=== PATIENT | female | born 1955 | race Caucasian/White ===

== ENCOUNTER 2016-06-22 12:50 | Inpatient (IN) | payer MEDICARE ==
[2016-06-22] VITALS (17 sets, daily range): BP systolic 77–151; BP diastolic 44–101; PULSE 77–96; RESP 12–20; TEMP 98–98.4; O2SAT 84–100
[~2016-06-22 12:50] MED LIST: ATEN-102 PO; ATOR40TA49 PO; BACT800T5 PO; CEPH500C3 PO; CYCL-36 PO; DEXA1TAB2 PO; DULO20 PO; FENO145T2 PO; FENT50DI T-DERMAL; FURO1TAB93 PO; GLUCTAB PO; HYDR-3129 PO; LISI-360 PO; NICO14DI TD; OMEGCAP21 PO; OMEP20TA PO; OS-CTAB3 PO; REST30CA PO; ROPI2TAB23 PO
[2016-06-22] MEDS ORDERED: SODIUM CHLORIDE 0.9% FLUSH 5 ML FLUSH IVF PRN (13:00)
[2016-06-22] MEDS ORDERED: NALOXONE HCL 2 MG/2 ML VIAL IV ONE (13:00)
[2016-06-22 13:07] LABS: BLOOD GAS BASE EXCESS -1.7 mmol/L (-2-2); BLOOD GAS CARBOXYHEMOGLOBIN 3.8 % (0-4); BLOOD GAS HCO3 23 mmol/L (22-26); BLOOD GAS METHEMOGLOBIN 1.1 % (0-2); BLOOD GAS O2 HGB SATURATION 86 % (90-100); BLOOD GAS OXYGEN CONTENT 17.1 Vol % (12.0-20.0); BLOOD GAS PCO2 42 mmHG (38-42); BLOOD GAS PO2 60 mmHG (61-120); BLOOD GAS TOTAL HGB 14.2 G/DL (12.0-16.0); TEMP CORR TO 98.6
[2016-06-22 13:08] LABS: CRITICAL VALUE YES; DRAW SITE LT RADIAL; FIO2 100 %; NUMBER OF ARTERIAL PUNCTURES 1; OXYGEN DEVICE NRB; STAT YES; ULNAR PULSE PRESENT
[2016-06-22 13:27] LABS: AUTOMATED NEUTROPHIL # 6.8 TH/MM3 (1.8-7.7); BASOPHIL # 0.5 TH/MM3 (0-0.2); BASOPHIL % 4.9 % (0.0-2.0); EOSINOPHIL % 0.1 % (0.0-4.0); LYMPH % 22.2 % (9.0-44.0); LYMPHOCYTE # 2.2 TH/MM3 (1.0-4.8); MEAN CELL VOLUME 87.8 FL (80.0-100.0); MEAN CORPUSCULAR HEMOGLOBIN 28.1 PG (27.0-34.0); MEAN CORPUSCULAR HGB CONC 32.1 % (32.0-36.0); MONO % 5.4 % (0.0-8.0); NEUT % 67.4 % (16.0-70.0); PLATELET COUNT 169 TH/MM3 (150-450); RED BLOOD COUNT 5.47 MIL/MM3 (4.00-5.30); RED CELL DISTRIBUTION WIDTH 14.3 % (11.6-17.2)
--- NOTE | 2016-06-22 13:32 | PD ---
HPI . Altered mental status Chief Complaint: Altered Mental Status Time Seen by Provider: 12:57 Travel History International Travel<30 days: No Contact w/Intl Traveler<30days: No History of Present Illness HPI Patient presents via [facility] with altered mental status. EMS reported that her gave her an extra dose of triazolam and Percocet in the middle the night because she was not sleeping well. This morning, she did not wake up. EMS gave 2 doses of Narcan 0.4 mg IV and will little if any response. They reported some mild hypotension but good oxygen saturation on oxygen by nasal cannula. They treated her in route with a fluid bolus. Patient's medical history is significant for breast CA with bone metastases hypertension, diabetes, cervical spine stenosis and polypharmacy. Her manages her medications. PFSH Past Medical History Hx Anticoagulant Therapy: Yes Arthritis: Yes Asthma: No Autoimmune Disease: No Depression: Yes Heart Rhythm Problems: No Cancer: Yes (RIGHT BREAST WITH METS TO BONE) Cardiac Catheterization: No Cardiovascular Problems: Yes High Cholesterol: Yes Chemotherapy: Yes (2 YRS AGO) Chest Pain: No Congestive Heart Failure: No COPD: No Cerebrovascular Accident: No Diabetes: Yes Diminished Hearing: No Endocrine: Yes Gastrointestinal Disorders: Yes (GERD, ESOPAGEAL STRICTURE WITH MULTIPLE DILITATIONS, ULCER) GERD: Yes Glaucoma: No Genitourinary: No Headaches: Yes (MIGRAINE HX SINCE AGE 12) Hepatitis: No Hiatal Hernia: Yes Hypertension: Yes Immune Disorder: No Kidney Stones: No 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) Neurologic: Yes (MIGRAINES) Psychiatric: Yes Reproductive: No Respiratory: Yes (BRONCHITIS 1-2 TIMES/YEAR) Myocardial Infarction: No Renal Failure: No Seizures: No Sleep Apnea: No Thyroid Disease: No Ulcer: Yes Menopausal: Yes Tubal Ligation: Yes Past Surgical History Abdominal Surgery: No AICD: No Body Medical Devices: IMPLANTED PORT LEFT CHEST Cardiac Surgery: No Coronary Artery Bypass Graft: No Ear Surgery: No Endocrine Surgery: No Eye Surgery: Yes (LASIK) Genitourinary Surgery: No Gynecologic Surgery: No Joint Replacement: No Mastectomy: Yes (right) Neurologic Surgery: No Oral Surgery: No Pacemaker: No Thoracic Surgery: Yes (RIGHT MASTECTOMY WITH RECONSTRUCTION) Other Surgery: Yes ( R port placement) Social History Alcohol Use: Yes (VERY RARELY) Tobacco Use: Yes (1 PPD) Substance Use: No Allergies-Medications (Allergen,Severity, Reaction): Coded Allergies: Adhesives (Verified Allergy, Severe, Rash, 02/03/16) Bacitracin (Verified Allergy, Severe, ITCHING, 02/03/16) *MDRO Multi-Drug Resistant Organism (Verified Adverse Reaction, Unknown, 02/03/16) 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 - 12/29/15 Reported Meds & Prescriptions Reported Meds & Active Scripts Active Reported Ranitidine (Ranitidine HCl) 300 Mg Tab 300 Mg PO DAILY Cymbalta DR (Duloxetine HCl) 60 Mg Capdr 60 Mg PO DAILY Fenofibrate 145 Mg Tab 145 Mg PO DAILY Atenolol 50 Mg Tab 50 Mg PO DAILY Omeprazole 20 Mg Tab 20 Mg PO DAILY Oxycodone (Oxycodone HCl) 30 Mg Tab 30 Mg PO Q6H PRN Review of Systems ROS Limitations: Altered Mental Status Physical Exam Narrative GENERAL: Obtunded. Feet and hands are pj and cold to the touch. SKIN: Sacral decubitus. It is about a centimeter in diameter. It is not draining purulent fluid. HEAD: Atraumatic. Normocephalic. EYES: Pupils equal and round. ENT: No nasal bleeding or discharge. Mucous membranes pink and moist. NECK: Trachea midline. CARDIOVASCULAR: Regular rate and rhythm. Heart sounds are normal. RESPIRATORY: No accessory muscle use. Lungs are clear. She is breathing spontaneously. GASTROINTESTINAL: Abdomen soft, non-tender, nondistended. MUSCULOSKELETAL: No obvious deformities. No edema. NEUROLOGICAL: Obtunded. [place] coma score 3. PSYCHIATRIC: Unable to assess. Data Data Last Documented VS Vital Signs Date Time Temp Pulse Resp B/P Pulse Ox O2 Delivery O2 Flow Rate FiO2 06/22/16 14:15 86 14 105/85 95 Ventilator 06/22/16 14:13 60 06/22/16 13:00 15 Orders Electrocardiogram (06/22/16 12:57) Complete Blood Count With Diff (06/22/16 12:57) Comprehensive Metabolic Panel (06/22/16 12:57) Creatine Kinase (Cpk) (06/22/16 12:57) Troponin I (06/22/16 12:57) Urinalysis - C+S If Indicated (06/22/16 12:57) Arterial Blood Gas (Abg) (06/22/16 12:57) Ct Brain W/O Iv Contrast(Rout) (06/22/16 12:57) Ecg Monitoring (06/22/16 12:57) Iv Access Insert/Monitor (06/22/16 12:57) Cath For Specimen (06/22/16 12:57) Oximetry (06/22/16 12:57) Oxygen Administration (06/22/16 12:57) Naloxone Inj (Narcan Inj) (06/22/16 13:00) Sodium Chloride 0.9% Flush (Ns Flush) (06/22/16 13:00) Drug Screen, Random Urine (06/22/16 12:57) Lactic Acid Sepsis Protocol (06/22/16 13:05) Urine Culture (06/22/16 13:45) Etomidate Inj (Amidate Inj) (06/22/16 14:15) Succinylcholine Inj (Quelicin Inj) (06/22/16 14:15) Admit Order (Ed Use Only) (06/22/16 14:17) Labs Laboratory Tests Test 06/22/16 06/22/16 06/22/16 06/22/16 12:57 13:15 13:20 13:45 Blood Gas Puncture Site LT RADIAL Blood Gas Patient Temperature 98.6 Blood Gas HCO3 23 mmol/L Blood Gas Base Excess -1.7 mmol/L Blood Gas Oxygen Saturation 86 % Arterial Blood pH 7.36 Arterial Blood Partial 42 mmHG Pressure CO2 Arterial Blood Partial 60 mmHG Pressure O2 Arterial Blood Oxygen Content 17.1 Vol % Arterial Blood 3.8 % Carboxyhemoglobin Arterial Blood Methemoglobin 1.1 % Blood Gas Hemoglobin 14.2 G/DL Oxygen Delivery Device NRB Blood Gas Inspired Oxygen 100 % White Blood Count 10.0 TH/MM3 Red Blood Count 5.47 MIL/MM3 Hemoglobin 15.4 GM/DL Hematocrit 48.0 % Mean Corpuscular Volume 87.8 FL Mean Corpuscular Hemoglobin 28.1 PG Mean Corpuscular Hemoglobin 32.1 % Concent Red Cell Distribution Width 14.3 % Platelet Count 169 TH/MM3 Mean Platelet Volume 9.3 FL Neutrophils (%) (Auto) 67.4 % Lymphocytes (%) (Auto) 22.2 % Monocytes (%) (Auto) 5.4 % Eosinophils (%) (Auto) 0.1 % Basophils (%) (Auto) 4.9 % Neutrophils # (Auto) 6.8 TH/MM3 Lymphocytes # (Auto) 2.2 TH/MM3 Monocytes # (Auto) 0.5 TH/MM3 Eosinophils # (Auto) 0.0 TH/MM3 Basophils # (Auto) 0.5 TH/MM3 CBC Comment AUTO DIFF Differential Comment AUTO DIFF CONFIRMED Sodium Level 138 MEQ/L Potassium Level 4.9 MEQ/L Chloride Level 98 MEQ/L Carbon Dioxide Level 27.7 MEQ/L Anion Gap 12 MEQ/L Blood Urea Nitrogen 24 MG/DL Creatinine 1.40 MG/DL Estimat Glomerular Filtration 38 ML/MIN Rate Random Glucose 125 MG/DL Calcium Level 9.8 MG/DL Total Bilirubin 0.4 MG/DL Aspartate Amino Transf 97 U/L (AST/SGOT) Alanine Aminotransferase 52 U/L (ALT/SGPT) Alkaline Phosphatase 172 U/L Total Creatine Kinase 162 U/L Troponin I 0.62 NG/ML Total Protein 7.7 GM/DL Albumin 3.2 GM/DL Lactic Acid Level 4.6 mmol/L Urine Collection Type CATH Urine Color YELLOW Urine Turbidity CLEAR Urine pH 6.5 Urine Specific [place] 1.016 Urine Protein 300 OR GREATER mg/dL Urine Glucose (UA) 100 mg/dL Urine Ketones NEG mg/dL Urine Occult Blood LARGE Urine Nitrite NEG Urine Bilirubin NEG Urine Leukocyte Esterase NEG Urine RBC 0-3 /hpf Urine WBC 6-8 /hpf Urine Amorphous Sediment MOD Urine Fine Granular Casts 0-2 /lpf Urine Coarse Granular Casts 0-2 /lpf Urine White Blood Cell Casts 0-2 /lpf Microscopic Urinalysis Comment CULTURE INDICATED Urine Opiates Screen NEG Urine Barbiturates Screen NEG Urine Amphetamines Screen NEG Urine Benzodiazepines Screen POS Urine Cocaine Screen NEG Urine Cannabinoids Screen NEG [facility] Medical Decision Making Medical Screen Exam Complete: Yes Emergency Medical Condition: Yes Interpretation(s) EKG shows a sinus rhythm. Rate is 96. She has inverted T waves in the inferior leads which is a new finding. Differential Diagnosis Differential diagnosis of altered mental status includes but is not limited to infection, electrolyte abnormality, neurological event, intoxication Narrative Course Patient presented to us via [facility] for a presumed overdose. She has not responded to Narcan. We gave her 2 mg IV shortly after arrival with no response. Intubation was strongly considered recent patient. However, the patient did have pain in his respirations. The respiratory therapist was able to get a saturation 100%. Therefore, a blood gas was done to 8 in the decision as to whether or not to intubate. Her PCO2 is 41.7. Therefore, intubation will not be performed at this time. We will watch her expectantly. ABG Test 06/22/16 12:57 Blood Gas HCO3 23 mmol/L Blood Gas Base Excess -1.7 mmol/L Blood Gas Oxygen Saturation 86 *L % Arterial Blood pH 7.36 L Arterial Blood Partial 42 mmHG Pressure CO2 Arterial Blood Partial 60 L mmHG Pressure O2 Arterial Blood Oxygen Content 17.1 Vol % Arterial Blood 3.8 % Carboxyhemoglobin Arterial Blood Methemoglobin 1.1 % Blood Gas Hemoglobin 14.2 G/DL Oxygen Delivery Device NRB Blood Gas Inspired Oxygen 100 % CBC & BMP Diagram 06/22/16 13:15 Troponin is elevated at 0.62. UA is negative for nitrite and leukocyte esterase. Toxicology is positive for benzodiazepines. The drug screen is negative for opiates and barbiturates. Postintubation chest x-ray shows appropriate positioning of the endotracheal tube. It also shows some left basilar airspace disease. 5:30 PM The patient's mental status has been gradually improving. Her vital signs have normalized. She is now awake and alert and is nodding her head yes and no to questions. She has been extubated. The patient has received IV fluids but was never on pressors. The patient has not yet been transferred to [facility] to the ICU. Therefore, I have ordered a repeat lactic acid and troponin. Critical Care Narrative Aggregate critical care time was 60 minutes. Time to perform other separately billable procedures was not included in the critical care time. My time did not include minutes spent treating any other patients simultaneously or on activities that did not directly contribute to the patient's treatment. The services I provided to this patient were to treat and/or prevent clinically significant deterioration due to altered mental status I provided critical care services requiring my management, as noted below: Chart data review, documentation time, medication orders and management, vital sign assessments/reviewing monitor data, ordering and reviewing lab tests, ordering and interpreting/reviewing x-rays and diagnostic studies, care of the patient and discussion of the patient with the admitting physicians Procedures Procedure Narrative The patient was put in optimal position for the procedure. Rapid sequence intubation was initiated by me using 20 milligrams of etomidate IV and 100 milligrams of succinylcholine IV. The patient was intubated with a 7.5 cuffed endotracheal tube. Tube placement was confirmed by visualization of the tube and balloon passing through the cords, capnometry and breath sounds. Breath sounds were equal and well aerated bilaterally postintubation. No breath sounds over stomach. Patient tolerated procedure well. Chest x-ray pending. CENTRAL VENOUS LINE: The site was prepped with ChloraPrep and sterilely draped. The deep vein was cannulated using normal Seldinger technique. A 5 lumen central line was placed in the right femoral vein. Blood is aspirated from all ports and all ports flushed easily. Diagnosis Primary Impression: Altered mental state Qualified Code: R40.2432 - [place] coma scale total score 3-8, at arrival to emergency department Chel Gomez MD Jun 22, 2016 13:32
[2016-06-22 13:37] LABS: CHLORIDE 98 MEQ/L (98-107); POTASSIUM 4.9 MEQ/L (3.5-5.1); SODIUM (NA) 138 MEQ/L (136-145)
[2016-06-22 13:38] LABS: HEMO FLAGS AUTO DIFF
[2016-06-22 13:41] LABS: ANION GAP 12 MEQ/L (5-15); BICARBONATE 27.7 MEQ/L (21.0-32.0); BLOOD UREA NITROGEN 24 MG/DL (7-18)
[2016-06-22 13:44] LABS: ALT (GPT) 52 U/L (10-53); AST (GOT) 97 U/L (15-37); GLOMERULAR FILTRATION RATE 38 ML/MIN (>89)
[2016-06-22 13:46] LABS: TOTAL BILIRUBIN ADULT 0.4 MG/DL (0.2-1.0)
[2016-06-22 13:47] LABS: ALKALINE PHOSPHATASE 172 U/L (45-117); CREATINE KINASE 162 U/L (26-192)
[2016-06-22 13:55] LABS: BLOOD, URINE LARGE (NEG); GLUCOSE,URINE 100 mg/dL (NEG); KETONE, URINE NEG (NEG); NITRITE,URINE NEG (NEG); PH, URINE 6.5 (5.0-8.5)
[2016-06-22 13:56] LABS: METHOD OF COLLECTION CATH; URINE COLOR YELLOW (YELLW/STRAW)
[2016-06-22 14:00] LABS: COMMENT (UR) CULTURE INDICATED; CULTURE IF INDICATED CULTURE INDICATED; RBC, URINE 0-3 /hpf (0-3)
[2016-06-22 14:01] LABS: WHITE BLOOD CELL CAST, URINE 0-2 /lpf
[2016-06-22 14:03] LABS: AMPHETAMINE, URINE NEG (NEG); COCAINE, URINE NEG (NEG)
[2016-06-22 14:04] LABS: SCAN/DIFF AUTO DIFF CONFIRMED
[2016-06-22] MEDS ORDERED: ETOMIDATE 20 MG/10 ML VIAL IV PUSH ONE (14:15)
[2016-06-22] MEDS ORDERED: SUCCINYLCHOLINE CHLORIDE 200 MG/10 ML VIAL IV PUSH ONE (14:15)
[2016-06-22] MEDS ORDERED: ATEN50TA PO (14:43)
[2016-06-22] MEDS ORDERED: RANI300T PO (14:43)
[2016-06-22] MEDS ORDERED: OMEP20TA PO (14:43)
[2016-06-22] MEDS ORDERED: OXYC30TA PO (14:43)
[2016-06-22] MEDS ORDERED: CYMB60CA PO (14:43)
[2016-06-22] MEDS ORDERED: TEMA30CA PO (14:43)
[2016-06-22] MEDS ORDERED: FENO145T2 PO (14:43)
[2016-06-22 14:45] LABS: BARBITURATES, URINE NEG (NEG)
[2016-06-22] MEDS ORDERED: PROPOFOL 1000 MG/100 ML BTL IV SCH (14:45)
--- NOTE | 2016-06-22 14:56 | RADHPO ---
EXAM DATE/TIME: 06/22/2016 14:32 [facility] COMPARISON: CHEST SINGLE AP, April 17, 2013, 4:24. INDICATIONS : Post intubation. MEDICAL HISTORY : Carcinoma, breast. Carcinoma, bone. SURGICAL HISTORY : Mastectomy, right. Left breast reduction ENCOUNTER: Initial ACUITY: 1 day PAIN SCORE: 10/10 LOCATION: Bilateral chest FINDINGS: Endotracheal tube has been placed and its tip is at the level of the clavicles. Mild peripheral airspace disease is seen in the left base. Left subclavian Ujaqox-j-Jhlq catheter is again identified. Tip is in the brachiocephalic vein. Transverse fractures identified through the right humeral neck. CONCLUSION: Status post intubation with endotracheal tube in appropriate position. Peripheral airspace disease left lung base. Stable Wjovmi-b-[id number] catheter. Fractured proximal right humerus. Julian Camp MD on June 22, 2016 at 14:52 Board Certified Radiologist. This report was verified electronically.
[2016-06-22] MEDS ORDERED: SODIUM CHLOR 0.9% 1000 ML INJ 1,000 ML IV ONE ×2 (15:22)
[2016-06-22] MEDS ORDERED: PIPERACIL-TAZO 4.5 GM PREMIX 100 ML IV STA (15:22)
[2016-06-22] MEDS ORDERED: SODIUM CHLOR 0.9% 1000 ML INJ 400 ML IV ONE (15:22)
[2016-06-22] MEDS ORDERED: VANCOMYCIN INJ 1,000 MG in SODIUM CHLOR 0.9% 250 ML INJ 250 ML IV STA (15:22)
[2016-06-22 15:23] LABS: LACTIC ACID GHOST NOT REPORTABLE
--- NOTE | 2016-06-22 17:03 | RADHPO ---
EXAM DATE/TIME: 06/22/2016 16:33 [facility] COMPARISON: MRI CERVICAL SPINE W/O CONTRAST, December 30, 2015, 10:06. CT BRAIN W/O CONTRAST, April 13, 2013 , 20:25. INDICATIONS : Altered mental status. RADIATION DOSE: 47.31 CTDIvol (mGy) MEDICAL HISTORY : Carcinoma, breast. Cardiovascular disease Hypertension.Anticoagulant therapy. SURGICAL HISTORY : Mastectomy, right. ENCOUNTER: Initial ACUITY: 1 day PAIN SCALE: 0/10 LOCATION: cranial TECHNIQUE: Multiple contiguous axial images were obtained of the head. Using automated exposure control and adj ustment of the mA and/or kV according to patient size, radiation dose was kept as low as reasonably a chievable to obtain optimal diagnostic quality images. FINDINGS: CEREBRUM: The ventricles are unremarkable. No evidence of midline shift, mass lesion, hemorrhage or acute infa rction. No extra-axial fluid collections are seen. POSTERIOR FOSSA: The cerebellum and brainstem are intact. The 4th ventricle is midline. The cerebellopontine angle i s unremarkable. EXTRACRANIAL: The visualized portion of the orbits is intact. SKULL: The calvaria is intact. No evidence of skull fracture. CONCLUSION: No evidence of acute infarct, hemorrhage, mass or edema. Julian Camp MD on June 22, 2016 at 16:58 Board Certified Radiologist. This report was verified electronically.
--- NOTE | 2016-06-22 22:33 | HHI.HP ---
[facility] Service Critical Care Medicine Primary Care Physician Naz Gunn MD Admission Diagnosis AMS Diagnosis: Chief Complaint: Unresponsive. Travel History International Travel<30 Days: No Contact w/Intl Traveler <30 Da: No Traveled to Known Affected Are: No History of Present Illness Patient was given an extra dose of her routine benzo and narcotic last night and became unresponsive. Required intubation and mechanical ventilation when she was unresponsive to narcan. Now extubated and protecting airway. She has battled with mets from breast cancer and has been admitted before from over sedation. Past Family Social History Allergies: Coded Allergies: Adhesives (Verified Allergy, Severe, Rash, 02/03/16) Bacitracin (Verified Allergy, Severe, ITCHING, 02/03/16) *MDRO Multi-Drug Resistant Organism (Verified Adverse Reaction, Unknown, 02/03/16) 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 - 12/29/15 Past Medical History Past Medical History Hx Anticoagulant Therapy: Yes Arthritis: Yes Asthma: No Autoimmune Disease: No Depression: Yes Heart Rhythm Problems: No Cancer: Yes (RIGHT BREAST WITH METS TO BONE) Cardiac Catheterization: No Cardiovascular Problems: Yes High Cholesterol: Yes Chemotherapy: Yes (2 YRS AGO) Chest Pain: No Congestive Heart Failure: No COPD: No Cerebrovascular Accident: No Diabetes: Yes Diminished Hearing: No Endocrine: Yes Gastrointestinal Disorders: Yes (GERD, ESOPAGEAL STRICTURE WITH MULTIPLE DILITATIONS, ULCER) GERD: Yes Glaucoma: No Genitourinary: No Headaches: Yes (MIGRAINE HX SINCE AGE 12) Hepatitis: No Hiatal Hernia: Yes Hypertension: Yes Immune Disorder: No Kidney Stones: No 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) Neurologic: Yes (MIGRAINES) Psychiatric: Yes Reproductive: No Respiratory: Yes (BRONCHITIS 1-2 TIMES/YEAR) Myocardial Infarction: No Renal Failure: No Seizures: No Sleep Apnea: No Thyroid Disease: No Ulcer: Yes Menopausal: Yes Tubal Ligation: Yes Past Surgical History Abdominal Surgery: No AICD: No Body Medical Devices: IMPLANTED PORT LEFT CHEST Cardiac Surgery: No Coronary Artery Bypass Graft: No Ear Surgery: No Endocrine Surgery: No Eye Surgery: Yes (LASIK) Genitourinary Surgery: No Gynecologic Surgery: No Joint Replacement: No Mastectomy: Yes (right) Neurologic Surgery: No Oral Surgery: No Pacemaker: No Thoracic Surgery: Yes (RIGHT MASTECTOMY WITH RECONSTRUCTION) Other Surgery: Yes ( R port placement) Social History Alcohol Use: Yes (VERY RARELY) Tobacco Use: Yes (1 PPD) Substance Use: No Allergies-Medications Allergies-Medications (Allergen,Severity, Reaction): Coded Allergies: Adhesives (Verified Allergy, Severe, Rash, 02/03/16) Bacitracin (Verified Allergy, Severe, ITCHING, 02/03/16) *MDRO Multi-Drug Resistant Organism (Verified Adverse Reaction, Unknown, 02/03/16) 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 - 12/29/15 Reported Meds & Prescriptions Reported Meds & Active Scripts Active Reported Ranitidine (Ranitidine HCl) 300 Mg Tab 300 Mg PO DAILY Cymbalta DR (Duloxetine HCl) 60 Mg Capdr 60 Mg PO DAILY Fenofibrate 145 Mg Tab 145 Mg PO DAILY Atenolol 50 Mg Tab 50 Mg PO DAILY Omeprazole 20 Mg Tab 20 Mg PO DAILY Oxycodone (Oxycodone HCl) 30 Mg Tab 30 Mg PO Q6H PRN Physical Exam Vital Signs Vital Signs Date Time Temp Pulse Resp B/P Pulse Ox O2 Delivery O2 Flow Rate FiO2 06/22/16 20:40 84 20 151/80 97 Nasal Cannula 4 06/22/16 20:00 84 16 148/93 96 Nasal Cannula 4 06/22/16 19:30 98.4 84 14 149/101 96 Nasal Cannula 4 06/22/16 18:00 94 Nasal Cannula 4 06/22/16 17:25 98 Nasal Cannula 4 06/22/16 17:17 84 14 120/83 98 Ventilator 06/22/16 16:40 99 100 06/22/16 16:00 86 14 99/80 99 06/22/16 15:34 80/ 06/22/16 15:20 82 14 77/47 99 06/22/16 15:01 88 14 88/44 99 06/22/16 14:50 88/44 06/22/16 14:30 88 14 97 Ventilator 06/22/16 14:30 98 60 06/22/16 14:15 86 14 105/85 95 Ventilator 06/22/16 14:13 60 06/22/16 13:00 92 Non-Rebreather 15 06/22/16 13:00 96 12 99/69 96 06/22/16 12:50 94 Physical Exam PE: P 80, BP 154/82, R 20, Sats 95% on 3L Head: Atraumatic. Neck: Supple, airway widely patent. No stridor. Lungs: Clear, no wheezes or crackles. Heart: NL S1S2, no m,r. No JVD. Chest: S/P right mastectomy with reconstruction. Scars well healed. Abdomen: Mildly distended, Soft, nontender. BS active. Extremities: Well perfused, warm. Lower legs with tight skin and chronic induration. Toes ruborous, adequately perfused. Neuro: Speech clear, raspy-chronic. Moves 4 limbs. Laboratory Laboratory Tests Test 06/22/16 06/22/16 06/22/16 06/22/16 12:57 13:15 13:20 13:45 Blood Gas Puncture Site LT RADIAL Blood Gas Patient Temperature 98.6 Blood Gas HCO3 23 Blood Gas Base Excess -1.7 Blood Gas Oxygen Saturation 86 Arterial Blood pH 7.36 Arterial Blood Partial 42 Pressure CO2 Arterial Blood Partial 60 Pressure O2 Arterial Blood Oxygen Content 17.1 Arterial Blood 3.8 Carboxyhemoglobin Arterial Blood Methemoglobin 1.1 Blood Gas Hemoglobin 14.2 Oxygen Delivery Device NRB Blood Gas Inspired Oxygen 100 White Blood Count 10.0 Red Blood Count 5.47 Hemoglobin 15.4 Hematocrit 48.0 Mean Corpuscular Volume 87.8 Mean Corpuscular Hemoglobin 28.1 Mean Corpuscular Hemoglobin 32.1 Concent Red Cell Distribution Width 14.3 Platelet Count 169 Mean Platelet Volume 9.3 Neutrophils (%) (Auto) 67.4 Lymphocytes (%) (Auto) 22.2 Monocytes (%) (Auto) 5.4 Eosinophils (%) (Auto) 0.1 Basophils (%) (Auto) 4.9 Neutrophils # (Auto) 6.8 Lymphocytes # (Auto) 2.2 Monocytes # (Auto) 0.5 Eosinophils # (Auto) 0.0 Basophils # (Auto) 0.5 CBC Comment AUTO DIFF Differential Comment AUTO DIFF CONFIRMED Sodium Level 138 Potassium Level 4.9 Chloride Level 98 Carbon Dioxide Level 27.7 Anion Gap 12 Blood Urea Nitrogen 24 Creatinine 1.40 Estimat Glomerular Filtration 38 Rate Random Glucose 125 Calcium Level 9.8 Total Bilirubin 0.4 Aspartate Amino Transf 97 (AST/SGOT) Alanine Aminotransferase 52 (ALT/SGPT) Alkaline Phosphatase 172 Total Creatine Kinase 162 Troponin I 0.62 Total Protein 7.7 Albumin 3.2 Lactic Acid Level 4.6 Urine Collection Type CATH Urine Color YELLOW Urine Turbidity CLEAR Urine pH 6.5 Urine Specific [place] 1.016 Urine Protein 300 OR GREATER Urine Glucose (UA) 100 Urine Ketones NEG Urine Occult Blood LARGE Urine Nitrite NEG Urine Bilirubin NEG Urine Leukocyte Esterase NEG Urine RBC 0-3 Urine WBC 6-8 Urine Amorphous Sediment MOD Urine Fine Granular Casts 0-2 Urine Coarse Granular Casts 0-2 Urine White Blood Cell Casts 0-2 Microscopic Urinalysis Comment CULTURE INDICATED Urine Opiates Screen NEG Urine Barbiturates Screen NEG Urine Amphetamines Screen NEG Urine Benzodiazepines Screen POS Urine Cocaine Screen NEG Urine Cannabinoids Screen NEG Test 06/22/16 17:36 Lactic Acid Level 1.5 Troponin I 2.50 Date/Time Procedure Status Source Growth 06/22/16 13:45 Urine Culture Received Urine Catheterized Urine Pending Result Diagram: 06/22/16 1315 06/22/16 1315 Imaging CXR clear Assessment and Plan Problem List: (1) Polypharmacy ICD Code: Z79.899 Status: Acute (2) Acute hypoxemic respiratory failure ICD Code: J96.01 Status: Acute (3) Altered mental state ICD Code: R41.82 Status: Acute Assessment and Plan Plan: 1. No sedation or analgesia tonight. 2. Restart at lower doses prn in a.m. 3. HOB up 30 degrees. 4. Pepcid. 5. Chemical SDVT px. 6. UA. 7. Transfer to [facility] in a.m. Overall impression: Became obtunded from extra sedative and analgesis given to her by her last night. Required intubation. Now extubated. Stable hemodynamics. Problem Qualifiers (1) Altered mental state: Qualified Code: R40.2432 - [place] coma scale total score 3-8, at arrival to emergency department Damián Singh MD Jun 22, 2016 22:33
[2016-06-22] MEDS ORDERED: MISCELLANEOUS NURSING INFORMATION XX SCH (22:45)
[2016-06-22] MEDS ORDERED: ONDANSETRON HCL 4 MG/2 ML VIAL IV PRN (22:45)
[2016-06-22] MEDS ORDERED: CHLORHEXIDINE GLUCONATE 2 % 1 PACK (2 CLOTHS) TOP PRN (22:45)
[2016-06-22] MEDS ORDERED: RESP: ALBUTEROL 2.5 MG/IPRATROPIUM 0.5 MG NEB (PRN) INH (22:45)
[2016-06-22] MEDS ORDERED: SODIUM CHLORIDE 0.9% FLUSH 5 ML FLUSH IV FLUSH PRN (22:45)
[2016-06-22] MEDS: SODIUM CHLOR 0.9% 1000 ML INJ 1,000 ML IV SCH (22:53)
[2016-06-22] MEDS: HEPARIN SODIUM - SQ 10,000 UNITS/ML VIAL SQ SCH (22:53)
[2016-06-23] VITALS (9 sets, daily range): BP systolic 97–149; BP diastolic 64–81; PULSE 66–92; RESP 16–22; TEMP 96.6–97.9; O2SAT 94–99
[2016-06-23] MEDS: CHLORHEXIDINE GLUCONATE 2 % 1 PACK (2 CLOTHS) TOP SCH (03:24)
[2016-06-23] MEDS: HEPARIN SODIUM - SQ 10,000 UNITS/ML VIAL SQ SCH ×3 (06:16→22:45)
[2016-06-23 06:33] LABS: AUTOMATED NEUTROPHIL # 5.1 TH/MM3 (1.8-7.7); BASOPHIL % 0.6 % (0.0-2.0); EOSINOPHIL % 0.5 % (0.0-4.0); HEMATOCRIT 35.9 % (35.0-46.0); HEMO FLAGS DIFF FINAL; LYMPH % 21.3 % (9.0-44.0); LYMPHOCYTE # 1.5 TH/MM3 (1.0-4.8); MEAN CELL VOLUME 87.4 FL (80.0-100.0); MEAN CORPUSCULAR HEMOGLOBIN 29.1 PG (27.0-34.0); MEAN CORPUSCULAR HGB CONC 33.3 % (32.0-36.0); MONO % 6.8 % (0.0-8.0); NEUT % 70.8 % (16.0-70.0); PLATELET COUNT 129 TH/MM3 (150-450); RED CELL DISTRIBUTION WIDTH 15.1 % (11.6-17.2); WHITE BLOOD COUNT 7.3 TH/MM3 (4.0-11.0)
[2016-06-23 07:08] LABS: BICARBONATE 20.6 MEQ/L (21.0-32.0); POTASSIUM 3.8 MEQ/L (3.5-5.1)
[2016-06-23] MEDS: PANTOPRAZOLE SOD 20 MG DELAYED RELEASE TAB PO SCH (08:34)
[2016-06-23] MEDS: DULoxetine HCl DR 60 MG CAP PO SCH (08:34)
[2016-06-23] MEDS: ATENOLOL 50 MG TAB PO SCH (08:35)
[2016-06-23] MEDS: SODIUM CHLORIDE 0.9% FLUSH 5 ML FLUSH IV FLUSH SCH ×2 (08:35→20:28)
[2016-06-23] MEDS: FAMOTIDINE 20 MG TAB PO SCH (08:35)
[2016-06-23] MEDS: FENOFIBRATE 145 MG TAB PO SCH (08:35)
[2016-06-23] MEDS: SODIUM CHLOR 0.9% 1000 ML INJ 1,000 ML IV SCH ×2 (08:39→22:24)
--- NOTE | 2016-06-23 09:25 | HHI.PR ---
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 Vital Signs Date Time Temp Pulse Resp B/P Pulse Ox O2 Delivery O2 Flow Rate FiO2 06/23/16 08:28 97.7 88 17 129/81 95 06/23/16 04:27 97.9 84 18 121/79 99 06/23/16 00:46 97.3 83 20 110/69 94 06/23/16 00:45 Nasal Cannula 4.00 06/22/16 23:00 98.0 77 17 122/82 100 06/22/16 23:00 77 06/22/16 20:40 84 20 151/80 97 Nasal Cannula 4 06/22/16 20:00 84 16 148/93 96 Nasal Cannula 4 06/22/16 20:00 84 06/22/16 19:30 98.4 84 14 149/101 96 Nasal Cannula 4 06/22/16 18:00 94 Nasal Cannula 4 06/22/16 17:25 98 Nasal Cannula 4 06/22/16 17:17 84 14 120/83 98 Ventilator 06/22/16 16:40 99 100 06/22/16 16:00 86 14 99/80 99 06/22/16 15:34 80/ 06/22/16 15:20 82 14 77/47 99 06/22/16 15:01 88 14 88/44 99 06/22/16 14:50 88/44 06/22/16 14:30 88 14 97 Ventilator 06/22/16 14:30 98 60 06/22/16 14:15 86 14 105/85 95 Ventilator 06/22/16 14:13 60 06/22/16 13:00 92 Non-Rebreather 15 06/22/16 13:00 96 12 99/69 96 06/22/16 12:50 94 06/22/16 06/22/16 06/23/16 15:00 23:00 07:00 Intake Total 3250 ml Output Total 500 ml Balance 3250 ml -500 ml Intake IV Total 3250 ml Output Urine Total 500 ml Result Diagram: 06/23/1618 06/23/16 0618 A/P Problem List: (1) Elevated troponin Status: Acute Plan: Pt said she had an upset stomach yesterday. apparently gave her medications..were told an extra benzo she became unresponsive and later intubated and placed in ICU quickly extubated and moved to med/surg. now her troponin has trended up. no cp. nml ekg discussed with dr Niño. He discussed with her oncologist who says she is breast ca free. 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 (6) Humerus fracture Status: Chronic Plan: pt noted to have a proximal right humerus fx. she says that she fell in March and was seen by Ortho and no surgery was planned. reduced range of motion noted. Demar Chaudhary MD Jun 23, 2016 09:25
--- NOTE | 2016-06-23 09:47 | MB ---
cc: HARRY HASSAN MD DATE OF CONSULTATION: 06/23/2016 HISTORY OF PRESENT ILLNESS This is a 60-year-old woman. She has been in the hospital after becoming unresponsive. She has a history of stage IV breast cancer with mets to her bone and has been on chronic benzodiazepine and narcotics. She apparently was given an extra dose last night and became unresponsive which required intubation and mechanical ventilation. She was extubated after approximately 12 hours and she has been brought to the floor. She is currently asymptomatic. She is somewhat of a poor historian. She notes that she had breast cancer 3 or 4 years ago but states that she is a okay now and no further episodes have been present. She does have a history of rather severe kyphosis and underwent cervical fusion in December of this year, because of bilateral radiculopathy. The patient complains of no chest pain or shortness of breath and otherwise has been asymptomatic from a cardiovascular standpoint. Troponins were drawn on admission and her initial troponin was 0.62 with follow-up of 2.5 and 4.44. Electrocardiogram was essentially normal. Chest x-ray reveals no significant evidence for heart failure. Her risk factors for coronary disease are significant for smoking a pack of cigarettes per day which she continues to do. ALLERGIES ADHESIVES AND BACITRACIN. IMAGING STUDIES Chest x-ray shows no evidence for heart failure. She does apparently have a fracture of her humerus. MEDICATIONS Medications at home have included: 1. Cymbalta. 2. Fenofibrate. 3. Atenolol. 4. Oxycodone. 5. Omeprazole. 6. Ranitidine. PHYSICAL EXAMINATION GENERAL: On physical exam she is awake and alert. VITAL SIGNS: Her blood pressure is 120/80, pulse is 70. NECK: There is no neck vein distension. LUNGS: Lungs are essentially clear. CARDIOVASCULAR: Exam reveals a regular rate and rhythm with no murmur or gallop noted. 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 ABDOMEN: Abdomen is soft. There is no tenderness. EXTREMITIES: Reveal no edema. ASSESSMENT The patient has had elevated troponin of uncertain etiology. Her EKG is normal. She could very well have underlying coronary disease which has been unmasked by the stress of her admission. Will get an echocardiogram and plan a cardiac catheterization for her. MD ARUNA Coats/ELLE /8:48 AM /9:07 AM
[2016-06-23] MEDS: ACETAMINOPHEN 325 MG TAB PO PRN ×2 (11:29→20:28)
--- NOTE | 2016-06-23 16:07 | EC ---
Study Study Date:06/23/2016 STUDY CONCLUSIONS SUMMARY - Procedure narrative: Image quality was fair. The study was technically limited due to poor acoustic window availability. - Left ventricle: The cavity size was normal. Wall thickness was normal. Systolic function was normal. The estimated ejection fraction was in the range of 55% to 60%. Although no diagnostic regional wall motion abnormality was identified, this possibility cannot be completely excluded on the basis of this study. Doppler parameters are consistent with abnormal left ventricular relaxation (grade 1 diastolic dysfunction). - Mitral valve: Mild regurgitation. - Tricuspid valve: Mild-moderate regurgitation. - Pulmonary arteries: PA peak pressure: 52mm Hg (S). If LV function is below 40, please consider prescribing an ACEI or ARB or document rationale for non-use. PROCEDURE DATA STUDY STATUS: Elective. Procedure: Transthoracic echocardiography. Image quality was fair. The study was technically limited due to poor acoustic window availability. Scanning was performed from the parasternal, apical, and subcostal acoustic windows. Study completion: The patient tolerated the procedure well. Transthoracic echocardiography. M-mode, complete 2D, complete spectral Doppler, and color Doppler. Height: Height: 63in. Weight: Weight: 140.7lb. Body mass index: BMI: 25kg/m^2. Body surface area: BSA: 1.67m^2. Patient status: Inpatient. CARDIAC ANATOMY LEFT VENTRICLE: The cavity size was normal. Wall thickness was normal. Systolic function was normal. The estimated ejection fraction was in the range of 55% to 60%. Although no diagnostic regional wall motion abnormality was identified, this possibility cannot be completely excluded on the basis of this study. Doppler parameters are consistent with abnormal left ventricular relaxation (grade 1 diastolic dysfunction). AORTIC VALVE: The valve appears to be grossly normal. Doppler: There was no stenosis. No significant regurgitation. Valve area: 3.09cm^2 (Vmax). Indexed valve area: 1.85cm^2/m^2 (Vmax). MITRAL VALVE: The valve appears to be grossly normal. Doppler: There was no evidence for stenosis. Mild regurgitation. Peak gradient: 2mm Hg (D). LEFT ATRIUM: The atrium was normal in size. PULMONIC VALVE: Not well visualized. TRICUSPID VALVE: The valve appears to be grossly normal. Doppler: There was no evidence for stenosis. Mild-moderate regurgitation. PERICARDIUM: There was no pericardial effusion. Patient weight: 140.7lb _Ejection fraction:_ 65-75% _Fractional shortening:_ 32% up to 5Kg 5-11.5Kg 11.6-22.9Kg 23-45Kg 45-57Kg Aortic Root 7-13 <17 13-22 17-27 17-27 LA diam 6-13 <23 24-38 33-47 37-40 RVID 10-17 7-15 7-15 7-18 8-17 LVIDd 12-22 <32 24-38 33-47 37-40 LVPW 2-4 3-6 5-7 6-8 7-8 IVS 2-4 3-6 5-7 6-8 7-8 BASIC MEASUREMENTS ADULT NORMAL Left ventricle LV internal dimension, ED, chordal 43.2 mm 43-52 level, PLAX LV internal dimension, ES, chordal 31.7 mm 23-38 level, PLAX Fractional shortening, chordal level, *27 % >29 PLAX LV posterior wall thickness, ED 9.09 mm IVS/LVPW ratio, ED 1.02 <1.3 Ventricular septum Septal thickness, ED 9.3 mm Aortic valve Leaflet separation 21 mm 15-26 Right ventricle RV internal dimension, ED, PLAX 21 mm 19-38 BASIC MEASUREMENTS ADULT NORMAL Aortic valve Leaflet separation 21 mm 15-26 Aorta Root diameter, ED 27 mm 20-37 Left atrium Anterior-posterior dimension, ES 31 mm 19-40 Anterior-posterior dimension index, ES 1.86 cm/m^2 <2.2 LA/aortic root ratio 1.15 DOPPLER MEASUREMENTS ADULT NORMAL Main pulmonary artery Pressure, S *52 mm Hg =30 Aortic valve Peak velocity, S 118 cm/s Valve area, Vmax 3.09 cm^2 Valve area index, Vmax 1.85 cm^2/m^2 Mitral valve Peak E-wave velocity 74 cm/s Peak A-wave velocity 104 cm/s Deceleration time *236 ms 150-230 Peak gradient, D 2 mm Hg Peak E/A ratio 0.7 Maximal regurgitant velocity 356 cm/s Tricuspid valve Regurgitant peak velocity 337 cm/s Peak RV-RA gradient, S 45 mm Hg Maximal regurgitant velocity 337 cm/s Systemic veins Estimated CVP 10 mm Hg Right ventricle RV pressure, S *55 mm Hg <30 Pulmonic valve Peak velocity, S 92.3 cm/s LEGEND: Mean values are shown as u=mean value. Asterisk (*) bowen values outside specified normal range. Prepared and signed by John Araiza [id number]
--- NOTE | 2016-06-23 18:47 | EKG ---
Date Performed: 06/22/2016 Time Performed: 13:30:12 PTAGE: 60 years EKG: Sinus rhythm Possible left atrial abnormality Possible inferior infarct - age undetermined Abnormal ECG PREVIOUS TRACING : 01/02/2016 06.24 DOCTOR: Graeme Arnold Interpretating Date/Time 06/23/2016 18:41:56
[2016-06-24] VITALS (7 sets, daily range): BP systolic 136–183; BP diastolic 65–84; PULSE 62–76; RESP 17–20; TEMP 96.8–98.7; O2SAT 93–96
[2016-06-24] MEDS: CHLORHEXIDINE GLUCONATE 2 % 1 PACK (2 CLOTHS) TOP SCH (04:00)
[2016-06-24] MEDS: HEPARIN SODIUM - SQ 10,000 UNITS/ML VIAL SQ SCH (06:36)
--- NOTE | 2016-06-24 07:02 | PD.CARD.PN ---
Subjective Subjective Remarks No chest pain or dyspnea. Awake and alert Objective Vital Signs / I&O Vital Signs Date Time Temp Pulse Resp B/P Pulse Ox O2 Delivery O2 Flow Rate FiO2 06/24/16 04:00 98.7 70 18 136/65 93 06/24/16 00:01 Room Air 06/23/16 20:00 97.8 66 22 122/80 97 06/23/16 14:46 88 06/23/16 14:00 96.6 67 16 105/65 95 06/23/16 11:55 97.8 72 17 97/64 95 06/23/16 11:31 93 Room Air 06/23/16 10:02 98 Nasal Cannula 4.00 06/23/16 09:58 96 Nasal Cannula 4.00 06/23/16 08:28 97.7 88 17 129/81 95 I/O 06/23/16 06/23/16 06/23/16 06/24/16 06/24/16 06/24/16 07:00 15:00 23:00 07:00 15:00 23:00 Intake Total 500 ml 240 ml 2474 ml Output Total 500 ml Balance -500 ml 500 ml 240 ml 2474 ml Intake Oral 500 ml 240 ml 200 ml IV Total 2274 ml Output Urine Total 500 ml # Voids 2 # Bowel Movements 0 Physical Exam Lungs clear RRR no murmur Assessment and Plan Assessment and Plan Echo shows normal LV function. Will plan cath this afternoon Hesham Niño MD Jun 24, 2016 07:02
[2016-06-24] MEDS ORDERED: METOPROLOL TARTRATE 25 MG TAB PO PRN (08:45)
[2016-06-24] MEDS ORDERED: INSULIN HUMAN REGULAR 1,000 UNITS/10 ML VIAL SQ PRN (08:45)
[2016-06-24] MEDS ORDERED: LACTATED RINGER'S 1000 ML IV SCH (08:45)
[2016-06-24] MEDS ORDERED: SODIUM CHLORID 0.9% 500 ML IV SCH (08:45)
[2016-06-24] MEDS: FAMOTIDINE 20 MG TAB PO SCH ×2 (09:00→22:08)
[2016-06-24] MEDS: ATENOLOL 50 MG TAB PO SCH (09:00)
[2016-06-24] MEDS: DULoxetine HCl DR 60 MG CAP PO SCH (09:00)
[2016-06-24] MEDS: FENOFIBRATE 145 MG TAB PO SCH (09:00)
[2016-06-24] MEDS: PANTOPRAZOLE SOD 20 MG DELAYED RELEASE TAB PO SCH (09:00)
[2016-06-24] MEDS: ACETAMINOPHEN 325 MG TAB PO PRN ×2 (09:01→19:29)
[2016-06-24] MEDS: SODIUM CHLORIDE 0.9% FLUSH 5 ML FLUSH IV FLUSH SCH ×2 (09:03→22:08)
[2016-06-24] MEDS: SODIUM CHLOR 0.9% 1000 ML INJ 1,000 ML IV SCH ×2 (09:09→22:09)
--- NOTE | 2016-06-24 10:08 | HHI.PR ---
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 Vital Signs Date Time Temp Pulse Resp B/P Pulse Ox O2 Delivery O2 Flow Rate FiO2 06/24/16 08:47 96.8 66 20 183/82 94 06/24/16 04:00 98.7 70 18 136/65 93 06/24/16 00:01 Room Air 06/23/16 20:00 97.8 66 22 122/80 97 06/23/16 14:46 88 06/23/16 14:00 96.6 67 16 105/65 95 06/23/16 11:55 97.8 72 17 97/64 95 06/23/16 11:31 93 Room Air 06/23/16 06/23/16 06/24/16 15:00 23:00 07:00 Intake Total 500 ml 240 ml 2474 ml Balance 500 ml 240 ml 2474 ml Intake Oral 500 ml 240 ml 200 ml IV Total 2274 ml # Voids 2 2 # Bowel Movements 0 1 Result Diagram: 06/23/16 0618 06/23/16 0618 A/P Problem List: (1) Elevated troponin Status: Acute Plan: Pt said she had an upset stomach. apparently gave her medications..were told an extra benzo she became unresponsive and later intubated and placed in ICU quickly extubated and moved to med/surg. now her troponin has trended up. no cp. nml ekg discussed with dr Niño. He discussed with her oncologist who says she is breast ca free. He will do LHC today dc home when ok with cardiology...?later today if lhc negative. (2) Acute hypoxemic respiratory failure Status: Acute Plan: see above (3) Diabetes type 2, controlled Status: Chronic Plan: ssi (4) HTN (hypertension) Status: Chronic Plan: home meds (5) HX: breast cancer Status: Chronic Plan: breast ca free per her oncologist after have stage 4 dz to bone. (6) Humerus fracture Status: Chronic Plan: pt noted to have a proximal right humerus fx. she says that she fell in March and was seen by Ortho and no surgery was planned. reduced range of motion noted. Demar Chaudhary MD Jun 24, 2016 10:08
[2016-06-24] MEDS ORDERED: HEPARIN-NS/PF INJ 500 ML ONE (12:18)
[2016-06-24] MEDS ORDERED: MIDAZOLAM HCL 2 MG/2 ML VIAL ONE (12:19)
[2016-06-24] MEDS ORDERED: LIDOCAINE HCL 1% 50 ML VIAL INFIL PRN (13:00)
[2016-06-24] MEDS ORDERED: ATROPINE SULFATE 1 MG/ML VIAL IV PRN (13:00)
[2016-06-24] MEDS ORDERED: ONDANSETRON HCL 4 MG/2 ML VIAL IV PRN (13:00)
[2016-06-24] MEDS ORDERED: BACITRACIN OINT 0.9 GM PKT TOP ONE (13:00)
[2016-06-24] MEDS ORDERED: MISC INFORMATION XX ONE (13:00)
[2016-06-24] MEDS ORDERED: METOCLOPRAMIDE HCL 10 MG/2 ML VIAL IV PRN (13:00)
[2016-06-24] MEDS ORDERED: SODIUM CHLORIDE 0.9% FLUSH 5 ML FLUSH IVF PRN (13:00)
[2016-06-24] MEDS ORDERED: LORazepam 2 MG/ML VIAL IV PRN (13:00)
[2016-06-24] MEDS ORDERED: SODIUM CHLOR 0.9% 250 ML INJ 250 ML IV PRN (13:00)
--- NOTE | 2016-06-24 13:15 | MA ---
cc: HESHAM NIÑO MD DATE 06/24/2016 PROCEDURE Cardiac catheterization. The patient was prepped and draped in the usual fashion. A 6-sheath was inserted percutaneously into the left femoral artery. Coronary angiography was done with Ricky preformed catheters. RESULTS The left main coronary was normal. The left anterior descending artery demonstrated a rather long stenosis in its midportion compromising the lumen by approximately 50-60%. The remainder of the artery appeared to be free from disease. The left circumflex artery was essentially normal throughout its course as was its major branch. The left circumflex and right coronary appeared to be codominant. The right coronary gave off a large right ventricular branch and posterolateral branch and then was totally occluded. Some distal filling of the right coronary was realized by intracoronary collaterals. CONCLUSIONS This patient demonstrates coronary disease as described above. RECOMMENDATIONS Medical management will be continued. Hesham Niño MD DLW/SSB /1:00 PM /1:02 PM
[2016-06-24] MEDS: CLOPIDOGREL 75 MG TAB PO SCH (14:00)
[2016-06-24] MEDS ORDERED: IOHEXOL 350 MG/ML 50 ML BTL (for Cath Lab) OTHER ONE (14:18)
[2016-06-24] MEDS: METOPROLOL TARTRATE 25 MG TAB PO SCH (22:08)
[2016-06-24] MEDS: SODIUM CHLORIDE 0.9% FLUSH 5 ML FLUSH IVF SCH (22:09)
[2016-06-25] VITALS (7 sets, daily range): BP systolic 137–199; BP diastolic 79–103; PULSE 54–75; RESP 17–20; TEMP 95.5–98.6; O2SAT 90–98
[2016-06-25] MEDS: cloNIDine HCL 0.1 MG TAB PO PRN ×2 (02:06→09:10)
[2016-06-25] MEDS: ACETAMINOPHEN 325 MG TAB PO PRN (02:09)
[2016-06-25] MEDS: SODIUM CHLORIDE 0.9% FLUSH 5 ML FLUSH IVF SCH (09:00)
[2016-06-25] MEDS: METOPROLOL TARTRATE 25 MG TAB PO SCH (09:09)
[2016-06-25] MEDS: DULoxetine HCl DR 60 MG CAP PO SCH (09:09)
[2016-06-25] MEDS: FENOFIBRATE 145 MG TAB PO SCH (09:09)
[2016-06-25] MEDS: ATENOLOL 50 MG TAB PO SCH (09:09)
[2016-06-25] MEDS: FAMOTIDINE 20 MG TAB PO SCH (09:09)
[2016-06-25] MEDS: CLOPIDOGREL 75 MG TAB PO SCH (09:09)
[2016-06-25] MEDS: PANTOPRAZOLE SOD 20 MG DELAYED RELEASE TAB PO SCH (09:09)
[2016-06-25] MEDS: SODIUM CHLORIDE 0.9% FLUSH 5 ML FLUSH IV FLUSH SCH (09:10)
[2016-06-25 09:17] LABS: AUTOMATED NEUTROPHIL # 4.9 TH/MM3 (1.8-7.7); BASOPHIL # 0.1 TH/MM3 (0-0.2); BASOPHIL % 0.9 % (0.0-2.0); EOSINOPHIL # 0.1 TH/MM3 (0-0.4); EOSINOPHIL % 1.7 % (0.0-4.0); HEMATOCRIT 36.5 % (35.0-46.0); HEMO FLAGS DIFF FINAL; LYMPH % 26.4 % (9.0-44.0); MEAN CELL VOLUME 88.4 FL (80.0-100.0); MEAN CORPUSCULAR HEMOGLOBIN 28.5 PG (27.0-34.0); MEAN CORPUSCULAR HGB CONC 32.2 % (32.0-36.0); MONO % 6.5 % (0.0-8.0); NEUT % 64.5 % (16.0-70.0); PLATELET COUNT 147 TH/MM3 (150-450); RED BLOOD COUNT 4.13 MIL/MM3 (4.00-5.30); WHITE BLOOD COUNT 7.6 TH/MM3 (4.0-11.0)
--- NOTE | 2016-06-25 09:31 | HHI.PR ---
Subjective Remarks eager for d/c . bp elevated Objective Vitals heart reg lung cta abd s/nt ext no edema Vital Signs Date Time Temp Pulse Resp B/P Pulse Ox O2 Delivery O2 Flow Rate FiO2 06/25/16 09:04 95 06/25/16 08:33 95.5 67 20 199/91 95 06/25/16 08:23 Room Air 06/25/16 04:57 98.6 61 17 137/79 96 06/25/16 04:30 Room Air 06/25/16 00:28 98.6 75 17 188/103 96 06/24/16 21:04 98.2 65 17 179/79 96 06/24/16 16:27 97.7 62 20 171/84 96 06/24/16 15:00 66 06/24/16 13:25 95 Nasal Cannula 2.00 06/24/16 06/24/16 06/25/16 15:00 23:00 07:00 Intake Total 938 ml Balance 938 ml Intake Oral 480 ml IV Total 458 ml # Voids 6 # Bowel Movements 1 Result Diagram: 06/25/16 0743 06/23/16 0618 A/P Problem List: (1) Elevated troponin Status: Acute Plan: Pt said she had an upset stomach. apparently gave her medications..were told an extra benzo she became unresponsive and later intubated and placed in ICU quickly extubated and moved to med/surg. now her troponin has trended up. no cp. nml ekg lhc showed occlusion of rca branch and some other nonocclusive dz so pt with nstemia d/c home with statin/plavix/bb f/u (2) Acute hypoxemic respiratory failure Status: Acute Plan: see above (3) Diabetes type 2, controlled Status: Chronic Plan: ssi (4) HTN (hypertension) Status: Chronic Plan: home meds (5) HX: breast cancer Status: Chronic Plan: breast ca free per her oncologist after have stage 4 dz to bone. (6) Humerus fracture Status: Chronic Plan: pt noted to have a proximal right humerus fx. she says that she fell in March and was seen by Ortho and no surgery was planned. reduced range of motion noted. Demar Chaudhary MD Jun 25, 2016 09:31
[2016-06-25] MEDS ORDERED: PLAV75TA29 PO (09:38)
[2016-06-25] MEDS ORDERED: LIPI40TA PO (09:38)
[2016-06-25] MEDS ORDERED: METO25TA3 PO (09:38)
--- NOTE | 2016-06-25 09:39 | HHI.DCPOC ---
Discharge Care Plan Diagnosis: (1) NSTEMI (non-ST elevated myocardial infarction) (2) Acute hypoxemic respiratory failure (3) Humerus fracture (4) Diabetes type 2, controlled (5) HX: breast cancer (6) HTN (hypertension) Goals to Promote Your Health * To prevent worsening of your condition and complications * To maintain your health at the optimal level Directions to Meet Your Goals Take your medications as prescribed Follow your dietary instruction Follow activity as directed Keep your appointments as scheduled Take your immunizations and boosters as scheduled If your symptoms worsen call your PCP, if no PCP go to Urgent Care Center or Emergency Room Smoking is Dangerous to Your Health. Avoid second hand smoke Call the 24-hour hour crisis hotline for domestic abuse at Demar Chaudhary MD Jun 25, 2016 09:39
[2016-06-25 09:40] LABS: BICARBONATE 23.7 MEQ/L (21.0-32.0); POTASSIUM 3.5 MEQ/L (3.5-5.1)
[2016-06-25] MEDS ORDERED: LISINOPRIL 10 MG TAB PO STA (12:56)
[2016-06-25] MEDS ORDERED: LISI-519 PO (16:26)
--- NOTE | 2016-06-25 16:31 | HHI.DS ---
Discharge Summary Admission Date Jun 22, 2016 at 14:19 Discharge Date: Jun 25, 2016 Admitting Diagnosis AMS (1) NSTEMI (non-ST elevated myocardial infarction) Diagnosis: Principal (2) Elevated troponin Diagnosis: Principal (3) Acute hypoxemic respiratory failure Diagnosis: Principal (4) Diabetes type 2, controlled Diagnosis: Secondary (5) HTN (hypertension) Diagnosis: Secondary (6) HX: breast cancer Diagnosis: Secondary (7) Humerus fracture Diagnosis: Secondary CBC/BMP: 06/25/16 0743 06/25/16 0743 Significant Findings Laboratory Tests Test 06/22/16 06/23/16 06/25/16 17:36 06:18 07:43 Troponin I 2.50 NG/ML 4.44 NG/ML (0.02-0.05) (0.02-0.05) Platelet Count 129 TH/MM3 147 TH/MM3 (150-450) (150-450) Neutrophils (%) (Auto) 70.8 % (16.0-70.0) Chloride Level 108 MEQ/L (98-107) Carbon Dioxide Level 20.6 MEQ/L (21.0-32.0) Blood Urea Nitrogen 22 MG/DL (7-18) Estimat Glomerular Filtration 74 ML/MIN (>89) Rate Calcium Level 7.8 MG/DL 8.3 MG/DL (8.5-10.1) (8.5-10.1) B-Type Natriuretic Peptide 1092 PG/ML (0-100) Hospital Course Pt said she had an upset stomach. apparently gave her medications..were told an extra benzo she became unresponsive and later intubated and placed in ICU quickly extubated and moved to med/surg. now her troponin has trended up. no cp. nml ekg [facility] showed occlusion of rca branch and some other nonocclusive dz so pt with nstemi. discussed with cardiology. d/c home on metoprolol, plavix, lipitor. lisinipril added for better bp control. Pt d/c was delayed until bp trended down and she was not interested in staying any longer. nursing stated her sbp was 160s/80. Pt Condition on Discharge: Stable Discharge Disposition: Discharge Home Discharge Instructions DIET: Follow Instructions for: Heart Healthy Diet Activities you can perform: Regular-No Restrictions Follow up Referrals: Cardiology - [address] ian silva PCP Follow-up - [address] leeann friedman New Medications: Atorvastatin (Lipitor) 40 Mg Tab 40 MG PO HS Cholesterol Management #30 Ref 6 TAB Lisinopril (Lisinopril) 5 Mg Tab 5 MG PO BID Blood Pressure Management #60 Ref 0 TAB Metoprolol Tartrate (Metoprolol Tartrate) 25 Mg Tab 25 MG PO BID cad #60 Ref 6 TAB Clopidogrel (Plavix) 75 Mg Tab 75 MG PO DAILY cad #30 Ref 6 TAB Continued Medications: Duloxetine DR (Cymbalta DR) 60 Mg Capdr 60 MG PO DAILY #30 Ref 0 CAP Fenofibrate (Fenofibrate) 145 Mg Tab 145 MG PO DAILY #30 Ref 0 TAB Omeprazole (Omeprazole) 20 Mg Tab 20 MG PO DAILY #30 Ref 0 TAB Oxycodone (Oxycodone) 30 Mg Tab 30 MG PO Q6H PRN PAIN Ref 0 TAB Ranitidine (Ranitidine) 300 Mg Tab 300 MG PO DAILY Heartburn Management #30 Ref 0 TAB Discontinued Medications: Atenolol (Atenolol) 50 Mg Tab 50 MG PO DAILY Blood Pressure Management #30 Ref 0 TAB Demar Chaudhary MD Jun 25, 2016 16:31
--- NOTE | 2016-06-25 18:47 | EKG ---
Date Performed: 06/25/2016 Time Performed: 10:34:06 PTAGE: 60 years EKG: Sinus rhythm Nonspecific ST and T wave abnormalities PREVIOUS TRACING : 06/22/2016 13.30 Compared to prior tracing no significant change DOCTOR: John Araiza Interpretating Date/Time 06/25/2016 18:45:32
== END 2016-06-25 20:35 | disposition home or self-care (01) | DRG 280 ==
LOC: PHED 12:50 → PHEDA 14:19 → PHEDH 18:22 → N03A 22:09 → N05A 06-23 00:28
PROVIDERS: ADMIT Internal Medicine Critical Care Medicine; ATTEND Internal Medicine Critical Care Medicine
PROC: 04HK33Z Insertion of Infusion Device into Right Femoral Artery, Percutaneous Approach (ICD-10-PCS; 2016-06-22)
PROC: B2111ZZ Fluoroscopy of Multiple Coronary Arteries using Low Osmolar Contrast (ICD-10-PCS; 2016-06-24)
PROC: 4A023N7 Measurement of Cardiac Sampling and Pressure, Left Heart, Percutaneous Approach (ICD-10-PCS; principal; 2016-06-24 12:30)
DX: I21.4 Non-ST elevation (NSTEMI) myocardial infarction (principal); J96.01 Acute respiratory failure with hypoxia; C79.51 Secondary malignant neoplasm of bone; E11.9 Type 2 diabetes mellitus without complications; I10 Essential (primary) hypertension; Z85.3 Personal history of malignant neoplasm of breast; I25.10 Atherosclerotic heart disease of native coronary artery without angina pectoris; I25.82 Chronic total occlusion of coronary artery; F17.210 Nicotine dependence, cigarettes, uncomplicated; K21.9 Gastro-esophageal reflux disease without esophagitis; M40.209 Unspecified kyphosis, site unspecified; Z79.899 Other long term (current) drug therapy
CPT/HCPCS: 31500; 36556; 36600; 51702; 70450; 71010; 80048; 80053; 80307; 81001; 82550; 82805; 83605; 83880; 84484; 85025; 86850; 86900; 86901; 87086; 87641; 93005; 93306; 93454; 94002; 96374; C1769; C1893; J0330; J1644; J2250; J2310; J2543; J3370; J7030; J7040; J7050; J7120; Q9967

== ENCOUNTER 2016-07-18 22:32 | Inpatient (IN) | payer MEDICARE ==
[~2016-07-18] VITALS: Ht 160 cm; Wt 57.1 kg
[~2016-07-18 22:32] MED LIST changes: -ATEN-102 PO; -ATOR40TA49 PO; -BACT800T5 PO; -CEPH500C3 PO; -CYCL-36 PO; +CYMB60CA PO; -DEXA1TAB2 PO; -DULO20 PO; -FENT50DI T-DERMAL; -FURO1TAB93 PO; -GLUCTAB PO; -HYDR-3129 PO; +LIPI40TA PO; -LISI-360 PO; +LISI-519 PO; +METO25TA3 PO; -NICO14DI TD; -OMEGCAP21 PO; -OS-CTAB3 PO; +OXYC30TA PO; +PLAV75TA29 PO; +RANI300T PO; -REST30CA PO; -ROPI2TAB23 PO
[2016-07-18 22:41] VITALS: BP 111/59; PULSE 69; RESP 16; TEMP 98.4; O2SAT 100
[2016-07-18 22:43] VITALS: BP 111/59; PULSE 72; RESP 18; O2SAT 100
[2016-07-18 22:49] VITALS: BP 101/57; PULSE 65; RESP 18; O2SAT 98
--- NOTE | 2016-07-18 23:49 | PD ---
HPI Chief Complaint: Pain: Acute or Chronic Time Seen by Provider: 23:15 Travel History International Travel<30 days: No Contact w/Intl Traveler<30days: No Traveled to known affect area: No History of Present Illness HPI The patient is a 60 year old female who presents to the [facility] emergency department with a history of reported pain all over related to neuropathy, according to the patient's nurse, however by the time I arrived in the room the patient had reported that she's had neck pain since yesterday. She does have a history of chronic neck and back pain. She denies any fall or trauma. She reports that she last took her oxycodone at 6 PM. The patient on review of systems additionally reports having right femur pain just above the knee. Again, she denies any trauma. She reports that she is living at home with her . The patient's medical history is significant for recently being admitted on June 22 related to overmedication with respiratory depression requiring intubation. The patient at that time also had a non-STEMI. The patient had a cardiac catheterization done during her hospitalization that revealed coronary artery disease that medical management was recommended for as the patient had some collateral that have formed. The patient has a history of metastatic breast cancer to the bone. The patient reports that she is a smoker and smokes approximately a pack of cigarettes per day. The patient denies having any chest pain, chest pressure, or shortness of breath. She denies having any vomiting or diarrhea. She reports that she has been eating well. The patient denies any recent fevers, cough, congestion, abdominal pain, urinary symptoms, or neurologic symptoms. [facility] Past Medical History Narrative Medical The patient's past medical history is significant for stage IV metastatic breast cancer to the bone status post chemotherapy and radiation therapy, history of atrial fibrillation, diabetes mellitus, coronary artery disease with a history of recent non-STEMI, history of depression, acid reflux, peptic ulcer disease, hyperlipidemia, hypertension, chronic neck and back pain, history of kyphosis Hx Anticoagulant Therapy: Yes Arthritis: Yes Asthma: No Autoimmune Disease: No Depression: Yes Heart Rhythm Problems: No Cancer: Yes (left BREAST WITH METS TO BONE) Cardiac Catheterization: No Cardiovascular Problems: Yes High Cholesterol: Yes Chemotherapy: Yes (2 YRS AGO) Chest Pain: No Congestive Heart Failure: No COPD: No Cerebrovascular Accident: No Diabetes: Yes Patient Takes Glucophage: Yes Diminished Hearing: No Endocrine: Yes Gastrointestinal Disorders: Yes (GERD, ESOPAGEAL STRICTURE WITH MULTIPLE DILITATIONS, ULCER) GERD: Yes Glaucoma: No Genitourinary: No Headaches: Yes (MIGRAINE HX SINCE AGE 12) Hepatitis: No Hiatal Hernia: Yes Hypertension: Yes Immune Disorder: No Kidney Stones: No 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 Abdominal Surgery: No AICD: No Body Medical Devices: IMPLANTED PORT LEFT CHEST Cardiac Surgery: No Coronary Artery Bypass Graft: No Ear Surgery: No Endocrine Surgery: No Eye Surgery: Yes (LASIK) Genitourinary Surgery: No Gynecologic Surgery: No Joint Replacement: No Mastectomy: Yes (right) Neurologic Surgery: No Oral Surgery: No Pacemaker: No Thoracic Surgery: Yes (left MASTECTOMY WITH RECONSTRUCTION) Other Surgery: Yes ( R port placement) Social History Alcohol Use: Yes ( RARE , PER OLD HX) Tobacco Use: Yes (1 PPD ) Substance Use: No Allergies-Medications (Allergen,Severity, Reaction): Coded Allergies: Adhesives (Verified Allergy, Severe, Rash, 07/18/16) Bacitracin (Verified Allergy, Severe, ITCHING, 07/18/16) *MDRO Multi-Drug Resistant Organism (Verified Adverse Reaction, Unknown, ) 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 - 12/29/15 Reported Meds & Prescriptions Reported Meds & Active Scripts Active Lisinopril 5 Mg Tab 5 Mg PO BID Lipitor (Atorvastatin Calcium) 40 Mg Tab 40 Mg PO HS Plavix (Clopidogrel Bisulfate) 75 Mg Tab 75 Mg PO DAILY Reported Sucralfate 1 Gm Tab 1 Gm PO TID on empty stomach Lyrica (Pregabalin) 50 Mg Cap 50 Mg PO DAILY Ropinirole 4 Mg Tab 4 Mg PO HS Atenolol 50 Mg Tab 50 Mg PO DAILY Metformin (Metformin HCl) 500 Mg Tab 500 Mg PO BIDPC With meals Temazepam 30 Mg Cap 30 Mg PO HS PRN Ranitidine (Ranitidine HCl) 300 Mg Tab 150 Mg PO HS Cymbalta DR (Duloxetine HCl) 60 Mg Capdr 60 Mg PO BID Fenofibrate 145 Mg Tab 145 Mg PO DAILY Omeprazole 20 Mg Tab 20 Mg PO BID Oxycodone (Oxycodone HCl) 30 Mg Tab 10 Mg PO Q4-6H PRN Review of Systems General / Constitutional: No: Fever Eyes: No: Visual changes HENT: Positive: Neck Pain, No: Headaches, Rhinorrhea, Congestion, Neck Stiffness Cardiovascular: No: Chest Pain or Discomfort Respiratory: Positive: Cough (chronic cough related to smoking), No: Shortness of Breath Gastrointestinal: No: Nausea, Vomiting, Diarrhea, Abdominal Pain, Indigestion, Loss of Appetite Genitourinary: No: Dysuria, Flank Pain Musculoskeletal: Positive: Myalgias, Arthralgias, Pain Skin: No Rash Neurologic: Positive: Weakness (generalized weakness), No: Focal Abnormalities , Coordination Problem, Change in Mentation, Slurred Speech, Sensory Disturbance Psychiatric: No: Depression Endocrine: No: Polydipsia Hematologic/Lymphatic: No: Easy Bruising Physical Exam Narrative General: The patient is a well-developed well-nourished female, drowsy on examination although easily arousable and able to provide all of her history. Head and Neck exam: Head is normocephalic atraumatic. Eyes: EOMI, pupils are equal round and reactive to light. Nose: Midline septum with pink mucous membranes Mouth: Dentition unremarkable. Tacky mucus membranes. Posterior oropharynx is not erythematous. No tonsillar hypertrophy. Uvula midline. Airway patent. Neck: No palpable lymphadenopathy. No nuchal rigidity. No thyromegaly. Cardiovascular: Regular rate and rhythm without murmurs, gallops, or rubs. Lungs: Clear to auscultation bilaterally. No wheezes, rhonchi, or rales. Abdomen: Soft, without tenderness to palpation in all 4 quadrants of the abdomen. No guarding, rebound, or rigidity. Normal bowel sounds are audible. Extremities: No clubbing, cyanosis, or edema. 2+ pulses in all 4 extremities. The patient on examination of her extremities denies any upper extremity pain. There is no deformity or tenderness on palpation. The patient on examination of the left lower extremities has no pain or deformity. The patient on examination of the right lower extremity has external rotation, however no shortening. The patient reports tenderness on palpation of the distal femur. There is no crepitus or step-off. The patient is weak in the right lower extremity. Back: No spinous process tenderness to palpation. No costovertebral angle tenderness to palpation. Neurologic Exam: Cranial nerves 2-12 were intact on exam. The patient has strength that is 5 over 5 in the left upper and left lower extremity. The patient has strength in the right forearm that is 5 over 5, however the patient has difficulty holding up against gravity her right shoulder, right proximal arm. The patient has no loss of sensation. The patient has decreased strength in the right lower extremity. The patient is unable to lift it against gravity. She is unsure why. The patient has intact sensation over all dermatomes. Data Data Last Documented VS Vital Signs Date Time Temp Pulse Resp B/P Pulse Ox O2 Delivery O2 Flow Rate FiO2 07/18/16 22:49 65 18 101/57 98 Room Air 07/18/16 22:41 98.4 Orders Electrocardiogram (07/18/16 23:23) Complete Blood Count With Diff (07/18/16 23:23) Comprehensive Metabolic Panel (07/18/16 23:23) Prothrombin Time / Inr (Pt) (07/18/16 23:23) Act Partial Throm Time (Ptt) (07/18/16 23:23) Magnesium (Mg) (07/18/16 23:23) Iv Access Insert/Monitor (07/18/16 23:23) Ecg Monitoring (07/18/16 23:23) Oximetry (07/18/16 23:23) B-Type Natriuretic Peptide (07/18/16 23:44) Urinalysis - C+S If Indicated (07/18/16 23:44) Cath For Specimen (07/18/16 23:44) Chest, Single Ap (07/18/16 23:44) Ct Brain W/O Iv Contrast(Rout) (07/18/16 23:44) Pelvis, Ap Only (Routine) (07/18/16 23:44) Ct Cerv Spine W/O Contrast (07/18/16 23:44) Femur (Ap & Lat/2vws) (07/18/16 23:44) Ice/Cold Pack (07/18/16 23:44) Ckmb (Isoenzyme) Profile (07/18/16 23:54) Troponin I (07/18/16 23:54) CKMB (07/18/16 23:54) CKMB% (07/18/16 23:54) Urine Culture (07/19/16 00:44) Sodium Chlorid 0.9% 500 Ml Inj (Ns 500 M (07/19/16 01:15) Sodium Chlor 0.9% 1000 Ml Inj (Ns 1000 M (07/19/16 01:15) Admit Order (Ed Use Only) (07/19/16 01:23) Labs Laboratory Tests Test 07/18/16 07/19/16 23:54 00:44 White Blood Count 10.1 TH/MM3 Red Blood Count 5.25 MIL/MM3 Hemoglobin 14.7 GM/DL Hematocrit 45.1 % Mean Corpuscular Volume 85.9 FL Mean Corpuscular Hemoglobin 28.1 PG Mean Corpuscular Hemoglobin 32.7 % Concent Red Cell Distribution Width 16.3 % Platelet Count 160 TH/MM3 Mean Platelet Volume 9.8 FL Neutrophils (%) (Auto) 73.0 % Lymphocytes (%) (Auto) 19.6 % Monocytes (%) (Auto) 5.8 % Eosinophils (%) (Auto) 0.8 % Basophils (%) (Auto) 0.8 % Neutrophils # (Auto) 7.4 TH/MM3 Lymphocytes # (Auto) 2.0 TH/MM3 Monocytes # (Auto) 0.6 TH/MM3 Eosinophils # (Auto) 0.1 TH/MM3 Basophils # (Auto) 0.1 TH/MM3 CBC Comment DIFF FINAL Differential Comment Prothrombin Time 11.4 SEC Prothromb Time International 1.0 RATIO Ratio Activated Partial 29.4 SEC Thromboplast Time Sodium Level 132 MEQ/L Potassium Level 5.2 MEQ/L Chloride Level 96 MEQ/L Carbon Dioxide Level 24.6 MEQ/L Anion Gap 11 MEQ/L Blood Urea Nitrogen 57 MG/DL Creatinine 1.92 MG/DL Estimat Glomerular Filtration 26 ML/MIN Rate Random Glucose 134 MG/DL Calcium Level 9.7 MG/DL Magnesium Level 2.0 MG/DL Total Bilirubin 0.5 MG/DL Aspartate Amino Transf 115 U/L (AST/SGOT) Alanine Aminotransferase 37 U/L (ALT/SGPT) Alkaline Phosphatase 172 U/L Total Creatine Kinase 4950 U/L Creatine Kinase MB 14.2 NG/ML Creatine Kinase MB % 0.3 % Troponin I 0.02 NG/ML B-Type Natriuretic Peptide 223 PG/ML Total Protein 7.4 GM/DL Albumin 2.6 GM/DL Urine Color YELLOW Urine Turbidity HAZY Urine pH 5.5 Urine Specific [place] 1.017 Urine Protein 100 mg/dL Urine Glucose (UA) TRACE mg/dL Urine Ketones NEG mg/dL Urine Occult Blood LARGE Urine Nitrite NEG Urine Bilirubin NEG Urine Urobilinogen LESS THAN 2.0 MG/DL Urine Leukocyte Esterase NEG Urine WBC 4 /hpf Urine Squamous Epithelial 1 /hpf Cells Urine Transitional Epithelial <1 /hpf Cells Urine Amorphous Sediment RARE Urine Bacteria RARE /hpf Urine Hyaline Casts 1 /lpf Urine Mucus FEW /lpf Microscopic Urinalysis Comment CATH-CULTURE IND MDM Medical Decision Making Medical Screen Exam Complete: Yes Emergency Medical Condition: Yes Medical Record Reviewed: Yes Interpretation(s) Last Impressions Pelvis X-Ray [id number]/18/[id number] Signed Impressions: Service Date/Time: Tuesday, July 19, 2016 00:09 - CONCLUSION: 1. Old trauma involving the right pelvis. No acute abnormality. 2. Sclerotic changes involving the SI joint on the left without fusion. This is consistent with chronic sacroiliitis. Joe Garcia Jr., MD Head CT [id number]/18/162343 Signed Impressions: Service Date/Time: Tuesday, July 19, 2016 00:18 - CONCLUSION: No acute disease. Joe Garcia Jr., MD Femur X-Ray [id number]/18/162343 Signed Impressions: Service Date/Time: Tuesday, July 19, 2016 00:10 - CONCLUSION: No acute disease. Joe Garcia Jr., MD Chest X-Ray [id number]/18/162343 Signed Impressions: Service Date/Time: Tuesday, July 19, 2016 00:15 - CONCLUSION: No acute infiltrate or effusion. Joe Garcia Jr., MD Cervical Spine CT [id number]/18/162343 Signed Impressions: Service Date/Time: Tuesday, July 19, 2016 00:18 - CONCLUSION: 1. No acute abnormality. 2. Prior left laminectomy at C2-C3. 3. Multilevel degenerative changes including grade 1 anterolisthesis of C3 on C4. Joe Garcia Jr., MD Differential Diagnosis Intracranial trauma, versus cervical spine trauma, versus exacerbation of chronic neck pain, versus right femur fracture, versus hip fracture, versus pelvic fracture, versus stroke, versus metastasis to the brain Narrative Course During the course of the patients emergency department visit, the patients history, examination, and differential diagnosis were reviewed with the patient. The patient had IV access obtained and blood work sent for analysis. The patient was placed on a air sampling and monitoring with oximetry and blood pressure monitoring. An EKG was ordered. A CT scan of the head, neck was ordered. A chest x-ray, pelvic x-ray, right femur x-ray was ordered. The patient had an EKG that shows a sinus rhythm heart rate of 70, moderate T-wave abnormalities, no acute ST segment elevation. The patient was provided normal saline a 500 mL bolus 1. It took an extended period of time to obtain IV access and start the initial fluid bolus. The patient's blood pressure went down into the upper 70s to 80s. The patient was started on the initial fluid bolus and given a second IV 100 mL bolus. The patient's blood pressure went back up to baseline in the low 100s. The patient' s admitting physician was notified about the brief drop in blood pressure which we suspect is related to dehydration. The patients laboratory studies were reviewed and remarkable for a CBC that is unremarkable, CMP is remarkable for sodium of 132 potassium 5.2, chloride 96, BUN 57, creatinine 1.92 which is greatly increased compared to previously, glucose 134, AST 1:15, alkaline phosphatase 172, CPK is 4950 with a normal MB percent, troponin I 0.02, BNP 223. The patient was continued on IV fluids for rhabdomyolysis. PT PTT within normal limits, urinalysis shows 100 protein large occult blood rare bacteria. Radiology studies were reviewed and remarkable for a chest x-ray that showed no acute abnormality. The patients results were discussed with the patient, including the plan of care. I explained that further testing and/ or monitoring is indicated based on the patients history, examination, and/ or laboratory findings. Therefore, I recommended admission for additional evaluation. The patient expressed understanding and was agreeable with this plan. The patient was admitted to the hospital in guarded condition and sent to a bed under the care of the [facility]. Physician Communication Physician Communication The patient's case was discussed with the [place] [facility] hospitalist who did agree to admit the patient for further evaluation and treatment at this time. Diagnosis Primary Impression: Rhabdomyolysis Qualified Code: M62.82 - Non-traumatic rhabdomyolysis Additional Impression: Acute renal failure (ARF) Qualified Code: N17.9 - Acute renal failure, unspecified acute renal failure type Admitting Information Admitting Physician Requests: Admit Elzbieta Stout MD Jul 18, 2016 23:49
[2016-07-19] VITALS (14 sets, daily range): BP systolic 72–168; BP diastolic 50–84; PULSE 64–74; RESP 16–18; TEMP 97.6–98.7; O2SAT 92–96
[2016-07-19 00:07] LABS: AUTOMATED NEUTROPHIL # 7.4 TH/MM3 (1.8-7.7); BASOPHIL # 0.1 TH/MM3 (0-0.2); BASOPHIL % 0.8 % (0.0-2.0); EOSINOPHIL # 0.1 TH/MM3 (0-0.4); EOSINOPHIL % 0.8 % (0.0-4.0); HEMATOCRIT 45.1 % (35.0-46.0); HEMO FLAGS DIFF FINAL; LYMPH % 19.6 % (9.0-44.0); MEAN CELL VOLUME 85.9 FL (80.0-100.0); MEAN CORPUSCULAR HEMOGLOBIN 28.1 PG (27.0-34.0); MEAN CORPUSCULAR HGB CONC 32.7 % (32.0-36.0); MONO % 5.8 % (0.0-8.0); PLATELET COUNT 160 TH/MM3 (150-450); RED BLOOD COUNT 5.25 MIL/MM3 (4.00-5.30); RED CELL DISTRIBUTION WIDTH 16.3 % (11.6-17.2); WHITE BLOOD COUNT 10.1 TH/MM3 (4.0-11.0)
[2016-07-19 00:29] LABS: ALT (GPT) 37 U/L (10-53); ANION GAP 11 MEQ/L (5-15); AST (GOT) 115 U/L (15-37); BICARBONATE 24.6 MEQ/L (21.0-32.0); BLOOD UREA NITROGEN 57 MG/DL (7-18); CHLORIDE 96 MEQ/L (98-107); GLOMERULAR FILTRATION RATE 26 ML/MIN (>89); POTASSIUM 5.2 MEQ/L (3.5-5.1); SODIUM (NA) 132 MEQ/L (136-145)
--- NOTE | 2016-07-19 00:30 | RADRPT ---
EXAM DATE/TIME: 07/19/2016 00:09 [facility] COMPARISON: No previous studies available for comparison. INDICATIONS : Right leg pain, unknown injury. MEDICAL HISTORY : Carcinoma, breast. Cardiovascular disease. Hypertension. Anticoagulant therapy. SURGICAL HISTORY : None. ENCOUNTER: Initial ACUITY: 1 day PAIN SCORE: Non-responsive. LOCATION: Right leg. FINDINGS: Single frontal view the pelvis shows old trauma involving the superior and inferior pubic rami on the right. No acute abnormality observed. Sclerotic changes are seen involving the left SI joint. No eff usion. The right SI joints unremarkable. Overlying bowel gas pattern is normal. Soft tissues are unre markable. Calcified plaque involving the superficial femoral arteries bilaterally. CONCLUSION: 1. Old trauma involving the right pelvis. No acute abnormality. 2. Sclerotic changes involving the SI joint on the left without fusion. This is consistent with chron ic sacroiliitis. Joe Garcia Jr., MD on July 19, 2016 at 0:27 Board Certified Radiologist. This report was verified electronically.
--- NOTE | 2016-07-19 00:31 | RADRPT ---
EXAM DATE/TIME: 07/19/2016 00:10 [facility] COMPARISON: No previous studies available for comparison. INDICATIONS : Right femur pain, unknown injury. MEDICAL HISTORY : Carcinoma, breast. Cardiovascular disease. Hypertension. Anticoagulant therapy. SURGICAL HISTORY : None. ENCOUNTER: Initial ACUITY: 1 day PAIN SCORE: Non-responsive. LOCATION: Right hip. FINDINGS: Two view examination of the right femur demonstrates no evidence of fracture or dislocation. Old trau ma involving the right superior and inferior pubic rami. Osteoarthritic changes involving the knee trae int. Bony mineralization is normal. The soft tissue structures are intact. Atherosclerotic changes involving the SFA and popliteal arteries. CONCLUSION: No acute disease. Joe Garcia Jr., MD on July 19, 2016 at 0:29 Board Certified Radiologist. This report was verified electronically.
[2016-07-19 00:32] LABS: ALKALINE PHOSPHATASE 172 U/L (45-117); CREATINE KINASE 4950 U/L (26-192); TOTAL BILIRUBIN ADULT 0.5 MG/DL (0.2-1.0)
--- NOTE | 2016-07-19 00:32 | RADRPT ---
EXAM DATE/TIME: 07/19/2016 00:15 [facility] COMPARISON: CHEST SINGLE AP, June 22, 2016, 14:32. INDICATIONS : Evaluate lung status, altered mental status. MEDICAL HISTORY : Carcinoma, breast. Cardiovascular disease. Hypertension. Diabetes. SURGICAL HISTORY : Masectomy. ENCOUNTER: Initial ACUITY: 1 day PAIN SCORE: Non-responsive. LOCATION: chest FINDINGS: A single portable supine view the chest shows a standard port overlying the left chest. There is a lo op within the soft tissues prior to entering the subclavian vein. This is unchanged. The heart is nor mal in size. Either a breast implant or tissue creamery worker are seen involving the right chest. The heart is normal size. Lungs are clear. An old right rib fracture is seen. CONCLUSION: No acute infiltrate or effusion. Joe Garcia Jr., MD on July 19, 2016 at 0:30 Board Certified Radiologist. This report was verified electronically.
--- NOTE | 2016-07-19 00:34 | RADRPT ---
EXAM DATE/TIME: 07/19/2016 00:18 [facility] COMPARISON: CT BRAIN W/O CONTRAST, June 22, 2016, 16:33. INDICATIONS : Altered mental status. RADIATION DOSE: 34.93 CTDIvol (mGy) MEDICAL HISTORY : Hernia, hiatal. Gastroesophageal reflux disease. Hypertension.Breast cancer. Ulcer. Esophageal strict ure. Diabetes. SURGICAL HISTORY : Mastectomy, bilateral. ENCOUNTER: Initial ACUITY: 1 day PAIN SCALE: 0/10 LOCATION: cranial TECHNIQUE: Multiple contiguous axial images were obtained of the head. Using automated exposure control and adj ustment of the mA and/or kV according to patient size, radiation dose was kept as low as reasonably a chievable to obtain optimal diagnostic quality images. FINDINGS: CEREBRUM: The ventricles are normal for age. No evidence of midline shift, mass lesion, hemorrhage or acute in farction. No extra-axial fluid collections are seen. POSTERIOR FOSSA: The cerebellum and brainstem are intact. The 4th ventricle is midline. The cerebellopontine angle i s unremarkable. EXTRACRANIAL: The visualized portion of the orbits is intact. SKULL: The calvaria is intact. No evidence of skull fracture. CONCLUSION: No acute disease. Joe Garcia Jr., MD on July 19, 2016 at 0:32 Board Certified Radiologist. This report was verified electronically.
[2016-07-19 00:43] LABS: APTT (PATIENT) 29.4 SEC (24.3-30.1); PROTHROMBIN TIME - PATIENT 11.4 SEC (9.8-11.6)
[2016-07-19 00:49] LABS: CKMB 14.2 NG/ML (0.5-3.6)
--- NOTE | 2016-07-19 00:54 | RADRPT ---
EXAM DATE/TIME: 07/19/2016 00:18 [facility] COMPARISON: No previous studies available for comparison. INDICATIONS : Trauma, possible fall. RADIATION DOSE: 24.54 CTDIvol (mGy) MEDICAL HISTORY : Hernia, hiatal. Hypertension. Gastroesophageal reflux disease.Ulcer. Esophageal stricture. Diabetes. Breast cancer. SURGICAL HISTORY : Mastectomy, bilateral. ENCOUNTER: Initial ACUITY: 1 day PAIN SCALE: 10/10 LOCATION: neck TECHNIQUE: Volumetric scanning of the cervical spine was performed. Multiplanar reconstructions in the sagittal, coronal and oblique axial planes were performed. Using automated exposure control and adjustment o f the mA and/or kV according to patient size, radiation dose was kept as low as reasonably achievable to obtain optimal diagnostic quality images. FINDINGS: VERTEBRAE: Normal vertebral body height. Postsurgical changes involving the lamina at C2-C3 on the left. ALIGNMENT: There is a grade 1 anterolisthesis of C3 on C4. No jumped facets observed. C2-C3: Prior left laminectomy changes. The bony spinal canal is normal in size. No evidence of disc bulge o r herniation. The neural foramina are bilaterally patent. C3-C4: The bony spinal canal is normal in size. No evidence of disc bulge or herniation. Bony uncovertebral hypertrophy generates bilateral neural foraminal narrowing. C4-C5: The bony spinal canal is normal in size. No evidence of disc bulge or herniation. Prominent bony unc overtebral hypertrophy on the right generates moderate right neural foraminal narrowing. The left is patent. C5-C6: The bony spinal canal is normal in size. No evidence of disc bulge or herniation. The neural forami na are bilaterally patent. C6-C7: The bony spinal canal is normal in size. No evidence of disc bulge or herniation. The neural forami na are bilaterally patent. C7-T1: The bony spinal canal is normal in size. No evidence of disc bulge or herniation. The neural forami na are bilaterally patent. CONCLUSION: 1. No acute abnormality. 2. Prior left laminectomy at C2-C3. 3. Multilevel degenerative changes including grade 1 anterolisthesis of C3 on C4. Joe Garcia Jr., MD on July 19, 2016 at 0:48 Board Certified Radiologist. This report was verified electronically.
[2016-07-19 00:58] LABS: BACTERIA, URINE RARE /hpf; BLOOD, URINE LARGE (NEG); GLUCOSE,URINE TRACE mg/dL (NEG); HYALINE CAST, URINE 1 /lpf (RARE); KETONE, URINE NEG (NEG); MUCUS URINE FEW /lpf (OCC); NITRITE,URINE NEG (NEG); PH, URINE 5.5 (5.0-8.5); SQUAMOUS EPITHELIAL CELL URINE 1 /hpf (0-5); TRANSITIONAL EPI CELLS, URINE <1 /hpf; URINE COLOR YELLOW (YELLW/STRAW)
[2016-07-19 01:00] LABS: COMMENT (UR) CATH-CULTURE IND; CULTURE IF INDICATED CATH CULTURE IND
[2016-07-19] MEDS ORDERED: SODIUM CHLORID 0.9% 500 ML INJ 500 ML IV ONE ×2 (01:15→02:45)
[2016-07-19] MEDS: SODIUM CHLOR 0.9% 1000 ML INJ 1,000 ML IV SCH ×3 (01:21→20:27)
[2016-07-19] MEDS ORDERED: SODIUM CHLORIDE 0.9% FLUSH 10 ML FLUSH IVF PRN (01:45)
[2016-07-19] MEDS ORDERED: ACETAMINOPHEN 325 MG TAB PO PRN (01:45)
[2016-07-19] MEDS ORDERED: ONDANSETRON HCL 4 MG/2 ML VIAL IV PRN (01:45)
[2016-07-19 06:38] LABS: BLOOD GAS BASE EXCESS -3.7 mmol/L (-2-2); BLOOD GAS CARBOXYHEMOGLOBIN 1.4 % (0-4); BLOOD GAS HCO3 22 mmol/L (22-26); BLOOD GAS METHEMOGLOBIN 0.6 % (0-2); BLOOD GAS O2 HGB SATURATION 89 % (90-100); BLOOD GAS PCO2 44 mmHg (38-42); BLOOD GAS PO2 68 mmHg (61-120); BLOOD GAS TOTAL HGB 13.6 G/DL (12.0-16.0); DRAW SITE LT RADIAL; NUMBER OF ARTERIAL PUNCTURES 1; TEMP CORR TO 98.6
[2016-07-19 06:39] LABS: STAT NO; ULNAR PULSE PRESENT
[2016-07-19] MEDS: SODIUM CHLORIDE 0.9% FLUSH 10 ML FLUSH IV FLUSH SCH ×2 (09:00→20:27)
[2016-07-19] MEDS ORDERED: ATEN50TA PO (09:01)
[2016-07-19] MEDS ORDERED: TEMA30CA PO (09:01)
[2016-07-19] MEDS ORDERED: SUCR1TAB PO (09:01)
[2016-07-19] MEDS ORDERED: ROPI4TAB PO (09:01)
[2016-07-19] MEDS ORDERED: METF500T PO (09:01)
[2016-07-19] MEDS ORDERED: LYRI50CA PO (09:01)
[2016-07-19 09:41] LABS: CKMB 11.6 NG/ML (0.5-3.6)
--- NOTE | 2016-07-19 10:20 | HHI.HP ---
HPI Service CP Hospitalists Primary Care Physician Naz Gunn MD Admission Diagnosis Rhabdomyolysis, acute renal insufficiency Chief Complaint: muscle pains Travel History International Travel<30 Days: No Contact w/Intl Traveler <30 Da: No Traveled to Known Affected Are: No History of Present Illness Pt was admitted to [facility] last month complaining of an upset stomach. apparently gave her medications. We are told an extra benzo she became unresponsive and later intubated and placed in ICU quickly extubated and moved to med/surg. Her troponin has trended up. no cp. nml ekg [facility] [place] showed occlusion of rca branch and some other nonocclusive dz so pt with nstemi. discussed with cardiology and she was sent home on metoprolol, plavix, lipitor. lisinipril added for better bp control. She was readmitted for muscle aches/pains, inability to ambulate and lethargy. found to have rhabdo and araceli. Review of Systems Other muscle ache/pain Past Family Social History Past Medical History Stage IV metastatic breast cancer with mets to the bone s/p chemo and XRT we are told by her oncologist her ca in remission. recent right humerus fx. no intervention cad. see above. c last month Atrial fibrillation CKD, Diabetes with diabetic nephropathy/peripheral neuropathy Depression GERD/PUD HTN Hyperlipidemia Chronic neck/back pain Kyphosis Right breast mastectomy in 2001 and reconstruction in 2002 Right breast revision of reconstruction in 2005 Multiple BRISA Port placement Lumbar Kyphoplasty Sinus surgery x 2 Tubal ligation EGD (08/01/2014) --> gastritis in the antrum along with a healing ulcer, stricture in the distal esophagus with mild esophagitis s/p dilation. Colonoscopy (08/14/13) --> sessile polyps in the cecum, interna, hemorrhoids Reported Medications Lisinopril 5 Mg Tab 5 Mg PO BID Lipitor (Atorvastatin Calcium) 40 Mg Tab 40 Mg PO HS Plavix (Clopidogrel Bisulfate) 75 Mg Tab 75 Mg PO DAILY Sucralfate 1 Gm Tab 1 Gm PO TID on empty stomach Lyrica (Pregabalin) 50 Mg Cap 50 Mg PO DAILY Ropinirole 4 Mg Tab 4 Mg PO HS Atenolol 50 Mg Tab 50 Mg PO DAILY Metformin (Metformin HCl) 500 Mg Tab 500 Mg PO BIDPC With meals Temazepam 30 Mg Cap 30 Mg PO HS PRN Ranitidine (Ranitidine HCl) 300 Mg Tab 150 Mg PO HS Cymbalta DR (Duloxetine HCl) 60 Mg Capdr 60 Mg PO BID Fenofibrate 145 Mg Tab 145 Mg PO DAILY Omeprazole 20 Mg Tab 20 Mg PO BID Oxycodone (Oxycodone HCl) 30 Mg Tab 10 Mg PO Q4-6H PRN Allergies: Coded Allergies: Adhesives (Verified Allergy, Severe, Rash, 07/18/16) Bacitracin (Verified Allergy, Severe, ITCHING, 07/18/16) *MDRO Multi-Drug Resistant Organism (Verified Adverse Reaction, Unknown, ) 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 - 12/29/15 Family History nc Social History pos tob Physical Exam Vital Signs lethargic but oriented no labored breathing heart reg lung cta abd s/nt ext no edema baires Vital Signs Date Time Temp Pulse Resp B/P Pulse Ox O2 Delivery O2 Flow Rate FiO2 07/19/16 08:30 Nasal Cannula 3.00 07/19/16 06:44 97.7 18 119/72 07/19/16 06:40 Venturi Mask 3.00 28 07/19/16 04:35 168/78 07/19/16 03:02 68 18 111/62 96 Room Air 07/19/16 02:54 95 Room Air 07/19/16 02:40 98.7 70 18 80/53 95 Room Air 07/19/16 02:12 70 18 72/50 96 07/18/16 22:49 65 18 101/57 98 Room Air 07/18/16 22:46 70 16 07/18/16 22:43 72 18 111/59 100 Room Air 07/18/16 22:41 98.4 69 16 111/59 100 Laboratory Laboratory Tests Test 07/18/16 07/19/16 07/19/16 07/19/16 23:54 00:44 06:27 06:35 White Blood Count 10.1 Red Blood Count 5.25 Hemoglobin 14.7 Hematocrit 45.1 Mean Corpuscular Volume 85.9 Mean Corpuscular Hemoglobin 28.1 Mean Corpuscular Hemoglobin 32.7 Concent Red Cell Distribution Width 16.3 Platelet Count 160 Mean Platelet Volume 9.8 Neutrophils (%) (Auto) 73.0 Lymphocytes (%) (Auto) 19.6 Monocytes (%) (Auto) 5.8 Eosinophils (%) (Auto) 0.8 Basophils (%) (Auto) 0.8 Neutrophils # (Auto) 7.4 Lymphocytes # (Auto) 2.0 Monocytes # (Auto) 0.6 Eosinophils # (Auto) 0.1 Basophils # (Auto) 0.1 CBC Comment DIFF FINAL Differential Comment Prothrombin Time 11.4 Prothromb Time International 1.0 Ratio Activated Partial 29.4 Thromboplast Time Sodium Level 132 Potassium Level 5.2 Chloride Level 96 Carbon Dioxide Level 24.6 Anion Gap 11 Blood Urea Nitrogen 57 Creatinine 1.92 Estimat Glomerular Filtration 26 Rate Random Glucose 134 Calcium Level 9.7 Magnesium Level 2.0 Total Bilirubin 0.5 Aspartate Amino Transf 115 (AST/SGOT) Alanine Aminotransferase 37 (ALT/SGPT) Alkaline Phosphatase 172 Total Creatine Kinase 4950 4205 Creatine Kinase MB 14.2 11.6 Creatine Kinase MB % 0.3 0.3 Troponin I 0.02 B-Type Natriuretic Peptide 223 Total Protein 7.4 Albumin 2.6 Urine Color YELLOW Urine Turbidity HAZY Urine pH 5.5 Urine Specific [place] 1.017 Urine Protein 100 Urine Glucose (UA) TRACE Urine Ketones NEG Urine Occult Blood LARGE Urine Nitrite NEG Urine Bilirubin NEG Urine Urobilinogen LESS THAN 2.0 Urine Leukocyte Esterase NEG Urine WBC 4 Urine Squamous Epithelial 1 Cells Urine Transitional Epithelial <1 Cells Urine Amorphous Sediment RARE Urine Bacteria RARE Urine Hyaline Casts 1 Urine Mucus FEW Microscopic Urinalysis Comment CATH-CULTURE IND Blood Gas Puncture Site LT RADIAL Blood Gas Patient Temperature 98.6 Blood Gas HCO3 22 Blood Gas Base Excess -3.7 Blood Gas Oxygen Saturation 89 Arterial Blood pH 7.32 Arterial Blood Partial 44 Pressure CO2 Arterial Blood Partial 68 Pressure O2 Arterial Blood Oxygen Content 17.0 Arterial Blood 1.4 Carboxyhemoglobin Arterial Blood Methemoglobin 0.6 Blood Gas Hemoglobin 13.6 Date/Time Procedure Status Source Growth 07/19/16 00:44 Urine Culture Received Urine Catheterized Urine Pending Result Diagram: 07/18/16235307/18/162353 Assessment and Plan Problem List: (1) Rhabdomyolysis Status: Acute Plan: Pt admitted last month for nstemi and intubated Presented now with rhabdomyolysis, araceli, hypoxia. rhabdo could be from combination of dehydration/immobility/statin plus fibrate also pt was hypotensive on admission felt related to volume depletion. araceli could be dehydration. consider atn from rhabdo/hypotension if no improvement says she has been so week at home and physically dependent. cont ivf monitor cr, ck hold statin, milan avoid hypotension discussed with pt will need snf (2) ARACELI (acute kidney injury) Status: Acute Plan: see above (3) Dehydration Status: Acute Plan: see above (4) Hypotension Status: Acute Plan: see above (5) HX: breast cancer Status: Chronic (6) HTN (hypertension) Status: Chronic Plan: see above (7) Diabetes type 2, controlled Status: Chronic Plan: ssi. hold any oha (8) Humerus fracture Status: Chronic Plan: chronic right humerus fx seems to be healing (9) CAD (coronary artery disease) Status: Chronic Plan: [facility] [place] 07/02. see above Demar Chaudhary MD Jul 19, 2016 10:20
--- NOTE | 2016-07-19 10:33 | EKG ---
Date Performed: 07/19/2016 Time Performed: 02:48:06 PTAGE: 61 years EKG: Sinus rhythm MODERATE T-WAVE ABNORMALITY, CONSIDER LATERAL ISCHEMIA ABNORMAL ECG PREVIOUS TRACING : 06/25/2016 10.34 DOCTOR: Graeme Arnold Interpretating Date/Time 07/19/2016 10:32:14
[2016-07-19] MEDS ORDERED: OXYCODONE 10 MG PO PRN (10:45)
--- NOTE | 2016-07-19 14:15 | PD.PN.STU ---
Subjective Remarks 61 year old female presented to [facility] ED last night complaining of pain all over as well as neck pain started one day ago. Today she states that she has pain in the middle of her neck and both of her knees. She admits to generalized muscle aches. The patient has a history of chronic neck pain. She is unable to recall her medications other than oxycodone. She does not recall her last dose. She denies any falls or trauma, shortness of breath, dizziness, light headedness, fever, nausea, vomiting, chest pain or abdominal pain. PMH - Breast Cancer, mets to bone - Afib - DM type 2 - CAD with non-STEMI (06/2016) - GERD - Depression - PUD - Hypertension - HLD - PUD - Chronic neck pain PSH - Right Mastectomy - Lumbar Kyphoplasty SH - Smokes 1ppd - live at home with ROS: positive for weakness, otherwise negative except as stated in HPI Objective Vitals Vital Signs Date Time Temp Pulse Resp B/P Pulse Ox O2 Delivery O2 Flow Rate FiO2 07/19/16 13:29 95 Nasal Cannula 3.00 07/19/16 08:30 Nasal Cannula 3.00 07/19/16 07:35 74 07/19/16 06:44 97.7 18 119/72 07/19/16 06:40 Venturi Mask 3.00 28 07/19/16 04:35 168/78 07/19/16 03:02 68 18 111/62 96 Room Air 07/19/16 02:54 95 Room Air 07/19/16 02:40 98.7 70 18 80/53 95 Room Air 07/19/16 02:12 70 18 72/50 96 07/18/16 22:49 65 18 101/57 98 Room Air 07/18/16 22:46 70 16 07/18/16 22:43 72 18 111/59 100 Room Air 07/18/16 22:41 98.4 69 16 111/59 100 Result Diagram: 07/18/16 5065 07/18/16 2501 Imaging Laboratory Tests Test 07/18/16 07/19/16 07/19/16 07/19/16 23:54 00:44 06:27 06:35 White Blood Count 10.1 TH/MM3 Red Blood Count 5.25 MIL/MM3 Hemoglobin 14.7 GM/DL Hematocrit 45.1 % Mean Corpuscular Volume 85.9 FL Mean Corpuscular Hemoglobin 28.1 PG Mean Corpuscular Hemoglobin 32.7 % Concent Red Cell Distribution Width 16.3 % Platelet Count 160 TH/MM3 Mean Platelet Volume 9.8 FL Neutrophils (%) (Auto) 73.0 % Lymphocytes (%) (Auto) 19.6 % Monocytes (%) (Auto) 5.8 % Eosinophils (%) (Auto) 0.8 % Basophils (%) (Auto) 0.8 % Neutrophils # (Auto) 7.4 TH/MM3 Lymphocytes # (Auto) 2.0 TH/MM3 Monocytes # (Auto) 0.6 TH/MM3 Eosinophils # (Auto) 0.1 TH/MM3 Basophils # (Auto) 0.1 TH/MM3 CBC Comment DIFF FINAL Differential Comment Prothrombin Time 11.4 SEC Prothromb Time International 1.0 RATIO Ratio Activated Partial 29.4 SEC Thromboplast Time Sodium Level 132 MEQ/L Potassium Level 5.2 MEQ/L Chloride Level 96 MEQ/L Carbon Dioxide Level 24.6 MEQ/L Anion Gap 11 MEQ/L Blood Urea Nitrogen 57 MG/DL Creatinine 1.92 MG/DL Estimat Glomerular Filtration 26 ML/MIN Rate Random Glucose 134 MG/DL Calcium Level 9.7 MG/DL Magnesium Level 2.0 MG/DL Total Bilirubin 0.5 MG/DL Aspartate Amino Transf 115 U/L (AST/SGOT) Alanine Aminotransferase 37 U/L (ALT/SGPT) Alkaline Phosphatase 172 U/L Total Creatine Kinase 4950 U/L 4205 U/L Creatine Kinase MB 14.2 NG/ML 11.6 NG/ML Creatine Kinase MB % 0.3 % 0.3 % Troponin I 0.02 NG/ML B-Type Natriuretic Peptide 223 PG/ML Total Protein 7.4 GM/DL Albumin 2.6 GM/DL Urine Color YELLOW Urine Turbidity HAZY Urine pH 5.5 Urine Specific [place] 1.017 Urine Protein 100 mg/dL Urine Glucose (UA) TRACE mg/dL Urine Ketones NEG mg/dL Urine Occult Blood LARGE Urine Nitrite NEG Urine Bilirubin NEG Urine Urobilinogen LESS THAN 2.0 MG/DL Urine Leukocyte Esterase NEG Urine WBC 4 /hpf Urine Squamous Epithelial 1 /hpf Cells Urine Transitional Epithelial <1 /hpf Cells Urine Amorphous Sediment RARE Urine Bacteria RARE /hpf Urine Hyaline Casts 1 /lpf Urine Mucus FEW /lpf Microscopic Urinalysis Comment CATH-CULTURE IND Blood Gas Puncture Site LT RADIAL Blood Gas Patient Temperature 98.6 Blood Gas HCO3 22 mmol/L Blood Gas Base Excess -3.7 mmol/L Blood Gas Oxygen Saturation 89 % Arterial Blood pH 7.32 Arterial Blood Partial 44 mmHg Pressure CO2 Arterial Blood Partial 68 mmHg Pressure O2 Arterial Blood Oxygen Content 17.0 Vol % Arterial Blood 1.4 % Carboxyhemoglobin Arterial Blood Methemoglobin 0.6 % Blood Gas Hemoglobin 13.6 G/DL Objective Remarks GENERAL: Well- developed, well- nourished patient, in no apparent distress. SKIN: No rashes, ecchymoses or lesions. Cool and dry. HEAD: Atraumatic. Normocephalic. EYES: No scleral icterus. No injection or drainage. ENT: Nose without bleeding, purulent drainage or septal hematoma. Mouth dry. Airway patent. NECK: Trachea midline. No JVD or lymphadenopathy. Supple, nontender, no meningeal signs. CARDIOVASCULAR: Regular rate and rhythm without murmurs, gallops, or rubs. Hands and feet extremely cold. RESPIRATORY: Clear to auscultation. Breath sounds equal bilaterally. No wheezes , rales, or rhonchi. GASTROINTESTINAL: Abdomen soft, non-tender, nondistended. No hepato-splenomegaly , or palpable masses. No guarding. MUSCULOSKELETAL: Extremities without clubbing, cyanosis, or edema. No joint tenderness, effusion, or edema noted. Diffuse muscle tenderness in neck and all extremities. NEUROLOGICAL: Drowsy but easily aroused. Cranial nerves II through XII intact. Motor and sensory of UE and left lower extremity grossly within normal limits. Weakness right lower extremity. Normal speech. A/P Assessment and Plan 61 year old female admitted to [facility] with neck and bilateral knee pain. She has a history of breast cancer with metastasis to bone and right mastectomy, HTN, afib , DM, CAD, non-STEMI. She now presents with rhabdomyolysis, ARACELI, and hypoxia (1) Rhabdomyolysis - likely causing muscle weakness/tenderness - likely causing neck pain. - may be due to medication interactions (statin + fibrate), dehydration or immobility (2) ARACELI - likely due to dehydration - consider ATN from rhabdomyolysis if pt does not improve - continue IV fluids - monitor creatinine, CK and BMP - DC MAGUI-I and diuretic at this time (3) Hypoxia - O2 89% on ABG. - on 3L nasal cannula - continue to monitor O2 sat (4) HTN - chronic, stable (5) Diabetes, type 2 - chronic (6) Breast Cancer, metastasis to bone - chronic, cancer free (7) non-STEMI (06/2016) Melissa Gonzalez M3 Jul 19, 2016 14:15
[2016-07-19] MEDS: DULoxetine HCl DR 60 MG CAP PO SCH (20:27)
[2016-07-19] MEDS ORDERED: DEXTROSE 50% IN WATER 50 ML VIAL(D50) IV PUSH PRN (20:45)
[2016-07-19] MEDS ORDERED: GLUCAGON 1 MG/ML VIAL OTHER PRN (20:45)
[2016-07-19] MEDS: INSULIN ASPART SUPPLEMENTAL SCALE SQ SCH (21:00)
[2016-07-19] MEDS ORDERED: DULoxetine HCl DR 60 MG CAP PO SCH (21:00)
[2016-07-20] VITALS (7 sets, daily range): BP systolic 106–154; BP diastolic 63–91; PULSE 60–114; RESP 18–20; TEMP 97.2–98.9; O2SAT 90–99
[2016-07-20] MEDS: INSULIN ASPART SUPPLEMENTAL SCALE SQ SCH ×4 (07:00→21:00)
[2016-07-20] MEDS: SODIUM CHLOR 0.9% 1000 ML INJ 1,000 ML IV SCH (07:15)
[2016-07-20 07:20] LABS: ALT (GPT) 28 U/L (10-53); ANION GAP 13 MEQ/L (5-15); AST (GOT) 74 U/L (15-37); BICARBONATE 23.1 MEQ/L (21.0-32.0); CHLORIDE 103 MEQ/L (98-107); GLOMERULAR FILTRATION RATE 54 ML/MIN (>89); POTASSIUM 4.6 MEQ/L (3.5-5.1); SODIUM (NA) 139 MEQ/L (136-145)
[2016-07-20 07:23] LABS: AUTOMATED NEUTROPHIL # 4.4 TH/MM3 (1.8-7.7); BASOPHIL # 0.1 TH/MM3 (0-0.2); BASOPHIL % 0.9 % (0.0-2.0); BLOOD UREA NITROGEN 36 MG/DL (7-18); EOSINOPHIL # 0.2 TH/MM3 (0-0.4); EOSINOPHIL % 2.2 % (0.0-4.0); HEMATOCRIT 40.2 % (35.0-46.0); HEMO FLAGS DIFF FINAL; LYMPH % 24.1 % (9.0-44.0); LYMPHOCYTE # 1.7 TH/MM3 (1.0-4.8); MEAN CELL VOLUME 85.9 FL (80.0-100.0); MEAN CORPUSCULAR HEMOGLOBIN 28.9 PG (27.0-34.0); MEAN CORPUSCULAR HGB CONC 33.6 % (32.0-36.0); NEUT % 63.8 % (16.0-70.0); PLATELET COUNT 103 TH/MM3 (150-450); RED BLOOD COUNT 4.68 MIL/MM3 (4.00-5.30); RED CELL DISTRIBUTION WIDTH 15.5 % (11.6-17.2); WHITE BLOOD COUNT 6.9 TH/MM3 (4.0-11.0)
[2016-07-20 07:48] LABS: ALKALINE PHOSPHATASE 137 U/L (45-117); TOTAL BILIRUBIN ADULT 0.5 MG/DL (0.2-1.0)
[2016-07-20] MEDS: CLOPIDOGREL 75 MG TAB PO SCH (09:06)
[2016-07-20] MEDS: DEXT 5%-NACL 0.9% 1000 ML INJ 1,000 ML IV SCH ×2 (09:06→18:10)
[2016-07-20] MEDS: DULoxetine HCl DR 60 MG CAP PO SCH (09:06)
[2016-07-20] MEDS: PANTOPRAZOLE SOD 40 MG DELAYED RELEASE TAB PO SCH (09:06)
[2016-07-20] MEDS: SODIUM CHLORIDE 0.9% FLUSH 10 ML FLUSH IV FLUSH SCH ×2 (09:06→21:00)
[2016-07-20 09:59] LABS: CREATINE KINASE 1663 U/L (26-192)
--- NOTE | 2016-07-20 10:13 | HHI.PR ---
Subjective Remarks more oriented. no sob not much appetite. Objective Vitals oriented no labored breathing heart reg lung cta abd s/nt ext no edema less cyanotic/cool hands/feet. Vital Signs Date Time Temp Pulse Resp B/P Pulse Ox O2 Delivery O2 Flow Rate FiO2 07/20/16 09:05 Nasal Cannula 3.00 07/20/16 08:00 64 07/20/16 08:00 97.2 114 20 111/69 94 07/20/16 04:00 97.7 61 18 110/68 99 07/20/16 00:00 97.4 70 18 106/63 95 07/19/16 20:28 Nasal Cannula 3.00 07/19/16 20:28 69 07/19/16 20:00 98.1 64 18 134/73 92 07/19/16 16:12 97.9 74 16 136/76 96 07/19/16 13:29 95 Nasal Cannula 3.00 07/19/16 12:09 97.8 72 16 134/80 95 07/19/16 07/19/16 07/20/16 15:00 23:00 07:00 Intake Total 1230 ml 858 ml 100 ml Output Total 400 ml 450 ml Balance 830 ml 858 ml -350 ml Intake Oral 240 ml 240 ml 100 ml IV Total 990 ml 618 ml Output Urine Total 400 ml 450 ml # Voids 0 # Bowel Movements 0 0 0 Result Diagram: 07/20/16 0644 07/20/16 0644 A/P Problem List: (1) Rhabdomyolysis Status: Acute Plan: Pt admitted last month for nstemi and intubated Presented now with rhabdomyolysis, araceli, hypoxia. rhabdo could be from combination of dehydration/immobility/statin plus fibrate also pt was hypotensive on admission felt related to volume depletion. araceli could be dehydration. considered atn from rhabdo/hypotension but seems like likely with rapidly improving renal function. says she has been so week at home and physically dependent. cont ivf. change to d5 today due to hypoglycemia and poor po... encourage po intake d/c baires monitor cr, ck hold statin, milan avoid hypotension discussed with ...he and pt ok with snf...he was initially asking for hospice to get nursing svc...but this was explained in detail to him. d/c to snf 1 to 2 days (2) ARACELI (acute kidney injury) Status: Acute Plan: see above (3) Dehydration Status: Acute Plan: see above (4) Hypotension Status: Acute Plan: see above (5) HX: breast cancer Status: Chronic (6) HTN (hypertension) Status: Chronic Plan: see above (7) Diabetes type 2, controlled Status: Chronic Plan: ssi. hold any oha (8) Humerus fracture Status: Chronic Plan: chronic right humerus fx seems to be healing (9) CAD (coronary artery disease) Status: Chronic Plan: [facility] 07/02. see above Problem Qualifiers (1) Rhabdomyolysis: Qualified Code: M62.82 - Non-traumatic rhabdomyolysis Demar Chaudhary MD Jul 20, 2016 10:13
[2016-07-20 10:14] LABS: CKMB 3.1 NG/ML (0.5-3.6)
[2016-07-21] VITALS (8 sets, daily range): BP systolic 171–206; BP diastolic 90–97; PULSE 62–81; RESP 18–20; TEMP 97.8–98; O2SAT 93–100
[2016-07-21] MEDS: DEXT 5%-NACL 0.9% 1000 ML INJ 1,000 ML IV SCH (04:00)
[2016-07-21] MEDS: INSULIN ASPART SUPPLEMENTAL SCALE SQ SCH ×4 (06:24→20:03)
[2016-07-21 08:39] LABS: BICARBONATE 25.1 MEQ/L (21.0-32.0)
[2016-07-21 08:40] LABS: POTASSIUM 3.7 MEQ/L (3.5-5.1)
[2016-07-21] MEDS: DULoxetine HCl DR 60 MG CAP PO SCH (08:49)
[2016-07-21] MEDS: PANTOPRAZOLE SOD 40 MG DELAYED RELEASE TAB PO SCH (08:49)
[2016-07-21] MEDS: CLOPIDOGREL 75 MG TAB PO SCH (08:49)
[2016-07-21] MEDS: SODIUM CHLORIDE 0.9% FLUSH 10 ML FLUSH IV FLUSH SCH ×2 (08:50→20:03)
[2016-07-21 09:02] LABS: CKMB 1.4 NG/ML (0.5-3.6)
--- NOTE | 2016-07-21 09:14 | HHI.PR ---
Subjective Remarks DOING OK. trying to eat more Objective Vitals heart reg lung cta abd s/nt ext bluish appearing feet/toes and cool but palpable pulse and no pain. Vital Signs Date Time Temp Pulse Resp B/P Pulse Ox O2 Delivery O2 Flow Rate FiO2 07/21/16 04:00 97.8 70 19 171/90 98 07/21/16 00:00 98.0 74 19 185/92 97 07/20/16 20:34 Nasal Cannula 3.00 07/20/16 20:00 97.4 73 19 130/72 99 07/20/16 18:09 Nasal Cannula 3.00 07/20/16 16:00 98.9 73 18 154/91 97 07/20/16 12:00 97.6 60 18 127/68 90 07/20/16 10:35 94 Nasal Cannula 3.00 07/20/16 07/20/16 07/21/16 15:00 23:00 07:00 Intake Total 664 ml 280 ml Output Total 200 ml Balance 464 ml 280 ml Intake Oral 240 ml 280 ml IV Total 424 ml Output Urine Total 200 ml # Voids 2 1 # Bowel Movements 0 Result Diagram: 07/20/16 0644 07/21/16 0643 A/P Problem List: (1) Rhabdomyolysis Status: Acute Plan: Pt admitted last month for nstemi and intubated Presented now with rhabdomyolysis, araceli, hypoxia. rhabdo could be from combination of dehydration/immobility/statin plus fibrate also pt was hypotensive on admission felt related to volume depletion. araceli could be dehydration. considered atn from rhabdo/hypotension but seems like likely with rapidly improving renal function. says she has been so week at home and physically dependent. d/c ivf. baires out. renal function and ck improving encourage po intake. has alot of lhypoglycemia. hold statin, milan avoid hypotension discussed with ...he and pt ok with snf...he was initially asking for hospice to get nursing svc...but this was explained in detail to him. d/c to snf 1 to 2 days (2) ARACELI (acute kidney injury) Status: Acute Plan: see above (3) Dehydration Status: Acute Plan: see above (4) Hypotension Status: Acute Plan: see above (5) HX: breast cancer Status: Chronic (6) HTN (hypertension) Status: Chronic Plan: see above (7) Diabetes type 2, controlled Status: Chronic Plan: ssi. hold any oha (8) Humerus fracture Status: Chronic Plan: chronic right humerus fx seems to be healing (9) CAD (coronary artery disease) Status: Chronic Plan: [facility] 07/02. see above Problem Qualifiers (1) Rhabdomyolysis: Qualified Code: M62.82 - Non-traumatic rhabdomyolysis Demar Chaudhary MD Jul 21, 2016 09:14
[2016-07-21] MEDS ORDERED: LISINOPRIL 5 MG TAB PO ONE (11:15)
[2016-07-21] MEDS ORDERED: ENALAPRILAT 1.25 MG/ML VIAL IV PUSH PRN (16:00)
[2016-07-21] MEDS: cloNIDine HCL 0.1 MG TAB PO PRN (20:03)
[2016-07-21] MEDS ORDERED: LISINOPRIL 5 MG TAB PO SCH (21:00)
[2016-07-22] VITALS (8 sets, daily range): BP systolic 121–189; BP diastolic 55–110; PULSE 67–88; RESP 16–20; TEMP 97.9–98.4; O2SAT 93–97
[2016-07-22] MEDS: cloNIDine HCL 0.1 MG TAB PO PRN (05:00)
[2016-07-22] MEDS: INSULIN ASPART SUPPLEMENTAL SCALE SQ SCH ×4 (06:08→20:17)
--- NOTE | 2016-07-22 08:40 | HHI.PR ---
Subjective Remarks not much appetite Objective Vitals heart reg lung cta abd s/nt ext no edema Vital Signs Date Time Temp Pulse Resp B/P Pulse Ox O2 Delivery O2 Flow Rate FiO2 07/22/16 08:10 97 21 07/22/16 04:42 98.0 75 20 189/110 93 07/22/16 00:17 98.0 88 16 132/90 96 07/21/16 20:54 95 High Flow Nasal Cannula 3.00 07/21/16 20:00 Nasal Cannula 3.00 07/21/16 20:00 71 07/21/16 20:00 97.9 81 20 206/97 97 07/21/16 16:00 97.9 77 18 178/96 93 07/21/16 12:00 97.8 68 18 174/90 95 07/21/16 08:57 Nasal Cannula 3.00 07/21/16 08:57 62 07/21/16 07/21/16 07/22/16 15:00 23:00 07:00 Intake Total 750 ml 480 ml Balance 750 ml 480 ml Intake Oral 750 ml 480 ml # Voids 3 3 # Bowel Movements 0 0 Result Diagram: 07/20/16 0644 07/21/16 0643 A/P Problem List: (1) Rhabdomyolysis Status: Acute Plan: Pt admitted last month for nstemi and intubated Presented now with rhabdomyolysis, araceli, hypoxia. rhabdo could be from combination of dehydration/immobility/statin plus fibrate also pt was hypotensive on admission felt related to volume depletion. araceli could be dehydration. considered atn from rhabdo/hypotension but seems like likely with rapidly improving renal function. says she has been so week at home and physically dependent. araceli and rhabdo much improved htn uncontrolled poor po intake general weakness discussed with ...he is concerned with her mental status. he admits she may have been developing cognitive/early dementia signs before and was even referred to neurology...pending. will encourage more po intake today. ensure. off ivf. baires out and urinating PT today.... titrate bp meds today hold statin to snf once stable. (2) ARACELI (acute kidney injury) Status: Acute Plan: see above (3) Dehydration Status: Acute Plan: see above (4) Hypotension Status: Acute Plan: see above (5) HX: breast cancer Status: Chronic (6) HTN (hypertension) Status: Chronic Plan: see above (7) Diabetes type 2, controlled Status: Chronic Plan: ssi. hold any oha (8) Humerus fracture Status: Chronic Plan: chronic right humerus fx seems to be healing (9) CAD (coronary artery disease) Status: Chronic Plan: [facility] 07/02. see above Problem Qualifiers (1) Rhabdomyolysis: Qualified Code: M62.82 - Non-traumatic rhabdomyolysis Demar Chaudhary MD Jul 22, 2016 08:40
[2016-07-22] MEDS: SODIUM CHLORIDE 0.9% FLUSH 10 ML FLUSH IV FLUSH SCH ×2 (09:00→20:16)
[2016-07-22] MEDS: CLOPIDOGREL 75 MG TAB PO SCH (10:26)
[2016-07-22] MEDS: DULoxetine HCl DR 60 MG CAP PO SCH (10:26)
[2016-07-22] MEDS: PANTOPRAZOLE SOD 40 MG DELAYED RELEASE TAB PO SCH (10:26)
[2016-07-22] MEDS: LISINOPRIL 20 MG TAB PO SCH ×2 (10:26→20:16)
[2016-07-23] VITALS (7 sets, daily range): BP systolic 117–184; BP diastolic 61–104; PULSE 60–68; RESP 16–20; TEMP 97.6–98.4; O2SAT 92–97
[2016-07-23] MEDS: cloNIDine HCL 0.1 MG TAB PO PRN (00:22)
[2016-07-23] MEDS: INSULIN ASPART SUPPLEMENTAL SCALE SQ SCH ×4 (05:59→21:00)
[2016-07-23] MEDS: SODIUM CHLORIDE 0.9% FLUSH 10 ML FLUSH IV FLUSH SCH ×2 (08:13→20:58)
[2016-07-23] MEDS: CLOPIDOGREL 75 MG TAB PO SCH (08:13)
[2016-07-23] MEDS: DULoxetine HCl DR 60 MG CAP PO SCH (08:13)
[2016-07-23] MEDS: PANTOPRAZOLE SOD 40 MG DELAYED RELEASE TAB PO SCH (08:13)
[2016-07-23] MEDS: LISINOPRIL 20 MG TAB PO SCH ×2 (08:13→20:57)
[2016-07-23] MEDS ORDERED: CARVEDILOL 6.25 MG TAB PO ONE (09:30)
--- NOTE | 2016-07-23 09:37 | HHI.PR ---
Subjective Remarks pt wants to get to rehab is resisting d/c Objective Vitals seems mostly oriented currently nad heart reg lung cta abd s/nt ext no pitting. Vital Signs Date Time Temp Pulse Resp B/P Pulse Ox O2 Delivery O2 Flow Rate FiO2 07/23/16 08:00 97.6 64 18 167/88 94 07/23/16 06:15 178/90 07/23/16 04:30 97.8 65 16 175/104 95 07/23/16 00:03 98.1 63 16 184/94 92 07/22/16 21:12 97.9 72 16 166/78 95 07/22/16 20:00 Nasal Cannula 3.00 07/22/16 16:00 98.0 73 20 162/89 96 07/22/16 12:00 98.1 73 20 140/80 96 07/22/16 07/22/16 07/23/16 15:00 23:00 07:00 Intake Total 240 ml 240 ml 0 ml Balance 240 ml 240 ml 0 ml Intake Oral 240 ml 240 ml 0 ml # Voids 3 2 6 # Bowel Movements 0 0 Result Diagram: 07/20/16 0644 07/21/16 0643 A/P Problem List: (1) Rhabdomyolysis Status: Acute Plan: Pt admitted last month for nstemi and intubated Presented now with rhabdomyolysis, araceli, hypoxia. rhabdo could be from combination of dehydration/immobility/statin plus fibrate also pt was hypotensive on admission felt related to volume depletion. araceli could be dehydration. considered atn from rhabdo/hypotension but seems like likely with rapidly improving renal function. says she has been so week at home and physically dependent. araceli and rhabdo much improved htn uncontrolled poor po intake general weakness discussed with ...he is concerned with her mental status. he admits she may have been developing cognitive/early dementia signs before and was even referred to neurology...pending. encourage more po intake. ensure. off ivf. baires out and urinating PT today.... titrate bp meds again hold statin plan for snf today. on the way and he is pushing for keeping her here longer. (2) ARACELI (acute kidney injury) Status: Acute Plan: see above (3) Dehydration Status: Acute Plan: see above (4) Hypotension Status: Acute Plan: see above (5) HX: breast cancer Status: Chronic (6) HTN (hypertension) Status: Chronic Plan: see above (7) Diabetes type 2, controlled Status: Chronic Plan: ssi. hold any oha (8) Humerus fracture Status: Chronic Plan: chronic right humerus fx seems to be healing (9) CAD (coronary artery disease) Status: Chronic Plan: [facility] 07/02. see above Problem Qualifiers (1) Rhabdomyolysis: Qualified Code: M62.82 - Non-traumatic rhabdomyolysis Demar Chaudhary MD Jul 23, 2016 09:37
--- NOTE | 2016-07-23 09:38 | HHI.DCPOC ---
Discharge Care Plan Diagnosis: (1) Rhabdomyolysis (2) Acute renal failure (ARF) (3) Hypotension (4) Dehydration (5) Altered mental state (6) CAD (coronary artery disease) (7) ARACELI (acute kidney injury) (8) Diabetes type 2, controlled (9) HTN (hypertension) (10) HX: breast cancer (11) Humerus fracture Goals to Promote Your Health * To prevent worsening of your condition and complications * To maintain your health at the optimal level Directions to Meet Your Goals Take your medications as prescribed Follow your dietary instruction Follow activity as directed Keep your appointments as scheduled Take your immunizations and boosters as scheduled If your symptoms worsen call your PCP, if no PCP go to Urgent Care Center or Emergency Room Smoking is Dangerous to Your Health. Avoid second hand smoke Call the 24-hour hour crisis hotline for domestic abuse at Demar Chaudhary MD Jul 23, 2016 09:38
[2016-07-23] MEDS: CARVEDILOL 6.25 MG TAB PO SCH (20:57)
[2016-07-24] VITALS: BP 167/77; PULSE 66; RESP 20; TEMP 98.2; O2SAT 97
[2016-07-24 04:00] VITALS: BP 171/84; PULSE 63; RESP 20; TEMP 98.2; O2SAT 96
[2016-07-24] MEDS: INSULIN ASPART SUPPLEMENTAL SCALE SQ SCH ×2 (05:54→11:00)
[2016-07-24 08:03] VITALS: PULSE 73
[2016-07-24 08:07] VITALS: BP 178/86; PULSE 66; RESP 18; TEMP 98.1; O2SAT 96
[2016-07-24] MEDS: CLOPIDOGREL 75 MG TAB PO SCH (08:58)
[2016-07-24] MEDS: DULoxetine HCl DR 60 MG CAP PO SCH (08:58)
[2016-07-24] MEDS: SODIUM CHLORIDE 0.9% FLUSH 10 ML FLUSH IV FLUSH SCH (08:58)
[2016-07-24] MEDS: CARVEDILOL 6.25 MG TAB PO SCH (08:58)
[2016-07-24] MEDS: LISINOPRIL 20 MG TAB PO SCH (08:58)
[2016-07-24] MEDS: PANTOPRAZOLE SOD 40 MG DELAYED RELEASE TAB PO SCH (08:58)
--- NOTE | 2016-07-24 11:13 | HHI.PR ---
Subjective Remarks pt still eager for d/c Objective Vitals more oriented heart reg lung cta abd s/nt ext no edema Vital Signs Date Time Temp Pulse Resp B/P Pulse Ox O2 Delivery O2 Flow Rate FiO2 07/24/16 08:07 98.1 66 18 178/86 96 07/24/16 04:00 98.2 63 20 171/84 96 07/24/16 00:00 98.2 66 20 167/77 97 07/23/16 20:00 Room Air 07/23/16 20:00 60 07/23/16 20:00 98.4 63 20 166/80 96 07/23/16 16:00 98.2 63 18 152/79 97 07/23/16 12:00 98.3 68 18 117/61 93 07/23/16 07/23/16 07/24/16 15:00 23:00 07:00 Intake Total 360 ml 220 ml 240 ml Balance 360 ml 220 ml 240 ml Intake Oral 360 ml 220 ml 240 ml # Voids 3 1 2 # Bowel Movements 0 Result Diagram: 07/20/16 0644 07/21/16 0643 A/P Problem List: (1) Rhabdomyolysis Status: Acute Plan: Pt admitted last month for nstemi and intubated Presented now with rhabdomyolysis, araceli, hypoxia. rhabdo could be from combination of dehydration/immobility/statin plus fibrate also pt was hypotensive on admission felt related to volume depletion. araceli could be dehydration. considered atn from rhabdo/hypotension but seems like likely with rapidly improving renal function. says she has been so week at home and physically dependent. araceli and rhabdo much improved htn uncontrolled poor po intake general weakness discussed with ...he is concerned with her mental status. he admits she may have been developing cognitive/early dementia signs before and was even referred to neurology...pending. encourage more po intake. ensure. off ivf. baires out and urinating PT today.... titrate bp meds hold statin plan for snf when bed available...CM says no beds today... (2) ARACELI (acute kidney injury) Status: Acute Plan: see above (3) Dehydration Status: Acute Plan: see above (4) Hypotension Status: Acute Plan: see above (5) HX: breast cancer Status: Chronic (6) HTN (hypertension) Status: Chronic Plan: see above (7) Diabetes type 2, controlled Status: Chronic Plan: ssi. hold any oha (8) Humerus fracture Status: Chronic Plan: chronic right humerus fx seems to be healing (9) CAD (coronary artery disease) Status: Chronic Plan: [facility] 07/02. see above Problem Qualifiers (1) Rhabdomyolysis: Qualified Code: M62.82 - Non-traumatic rhabdomyolysis Demar Chaudhary MD Jul 24, 2016 11:13
[2016-07-24 12:09] VITALS: BP 135/60; PULSE 68; RESP 18; TEMP 98.2; O2SAT 96
[2016-07-24] MEDS ORDERED: CYMB60CA PO (14:55)
[2016-07-24] MEDS ORDERED: OXYC30TA PO (14:55)
[2016-07-24] MEDS ORDERED: TEMA30CA PO (14:56)
[2016-07-24] MEDS ORDERED: LISI-515 PO (14:56)
[2016-07-24] MEDS ORDERED: CARV6.25 PO (14:56)
[2016-07-24] MEDS ORDERED: LACTULOSE SYRUP 20 GM/30 ML CUP PO ONE (15:30)
[2016-07-24] MEDS ORDERED: DOCUSATE SODIUM 100 MG CAP PO ONE (15:30)
--- NOTE | 2016-08-09 22:09 | HHI.DS ---
Discharge Summary Admission Date Jul 19, 2016 at 01:24 Discharge Date: Jul 24, 2016 Admitting Diagnosis Rhabdomyolysis, acute renal insufficiency (1) Rhabdomyolysis Diagnosis: Principal (2) ARACELI (acute kidney injury) Diagnosis: Principal (3) Dehydration Diagnosis: Principal (4) Hypotension Diagnosis: Principal (5) HX: breast cancer Diagnosis: Secondary (6) HTN (hypertension) Diagnosis: Secondary (7) Diabetes type 2, controlled Diagnosis: Secondary (8) Humerus fracture Diagnosis: Secondary (9) CAD (coronary artery disease) Diagnosis: Secondary Brief History Pt was admitted to [facility] last month complaining of an upset stomach. apparently gave her medications. We are told an extra benzo she became unresponsive and later intubated and placed in ICU quickly extubated and moved to med/surg. Her troponin has trended up. no cp. nml ekg [facility] showed occlusion of rca branch and some other nonocclusive dz so pt with nstemi. discussed with cardiology and she was sent home on metoprolol, plavix, lipitor. lisinipril added for better bp control. She was readmitted for muscle aches/pains, inability to ambulate and lethargy. found to have rhabdo and araceli. Hospital Course Pt admitted last month for nstemi and intubated Presented now with rhabdomyolysis, araceli, hypoxia. rhabdo could be from combination of dehydration/immobility/statin plus fibrate also pt was hypotensive on admission felt related to volume depletion. araceli could be dehydration. considered atn from rhabdo/hypotension but seems like likely with rapidly improving renal function. says she has been so week at home and physically dependent. araceli and rhabdo much improved htn uncontrolled,poor po intake,and general weakness discussed with ...he is concerned with her mental status. he admits she may have been developing cognitive/early dementia signs before and was even referred to neurology...pending. encourage more po intake. ensure. off ivf. baires out and urinating PT today.... titrate bp meds hold statin d/c to snf for rehab Pt Condition on Discharge: Stable Discharge Disposition: Discharge to SNF Discharge Instructions DIET: Follow Instructions for: Heart Healthy Diet Additional Diet Instructions: glucerna tid with meals Activities you can perform: Regular-No Restrictions Follow up Referrals: PCP Follow-up - 2 Weeks with [facility] with [facility] New Medications: Carvedilol (Coreg) 6.25 Mg Tab 6.25 MG PO Q12HR htn #60 TAB Lisinopril (Lisinopril) 20 Mg Tab 20 MG PO Q12HR htn #60 TAB Changed Medications: Duloxetine DR (Cymbalta DR) 60 Mg Capdr 60 MG PO DAILY Depression Control #0 Ref 0 CAP (Changed from: BID; 30) Oxycodone (Oxycodone) 30 Mg Tab 10 MG PO Q6HR PRN PAIN #30 Ref 0 TAB (Changed from: Q4-6H) Continued Medications: Clopidogrel (Plavix) 75 Mg Tab 75 MG PO DAILY cad #30 Ref 6 TAB Fenofibrate (Fenofibrate) 145 Mg Tab 145 MG PO DAILY #30 Ref 0 TAB Omeprazole (Omeprazole) 20 Mg Tab 20 MG PO BID #30 Ref 0 TAB Pregabalin (Lyrica) 50 Mg Cap 50 MG PO DAILY #30 Ref 0 CAP Ranitidine (Ranitidine) 300 Mg Tab 150 MG PO HS Heartburn Management #30 Ref 0 TAB Temazepam (Temazepam) 30 Mg Cap 30 MG PO HS PRN INSOMNIA #15 Ref 0 CAP (This prescription has been renewed) Discontinued Medications: Atenolol (Atenolol) 50 Mg Tab 50 MG PO DAILY Blood Pressure Management #30 Ref 0 TAB Atorvastatin (Lipitor) 40 Mg Tab 40 MG PO HS Cholesterol Management #30 Ref 6 TAB Lisinopril (Lisinopril) 5 Mg Tab 5 MG PO BID Blood Pressure Management #60 Ref 0 TAB Metformin (Metformin) 500 Mg Tab 500 MG PO BIDPC With meals Blood Sugar Management #60 Ref 0 TAB Ropinirole (Ropinirole) 4 Mg Tab 4 MG PO HS #30 Ref 0 TAB Sucralfate (Sucralfate) 1 Gm Tab 1 GM PO TID on empty stomach Duodenal ulcer #90 Ref 0 TAB Demar Chaudhary MD Aug 09, 2016 22:09
[2016-08-16 11:00] LABS: CRITICAL VALUE YES
== END 2016-07-24 17:27 | DRG 558 ==
LOC: NEPC 22:32 → NEDA 07-19 01:24 → N04A 07-19 04:37
PROVIDERS: ADMIT Hospitalist; ATTEND Hospitalist
DX: M62.82 Rhabdomyolysis (principal); N17.9 Acute kidney failure, unspecified; M54.2 Cervicalgia; E11.21 Type 2 diabetes mellitus with diabetic nephropathy; I95.9 Hypotension, unspecified; E11.42 Type 2 diabetes mellitus with diabetic polyneuropathy; E11.22 Type 2 diabetes mellitus with diabetic chronic kidney disease; G89.29 Other chronic pain; I48.91 Unspecified atrial fibrillation; M54.9 Dorsalgia, unspecified; I25.10 Atherosclerotic heart disease of native coronary artery without angina pectoris; M84.421D Pathological fracture, right humerus, subsequent encounter for fracture with routine healing; N18.9 Chronic kidney disease, unspecified; E78.5 Hyperlipidemia, unspecified; E86.0 Dehydration; R09.02 Hypoxemia; Z85.3 Personal history of malignant neoplasm of breast; F17.210 Nicotine dependence, cigarettes, uncomplicated; Z92.21 Personal history of antineoplastic chemotherapy; Z85.830 Personal history of malignant neoplasm of bone; Z90.11 Acquired absence of right breast and nipple; I12.9 Hypertensive chronic kidney disease with stage 1 through stage 4 chronic kidney disease, or unspecified chronic kidney disease; I25.2 Old myocardial infarction; M40.209 Unspecified kyphosis, site unspecified; K21.9 Gastro-esophageal reflux disease without esophagitis; E11.649 Type 2 diabetes mellitus with hypoglycemia without coma; E78.00 Pure hypercholesterolemia, unspecified; Z87.11 Personal history of peptic ulcer disease; Z92.3 Personal history of irradiation; Z79.84 Long term (current) use of oral hypoglycemic drugs
CPT/HCPCS: 36600; 70450; 71010; 72125; 72170; 73552; 76937; 80048; 80053; 81001; 82550; 82552; 82805; 82948; 83735; 83880; 84484; 85025; 85610; 85730; 87086; 93005; J1815; J7030; J7040; J7042

== ENCOUNTER 2016-10-14 13:40 | Inpatient (IN) | payer MEDICARE ==
[2016-10-14] VITALS (16 sets, daily range): BP systolic 70–114; BP diastolic 28–66; PULSE 82–146; RESP 14–32; TEMP 97.9–102.4; O2SAT 95–100
[~2016-10-14] VITALS: Ht 157.5 cm; Wt 58.2 kg
[~2016-10-14 13:40] MED LIST changes: +CARV6.25 PO; -LIPI40TA PO; +LISI-515 PO; -LISI-519 PO; +LYRI50CA PO; -METO25TA3 PO; +NORMOSOL R INJ 1,000 ML IV ONE; +PHENYLEPH/NS 1000 MCG/10 ML SYR IV ONE; +TEMA30CA PO
[2016-10-14] MEDS ORDERED: NALOXONE HCL 0.4 MG/ML AMP ONE (13:43)
[2016-10-14] MEDS ORDERED: DILTIAZEM HCL 25 MG/5 ML VIAL ONE ×2 (13:47→13:48)
[2016-10-14] MEDS: SODIUM CHLOR 0.9% 1000 ML INJ 1,000 ML IV SCH ×9 (13:57→21:31)
[2016-10-14] MEDS ORDERED: METOPROLOL TARTRATE 5 MG/5 ML VIAL IV PUSH PRN (14:00)
[2016-10-14] MEDS ORDERED: ACETAMINOPHEN 325 MG TAB PO ONE (14:00)
[2016-10-14] MEDS ORDERED: ACETAMINOPHEN 650 MG SUPP RECTAL ONE (14:00)
[2016-10-14 14:15] LABS: AUTOMATED NEUTROPHIL # 10.2 TH/MM3 (1.8-7.7); BASOPHIL % 0.1 % (0.0-2.0); EOSINOPHIL % 0.4 % (0.0-4.0); LYMPH % 8.1 % (9.0-44.0); MEAN CELL VOLUME 87.1 FL (80.0-100.0); MEAN CORPUSCULAR HEMOGLOBIN 28.6 PG (27.0-34.0); MEAN CORPUSCULAR HGB CONC 32.8 % (32.0-36.0); MONO % 4.9 % (0.0-8.0); NEUT % 86.5 % (16.0-70.0); PLATELET COUNT 91 TH/MM3 (150-450); RED BLOOD COUNT 4.25 MIL/MM3 (4.00-5.30); RED CELL DISTRIBUTION WIDTH 16.7 % (11.6-17.2); WHITE BLOOD COUNT 11.8 TH/MM3 (4.0-11.0)
[2016-10-14] MEDS ORDERED: cefTRIAXone INJ 1,000 MG in SODIUM CHLORIDE 0.9% INJ 100 ML IV ONE (14:15)
[2016-10-14] MEDS ORDERED: VANCOMYCIN INJ 1,000 MG in SODIUM CHLOR 0.9% 250 ML INJ 250 ML IV ONE (14:15)
--- NOTE | 2016-10-14 14:15 | PD ---
HPI Chief Complaint: Cardiac Complaint Time Seen by Provider: 13:51 Travel History International Travel<30 days: No Contact w/Intl Traveler<30days: No Traveled to known affect area: No History of Present Illness HPI This is a 60-year-old female patient with a past medical history of hypertension hyperlipidemia type 2 diabetes NH and breast cancer who presents via EMS with a complaint of a rapid heart rate. Patient unable to give a history due to her clinical state. Patient noted t noted to be in A. fib rapid ventricular response. With no measurable blood pressure. Patient given 20 mg of Cardizem by EMS. Patient placed on supplemental oxygen and transported to the emergency room. PFSH Past Medical History Hx Anticoagulant Therapy: Yes Arthritis: Yes Asthma: No Autoimmune Disease: No Depression: Yes Heart Rhythm Problems: No Cancer: Yes (RIGHT BREAST WITH METS TO BONE) Cardiac Catheterization: No Cardiovascular Problems: Yes High Cholesterol: Yes Chemotherapy: Yes (2 YRS AGO) Chest Pain: No Congestive Heart Failure: Yes COPD: No Cerebrovascular Accident: No Diabetes: Yes Patient Takes Glucophage: Yes Diminished Hearing: No Endocrine: Yes Gastrointestinal Disorders: Yes (GERD, ESOPAGEAL STRICTURE WITH MULTIPLE DILITATIONS, ULCER) GERD: Yes Glaucoma: No Genitourinary: No Headaches: Yes (MIGRAINE HX SINCE AGE 12) Hepatitis: No Hiatal Hernia: Yes Hypertension: Yes Immune Disorder: No Kidney Stones: No 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) Neurologic: Yes (MIGRAINES) Psychiatric: Yes Reproductive: No Respiratory: Yes (BRONCHITIS 1-2 TIMES/YEAR) Myocardial Infarction: No Renal Failure: No Seizures: No Sleep Apnea: No Thyroid Disease: No Ulcer: Yes ?: Unknown Menopausal: Yes Tubal Ligation: Yes Past Surgical History Abdominal Surgery: No AICD: No Body Medical Devices: IMPLANTED PORT LEFT CHEST Cardiac Surgery: No Coronary Artery Bypass Graft: No Ear Surgery: No Endocrine Surgery: No Eye Surgery: Yes (LASIK) Genitourinary Surgery: No Gynecologic Surgery: No Joint Replacement: No Mastectomy: Yes (right) Neurologic Surgery: No Oral Surgery: No Pacemaker: No Thoracic Surgery: Yes (RIGHT MASTECTOMY WITH RECONSTRUCTION) Other Surgery: Yes ( LEFT port placement) Social History Alcohol Use: Yes ( RARE , PER OLD HX) Tobacco Use: Yes (1 PPD ) Substance Use: No Allergies-Medications (Allergen,Severity, Reaction): Coded Allergies: Adhesives (Verified Allergy, Severe, Rash, 10/14/16) Bacitracin (Verified Allergy, Severe, ITCHING, 10/14/16) *MDRO Multi-Drug Resistant Organism (Verified Adverse Reaction, Unknown, ) 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 - 12/29/15 Reported Meds & Prescriptions Reported Meds & Active Scripts Active Temazepam 30 Mg Cap 30 Mg PO HS PRN Lisinopril 20 Mg Tab 20 Mg PO Q12HR Coreg (Carvedilol) 6.25 Mg Tab 6.25 Mg PO Q12HR Cymbalta DR (Duloxetine HCl) 60 Mg Capdr 60 Mg PO DAILY Oxycodone (Oxycodone HCl) 30 Mg Tab 10 Mg PO Q6HR PRN Plavix (Clopidogrel Bisulfate) 75 Mg Tab 75 Mg PO DAILY Reported Lyrica (Pregabalin) 50 Mg Cap 50 Mg PO DAILY Ranitidine (Ranitidine HCl) 300 Mg Tab 150 Mg PO HS Fenofibrate 145 Mg Tab 145 Mg PO DAILY Omeprazole 20 Mg Tab 20 Mg PO BID Review of Systems ROS Limitations: Clinical Condition, Altered Mental Status General / Constitutional: No: Fever, Chills, Weight Gain, Weight Loss, Other Eyes: No: Diploplia, Blurred Vision, Photophobia, Drainage, Redness, Foreign Body Sensation, Pain, Tearing, Blind Spots, Visual changes, Blindness, Other HENT: No: Headaches, Vertigo, Lightheadedness, Sore Throat, Rhinitis, Rhinorrhea, Congestion, Nosebleed, Neck Stiffness, Neck Pain, Masses, Gingival Bleeding, Dental Difficulties, Ear Discharge, Earache, Other Cardiovascular: No: Chest Pain or Discomfort, Palpitations, Irregular Rhythm, Tachycardia, Diaphoresis, Syncope, Dyspnea on exertion, Varicosities, Edema, Cyanosis, Varicosities, Phlebitis, Claudication, Other Respiratory: No: Cough, Shortness of Breath, Wheezing, Sneezing, Orthopnea, Hemoptysis, Stridor, Night Sweats, Pleuritic Pain, Other Gastrointestinal: No: Nausea, Vomiting, Diarrhea, Abdominal Pain, Hematemesis, Hematochezia, Constipation, Changes in Bowel Habits, Indigestion, Dysphagia, Loss of Appetite, Other Genitourinary: No: Urgency, Frequency, Dysuria, Nocturia, Hematuria, Decreased Urinary Output, Oliguria, Hesitancy, Dribbling, Incontinence, Pelvic Pain, Flank Pain, Dyspareunia, Discharge, Dysmenorrhea, Menorrhagia, Metorrhagia, Vaginal Bleeding, Other Musculoskeletal: Positive: Weakness, No: Myalgias, Arthralgias, Limited ROM, Cramping, Edema, Pain, Atrophy, Other Skin: No Rash, No Itching, No Dryness, No Lumps, No Hives, No Change in Pigmentation, No Change in nails, No Alopecia, No Lesions, No Breast Lumps, No Breast Tenderness, No Breast Swelling, No Other Neurologic: No: Weakness, Dizziness, Syncope, Focal Abnormalities, Coordination Problem, Tremor, Ataxia, Headache, Change in Mentation, Slurred Speech, Paresthesia, Incontinence, Seizures, Sensory Disturbance, Other Psychiatric: No: Anxiety, Depression, Suicidal Ideations, Disorder of Thought, Mood Disorder, Substance Abuse, Homicidal Ideation, Other Endocrine: No: Heat Intolerance, Cold Intolerance, Polyuria, Polydipsia, Other Hematologic/Lymphatic: No: Easy Bruising, Lymph Node Enlargement, Other Physical Exam Exam Limitations: Clinical Condition Narrative GENERAL: Older female in severe as distress. SKIN: Focused skin assessment warm/dry.no lesions no cyanosis no erythema marked skin pallor HEAD: Atraumatic. Normocephalic. EYES: Pupils equal and round and reactive . No scleral icterus. No injection or drainage. ENT: No nasal bleeding or discharge. Very dry oral mucosa NECK: Trachea midline. No JVD. CARDIOVASCULAR: S1-S2 appreciated precordium hyperdynamic nondisplaced lateral. Regular rate and rhythm. No murmur appreciated. Pulses normal throughout. RESPIRATORY: Breath sounds coarse and respirations shallow no wheezing appreciated lateral breath sounds noted GASTROINTESTINAL: Abdomen soft, non-tender, nondistended. Hepatic and splenic margins not palpable. Bowel sounds normal. No peritoneal signs. MUSCULOSKELETAL: No obvious deformities. No clubbing. No cyanosis. No edema. NEUROLOGICAL: Patient alert but patient has appreciable gag.. Patient localizes to painful stimuli No meningeal signs. PSYCHIATRIC: Patient is nonverbal initially. Data Data Last Documented VS Vital Signs Date Time Temp Pulse Resp B/P Pulse Ox O2 Delivery O2 Flow Rate FiO2 10/14/16 14:29 108 30 91/48 100 Non-Rebreather 10/14/16 13:59 102.4 Orders Naloxone Inj (Narcan Inj) (10/14/16 13:43) Diltiazem Inj (Cardizem Inj) (10/14/16 13:47) Diltiazem Inj (Cardizem Inj) (10/14/16 13:48) Metoprolol Tartrate Inj (Lopressor Inj) (10/14/16 14:00) Sodium Chlor 0.9% 1000 Ml Inj (Ns 1000 M (10/14/16 14:00) Complete Blood Count With Diff (10/14/16 13:54) Comprehensive Metabolic Panel (10/14/16 13:54) Prothrombin Time / Inr (Pt) (10/14/16 13:54) Blood Culture (10/14/16 13:54) Lactic Acid Sepsis Protocol (10/14/16 13:55) Ct Brain W/O Iv Contrast(Rout) (10/14/16 ) Urinalysis - C+S If Indicated (10/14/16 13:55) Chest, Single Ap (10/14/16 ) Acetaminophen (Tylenol) (10/14/16 14:00) Acetaminophen Supp (Tylenol Supp) (10/14/16 14:00) Sodium Chlor 0.9% 1000 Ml Inj (Ns 1000 M (10/14/16 14:15) Ceftriaxone Inj (Rocephin Inj) (10/14/16 14:15) Vancomycin Inj (Vancomycin Inj) (10/14/16 14:15) Ckmb (Isoenzyme) Profile (10/14/16 14:00) Troponin I (10/14/16 14:00) Gentamicin Inj (Gentamicin Inj) (10/14/16 14:30) Urine Culture (10/14/16 14:00) Norepinephrine-Dextrose Drip (Levophed-D (10/14/16 14:30) Lactic Acid Sepsis Protocol (10/14/16 14:30) Lidocaine 1% Inj (50 Ml) (Xylocaine 1% I (10/14/16 14:42) Norepinephrine Inj (Levophed Inj) (10/14/16 14:44) CKMB (10/14/16 14:00) CKMB% (10/14/16 14:00) Arterial Blood Gas (Abg) (10/14/16 ) Admit Order (Ed Use Only) (10/14/16 15:08) Metronidazole 500 Mg Inj (Flagyl 500 Mg (10/14/16 15:15) Labs Laboratory Tests Test 10/14/16 14:00 White Blood Count 11.8 TH/MM3 Red Blood Count 4.25 MIL/MM3 Hemoglobin 12.2 GM/DL Hematocrit 37.0 % Mean Corpuscular Volume 87.1 FL Mean Corpuscular Hemoglobin 28.6 PG Mean Corpuscular Hemoglobin 32.8 % Concent Red Cell Distribution Width 16.7 % Platelet Count 91 TH/MM3 Mean Platelet Volume 10.3 FL Neutrophils (%) (Auto) 86.5 % Lymphocytes (%) (Auto) 8.1 % Monocytes (%) (Auto) 4.9 % Eosinophils (%) (Auto) 0.4 % Basophils (%) (Auto) 0.1 % Neutrophils # (Auto) 10.2 TH/MM3 Lymphocytes # (Auto) 1.0 TH/MM3 Monocytes # (Auto) 0.6 TH/MM3 Eosinophils # (Auto) 0.0 TH/MM3 Basophils # (Auto) 0.0 TH/MM3 CBC Comment AUTO DIFF Differential Total Cells 100 Counted Neutrophils % (Manual) 81 % Band Neutrophils % 10 % Lymphocytes % 3 % Monocytes % 5 % Neutrophils # (Manual) 10.9 TH/MM3 Metamyelocytes 1 % Differential Comment FINAL DIFF MANUAL Toxic Vacuolation PRESENT Dohle Bodies PRESENT Platelet Estimate LOW Platelet Morphology Comment NORMAL Ovalocytes 1+ Prothrombin Time 12.4 SEC Prothromb Time International 1.1 RATIO Ratio Urine Color YELLOW Urine Turbidity CLOUDY Urine pH 6.0 Urine Specific [place] 1.019 Urine Protein 100 mg/dL Urine Glucose (UA) NEG mg/dL Urine Ketones NEG mg/dL Urine Occult Blood MOD Urine Nitrite NEG Urine Bilirubin NEG Urine Urobilinogen 4.0 MG/DL Urine Leukocyte Esterase LARGE Urine RBC 15 /hpf Urine WBC /hpf Urine WBC Clumps MANY Urine Transitional Epithelial 1 /hpf Cells Urine Bacteria MANY /hpf Urine Hyaline Casts 17 /lpf Microscopic Urinalysis Comment CATH-CULTURE IND Sodium Level 135 MEQ/L Potassium Level 3.4 MEQ/L Chloride Level 104 MEQ/L Carbon Dioxide Level 17.8 MEQ/L Anion Gap 13 MEQ/L Blood Urea Nitrogen 54 MG/DL Creatinine 2.13 MG/DL Estimat Glomerular Filtration 23 ML/MIN Rate Random Glucose 151 MG/DL Lactic Acid Level 3.2 mmol/L Calcium Level 7.4 MG/DL Protein Corrected Calcium 8.5 MG/DL Total Bilirubin 0.7 MG/DL Aspartate Amino Transf 52 U/L (AST/SGOT) Alanine Aminotransferase 39 U/L (ALT/SGPT) Alkaline Phosphatase 145 U/L Total Creatine Kinase 285 U/L Creatine Kinase MB 3.9 NG/ML Creatine Kinase MB % 1.4 % Troponin I 1.70 NG/ML Total Protein 5.1 GM/DL Albumin 1.7 GM/DL MDM Medical Decision Making Medical Screen Exam Complete: Yes Emergency Medical Condition: Yes Medical Record Reviewed: Yes Interpretation(s) EKG shows atrial fibrillation with a rapid ventricular response rate 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 fib with RVR. Patient given Cardizem in route by EMS 20 mg without any noticeable response. Presentation heart rate up to 150 patient is in A. fib. The patient not able to be measured. Large bore IVs established. Placed and placed on nonrebreather 100% ox. Liters of normal saline infused rapidly. Blood and urine cultures were. She'll reported at 102. Rectal Tylenol given 975 mg. Rocephin 1 g given IV. Vancomycin given 1 g IV. Creatinine over 2 so gentamicin. She'll given IV Flagyl instead [address] brain ordered. Blood pressure labile. Heart rate is still above 120. A shunt given 5 mg of Lopressor IV. Heart rate now 80-90. Blood pressure not be appreciated. Normal saline given IV. Central line placed in the left femoral vein. IV Levophed started at 5 mics with a good response. A similar alert and was answering questions appropriately. Chest x-ray shows bibasilar atelectasis versus infiltrate. White cell count 11,000 with a left shift. Lactic acid 3.2 troponin 1.7. EKG shows A. fib with RVR Case discussed with Dr. Chaya cruz accepted the patient to the ICU service Critical Care Narrative Please see narrative course and extrapolate to critical care room air Procedures EKG Prior to Arrival: No Diagnosis Primary Impression: Sepsis Additional Impressions: Atrial fibrillation with RVR Acute non-ST segment elevation myocardial infarction Admitting Information Admitting Physician Requests: Admit Condition: Critical Monica,Aaisya N. MD Oct 14, 2016 14:14
[2016-10-14 14:18] LABS: HEMO FLAGS AUTO DIFF
[2016-10-14 14:24] LABS: INTERNATIONAL NORMALIZED RATIO 1.1 RATIO; PROTHROMBIN TIME - PATIENT 12.4 SEC (9.8-11.6)
[2016-10-14 14:25] LABS: BACTERIA, URINE MANY /hpf; BLOOD, URINE MOD (NEG); GLUCOSE,URINE NEG (NEG); HYALINE CAST, URINE 17 /lpf (RARE); KETONE, URINE NEG (NEG); NITRITE,URINE NEG (NEG); TRANSITIONAL EPI CELLS, URINE 1 /hpf
[2016-10-14 14:26] LABS: COMMENT (UR) CATH-CULTURE IND; CULTURE IF INDICATED CATH CULTURE IND; URINE COLOR YELLOW (YELLW/STRAW)
[2016-10-14] MEDS ORDERED: GENTAMICIN INJ 80 MG in SODIUM CHLORIDE 0.9% INJ 100 ML IV ONE (14:30)
[2016-10-14] MEDS ORDERED: LIDOCAINE HCL 1% 50 ML VIAL ONE (14:42)
[2016-10-14] MEDS ORDERED: NOREPINEPHRINE 4 MG/4 ML AMP ONE (14:44)
[2016-10-14 14:50] LABS: BICARBONATE 17.8 MEQ/L (21.0-32.0); CALCIUM-PROTEIN CORRECTED 8.5 MG/DL (8.5-10.1); POTASSIUM 3.4 MEQ/L (3.5-5.1); TOTAL BILIRUBIN ADULT 0.7 MG/DL (0.2-1.0)
[2016-10-14 15:13] LABS: BANDS 10 % (0-6); METAMYELOCYTES 1 % (0-1); NEUTROPHIL # MANUAL DIFF 10.9 TH/MM3 (1.8-7.7); POLYS (SEG NEUTROPHILS) 81 % (16-70); WBC DIFF SAMPLE 100
[2016-10-14] MEDS: NOREPINEPHRINE-DEXTROSE DRIP 250 ML IV SCH ×2 (15:14→21:30)
[2016-10-14 15:15] LABS: DOHLE BODIES PRESENT (NONE SEEN); OVALOCYTES 1+ (NORMAL); PLATELET ESTIMATE SMEAR LOW (NORMAL); PLATELET MORPHOLOGY NORMAL (NORMAL); SCAN/DIFF FINAL DIFF MANUAL; TOXIC VACUOLATION PRESENT (NONE SEEN)
[2016-10-14] MEDS ORDERED: metroNIDAZOLE 500 MG INJ 100 ML IV ONE (15:15)
[2016-10-14] MEDS ORDERED: MISCELLANEOUS NURSING INFORMATION XX SCH (15:30)
[2016-10-14] MEDS ORDERED: MAGNESIUM HYDROXIDE SUSP 30 ML CUP PO PRN (15:30)
[2016-10-14] MEDS ORDERED: BISACODYL 10 MG SUPP RECTAL PRN (15:30)
[2016-10-14] MEDS ORDERED: Vancomycin Consult Pharmacy 1 EA OTHER SCH (15:30)
[2016-10-14] MEDS ORDERED: NALOXONE HCL 0.4 MG/ML AMP IV PRN (15:30)
[2016-10-14] MEDS ORDERED: ONDANSETRON HCL 4 MG/2 ML VIAL IV PRN (15:30)
[2016-10-14] MEDS ORDERED: CHLORHEXIDINE GLUCONATE 2 % 1 PACK (2 CLOTHS) TOP PRN (15:30)
[2016-10-14] MEDS ORDERED: LACTULOSE SYRUP 20 GM/30 ML CUP PO PRN (15:30)
[2016-10-14] MEDS ORDERED: SENNOSIDES 8.6 MG TAB PO PRN (15:30)
[2016-10-14 15:47] LABS: CKMB 3.9 NG/ML (0.5-3.6)
--- NOTE | 2016-10-14 15:51 | HHI.HP ---
HPI Service Critical Care Medicine Primary Care Physician Naz Gunn MD Admission Diagnosis Uropsepsis Atrial fibrillation RVR Diagnosis: Travel History International Travel<30 Days: No Contact w/Intl Traveler <30 Da: No Traveled to Known Affected Are: No Sepsis Criteria SIRS Criteria (2 or more): WBC > 58436, < 4000 or > 10% bands Severe Sepsis (+one): Organ Dysfunction, Lactate >2, Acute Oliguria/Renal Failure Septic Shock Criteria: Unresponsive to 30ml/kg fluid bolus Criteria Outcome: Meets septic shock criteria History of Present Illness This is a 61-year-old female that presented to the ED via ambulance for altered mental status. The patient unable to provide history, history obtained from . The reported that for the last several weeks the patient has been unable to get out of the bed, very lethargic unable to eat, or drink any fluids for approximately several weeks. He has been providing her with her scheduled medications to include Lyrica, temazepam and oxycodone and she progressively became more lethargic. Per report upon arrival EMS, the patient was noted to be in atrial fibrillation with RVR with a heart rate of 160's. The patient received 20 mg of Cardizem by EMS and was transported to the ED. Upon arrival to the ED the patient received Cardizem 20 mg IV push, and Lopressor 5 mg IV. The patient was noted to have a temperature 101.6 laboratory studies reveal a lactic acid of 3.2, 10% bands and a leukocytosis of 11.8. Septic shock protocol was initiated, the patient received approximately 4500 cc of normal saline to include EMS administration, and dosed with Rocephin and vancomycin. Patient received Narcan 0.4 mg and rectal Tylenol 650 mg. The patient then was noted to be hypotensive with a systolic blood pressure in the 70s, a central line was placed by Dr. Anderson left femoral, and a Wilkerson catheter was placed revealing purulent drainage, presumed urosepsis. The patient's medical history is significant for stage IV right breast cancer with bone metastasis and she is status post chemotherapy and radiation approximately 2-3 years ago. Patient was noted to have a right mastectomy with reconstruction and has a left Acozim-s-Blyz in situ. Critical care medicine was consulted for management. Upon my arrival to the ED, systolic blood pressure was noted to be in the mid 70s, Levophed had been initiated, telemetry revealed rate controlled atrial fibrillation in the 80's. Travel History International Travel<30 days: No Contact w/Intl Traveler<30days: No Traveled to known affect area: No History PFSH Past Medical History Hx Anticoagulant Therapy: Yes Arthritis: Yes Asthma: No Autoimmune Disease: No Depression: Yes Heart Rhythm Problems: No Cancer: Yes (RIGHT BREAST WITH METS TO BONE) Cardiac Catheterization: No Cardiovascular Problems: Yes High Cholesterol: Yes Chemotherapy: Yes (2 YRS AGO) Chest Pain: No Congestive Heart Failure: Yes COPD: No Cerebrovascular Accident: No Diabetes: Yes Patient Takes Glucophage: Yes Diminished Hearing: No Endocrine: Yes Gastrointestinal Disorders: Yes (GERD, ESOPAGEAL STRICTURE WITH MULTIPLE DILITATIONS, ULCER) GERD: Yes Glaucoma: No Genitourinary: No Headaches: Yes (MIGRAINE HX SINCE AGE 12) Hepatitis: No Hiatal Hernia: Yes Hypertension: Yes Immune Disorder: No Kidney Stones: No 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) Neurologic: Yes (MIGRAINES) Psychiatric: Yes Reproductive: No Respiratory: Yes (BRONCHITIS 1-2 TIMES/YEAR) Myocardial Infarction: No Renal Failure: No Seizures: No Sleep Apnea: No Thyroid Disease: No Ulcer: Yes ?: Unknown Menopausal: Yes Tubal Ligation: Yes Past Surgical History Abdominal Surgery: No AICD: No Body Medical Devices: IMPLANTED PORT LEFT CHEST Cardiac Surgery: No Coronary Artery Bypass Graft: No Ear Surgery: No Endocrine Surgery: No Eye Surgery: Yes (LASIK) Genitourinary Surgery: No Gynecologic Surgery: No Joint Replacement: No Mastectomy: Yes (right) Neurologic Surgery: No Oral Surgery: No Pacemaker: No Thoracic Surgery: Yes (RIGHT MASTECTOMY WITH RECONSTRUCTION) Other Surgery: Yes ( LEFT port placement) Social History Alcohol Use: Yes ( RARE , PER OLD HX) Tobacco Use: Yes (1 PPD ) Substance Use: No Allergies-Medications Allergies-Medications (Allergen,Severity, Reaction): Coded Allergies: Adhesives (Verified Allergy, Severe, Rash, 10/14/16) Bacitracin (Verified Allergy, Severe, ITCHING, 10/14/16) *MDRO Multi-Drug Resistant Organism (Verified Adverse Reaction, Unknown, ) 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 - 12/29/15 Reported Meds & Prescriptions Reported Meds & Active Scripts Active Temazepam 30 Mg Cap 30 Mg PO HS PRN Lisinopril 20 Mg Tab 20 Mg PO Q12HR Coreg (Carvedilol) 6.25 Mg Tab 6.25 Mg PO Q12HR Oxycodone (Oxycodone HCl) 30 Mg Tab 10 Mg PO Q6HR PRN Plavix (Clopidogrel Bisulfate) 75 Mg Tab 75 Mg PO DAILY Reported Sucralfate 1 Gm Tab 1 Gm PO TID on empty stomach Lyrica (Pregabalin) 50 Mg Cap 50 Mg PO DAILY Ranitidine (Ranitidine HCl) 300 Mg Tab 150 Mg PO HS Cymbalta DR (Duloxetine HCl) 60 Mg Capdr 60 Mg PO BID Fenofibrate 145 Mg Tab 145 Mg PO DAILY Omeprazole 20 Mg Tab 20 Mg PO BID Review of Systems ROS Limitations: Clinical Condition Past Family Social History Allergies: Coded Allergies: Adhesives (Verified Allergy, Severe, Rash, 10/14/16) Bacitracin (Verified Allergy, Severe, ITCHING, 10/14/16) *MDRO Multi-Drug Resistant Organism (Verified Adverse Reaction, Unknown, ) 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 - 12/29/15 Family History Unable to obtain secondary to patient's clinical condition Physical Exam Vital Signs Vital Signs Date Time Temp Pulse Resp B/P Pulse Ox O2 Delivery O2 Flow Rate FiO2 10/14/16 15:21 85 16 113/62 99 Venturi Mask 50 10/14/16 15:20 84 15 80/42 99 Venturi Mask 50 10/14/16 15:20 99 Venturi Mask 50 10/14/16 14:29 108 30 91/48 100 Non-Rebreather 10/14/16 14:24 99 28 96/37 100 Non-Rebreather 10/14/16 14:12 89 29 Non-Rebreather 10/14/16 14:03 129 26 70/28 10/14/16 13:59 102.4 10/14/16 13:54 135 26 92/55 97 Non-Rebreather 10/14/16 13:43 146 32 82/44 97 Physical Exam GENERAL: Critically ill-appearing female patient, noted thready pulse, lethargic , protecting airway SKIN: Cool and mottled. HEAD: Atraumatic. Normocephalic. EYES: Pupils equal and round, miosis noted. No scleral icterus. No injection or drainage. ENT: No nasal bleeding or discharge. Mucous membranes dry. NECK: Trachea midline. No JVD. CARDIOVASCULAR: Normal rate, irregular rhythm. [id number]-[id number] left chest noted RESPIRATORY: No accessory muscle use. Clear to auscultation. Breath sounds equal bilaterally. Nonrebreather facemask GASTROINTESTINAL: Abdomen soft, protuberant non-tender, distended. No guarding. MUSCULOSKELETAL: Extremities without clubbing, cyanosis, or edema. No obvious deformities. Reconstructed right breast NEUROLOGICAL: Lethargic RASS -2. No gross focal/sensory deficits. Follows commands in all 4 extremities. Laboratory Laboratory Tests Test 10/14/16 14:00 White Blood Count 11.8 Red Blood Count 4.25 Hemoglobin 12.2 Hematocrit 37.0 Mean Corpuscular Volume 87.1 Mean Corpuscular Hemoglobin 28.6 Mean Corpuscular Hemoglobin 32.8 Concent Red Cell Distribution Width 16.7 Platelet Count 91 Mean Platelet Volume 10.3 Neutrophils (%) (Auto) 86.5 Lymphocytes (%) (Auto) 8.1 Monocytes (%) (Auto) 4.9 Eosinophils (%) (Auto) 0.4 Basophils (%) (Auto) 0.1 Neutrophils # (Auto) 10.2 Lymphocytes # (Auto) 1.0 Monocytes # (Auto) 0.6 Eosinophils # (Auto) 0.0 Basophils # (Auto) 0.0 CBC Comment AUTO DIFF Differential Total Cells 100 Counted Neutrophils % (Manual) 81 Band Neutrophils % 10 Lymphocytes % 3 Monocytes % 5 Neutrophils # (Manual) 10.9 Metamyelocytes 1 Differential Comment FINAL DIFF MANUAL Toxic Vacuolation PRESENT Dohle Bodies PRESENT Platelet Estimate LOW Platelet Morphology Comment NORMAL Ovalocytes 1+ Prothrombin Time 12.4 Prothromb Time International 1.1 Ratio Urine Color YELLOW Urine Turbidity CLOUDY Urine pH 6.0 Urine Specific Hennessey 1.019 Urine Protein 100 Urine Glucose (UA) NEG Urine Ketones NEG Urine Occult Blood MOD Urine Nitrite NEG Urine Bilirubin NEG Urine Urobilinogen 4.0 Urine Leukocyte Esterase LARGE Urine RBC 15 Urine WBC Urine WBC Clumps MANY Urine Transitional Epithelial 1 Cells Urine Bacteria MANY Urine Hyaline Casts 17 Microscopic Urinalysis Comment CATH-CULTURE IND Sodium Level 135 Potassium Level 3.4 Chloride Level 104 Carbon Dioxide Level 17.8 Anion Gap 13 Blood Urea Nitrogen 54 Creatinine 2.13 Estimat Glomerular Filtration 23 Rate Random Glucose 151 Lactic Acid Level 3.2 Calcium Level 7.4 Protein Corrected Calcium 8.5 Total Bilirubin 0.7 Aspartate Amino Transf 52 (AST/SGOT) Alanine Aminotransferase 39 (ALT/SGPT) Alkaline Phosphatase 145 Total Creatine Kinase 285 Creatine Kinase MB 3.9 Creatine Kinase MB % 1.4 Troponin I 1.70 Total Protein 5.1 Albumin 1.7 Date/Time Procedure Status Source Growth 10/14/16 14:00 Urine Culture Received Urine Catheterized Urine Pending 10/14/16 14:00 Aerobic Blood Culture Received Blood Line Pending 10/14/16 14:00 Anaerobic Blood Culture Received Blood Line Pending 10/14/16 14:00 Cancelled Urine Catheterized Urine Result Diagram: 10/14/16 1400 10/14/16 1400 Imaging Last Impressions Head CT 10/14/16 0000 Signed Impressions: Service Date/Time: September 16:05 - CONCLUSION: 1. Moderate periventricular and subcortical white matter small vessel ischemic changes bilaterally. 2. No acute infarct, acute hemorrhage, mass effect or extra- axial fluid collections. John Barker MD Chest X-Ray 10/14/16 0000 Signed Impressions: Service Date/Time: September 15:41 - CONCLUSION: 1. Minimal bibasilar streakiness consistent with atelectasis and/or developing infiltrates. Clinical correlation is recommended. John Barker MD Abdomen/Pelvis CT 10/14/16 0000 Signed Impressions: Service Date/Time: September 16:08 - CONCLUSION: 1. Obstructive uropathy with moderate right hydronephrosis secondary to obstructing 9 mm calculus in the right ureteropelvic junction. 2. Bilateral pleural thickening. 3. Wilkerson catheter in place. 4. Status post L2 augmentation. 5. Subacute to chronic left rib fractures and old right-sided pubic rami fractures. Julian Camp MD CT brain-pending CT abdomen pelvis-pending Chest [id number] Septic Shock Reassessment Heart: Irregular Lungs: Diminished Skin: Cold, Mottled Peripheral Pulses: Weak Right Radial Weak Left Radial Weak Right Dorsalis Pedis Weak Left Dorsalis Pedis Capillary Refill: >2 seconds Assessment and Plan Assessment and Plan Assessment 1. Septic shock-presumed urosepsis 2. A. fib RVR 3. ARACELI -secondary to septic shock 4. Urosepsis 5. Metabolic encephalopathy and toxic encephalopathy 6. Dehydration 7. Breast cancer stage IV status post chemotherapy and radiation therapy with bone metastasis and right breast reconstruction 8. Elevated troponins 9. History of NSTEMI 06/2016 10. Hypertension 11. Diabetes mellitus 12. Hyperlipidemia 13. Bandemia 14. Peptic ulcer disease 15. GERD Plan Plan by systems: Neurologic: -Neurochecks per ICU protocol -May need to re-dose Narcanclosely monitor -Hold home medications Lyrica, oxycodone and temazepam -Obtain ammonia level -Follow-up CT of the brain Respiratory: -Maintain O2 sat greater than 92% currently on a nonrebreather wean down to Ventimask -Obtain ABG -Bronchodilators every 4 hours when necessary -Maintain head of bed greater than 30 -Follow-up chest x-ray Cardiovascular: -Hold beta blockers, calcium channel blockers in the setting of hypotension and septic shock, will resume when clinically indicated -Continue Plavix -Follow serial troponins-may be secondary to ARACELI and infection -Echocardiogram 06/23/16-EF 5560 percent, grade 1 diastolic function, mild MR, mild to moderate TR, PA peak pressure 52 mmHg -Consult [facility] cardiology- Dr. Niño Renal: -Insert Wilkerson -Avoid nephrotoxins, hold home med MAGUI inhibitor (lisinopril) --CT abdomen pelvis right UPJ obstruction with moderate hydronephrosis -Urology consulted-discussed with Dr. Madrigal -- Strict I/Os FEN/GI: -Patient bolused with 4500 cc IV fluid -Continue normal saline at 125/hour -Sodium bicarbonate infusion at 75/hour -Monitor BMP. Creatinine 2.1 -Follow-up CT of the abdomen and pelvis -Patient's home medication includes both ranitidine at at bedtime, and omeprazole, will continue IV dosing -Protonix 40 mg IV -Pepcid 20 mg IV twice a day Heme/ID: -Monitor serial lactate levels -Follow-up blood and urine cultures -Zosyn and vancomycin initiated, patient received in the ED cefepime, vancomycin and gentamicin -ID consulted -follow-up recommendations Endocrine: -Glucose monitoring per ICU protocol -Low dose insulin regimen -- SSI Prophylaxis: GI Prophylaxis Pepcid DVT Prophylaxis -- SCDs Heparin twice a day Lines: Left femoral in situ (ED) PIVs 2 Dispo: This patient remains critically ill with one or more organ systems which are or may become a threat to life. I have spent in excess of 45 minutes discontinuously in the care and management of this patient. This time is exclusive of procedures, and includes, but is not limited to, evaluation of the patient, review of the medical record, discussions with family, consultants, nursing staff, or respiratory therapy, and documentation in the medical record. Code Status Full Discussed Condition With ED and FACILITY MECHANIC,Dr. Anderson at bedside. Called Dr. Madrigal updated on patient's medical status and imaging studies Chaya Duggan MD Oct 14, 2016 15:51
[2016-10-14 15:53] LABS: BLOOD GAS BASE EXCESS -13.5 mmol/L (-2-2); BLOOD GAS CARBOXYHEMOGLOBIN 0.7 % (0-4); BLOOD GAS HCO3 13 mmol/L (22-26); BLOOD GAS METHEMOGLOBIN 0.8 % (0-2); BLOOD GAS O2 HGB SATURATION 93 % (90-100); BLOOD GAS OXYGEN CONTENT 15.3 Vol % (12.0-20.0); BLOOD GAS PCO2 31 mmHg (38-42); BLOOD GAS PO2 88 mmHG (61-120); BLOOD GAS TOTAL HGB 11.7 G/DL (12.0-16.0); CRITICAL VALUE YES; FIO2 50 %; LITER FLOW 6 L/M; OXYGEN DEVICE Venti Mask; TEMP CORR TO 98.6
[2016-10-14 15:54] LABS: DRAW SITE LT RADIAL; NUMBER OF ARTERIAL PUNCTURES 1; STAT NO; ULNAR PULSE PRESENT
--- NOTE | 2016-10-14 15:55 | RADRPT ---
EXAM DATE/TIME: 10/14/2016 15:41 [facility] COMPARISON: CHEST SINGLE AP, July 19, 2016, 0:15. INDICATIONS : Shortness of breath. MEDICAL HISTORY : Carcinoma, breast. Cardiovascular disease. Hypertension. Diabetes. SURGICAL HISTORY : Mastectomy. ENCOUNTER: Initial ACUITY: 1 day PAIN SCORE: 0/10 LOCATION: Bilateral chest FINDINGS: A left subclavian Aynorm-A-Imoi has its tip at the junction of the superior vena cava and brachioceph alic vein. The heart is mildly prominent. Minimal bibasilar streakiness is noted consistent with at electasis and/or developing infiltrates. CONCLUSION: 1. Minimal bibasilar streakiness consistent with atelectasis and/or developing infiltrates. Clinica l correlation is recommended. John Barker MD on October 14, 2016 at 15:44 Board Certified Radiologist. This report was verified electronically.
[2016-10-14 16:06] LABS: LACTIC ACID GHOST NOT REPORTABLE
--- NOTE | 2016-10-14 16:18 | RADRPT ---
EXAM DATE/TIME: 10/14/2016 16:05 [facility] COMPARISON: CT BRAIN W/O CONTRAST, July 19, 2016, 0:18. INDICATIONS : Altered mental status. RADIATION DOSE: 56.38 CTDIvol (mGy) MEDICAL HISTORY : Carcinoma, breast. mets to the bones SURGICAL HISTORY : Mastectomy, right. ENCOUNTER: Initial ACUITY: 1 day PAIN SCALE: 0/10 LOCATION: cranial TECHNIQUE: Multiple contiguous axial images were obtained of the head. Using automated exposure control and adj ustment of the mA and/or kV according to patient size, radiation dose was kept as low as reasonably a chievable to obtain optimal diagnostic quality images. DICOM format image data is available electro nically for review and comparison. FINDINGS: CEREBRUM: The ventricles are normal for age. No evidence of midline shift, mass lesion, hemorrhage or acute in farction. No extra-axial fluid collections are seen. Moderate periventricular and subcortical white matter small vessel ischemic changes are noted. POSTERIOR FOSSA: The cerebellum and brainstem are intact. The 4th ventricle is midline. The cerebellopontine angle i s unremarkable. EXTRACRANIAL: The visualized portion of the orbits is intact. SKULL: The calvaria is intact. No evidence of skull fracture. CONCLUSION: 1. Moderate periventricular and subcortical white matter small vessel ischemic changes bilaterally. 2. No acute infarct, acute hemorrhage, mass effect or extra-axial fluid collections. John Barker MD on October 14, 2016 at 16:14 Board Certified Radiologist. This report was verified electronically.
--- NOTE | 2016-10-14 16:45 | RADRPT ---
EXAM DATE/TIME: 10/14/2016 16:08 [facility] COMPARISON: No previous studies available for comparison. INDICATIONS : Patient complains of abdominal pain. ORAL CONTRAST: No oral contrast ingested. RADIATION DOSE: 10.22 CTDIvol (mGy) MEDICAL HISTORY : Carcinoma, breast. mets to the bone SURGICAL HISTORY : Mastectomy, right. ENCOUNTER: Initial ACUITY: 1 day PAIN SCALE: 5/10 LOCATION: Bilateral lower quadrant TECHNIQUE: Volumetric scanning of the abdomen and pelvis was performed. Using automated exposure control and adjustment of the mA and/or kV according to patient size, radiation dose was kept as low as reasonably achievable to obtain optimal diagnostic quality images. DICOM format image data is av ailable electronically for review and comparison. FINDINGS: LOWER LUNGS: Mild posterior pleural thickening is identified in both lung bases. There is no evid ence of acute airspace disease. Right breast implant is noted. LIVER: Homogeneous density without lesion. There is no dilation of the biliary tree. No calcifi ed gallstones. SPLEEN: Normal size without lesion. PANCREAS: Within normal limits. KIDNEYS: The right renal collecting system is moderately hydronephrotic. An obstructing calculus measuring 9 mm is identified in the right ureteropelvic junction. Significant perinephric stranding a nd fluid is noted. The left kidney is unremarkable. ADRENAL GLANDS: Within normal limits. VASCULAR: There is no aortic aneurysm. BOWEL/MESENTERY: The stomach, small bowel, and colon demonstrate no acute abnormality. There is no free intraperitoneal air or fluid. ABDOMINAL WALL: Within normal limits. RETROPERITONEUM: There is no lymphadenopathy. BLADDER: Wilkerson catheter is in place. Bladder is collapsed. REPRODUCTIVE: Within normal limits. INGUINAL: There is no lymphadenopathy or hernia. MUSCULOSKELETAL: Bone cement is identified in the second lumbar vertebral body following vertebra l augmentation. Subacute to chronic fractures are identified in the left rib cage. There is deformity of the right pubic symphysis consistent with an old fracture. CONCLUSION: 1. Obstructive uropathy with moderate right hydronephrosis secondary to obstructing 9 mm calculus in the right ureteropelvic junction. 2. Bilateral pleural thickening. 3. Wilkerson catheter in place. 4. Status post L2 augmentation. 5. Subacute to chronic left rib fractures and old right-sided pubic rami fractures. Julian Camp MD on October 14, 2016 at 16:35 Board Certified Radiologist. This report was verified electronically.
[2016-10-14] MEDS ORDERED: DEXTROSE 50% IN WATER 50 ML VIAL(D50) IV PRN (17:00)
[2016-10-14] MEDS ORDERED: GLUCAGON 1 MG/ML VIAL OTHER PRN (17:00)
--- NOTE | 2016-10-14 17:54 | PD.CONS ---
HPI Service Urology Consult Requested By Dr. Chaya Duggan Reason for Consult Obstructing right ureteropelvic junction calculus Primary Care Physician Naz Gunn MD Diagnosis: History of Present Illness 61-year-old female with history metastatic was cancer who was brought in to the emergency room earlier today for altered mental status. Upon arrival to the emergency room the patient was noted to be in atrial fibrillation with rapid ventricular response with a heart rate in the 160s. Patient was managed medically with resolution of the arrhythmia. Septic shock protocol was initiated with either a fluid resuscitation and antibiotics that included Rocephin and vancomycin. Patient also was noted to be hypotensive and had a central line placed. A Wilkerson catheter was also placed with evacuation of grossly purulent urine. A subsequent CT scan of the abdomen and pelvis demonstrated an obstructing 9 mm right ureteropelvic junction calculus with markedly right hydronephrosis. Perinephric stranding around the right kidney was also noted. A urology consult was placed for further management of this obstructing stone in this severely ill septic patient. At the time of consultation the patient was responsive to questioning but not very verbal. Her blood pressure was being maintained with pressors. Review of Systems ROS Limitations: Altered Mental Status Past Family Social History Past Medical History Metastatic breast cancer status post chemotherapy and radiation therapy approximately 2-3 years ago GERD History esophageal stricture Migraine headaches Recurrent bronchitis Diabetes mellitus Depression Hypercholesterolemia Congestive heart failure Hypertension Past Surgical History Status post right mastectomy with reconstruction Status post port placement left chest Status post LASIK eye surgery Reported Medications Refer to EMR Allergies: Coded Allergies: Adhesives (Verified Allergy, Severe, Rash, 10/14/16) Bacitracin (Verified Allergy, Severe, ITCHING, 10/14/16) *MDRO Multi-Drug Resistant Organism (Verified Adverse Reaction, Unknown, ) 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 - 12/29/15 Active Ordered Medications Refer to EMR Family History Unable to obtain Social History Smoker of one pack per day No history alcohol abuse or intravenous drug abuse Physical Exam Vital Signs Date Time Temp Pulse Resp B/P Pulse Ox O2 Delivery O2 Flow Rate FiO2 10/14/16 17:35 95 Venturi Mask 50 10/14/16 15:35 82 16 107/52 99 Venturi Mask 50 10/14/16 15:21 85 16 113/62 99 Venturi Mask 50 10/14/16 15:20 84 15 80/42 99 Venturi Mask 50 10/14/16 15:20 99 Venturi Mask 50 10/14/16 14:29 108 30 91/48 100 Non-Rebreather 10/14/16 14:24 99 28 96/37 100 Non-Rebreather 10/14/16 14:12 89 29 Non-Rebreather 10/14/16 14:03 129 26 70/28 10/14/16 13:59 102.4 10/14/16 13:54 135 26 92/55 97 Non-Rebreather 10/14/16 13:43 146 32 82/44 97 Physical Exam GENERAL: Ill appearing female SKIN: Cool and mottled HEAD: Atraumatic. Normocephalic. No temporal or scalp tenderness. EYES: Pupils equal round and reactive. Extraocular motions intact. No scleral icterus. No injection or drainage. ENT: Nose without bleeding, purulent drainage or septal hematoma. Throat without erythema, tonsillar hypertrophy or exudate. Uvula midline. Airway patent. NECK: Trachea midline. No JVD or lymphadenopathy. Supple, nontender, no meningeal signs. GASTROINTESTINAL: Abdomen soft, moderately distended No guarding or rebound tenderness. GENITOURINARY: No CVA tenderness MUSCULOSKELETAL: Extremities without clubbing, cyanosis, or edema. NEUROLOGICAL: Lethargic but responsive to questioning. Laboratory Tests Test 10/14/16 10/14/16 14:00 15:42 White Blood Count 11.8 Red Blood Count 4.25 Hemoglobin 12.2 Hematocrit 37.0 Mean Corpuscular Volume 87.1 Mean Corpuscular Hemoglobin 28.6 Mean Corpuscular Hemoglobin 32.8 Concent Red Cell Distribution Width 16.7 Platelet Count 91 Mean Platelet Volume 10.3 Neutrophils (%) (Auto) 86.5 Lymphocytes (%) (Auto) 8.1 Monocytes (%) (Auto) 4.9 Eosinophils (%) (Auto) 0.4 Basophils (%) (Auto) 0.1 Neutrophils # (Auto) 10.2 Lymphocytes # (Auto) 1.0 Monocytes # (Auto) 0.6 Eosinophils # (Auto) 0.0 Basophils # (Auto) 0.0 CBC Comment AUTO DIFF Differential Total Cells 100 Counted Neutrophils % (Manual) 81 Band Neutrophils % 10 Lymphocytes % 3 Monocytes % 5 Neutrophils # (Manual) 10.9 Metamyelocytes 1 Differential Comment FINAL DIFF MANUAL Toxic Vacuolation PRESENT Dohle Bodies PRESENT Platelet Estimate LOW Platelet Morphology Comment NORMAL Ovalocytes 1+ Prothrombin Time 12.4 Prothromb Time International 1.1 Ratio Urine Color YELLOW Urine Turbidity CLOUDY Urine pH 6.0 Urine Specific [place] 1.019 Urine Protein 100 Urine Glucose (UA) NEG Urine Ketones NEG Urine Occult Blood MOD Urine Nitrite NEG Urine Bilirubin NEG Urine Urobilinogen 4.0 Urine Leukocyte Esterase LARGE Urine RBC 15 Urine WBC Urine WBC Clumps MANY Urine Transitional Epithelial 1 Cells Urine Bacteria MANY Urine Hyaline Casts 17 Microscopic Urinalysis Comment CATH-CULTURE IND Sodium Level 135 Potassium Level 3.4 Chloride Level 104 Carbon Dioxide Level 17.8 Anion Gap 13 Blood Urea Nitrogen 54 Creatinine 2.13 Estimat Glomerular Filtration 23 Rate Random Glucose 151 Lactic Acid Level 3.2 Calcium Level 7.4 Protein Corrected Calcium 8.5 Total Bilirubin 0.7 Aspartate Amino Transf 52 (AST/SGOT) Alanine Aminotransferase 39 (ALT/SGPT) Alkaline Phosphatase 145 Total Creatine Kinase 285 Creatine Kinase MB 3.9 Creatine Kinase MB % 1.4 Troponin I 1.70 Total Protein 5.1 Albumin 1.7 Blood Gas Puncture Site LT RADIAL Blood Gas Patient Temperature 98.6 Blood Gas HCO3 13 Blood Gas Base Excess -13.5 Blood Gas Oxygen Saturation 93 Arterial Blood pH 7.23 Arterial Blood Partial 31 Pressure CO2 Arterial Blood Partial 88 Pressure O2 Arterial Blood Oxygen Content 15.3 Arterial Blood 0.7 Carboxyhemoglobin Arterial Blood Methemoglobin 0.8 Blood Gas Hemoglobin 11.7 Oxygen Delivery Device Venti Mask Blood Gas Liter Flow 6 Blood Gas Inspired Oxygen 50 Date/Time Procedure Status Source Growth 10/14/16 14:00 Urine Culture Received Urine Catheterized Urine Pending 10/14/16 14:00 Aerobic Blood Culture Received Blood Line Pending 10/14/16 14:00 Anaerobic Blood Culture Received Blood Line Pending 10/14/16 14:00 Cancelled Urine Catheterized Urine Result Diagram: 10/14/16 1400 10/14/16 1400 Imaging Last Impressions Head CT 10/14/16 0000 Signed Impressions: Service Date/Time: , October 14, 2016 16:05 - CONCLUSION: 1. Moderate periventricular and subcortical white matter small vessel ischemic changes bilaterally. 2. No acute infarct, acute hemorrhage, mass effect or extra- axial fluid collections. John Barker MD Chest X-Ray 10/14/16 0000 Signed Impressions: Service Date/Time: September 15:41 - CONCLUSION: 1. Minimal bibasilar streakiness consistent with atelectasis and/or developing infiltrates. Clinical correlation is recommended. John Barker MD Abdomen/Pelvis CT 10/14/16 0000 Signed Impressions: Service Date/Time: September 16:08 - CONCLUSION: 1. Obstructive uropathy with moderate right hydronephrosis secondary to obstructing 9 mm calculus in the right ureteropelvic junction. 2. Bilateral pleural thickening. 3. Wilkerson catheter in place. 4. Status post L2 augmentation. 5. Subacute to chronic left rib fractures and old right-sided pubic rami fractures. Julian Camp MD CT scan of the abdomen and pelvis images reviewed and concur with the radiologist's interpretation. Assessment and Plan Assessment and Plan Urologic impression: Urosepsis related to obstructing 9 mm right ureteropelvic junction calculus Plan: #1 keep patient npo #2 bring the patient to the operating room suite this evening for cystoscopy, right retrograde pyelogram and right ureteral stent placement #3 discussed with patient and her the urgent nature of the planned procedures and the inherent risk involved. Ernie Madrigal MD Oct 14, 2016 17:54
[2016-10-14] MEDS: HEPARIN SODIUM - SQ 10,000 UNITS/ML VIAL SQ SCH (18:00)
--- NOTE | 2016-10-14 20:00 | EKG ---
Date Performed: 10/14/2016 Time Performed: 13:58:37 PTAGE: 61 years EKG: ATRIAL FIBRILLATION WITH RAPID VENTRICULAR RESPONSE INFERIOR MYOCARDIAL INFARCTION ABNORMAL ECG NO PREVIOUS TRACING DOCTOR: Kumar Cruz Interpretating Date/Time 10/14/2016 19:59:41
[2016-10-14] MEDS ORDERED: IOHEXOL 350 MG/ML 10 ML VIAL (for RAD DIAG) ONE (20:10)
[2016-10-14] MEDS ORDERED: LIDOCAINE HCL 2% JELLY 5 ML SYRINGE ONE (20:13)
[2016-10-14] MEDS ORDERED: LIDOCAINE 2% JELLY 30 ML TUBE ONE (20:13)
--- NOTE | 2016-10-14 20:37 | PD.OP ---
Operative Report Date of Surgery: Oct 14, 2016 Preoperative Diagnosis: (1) Renal calculus, right (2) Hydronephrosis, right Postoperative Diagnosis: (1) Renal calculus, right (2) Hydronephrosis, right Procedure: Cystoscopy, right retrograde pyelogram and alf right ureteral stent placement Anesthesia: I V sedation Surgeon: Ernie Madrigal Litigation Legal Secretary(s): None Operation and Findings: Indication for procedure: Case of a 61-year-old female with urosepsis and right hydronephrosis secondary to an obstructing 9 mm right ureteropelvic junction calculus. Operative procedure in detail: Patient was brought to the operating room suite and placed supine on the operating table. She was then administered intravenous anesthesia and repositioned in the dorsal lithotomy position. After appropriate timeout was undertaken I proceeded with cystoscopic evaluation utilizing the rigid cystoscope with a 20 Wolof sheath and the 30 lens. Both right and left ureteral orifices were in correct anatomic position. There was clear reflux on the left and no reflux noted on the right side. There were no bladder mucosal lesions noted. I next proceeded with passing a sensor 0.035 wire up the patient's right ureter up to the point of the obstructing right ureteropelvic junction calculus and beyond. A 6 Wolof open ended catheter was next advanced over the wire up into the right renal pelvis and the wire withdrawn. A sample was next taken from the right renal pelvis which was purulent in nature and sent off for culture and sensitivity. A right retrograde pyelogram study was performed to outline the collecting system and the open-ended catheter was next exchanged for a 24 cm 6 Wolof technician terminal and repeater double -J stent. The stent was placed under both cystoscopic and fluoroscopic guidance without difficulty and wants to stent was in proper position the trailing string was removed. A 16 Wolof 10 cc Wilkerson catheter was next placed and connected to gravity drainage. The patient tolerated the procedures without complications and was transferred to the PACU in satisfactory condition. Ernie Madrigal MD Oct 14, 2016 20:37
[2016-10-14] MEDS: INSULIN ASPART SUPPLEMENTAL SCALE SQ SCH (20:48)
[2016-10-14] MEDS: FAMOTIDINE 20 MG/2 ML VIAL IV PUSH SCH (20:49)
[2016-10-14] MEDS ORDERED: KETAMINE HCL 500 MG/5 ML VIAL ONE (20:49)
[2016-10-14] MEDS ORDERED: MIDAZOLAM HCL 2 MG/2 ML VIAL ONE (20:49)
[2016-10-14] MEDS: PANTOPRAZOLE SODIUM 40 MG VIAL IV PUSH SCH (20:49)
[2016-10-14] MEDS: PIPERACIL-TAZO 2.25 GM PREMIX 50 ML IV SCH ×2 (20:49→22:55)
[2016-10-14] MEDS: DOCUSATE SODIUM 50 MG/SENNA 8.6 MG TAB PO SCH (21:00)
[2016-10-14] MEDS ORDERED: FAMOTIDINE 20 MG/2 ML VIAL IV PUSH SCH (21:00)
[2016-10-14] MEDS: SODIUM CHLORIDE 0.9% FLUSH 10 ML FLUSH IV FLUSH SCH (21:00)
[2016-10-14] MEDS: CHLORHEXIDINE GLUCONATE 2 % 1 PACK (2 CLOTHS) TOP SCH (21:12)
[2016-10-14] MEDS: SODIUM BICARBONATE 8.4% INJ 150 MEQ in SODIUM CHLOR 0.9% 1000 ML INJ 850 ML IV SCH (21:30)
[2016-10-14] MEDS ORDERED: DO NOT ADM ANY ANTICOAGULANT DRUGS PRN (22:00)
--- NOTE | 2016-10-14 22:10 | PD.PROCEDR ---
Procedure Note Procedure Endotracheal Intubation A time-out was completed verifying correct patient, procedure, site, positioning , and special equipment if applicable. The patient was placed in a flat position. Sedation was obtained using Etomidate 20mg. The patient was easily ventilated using an ambu bag. The [employer]/ MAC 4 BLADE was used and inserted into the oropharynx at which time there was a Grade 1 view of the vocal cords. A 8-korean endotracheal tube was inserted and visualized going through the vocal cords. The stylette was removed. Colorimetric change was visualized on the CO2 meter. Breath sounds were heard in both lung mota equally. The endotracheal tube was placed at 23 cm, measured at the teeth. A chest x-ray was ordered to assess for pneumothorax and verify endotrachealtube placement. Estimated Blood Loss: 0 The patient tolerated the procedure well and there were no complications. Leonel Velazquez MD Oct 14, 2016 22:10
--- NOTE | 2016-10-14 22:38 | RADRPT ---
EXAM DATE/TIME: 10/14/2016 22:12 [facility] COMPARISON: CHEST SINGLE AP, October 14, 2016, 15:41. INDICATIONS : Evaluate intubation MEDICAL HISTORY : Carcinoma, breast. Cardiovascular disease. Hypertension. Diabetes. SURGICAL HISTORY : Masectomy. ENCOUNTER: Subsequent ACUITY: 1 day PAIN SCORE: Non-responsive. LOCATION: chest FINDINGS: A single AP semierect view of the chest was obtained and demonstrates interval placement of endotrach eal tube tip 4 cm above the manan. A nasogastric tube has been placed and is seen coursing through t he esophagus and into the stomach. The left subclavian central venous line remains in place. Heart si ze is within normal limits. There are no confluent infiltrates or effusions. A right breast implant i s noted and there is overlying soft tissue density projected over the right lung base. Atheroscleroti c changes are present in the aorta. There are multiple overlying electrocardiogram leads. CONCLUSION: 1. Interval intubation and placement of nasogastric tube. 2. No acute cardiopulmonary disease. Dwain Suarez MD on October 14, 2016 at 22:33 Board Certified Radiologist. This report was verified electronically.
[2016-10-14 22:42] LABS: BLOOD GAS BASE EXCESS -13.7 mmol/L (-2-2); BLOOD GAS CARBOXYHEMOGLOBIN 0.9 % (0-4); BLOOD GAS HCO3 13 mmol/L (22-26); BLOOD GAS METHEMOGLOBIN 1.2 % (0-2); BLOOD GAS O2 HGB SATURATION 97 % (90-100); BLOOD GAS OXYGEN CONTENT 17.8 Vol % (12.0-20.0); BLOOD GAS PCO2 33 mmHg (38-42); BLOOD GAS PO2 193 mmHg (61-120); BLOOD GAS TOTAL HGB 12.8 G/DL (12.0-16.0); CRITICAL VALUE YES; OXYGEN DEVICE VENTILATOR; TEMP CORR TO 98.6
[2016-10-14 22:43] LABS: DRAW SITE LT BRACHIAL; FIO2 65 %; NUMBER OF ARTERIAL PUNCTURES 2; STAT NO; ULNAR PULSE PRESENT
[2016-10-14 22:58] LABS: HEMATOCRIT 40.8 % (35.0-46.0); MEAN CORPUSCULAR HGB CONC 30.7 % (32.0-36.0); PLATELET COUNT 134 TH/MM3 (150-450); RED BLOOD COUNT 4.48 MIL/MM3 (4.00-5.30); RED CELL DISTRIBUTION WIDTH 17.7 % (11.6-17.2); REVIEW FLAG FINAL; WHITE BLOOD COUNT 14.9 TH/MM3 (4.0-11.0)
[2016-10-14] MEDS ORDERED: SODIUM CHLOR 0.9% 1000 ML INJ 1,000 ML IV ONE ×3 (23:45)
[2016-10-15] VITALS (42 sets, daily range): BP systolic 76–120; BP diastolic 51–84; PULSE 63–113; RESP 0–25; TEMP 97.8–99; O2SAT 89–99
[2016-10-15] MEDS: RESP: ALBUTEROL 2.5 MG/IPRATROPIUM 0.5 MG NEB (PRN) INH (01:36)
[2016-10-15] MEDS: SODIUM BICARBONATE 8.4% INJ 150 MEQ in SODIUM CHLOR 0.9% 1000 ML INJ 850 ML IV SCH ×4 (03:08→20:58)
[2016-10-15 05:18] LABS: BLOOD GAS CARBOXYHEMOGLOBIN 1.1 % (0-4); BLOOD GAS HCO3 17 mmol/L (22-26); BLOOD GAS METHEMOGLOBIN 1.2 % (0-2); BLOOD GAS O2 HGB SATURATION 85 % (90-100); BLOOD GAS PCO2 32 mmHg (38-42); BLOOD GAS PO2 54 mmHg (61-120); BLOOD GAS TOTAL HGB 12.6 G/DL (12.0-16.0); TEMP CORR TO 98.6
[2016-10-15 05:20] LABS: CRITICAL VALUE YES; DRAW SITE ART LINE; FIO2 50 %; NUMBER OF ARTERIAL PUNCTURES 2; OXYGEN DEVICE VENTILATOR; ULNAR PULSE PRESENT
[2016-10-15 05:21] LABS: STAT NO
[2016-10-15] MEDS: HEPARIN SODIUM - SQ 10,000 UNITS/ML VIAL SQ SCH ×2 (05:35→18:00)
[2016-10-15] MEDS: FAMOTIDINE 20 MG/2 ML VIAL IV PUSH SCH ×2 (05:35→18:00)
[2016-10-15] MEDS: PIPERACIL-TAZO 2.25 GM PREMIX 50 ML IV SCH ×3 (05:35→18:00)
[2016-10-15 06:19] LABS: AUTOMATED NEUTROPHIL # 9.9 TH/MM3 (1.8-7.7); BASOPHIL % 0.2 % (0.0-2.0); EOSINOPHIL # 0.4 TH/MM3 (0-0.4); EOSINOPHIL % 3.3 % (0.0-4.0); HEMATOCRIT 36.4 % (35.0-46.0); LYMPH % 12.3 % (9.0-44.0); LYMPHOCYTE # 1.5 TH/MM3 (1.0-4.8); MEAN CELL VOLUME 87.3 FL (80.0-100.0); MEAN CORPUSCULAR HEMOGLOBIN 28.6 PG (27.0-34.0); MEAN CORPUSCULAR HGB CONC 32.7 % (32.0-36.0); MONO % 5.1 % (0.0-8.0); NEUT % 79.1 % (16.0-70.0); PLATELET COUNT 96 TH/MM3 (150-450); RED BLOOD COUNT 4.17 MIL/MM3 (4.00-5.30); RED CELL DISTRIBUTION WIDTH 16.8 % (11.6-17.2); WHITE BLOOD COUNT 12.5 TH/MM3 (4.0-11.0)
[2016-10-15 06:25] LABS: HEMO FLAGS AUTO DIFF
[2016-10-15] MEDS: INSULIN ASPART SUPPLEMENTAL SCALE SQ SCH ×4 (06:35→21:00)
[2016-10-15 07:15] LABS: BICARBONATE 21.5 MEQ/L (21.0-32.0); MAGNESIUM 1.5 MG/DL (1.5-2.5); TOTAL BILIRUBIN ADULT 0.6 MG/DL (0.2-1.0)
[2016-10-15 07:20] LABS: CALCIUM-PROTEIN CORRECTED 7.1 MG/DL (8.5-10.1); POTASSIUM 2.9 MEQ/L (3.5-5.1)
[2016-10-15] MEDS: SODIUM CHLOR 0.9% 1000 ML INJ 1,000 ML IV SCH ×3 (07:26→22:27)
--- NOTE | 2016-10-15 08:03 | PD.CONS ---
HPI Service CV Consult Requested By Reason for Consult a-fib,elevated troponin Primary Care Physician Naz Gunn MD History of Present Illness Here with h/o a-fib and nonostructive CAD (coronary angiogram 06/2016 revealing 50% stenosis mid LAD), hypertensive CKD , CKD stage 2, and hyperlipidemia. She is is admitted for sepsis, AMS and a-fib RVR. She underwent urethral stent yesterday. She remain in SR this morning. Echo done last June showed EF 55-60 % and mild MR. Her troponin is significantly elevated now. She is intubated and mechanically ventilated. Review of Systems ROS Limitations: Intubated Past Family Social History Allergies: Coded Allergies: Adhesives (Verified Allergy, Severe, Rash, 10/14/16) Bacitracin (Verified Allergy, Severe, ITCHING, 10/14/16) *MDRO Multi-Drug Resistant Organism (Verified Adverse Reaction, Unknown, ) 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 - 12/29/15 Past Medical History see HPI diabetes OA myelopathy Past Surgical History see HPI right mastectomy colonoscopy EGD port placement sinus surgery tubal ligation Reported Medications Reported Meds & Active Scripts Active Temazepam 30 Mg Cap 30 Mg PO HS PRN Lisinopril 20 Mg Tab 20 Mg PO Q12HR Coreg (Carvedilol) 6.25 Mg Tab 6.25 Mg PO Q12HR Cymbalta DR (Duloxetine HCl) 60 Mg Capdr 60 Mg PO DAILY Oxycodone (Oxycodone HCl) 30 Mg Tab 10 Mg PO Q6HR PRN Plavix (Clopidogrel Bisulfate) 75 Mg Tab 75 Mg PO DAILY Reported Lyrica (Pregabalin) 50 Mg Cap 50 Mg PO DAILY Ranitidine (Ranitidine HCl) 300 Mg Tab 150 Mg PO HS Fenofibrate 145 Mg Tab 145 Mg PO DAILY Omeprazole 20 Mg Tab 20 Mg PO BID Active Ordered Medications Current Medications Medications (Trade) Dose Ordered Sig/Jarad Route Start Time Stop Time Status Last Admin Metoprolol Tartrate 5 mg 5 mg ONCE PRN IV PUSH 10/14/16 14:00 10/14/16 13:57 Norepinephrine Bitartrate 250 ml @ 0 mls/hr TITRATE IV 10/14/16 14:30 10/14/16 21:30 (NS 1000 ml Inj) 1,000 ml @ 125 mls/hr Q8H IV 10/14/16 15:26 10/14/16 15:26 (Tylenol) 650 mg Q6H PRN PO 10/14/16 15:30 (Zofran Inj) 4 mg Q6H PRN IV 10/14/16 15:30 (Narcan Inj) 0.4 mg Q3M PRN IV 10/14/16 15:30 (Heparin Inj) 5,000 units Q12H SQ 10/14/16 18:00 Miscellaneous Information 1 Q361D XX 10/14/16 15:30 10/14/16 15:30 (Chlorhexidine 2% Cloth) 3 pack Taper DAILY@04 TOP 10/15/16 04:00 10/11/17 03:59 10/14/16 21:12 (Chlorhexidine 2% Cloth) 3 pack UNSCH PRN TOP 10/14/16 15:30 (Tala-Colace) 1 tab BID PO 10/14/16 21:00 10/14/16 21:00 (Milk Of Magnesia Liq) 30 ml Q12H PRN PO 10/14/16 15:30 (Senokot) 17.2 mg Q12H PRN PO 10/14/16 15:30 (Dulcolax Supp) 10 mg DAILY PRN RECTAL 10/14/16 15:30 (Lactulose Liq) 30 ml DAILY PRN PO 10/14/16 15:30 Sodium Chloride 2 ml 2 ml BID IV FLUSH 10/14/16 21:00 10/14/16 21:00 Piperacillin Sod/ Tazobactam Sod 50 ml @ 200 mls/hr Q6H IV 10/14/16 18:00 10/15/16 05:35 (Vancomycin Consult Pharmacy) 0 ml @ 0 mls/hr UNSCH OTHER 10/14/16 15:30 (Plavix) 75 mg DAILY PO 10/15/16 09:00 (Protonix Inj) 40 mg Q24H IV PUSH 10/14/16 20:00 10/14/16 20:49 (Pepcid Inj) 10 mg Q12H IV PUSH 10/14/16 18:00 10/15/16 05:35 (D50w (Vial) Inj) 50 ml UNSCH PRN IV 10/14/16 17:00 Glucagon 1 mg 1 mg UNSCH PRN OTHER 10/14/16 17:00 (Sodium Bicarbonate 8.4% Inj/NS 1000 ml Inj) 1,000 ml @ 175 mls/hr Q5H43M IV 10/14/16 20:00 10/15/16 03:08 Miscellaneous Information ALL NURSING DEPARTME... UNSCH PRN .XX 10/14/16 22:00 10/15/16 21:59 (Roxicodone) 10 mg Q6H PRN PO 10/14/16 22:15 10/15/16 04:29 Family History noncontributory Social History Alcohol Use: Yes ( RARE , PER OLD HX) Tobacco Use: Yes (1 PPD ) Substance Use: No Physical Exam Vital Signs Vital Signs Date Time Temp Pulse Resp B/P Pulse Ox O2 Delivery O2 Flow Rate FiO2 10/15/16 06:00 85 10/15/16 04:09 98 50 10/15/16 04:00 98.0 88 16 99/68 96 10/15/16 04:00 50 10/15/16 04:00 88 10/15/16 02:00 85 10/15/16 00:35 99 65 10/15/16 00:00 99.0 88 16 114/66 92 10/15/16 00:00 88 10/14/16 22:00 65 10/14/16 22:00 108 10/14/16 22:00 100 65 10/14/16 21:10 83 17 91/55 83 Partial Non-Rebreather 10 10/14/16 21:00 98.3 100 14 114/66 95 10/14/16 21:00 83 17 89/50 95 Partial Non-Rebreather 10 10/14/16 20:45 82 18 110/64 94 Partial Non-Rebreather 10 10/14/16 20:40 98.3 87 24 114/67 95 Partial Non-Rebreather 10 10/14/16 20:00 100 10/14/16 18:52 97.9 10/14/16 18:00 82 10/14/16 17:35 95 Venturi Mask 50 10/14/16 15:35 82 16 107/52 99 Venturi Mask 50 10/14/16 15:21 85 16 113/62 99 Venturi Mask 50 10/14/16 15:20 84 15 80/42 99 Venturi Mask 50 10/14/16 15:20 99 Venturi Mask 50 10/14/16 14:29 108 30 91/48 100 Non-Rebreather 10/14/16 14:24 99 28 96/37 100 Non-Rebreather 10/14/16 14:12 89 29 Non-Rebreather 10/14/16 14:03 129 26 70/28 10/14/16 13:59 102.4 10/14/16 13:54 135 26 92/55 97 Non-Rebreather 10/14/16 13:43 146 32 82/44 97 Physical Exam GENERAL: intubated NECK: No JVD. No carotid bruit. CARDIOVASCULAR: Regular rate and rhythm. S1/S2 no murmur, rub, or gallop. RESPIRATORY: No accessory muscle use. Clear to auscultation. Breath sounds equal bilaterally. GASTROINTESTINAL: Abdomen soft, non-tender, nondistended. MUSCULOSKELETAL: Extremities without clubbing, cyanosis, or edema. Laboratory Laboratory Tests Test 10/14/16 10/14/16 10/14/16 10/14/16 14:00 15:42 22:22 22:40 White Blood Count 11.8 14.9 Red Blood Count 4.25 4.48 Hemoglobin 12.2 12.5 Hematocrit 37.0 40.8 Mean Corpuscular Volume 87.1 91.0 Mean Corpuscular Hemoglobin 28.6 28.0 Mean Corpuscular Hemoglobin 32.8 30.7 Concent Red Cell Distribution Width 16.7 17.7 Platelet Count 91 134 Mean Platelet Volume 10.3 10.8 Neutrophils (%) (Auto) 86.5 Lymphocytes (%) (Auto) 8.1 Monocytes (%) (Auto) 4.9 Eosinophils (%) (Auto) 0.4 Basophils (%) (Auto) 0.1 Neutrophils # (Auto) 10.2 Lymphocytes # (Auto) 1.0 Monocytes # (Auto) 0.6 Eosinophils # (Auto) 0.0 Basophils # (Auto) 0.0 CBC Comment AUTO DIFF Differential Total Cells 100 Counted Neutrophils % (Manual) 81 Band Neutrophils % 10 Lymphocytes % 3 Monocytes % 5 Neutrophils # (Manual) 10.9 Metamyelocytes 1 Differential Comment FINAL DIFF MANUAL Toxic Vacuolation PRESENT Dohle Bodies PRESENT Platelet Estimate LOW Platelet Morphology Comment NORMAL Ovalocytes 1+ Prothrombin Time 12.4 Prothromb Time International 1.1 Ratio Urine Color YELLOW Urine Turbidity CLOUDY Urine pH 6.0 Urine Specific [place] 1.019 Urine Protein 100 Urine Glucose (UA) NEG Urine Ketones NEG Urine Occult Blood MOD Urine Nitrite NEG Urine Bilirubin NEG Urine Urobilinogen 4.0 Urine Leukocyte Esterase LARGE Urine RBC 15 Urine WBC Urine WBC Clumps MANY Urine Transitional Epithelial 1 Cells Urine Bacteria MANY Urine Hyaline Casts 17 Microscopic Urinalysis Comment CATH-CULTURE IND Sodium Level 135 Potassium Level 3.4 Chloride Level 104 Carbon Dioxide Level 17.8 Anion Gap 13 Blood Urea Nitrogen 54 Creatinine 2.13 Estimat Glomerular Filtration 23 Rate Random Glucose 151 Lactic Acid Level 3.2 1.9 Calcium Level 7.4 Protein Corrected Calcium 8.5 Total Bilirubin 0.7 Aspartate Amino Transf 52 (AST/SGOT) Alanine Aminotransferase 39 (ALT/SGPT) Alkaline Phosphatase 145 Total Creatine Kinase 285 Creatine Kinase MB 3.9 Creatine Kinase MB % 1.4 Troponin I 1.70 2.47 B-Type Natriuretic Peptide 466 Total Protein 5.1 Albumin 1.7 Blood Gas Puncture Site LT RADIAL LT BRACHIAL Blood Gas Patient Temperature 98.6 98.6 Blood Gas HCO3 13 13 Blood Gas Base Excess -13.5 -13.7 Blood Gas Oxygen Saturation 93 97 Arterial Blood pH 7.23 7.21 Arterial Blood Partial 31 33 Pressure CO2 Arterial Blood Partial 88 193 Pressure O2 Arterial Blood Oxygen Content 15.3 17.8 Arterial Blood 0.7 0.9 Carboxyhemoglobin Arterial Blood Methemoglobin 0.8 1.2 Blood Gas Hemoglobin 11.7 12.8 Oxygen Delivery Device Venti Mask VENTILATOR Blood Gas Liter Flow 6 Blood Gas Inspired Oxygen 50 65 Blood Gas Ventilator Setting COMMENT Ammonia 22 Test 10/15/16 10/15/16 05:00 06:05 Blood Gas Puncture Site ART LINE Blood Gas Patient Temperature 98.6 Blood Gas HCO3 17 Blood Gas Base Excess -7.0 Blood Gas Oxygen Saturation 85 Arterial Blood pH 7.36 Arterial Blood Partial 32 Pressure CO2 Arterial Blood Partial 54 Pressure O2 Arterial Blood Oxygen Content 15.0 Arterial Blood 1.1 Carboxyhemoglobin Arterial Blood Methemoglobin 1.2 Blood Gas Hemoglobin 12.6 Oxygen Delivery Device VENTILATOR Blood Gas Ventilator Setting COMMENT Blood Gas Inspired Oxygen 50 White Blood Count 12.5 Red Blood Count 4.17 Hemoglobin 11.9 Hematocrit 36.4 Mean Corpuscular Volume 87.3 Mean Corpuscular Hemoglobin 28.6 Mean Corpuscular Hemoglobin 32.7 Concent Red Cell Distribution Width 16.8 Platelet Count 96 Mean Platelet Volume 9.6 Neutrophils (%) (Auto) 79.1 Lymphocytes (%) (Auto) 12.3 Monocytes (%) (Auto) 5.1 Eosinophils (%) (Auto) 3.3 Basophils (%) (Auto) 0.2 Neutrophils # (Auto) 9.9 Lymphocytes # (Auto) 1.5 Monocytes # (Auto) 0.6 Eosinophils # (Auto) 0.4 Basophils # (Auto) 0.0 CBC Comment AUTO DIFF Sodium Level 146 Potassium Level 2.9 Chloride Level 111 Carbon Dioxide Level 21.5 Anion Gap 14 Blood Urea Nitrogen 42 Creatinine 1.45 Estimat Glomerular Filtration 36 Rate Random Glucose 107 Lactic Acid Level 1.4 Calcium Level 6.0 Protein Corrected Calcium 7.1 Phosphorus Level 3.5 Magnesium Level 1.5 Total Bilirubin 0.6 Aspartate Amino Transf 90 (AST/SGOT) Alanine Aminotransferase 52 (ALT/SGPT) Alkaline Phosphatase 137 Troponin I 2.26 B-Type Natriuretic Peptide 807 Total Protein 4.7 Albumin 1.5 Random Vancomycin Level 12.0 Date/Time Procedure Status Source Growth 10/14/16 22:45 Urine Culture Received Urine Catheterized Urine Pending 10/14/16 14:00 Legionella Antigen Received Urine Catheterized Urine Pending 10/14/16 14:00 Streptococcus pneumoniae Antigen (M Received Urine Catheterized Urine Pending 10/14/16 14:00 Aerobic Blood Culture Received Blood Line Pending 10/14/16 14:00 Anaerobic Blood Culture Received Blood Line Pending 10/14/16 14:00 Cancelled Urine Catheterized Urine Result Diagram: 10/15/1660410/15/16 06 Assessment and Plan Problem List: (1) Atrial fibrillation with RVR (2) CAD (coronary artery disease) Assessment and Plan CAD - she will need ischemic work up when more stable. a-fib - in sinus rhythm continue to monitor hypokalemia and hyomagnesemia - replete Balwinder Posadas Oct 15, 2016 08:03
[2016-10-15 08:45] LABS: BANDS 21 % (0-6); EOSINOPHILS 1 % (0-4); NEUTROPHIL # MANUAL DIFF 11.3 TH/MM3 (1.8-7.7); PLATELET ESTIMATE SMEAR LOW (NORMAL); PLATELET MORPHOLOGY NORMAL (NORMAL); POLYS (SEG NEUTROPHILS) 69 % (16-70); SCAN/DIFF FINAL DIFF MANUAL; WBC DIFF SAMPLE 100
[2016-10-15] MEDS: SODIUM CHLORIDE 0.9% FLUSH 10 ML FLUSH IV FLUSH SCH ×2 (09:00→21:00)
[2016-10-15] MEDS: FUROSEMIDE 40 MG TAB OG-TUBE SCH ×2 (09:00→18:00)
[2016-10-15] MEDS: DOCUSATE SODIUM 50 MG/SENNA 8.6 MG TAB PO SCH ×2 (09:00→21:00)
[2016-10-15] MEDS: CLOPIDOGREL 75 MG TAB PO SCH (09:00)
[2016-10-15] MEDS ORDERED: POTASSIUM PHOSPHATE INJ 30 MMOL in SODIUM CHLOR 0.9% 250 ML INJ 250 ML IV PRN (10:45)
[2016-10-15] MEDS ORDERED: POTASSIUM CHLOR 40 MEQ PREMIX 100 ML IV PRN ×2 (10:45)
[2016-10-15] MEDS ORDERED: SODIUM PHOSPHATE INJ 30 MMOL in SODIUM CHLOR 0.9% 250 ML INJ 240 ML IV PRN (10:45)
[2016-10-15] MEDS ORDERED: MAGNESIUM OXIDE 400 MG TAB PO PRN (10:45)
[2016-10-15] MEDS ORDERED: MAGNESIUM SULFATE INJ 2 GM in SODIUM CHLORIDE 0.9% INJ 96 ML IV PRN (10:45)
[2016-10-15] MEDS ORDERED: POTASSIUM CHLOR 20 MEQ PREMIX 100 ML IV PRN (10:45)
[2016-10-15] MEDS ORDERED: POTASSIUM CHLORIDE 25 MEQ EFFERVESCENT TAB PO PRN (10:45)
[2016-10-15] MEDS ORDERED: MAGNESIUM SULFATE INJ 4 GM in SODIUM CHLORIDE 0.9% INJ 92 ML IV PRN (10:45)
[2016-10-15] MEDS ORDERED: POTASSIUM PHOSPHATE MONOBASIC 500 MG TAB PO/TUBE PRN (10:45)
--- NOTE | 2016-10-15 10:53 | PD.ID.CON ---
History of Present Illness Service ID Consult Requested By Dr Duggan Reason for Consult urosepsis, ho MDRO Primary Care Physician Naz Gunn MD Diagnoses: History of Present Illness Patient is intubatesd and on bvent ans is unable to provide history, history obtained from the chart 61-year-old female with stage IV right breast cancer with bone metastasis and she is status post chemotherapy and radiation approximately 2-3 years ago. that presented to the EDyday via ambulance for altered mental status. P Reportedly pt developped progressive lethargy an decreased po intake over several weeks. In ER patient was noted to be in atrial fibrillation with RVR with a heart rate of 160's had a fever of 101.6 Lab s reveal a lactic acid of 3.2, 10% bandemia and a leukocytosis of 11.8. Septic shock protocol was initiated, pt was fluid resuscitaed and given Rocephin and vancomycin. Wilkerson placed revealed purulent urine, presumed urosepsis. Abdomen/Pelvis CT showed obstructive uropathy with moderate right hydronephrosis secondary to obstructing 9 mm calculus in the right ureteropelvic junction. She was seen by urologist, sp emergent removal of calculus and stent placemnt She is currently on CPAP and on 6 mcgs of Levaphed Pt is growig a GNB in 4/4 blood clx @ < 24 hrs Review of Systems ROS Limitations: Intubated Past Family Social History Allergies: Coded Allergies: Adhesives (Verified Allergy, Severe, Rash, 10/14/16) Bacitracin (Verified Allergy, Severe, ITCHING, 10/14/16) *MDRO Multi-Drug Resistant Organism (Verified Adverse Reaction, Unknown, ) 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 - 12/29/15 Past Medical History stage IV right breast cancer with bone metastasis and she is status post chemotherapy and radiation approximately 2-3 years ago GERD History esophageal stricture Migraine headaches Recurrent bronchitis Diabetes mellitus Depression Hypercholesterolemia Congestive heart failure Hypertension Past Surgical History right mastectomy with reconstruction left Pfkqbm-p-Vonr LASIK eye surgery Active Ordered Medications vanco IV PipTazo Flagyl - stppped gentamycin 80 mg x 1 Family History Unable to obtain Social History Smoker of one pack per day No history alcohol abuse or intravenous drug abuse Physical Exam Vital Signs Vital Signs Date Time Temp Pulse Resp B/P Pulse Ox O2 Delivery O2 Flow Rate FiO2 6/30/17 08:10 94 40 10/15/16 06:00 85 10/15/16 04:09 98 50 10/15/16 04:00 98.0 88 16 99/68 96 10/15/16 04:00 50 10/15/16 04:00 88 10/15/16 02:00 85 10/15/16 00:35 99 65 10/15/16 00:00 99.0 88 16 114/66 92 10/15/16 00:00 88 10/14/16 22:00 65 10/14/16 22:00 108 10/14/16 22:00 100 65 10/14/16 21:10 83 17 91/55 83 Partial Non-Rebreather 10 10/14/16 21:00 98.3 100 14 114/66 95 10/14/16 21:00 83 17 89/50 95 Partial Non-Rebreather 10 10/14/16 20:45 82 18 110/64 94 Partial Non-Rebreather 10 10/14/16 20:40 98.3 87 24 114/67 95 Partial Non-Rebreather 10 10/14/16 20:00 100 10/14/16 18:52 97.9 10/14/16 18:00 82 10/14/16 17:35 95 Venturi Mask 50 10/14/16 15:35 82 16 107/52 99 Venturi Mask 50 10/14/16 15:21 85 16 113/62 99 Venturi Mask 50 10/14/16 15:20 84 15 80/42 99 Venturi Mask 50 10/14/16 15:20 99 Venturi Mask 50 10/14/16 14:29 108 30 91/48 100 Non-Rebreather 10/14/16 14:24 99 28 96/37 100 Non-Rebreather 10/14/16 14:12 89 29 Non-Rebreather 10/14/16 14:03 129 26 70/28 10/14/16 13:59 102.4 10/14/16 13:54 135 26 92/55 97 Non-Rebreather 10/14/16 13:43 146 32 82/44 97 Physical Exam CONSTITUTIONAL/GENERAL: This is an adequately nourished patient, in no apparent distress. TUBES/LINES/DRAINS: SKIN: No jaundice, rashes, or lesions. Small coccyx decub, unstagibble with dry necrotic eschar, no e/o infx Skin temperature appropriate. Not diaphoretic. HEAD: Atraumatic. Normocephalic. EYES: Pupils equal and round and reactive. Extraocular motions intact. No scleral icterus. No injection or drainage. Fundi not examined. ENT: Hearing grossly normal. Oral mucosae without visible erythema, exudates, masses, or lesions. NECK: Trachea midline. Supple, nontender. CARDIOVASCULAR: Regular rate and rhythm without murmurs, gallops, or rubs. No JVD. Peripheral pulses symmetric. RESPIRATORY/CHEST: Symmetric, unlabored respirations. Clear to auscultation. Breath sounds equal bilaterally. No wheezes, rales, or rhonchi. GASTROINTESTINAL: Abdomen soft, tender to palpation R side mildly distended. No hepato-splenomegaly, or palpable masses. No guarding. Bowel sounds present. GENITOURINARY: Without palpable bladder distension. Wilkerson catheter in place with slightlu cloudy blood tinged urine MUSCULOSKELETAL: Extremities without clubbing, cyanosis, or edema. No mottling or clubbing. LYMPHATICS: No palpable cervical or supraclavicular adenopathy. NEUROLOGICAL: Awake and alert. Motor and sensory grossly within normal limits. Follows commands. Moves all extremities. PSYCHIATRIC: calm and cooperative Laboratory Laboratory Tests Test 10/14/16 10/14/16 10/14/16 10/14/16 14:00 15:42 22:22 22:40 White Blood Count 11.8 14.9 Red Blood Count 4.25 4.48 Hemoglobin 12.2 12.5 Hematocrit 37.0 40.8 Mean Corpuscular Volume 87.1 91.0 Mean Corpuscular Hemoglobin 28.6 28.0 Mean Corpuscular Hemoglobin 32.8 30.7 Concent Red Cell Distribution Width 16.7 17.7 Platelet Count 91 134 Mean Platelet Volume 10.3 10.8 Neutrophils (%) (Auto) 86.5 Lymphocytes (%) (Auto) 8.1 Monocytes (%) (Auto) 4.9 Eosinophils (%) (Auto) 0.4 Basophils (%) (Auto) 0.1 Neutrophils # (Auto) 10.2 Lymphocytes # (Auto) 1.0 Monocytes # (Auto) 0.6 Eosinophils # (Auto) 0.0 Basophils # (Auto) 0.0 CBC Comment AUTO DIFF Differential Total Cells 100 Counted Neutrophils % (Manual) 81 Band Neutrophils % 10 Lymphocytes % 3 Monocytes % 5 Neutrophils # (Manual) 10.9 Metamyelocytes 1 Differential Comment FINAL DIFF MANUAL Toxic Vacuolation PRESENT Dohle Bodies PRESENT Platelet Estimate LOW Platelet Morphology Comment NORMAL Ovalocytes 1+ Prothrombin Time 12.4 Prothromb Time International 1.1 Ratio Urine Color YELLOW Urine Turbidity CLOUDY Urine pH 6.0 Urine Specific [place] 1.019 Urine Protein 100 Urine Glucose (UA) NEG Urine Ketones NEG Urine Occult Blood MOD Urine Nitrite NEG Urine Bilirubin NEG Urine Urobilinogen 4.0 Urine Leukocyte Esterase LARGE Urine RBC 15 Urine WBC Urine WBC Clumps MANY Urine Transitional Epithelial 1 Cells Urine Bacteria MANY Urine Hyaline Casts 17 Microscopic Urinalysis Comment CATH-CULTURE IND Sodium Level 135 Potassium Level 3.4 Chloride Level 104 Carbon Dioxide Level 17.8 Anion Gap 13 Blood Urea Nitrogen 54 Creatinine 2.13 Estimat Glomerular Filtration 23 Rate Random Glucose 151 Lactic Acid Level 3.2 1.9 Calcium Level 7.4 Protein Corrected Calcium 8.5 Total Bilirubin 0.7 Aspartate Amino Transf 52 (AST/SGOT) Alanine Aminotransferase 39 (ALT/SGPT) Alkaline Phosphatase 145 Total Creatine Kinase 285 Creatine Kinase MB 3.9 Creatine Kinase MB % 1.4 Troponin I 1.70 2.47 B-Type Natriuretic Peptide 466 Total Protein 5.1 Albumin 1.7 Blood Gas Puncture Site LT RADIAL LT BRACHIAL Blood Gas Patient Temperature 98.6 98.6 Blood Gas HCO3 13 13 Blood Gas Base Excess -13.5 -13.7 Blood Gas Oxygen Saturation 93 97 Arterial Blood pH 7.23 7.21 Arterial Blood Partial 31 33 Pressure CO2 Arterial Blood Partial 88 193 Pressure O2 Arterial Blood Oxygen Content 15.3 17.8 Arterial Blood 0.7 0.9 Carboxyhemoglobin Arterial Blood Methemoglobin 0.8 1.2 Blood Gas Hemoglobin 11.7 12.8 Oxygen Delivery Device Venti Mask VENTILATOR Blood Gas Liter Flow 6 Blood Gas Inspired Oxygen 50 65 Blood Gas Ventilator Setting COMMENT Ammonia 22 Test 10/15/16 10/15/16 05:00 06:05 Blood Gas Puncture Site ART LINE Blood Gas Patient Temperature 98.6 Blood Gas HCO3 17 Blood Gas Base Excess -7.0 Blood Gas Oxygen Saturation 85 Arterial Blood pH 7.36 Arterial Blood Partial 32 Pressure CO2 Arterial Blood Partial 54 Pressure O2 Arterial Blood Oxygen Content 15.0 Arterial Blood 1.1 Carboxyhemoglobin Arterial Blood Methemoglobin 1.2 Blood Gas Hemoglobin 12.6 Oxygen Delivery Device VENTILATOR Blood Gas Ventilator Setting COMMENT Blood Gas Inspired Oxygen 50 White Blood Count 12.5 Red Blood Count 4.17 Hemoglobin 11.9 Hematocrit 36.4 Mean Corpuscular Volume 87.3 Mean Corpuscular Hemoglobin 28.6 Mean Corpuscular Hemoglobin 32.7 Concent Red Cell Distribution Width 16.8 Platelet Count 96 Mean Platelet Volume 9.6 Neutrophils (%) (Auto) 79.1 Lymphocytes (%) (Auto) 12.3 Monocytes (%) (Auto) 5.1 Eosinophils (%) (Auto) 3.3 Basophils (%) (Auto) 0.2 Neutrophils # (Auto) 9.9 Lymphocytes # (Auto) 1.5 Monocytes # (Auto) 0.6 Eosinophils # (Auto) 0.4 Basophils # (Auto) 0.0 CBC Comment AUTO DIFF Differential Total Cells 100 Counted Neutrophils % (Manual) 69 Band Neutrophils % 21 Lymphocytes % 4 Monocytes % 5 Eosinophils % 1 Neutrophils # (Manual) 11.3 Differential Comment FINAL DIFF MANUAL Platelet Estimate LOW Platelet Morphology Comment NORMAL Red Cell Morphology Comment NORMAL Sodium Level 146 Potassium Level 2.9 Chloride Level 111 Carbon Dioxide Level 21.5 Anion Gap 14 Blood Urea Nitrogen 42 Creatinine 1.45 Estimat Glomerular Filtration 36 Rate Random Glucose 107 Lactic Acid Level 1.4 Calcium Level 6.0 Protein Corrected Calcium 7.1 Phosphorus Level 3.5 Magnesium Level 1.5 Total Bilirubin 0.6 Aspartate Amino Transf 90 (AST/SGOT) Alanine Aminotransferase 52 (ALT/SGPT) Alkaline Phosphatase 137 Troponin I 2.26 B-Type Natriuretic Peptide 807 Total Protein 4.7 Albumin 1.5 Random Vancomycin Level 12.0 Date/Time Procedure Status Source Growth 10/15/16 06:30 Influenza Types A,B Antigen (EMY) - Final Complete Nasal Washing 10/14/16 22:45 Urine Culture Received Urine Catheterized Urine Pending 10/14/16 14:00 Legionella Antigen - Final Complete Urine Catheterized Urine PRESUMPTIVE NEGATIVE FOR LEGIONELLA P... 10/14/16 14:00 Streptococcus pneumoniae Antigen (M - Final Complete Urine Catheterized Urine PRESUMPTIVE NEGATIVE FOR STREPTOCOCCU... 10/14/16 14:00 Aerobic Blood Culture - Preliminary Resulted Blood Line Gram Negative Nishant 10/14/16 14:00 Anaerobic Blood Culture - Preliminary Resulted Gram Negative Nishant Result Diagram: 10/15/16 0605 10/15/16 0605 Imaging Last Impressions Head CT 10/14/16 0000 Signed Impressions: Service Date/Time: September 16:05 - CONCLUSION: 1. Moderate periventricular and subcortical white matter small vessel ischemic changes bilaterally. 2. No acute infarct, acute hemorrhage, mass effect or extra- axial fluid collections. John Barker MD Chest X-Ray 10/14/16 0000 Signed Impressions: Service Date/Time: September 22:12 - CONCLUSION: 1. Interval intubation and placement of nasogastric tube. 2. No acute cardiopulmonary disease. Dwain Suarez MD Abdomen/Pelvis CT 10/14/16 0000 Signed Impressions: Service Date/Time: September 16:08 - CONCLUSION: 1. Obstructive uropathy with moderate right hydronephrosis secondary to obstructing 9 mm calculus in the right ureteropelvic junction. 2. Bilateral pleural thickening. 3. Wilkerson catheter in place. 4. Status post L2 augmentation. 5. Subacute to chronic left rib fractures and old right-sided pubic rami fractures. Julian Camp MD Assessment and Plan Assessment and Plan Sepsis, gram negative UTI inthe settings of obstructing 9 mm calculus in the right ureteropelvic junction. 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
[2016-10-15 11:18] LABS: BLOOD GAS BASE EXCESS -5.2 mmol/L (-2-2); BLOOD GAS HCO3 19 mmol/L (22-26); BLOOD GAS O2 HGB SATURATION 94 % (90-100); BLOOD GAS OXYGEN CONTENT 17.1 Vol % (12.0-20.0); BLOOD GAS PCO2 30 mmHg (38-42); BLOOD GAS PO2 78 mmHg (61-120); TEMP CORR TO 98.6
[2016-10-15 11:19] LABS: CRITICAL VALUE NO; DRAW SITE LT BRACHIAL; FIO2 40 %; NUMBER OF ARTERIAL PUNCTURES 2; OXYGEN DEVICE VENTILATOR; STAT NO; ULNAR PULSE PRESENT; VENT SETTINGS CPAP 5/10PS
--- NOTE | 2016-10-15 11:30 | RADRPT ---
EXAM DATE/TIME: 10/15/2016 10:58 [facility] COMPARISON: CHEST SINGLE AP, October 14, 2016, 22:12. INDICATIONS : Respiratory failure. MEDICAL HISTORY : Cardiovascular disease. Carcinoma, breast. Hypertension. SURGICAL HISTORY : Mastectomy ENCOUNTER: Initial ACUITY: 2 days PAIN SCORE: Non-responsive. LOCATION: Bilateral chest FINDINGS: An endotracheal tube has its tip 4 cm above the manan in good position. A nasogastric tube has its tip below diaphragm. A left subclavian Qolbud-X-Xpcy has its tip in the superior vena cava. A smal l left pleural effusion is noted. CONCLUSION: 1. Small left pleural effusion. 2. Multiple tubes and lines are stable. John Barker MD on October 15, 2016 at 11:22 Board Certified Radiologist. This report was verified electronically.
[2016-10-15] MEDS: MAGNESIUM SULFATE 1 GM PREMIX 100 ML IV SCH ×2 (12:26→13:22)
[2016-10-15] MEDS: MAGNESIUM CHLORIDE 64 MG TAB PO SCH (12:29)
--- NOTE | 2016-10-15 12:39 | HHI.CCPN ---
Subjective Remarks/Hospital Course This is a 61-year-old female that presented to the ED via ambulance for altered mental status. The patient unable to provide history, history obtained from . The reported that for the last several weeks the patient has been unable to get out of the bed, very lethargic unable to eat, or drink any fluids for approximately several weeks. He has been providing her with her scheduled medications to include Lyrica, temazepam and oxycodone and she progressively became more lethargic. Per report upon arrival EMS, the patient was noted to be in atrial fibrillation with RVR with a heart rate of 160's. The patient received 20 mg of Cardizem by EMS and was transported to the ED. Upon arrival to the ED the patient received Cardizem 20 mg IV push, and Lopressor 5 mg IV. The patient was noted to have a temperature 101.6 laboratory studies reveal a lactic acid of 3.2, 10% bands and a leukocytosis of 11.8. Septic shock protocol was initiated, the patient received approximately 4500 cc of normal saline to include EMS administration, and dosed with Rocephin and vancomycin. Patient received Narcan 0.4 mg and rectal Tylenol 650 mg. The patient then was noted to be hypotensive with a systolic blood pressure in the 70s, a central line was placed by Dr. Anderson left femoral, and a Wilkerson catheter was placed revealing purulent drainage, presumed urosepsis. The patient's medical history is significant for stage IV right breast cancer with bone metastasis and she is status post chemotherapy and radiation approximately 2-3 years ago. Patient was noted to have a right mastectomy with reconstruction and has a left Hqporx-y-Abrc in situ. Critical care medicine was consulted for management. Upon my arrival to the ED, systolic blood pressure was noted to be in the mid 70s, Levophed had been initiated, telemetry revealed rate controlled atrial fibrillation in the 80's. Subjective: 10/15: The patient was noted on CT to have moderate hydronephrosis and a UPJ stent was placed last evening, and the patient remains intubated. Cardiology was consulted, secondary to elevated troponins and status post MD 07/02, no interventions at this time. This a.m.,the patient was noted to have multiple electrolyte abnormalities which are being repleted,. Objective Vital Signs Date Time Temp Pulse Resp B/P Pulse Ox O2 Delivery O2 Flow Rate FiO2 10/15/16 08:10 94 40 10/15/16 06:00 85 10/15/16 04:00 98.0 16 99/68 10/14/16 21:10 Partial Non-Rebreather 10 Intake and Output 10/14/16 10/14/16 10/15/16 08:00 16:00 00:00 Intake Total 3786 ml Output Total 300 ml Balance 3486 ml Result Diagram: 10/15/1660410/15/16604 Other Results Microbiology Date/Time Procedure Status Source Growth 10/14/16 14:00 Legionella Antigen - Final Complete Urine Catheterized Urine PRESUMPTIVE NEGATIVE FOR LEGIONELLA P... 10/14/16 14:00 Streptococcus pneumoniae Antigen (M - Final Complete Urine Catheterized Urine PRESUMPTIVE NEGATIVE FOR STREPTOCOCCU... 10/15/16 06:30 Influenza Types A,B Antigen (EMY) - Final Complete Nasal Washing Laboratory Tests Test 10/14/16 10/14/16 10/15/16 10/15/16 15:42 22:22 05:00 11:10 Blood Gas Puncture Site LT RADIAL LT BRACHIAL ART LINE LT BRACHIAL Blood Gas Patient Temperature 98.6 98.6 98.6 98.6 Blood Gas HCO3 13 mmol/L 13 mmol/L 17 mmol/L 19 mmol/L (22-26) (22-26) (22-26) (22-26) Blood Gas Base Excess -13.5 mmol/L -13.7 mmol/L -7.0 mmol/L -5.2 mmol/L (-2-2) (-2-2) (-2-2) (-2-2) Blood Gas Oxygen Saturation 93 % (90-100) 97 % (90-100) 85 % (90-100) 94 % (90- 100) Arterial Blood pH 7.23 7.21 7.36 7.41 (7.380-7.420) (7.380-7.420) (7.380-7.420) (7.380-7.420) Arterial Blood Partial 31 mmHg (38-42) 33 mmHg (38-42) 32 mmHg (38-42) 30 mmHg ( 38-42) Pressure CO2 Arterial Blood Partial 88 mmHG 193 mmHg 54 mmHg 78 mmHg Pressure O2 (61-120) (61-120) (61-120) (61-120) Arterial Blood Oxygen Content 15.3 Vol % 17.8 Vol % 15.0 Vol % 17.1 Vol % (12.0-20.0) (12.0-20.0) (12.0-20.0) (12.0-20.0) Arterial Blood 0.7 % (0-4) 0.9 % (0-4) 1.1 % (0-4) 1.0 % (0-4) Carboxyhemoglobin Arterial Blood Methemoglobin 0.8 % (0-2) 1.2 % (0-2) 1.2 % (0-2) 1.0 % (0-2) Blood Gas Hemoglobin 11.7 G/DL 12.8 G/DL 12.6 G/DL 13.0 G/DL (12.0-16.0) (12.0-16.0) (12.0-16.0) (12.0-16.0) Oxygen Delivery Device Venti Mask VENTILATOR VENTILATOR VENTILATOR Blood Gas Liter Flow 6 L/M Blood Gas Inspired Oxygen 50 % 65 % 50 % 40 % Blood Gas Ventilator Setting COMMENT COMMENT CPAP 5/10PS Imaging Last Impressions Head CT 10/14/16 0000 Signed Impressions: Service Date/Time: September 16:05 - CONCLUSION: 1. Moderate periventricular and subcortical white matter small vessel ischemic changes bilaterally. 2. No acute infarct, acute hemorrhage, mass effect or extra- axial fluid collections. John Barker MD Chest X-Ray 10/14/16 0000 Signed Impressions: Service Date/Time: September 15:41 - CONCLUSION: 1. Minimal bibasilar streakiness consistent with atelectasis and/or developing infiltrates. Clinical correlation is recommended. John Barker MD Abdomen/Pelvis CT 10/14/16 0000 Signed Impressions: Service Date/Time: September 16:08 - CONCLUSION: 1. Obstructive uropathy with moderate right hydronephrosis secondary to obstructing 9 mm calculus in the right ureteropelvic junction. 2. Bilateral pleural thickening. 3. Wilkerson catheter in place. 4. Status post L2 augmentation. 5. Subacute to chronic left rib fractures and old right-sided pubic rami fractures. Julian Camp MD CT brain-pending CT abdomen pelvis-pending Chest [id number] Objective Remarks BP 94/56 pulse 81 O2 saturation 100% GENERAL: Well-developed well-nourished female intubated and sedated SKIN: Warm and dry HEAD: Atraumatic. Normocephalic. EYES: Pupils equal and round, miosis noted. No scleral icterus. No injection or drainage. ENT: No nasal bleeding or discharge. Mucous membranes dry. Orotracheal intubation NECK: Trachea midline. No JVD. CARDIOVASCULAR: Normal rate, regular rhythm. Uoxtrr-q-Rsom left chest noted RESPIRATORY: Mechanical ventilation. Clear to auscultation. Breath sounds equal bilaterally. GASTROINTESTINAL: Abdomen soft, protuberant non-tender, distended. No guarding. MUSCULOSKELETAL: Extremities without clubbing, cyanosis, or edema. No obvious deformities. Reconstructed right breast NEUROLOGICAL: RASS -2. No gross focal/sensory deficits. Follows commands in all 4 extremities. Urinary Catheter: Yes Wilkerson insert reason: Measure Accurate Output Date of Insertion: Oct 15, 2016 A/P Assessment and Plan Assessment 1. Septic shock- 2/2 urosepsis 2. A. fib RVR-resolved 3. ARACELI 4. Urosepsis-2/2 obstructive uropathy 5. Metabolic encephalopathy and toxic encephalopathy 6. Dehydration 7. Breast cancer stage IV status post chemotherapy and radiation therapy with bone metastasis and right breast reconstruction 8. Elevated troponins 9. History of NSTEMI 06/2016 10. Hypertension 11. Diabetes mellitus 12. Hyperlipidemia 13. Bandemia 14. Peptic ulcer disease 15. GERD 16. Hypokalemia, hypomagnesemia Plan Plan by systems: Neurologic: -Neurochecks per ICU protocol -Bowel follow and fentanyl infusion for ventilator synchrony -Hold home medications Lyrica, oxycodone and temazepam -10/15 CT of the brain-no acute intracranial abnormality Respiratory: -Maintain O2 sat greater than 92% currently on a nonrebreather wean down to Ventimask -ABG 7.41/30/78/19/-5.2 -Bronchodilators every 6 hours schedule and every 2 hours when necessary -Maintain head of bed greater than 30 -Ventilator bundle Cardiovascular: -Hold beta blockers, calcium channel blockers in the setting of hypotension and septic shock, will resume when clinically indicated -Continue Plavix -Serial troponins-1.7-> 2.4-> 2.26 -Echocardiogram 06/23/16-EF 5560 percent, grade 1 diastolic function, mild MR, mild to moderate TR, PA peak pressure 52 mmHg - [facility] cardiology following- Dr. Niño -07/02 Cardiac dhajojfldsilowa-jir-opajgltv disease LAD. Total RCA occlusion with collateral circulation. Renal: -Maintain Wilkerson -Avoid nephrotoxins, hold home med MAGUI inhibitor (lisinopril) --CT abdomen pelvis right UPJ obstruction with moderate hydronephrosis -10/14 S/P UPJ stent placement -Urology consulted-discussed with Dr. Madrigal -- Strict I/Os FEN/GI: -10/14 In ED bolused with 4500 cc IV fluid -Continue normal saline at 125/hour -Sodium bicarbonate infusion at 75/hour -Monitor BMP. Creatinine 2.1 -Follow-up CT of the abdomen and pelvis -Patient's home medication includes both ranitidine at at bedtime, and omeprazole, will continue IV dosing -Protonix 40 mg IV -Pepcid 20 mg IV twice a day Heme/ID: -Monitor serial lactate levels - Blood szehkbz-uhdm-rxoceiqx rods -urine culture-pending - Bands 21% -10/14 Zosyn and vancomycin initiated, patient received in the ED cefepime, vancomycin and gentamicin -ID consulted -Dr. Franklin Endocrine: -Glucose monitoring per ICU protocol -Low dose insulin regimen -- SSI Prophylaxis: GI Prophylaxis Pepcid DVT Prophylaxis -- SCDs Heparin twice a day Lines: Left femoral in situ (ED) PIVs 2 Dispo: This patient remains critically ill with one or more organ systems which are or may become a threat to life. I have spent in excess of 30 minutes discontinuously in the care and management of this patient. This time is exclusive of procedures, and includes, but is not limited to, evaluation of the patient, review of the medical record, discussions with family, consultants, nursing staff, or respiratory therapy, and documentation in the medical record. Physician Chaya Valenzuela MD Oct 15, 2016 12:39
[2016-10-15] MEDS: LEVOFLOXACIN 750 MG PREMIX INJ 150 ML IV SCH (12:56)
[2016-10-15] MEDS: HYDROCORTISONE SOD SUCCINATE 100 MG VIAL IV PUSH SCH ×2 (13:26→22:00)
[2016-10-15] MEDS: VANCOMYCIN 1,000 MG/NS 250 ML IV SCH ×2 (13:26)
[2016-10-15] MEDS: fentaNYL DRIP 250 ML IV SCH (14:47)
[2016-10-15] MEDS ORDERED: CALCIUM GLUCONATE INJ 2 GM in DEXTROSE 5% IN WATER 100ML INJ 100 ML IV ONE ×2 (15:00)
[2016-10-15] MEDS: RESP: ALBUTEROL 2.5 MG/IPRATROPIUM 0.5 MG NEB (SCH) NEB ×2 (15:41→20:13)
[2016-10-15] MEDS: CHLORHEXIDINE 0.12% (ORAL KIT) 15 ML CUP MT SCH (20:00)
[2016-10-15] MEDS: PANTOPRAZOLE SODIUM 40 MG VIAL IV PUSH SCH (20:00)
[2016-10-15] MEDS: PROPOFOL 1000 MG/100 ML INJ 100 ML IV SCH (22:27)
[2016-10-15] MEDS: CHLORHEXIDINE GLUCONATE 2 % 1 PACK (2 CLOTHS) TOP SCH (22:28)
[2016-10-16] VITALS (64 sets, daily range): BP systolic 78–140; BP diastolic 50–83; PULSE 48–115; RESP 5–21; TEMP 97.4–99; O2SAT 92–100
[2016-10-16 00:09] LABS: BICARBONATE 29.7 MEQ/L (21.0-32.0); POTASSIUM 3.1 MEQ/L (3.5-5.1)
[2016-10-16 00:26] LABS: CALCIUM-PROTEIN CORRECTED 7.5 MG/DL (8.5-10.1)
[2016-10-16] MEDS: fentaNYL DRIP 250 ML IV SCH (00:35)
[2016-10-16] MEDS: PROPOFOL 1000 MG/100 ML INJ 100 ML IV SCH (00:35)
[2016-10-16] MEDS: SODIUM BICARBONATE 8.4% INJ 150 MEQ in SODIUM CHLOR 0.9% 1000 ML INJ 850 ML IV SCH (02:41)
[2016-10-16] MEDS: RESP: ALBUTEROL 2.5 MG/IPRATROPIUM 0.5 MG NEB (SCH) NEB ×3 (03:54→22:19)
[2016-10-16] MEDS: HYDROCORTISONE SOD SUCCINATE 100 MG VIAL IV PUSH SCH ×3 (04:38→21:01)
[2016-10-16] MEDS: HEPARIN SODIUM - SQ 10,000 UNITS/ML VIAL SQ SCH ×2 (04:38→17:16)
[2016-10-16] MEDS: FAMOTIDINE 20 MG/2 ML VIAL IV PUSH SCH ×2 (04:38→17:15)
[2016-10-16] MEDS: PIPERACIL-TAZO 2.25 GM PREMIX 50 ML IV SCH ×4 (04:38→17:15)
[2016-10-16 04:57] LABS: HEMATOCRIT 34.9 % (35.0-46.0); MEAN CELL VOLUME 85.9 FL (80.0-100.0); MEAN CORPUSCULAR HEMOGLOBIN 28.5 PG (27.0-34.0); MEAN CORPUSCULAR HGB CONC 33.2 % (32.0-36.0); PLATELET COUNT 81 TH/MM3 (150-450); RED BLOOD COUNT 4.06 MIL/MM3 (4.00-5.30); RED CELL DISTRIBUTION WIDTH 17.4 % (11.6-17.2)
--- NOTE | 2016-10-16 05:01 | RADRPT ---
EXAM DATE/TIME: 10/16/2016 03:32 [facility] COMPARISON: CHEST SINGLE AP, October 15, 2016, 10:58. INDICATIONS : Shortness of breath, possible pulmonary disease. MEDICAL HISTORY : Hypertension. Arthritis. Carcinoma, breast. CHF GERD Hiatal hernia Cardiovascular disease Diabete s SURGICAL HISTORY : Mastectomy, right. Port placement ENCOUNTER: Subsequent ACUITY: 3 days PAIN SCORE: Non-responsive. LOCATION: Bilateral chest FINDINGS: A single view of the chest demonstrates new increased density over the right lower lung field althoug h the hemidiaphragms lung markings are still well identified . Could be in part a layering pleural e ffusion. The endotracheal, nasogastric tube and left subclavian Czlehl-z-Wjyr are in good position. T he cardiomediastinal contours are unremarkable. Numerous healed bilateral rib fractures. CONCLUSION: Increased density overlying the right lung base could be extraocular patient or in part a right pleur al effusion. Left pleural effusion seen previously is decreased in size. Tubes and catheters in good position. Anirudh Moreno MD on October 16, 2016 at 4:57 Board Certified Radiologist. This report was verified electronically.
[2016-10-16 05:16] LABS: BICARBONATE 28.6 MEQ/L (21.0-32.0); MAGNESIUM 1.5 MG/DL (1.5-2.5)
[2016-10-16 05:28] LABS: CALCIUM-PROTEIN CORRECTED 7.5 MG/DL (8.5-10.1)
[2016-10-16 05:41] LABS: REVIEW FLAG FINAL
[2016-10-16] MEDS: INSULIN ASPART SUPPLEMENTAL SCALE SQ SCH ×4 (05:43→21:00)
[2016-10-16 07:09] LABS: BLOOD GAS BASE EXCESS 2.7 mmol/L (-2-2); BLOOD GAS CARBOXYHEMOGLOBIN 1.3 % (0-4); BLOOD GAS HCO3 26 mmol/L (22-26); BLOOD GAS METHEMOGLOBIN 1.4 % (0-2); BLOOD GAS O2 HGB SATURATION 94 % (90-100); BLOOD GAS OXYGEN CONTENT 14.1 Vol % (12.0-20.0); BLOOD GAS PCO2 33 mmHg (38-42); BLOOD GAS PO2 86 mmHg (61-120); BLOOD GAS TOTAL HGB 10.6 G/DL (12.0-16.0); CRITICAL VALUE NO; OXYGEN DEVICE VENTILATOR; TEMP CORR TO 98.6
[2016-10-16 07:10] LABS: VENT SETTINGS PRVC/AC
[2016-10-16 07:11] LABS: DRAW SITE ART LINE; FIO2 50 %; STAT NO
[2016-10-16] MEDS: CHLORHEXIDINE 0.12% (ORAL KIT) 15 ML CUP MT SCH ×2 (08:00→20:00)
[2016-10-16] MEDS ORDERED: CALCIUM GLUCONATE INJ 2 GM in DEXTROSE 5% IN WATER 100ML INJ 100 ML IV ONE ×2 (08:30)
[2016-10-16] MEDS ORDERED: SODIUM CHLOR 0.45% 1000 ML INJ 1,000 ML IV SCH (08:30)
[2016-10-16] MEDS: DOCUSATE SODIUM 50 MG/SENNA 8.6 MG TAB PO SCH ×2 (09:00→21:00)
[2016-10-16] MEDS: FUROSEMIDE 40 MG TAB OG-TUBE SCH ×2 (09:00→17:16)
[2016-10-16] MEDS: SODIUM CHLORIDE 0.9% FLUSH 10 ML FLUSH IV FLUSH SCH ×2 (09:00→21:02)
[2016-10-16] MEDS: CLOPIDOGREL 75 MG TAB PO SCH (09:00)
[2016-10-16] MEDS: MAGNESIUM CHLORIDE 64 MG TAB PO SCH (09:00)
--- NOTE | 2016-10-16 09:35 | EKG ---
Date Performed: 10/16/2016 Time Performed: 07:42:26 PTAGE: 61 years EKG: Baseline artifact precludes accurate interpretation of rhythm. This may be Sinus rhythm with premature atrial contractions Left anterior fascicular block with nonspecific ST-T wave changes . Compared to prior electrocardiogram, rate has slowed. Inferior infarct pattern is no longer presen t. I cannot accurately interpret or compare rhythm. DOCTOR: Kumar Cruz Interpretating Date/Time 10/16/2016 09:34:00
--- NOTE | 2016-10-16 10:45 | HHI.PR ---
Subjective Patient symptoms today Postoperative day #2 right stent placement Extubated Alert and oriented 3 Denies pain Objective Vital Signs Vital Signs Date Time Temp Pulse Resp B/P Pulse Ox O2 Delivery O2 Flow Rate FiO2 10/16/16 10:24 98 Nasal Cannula 4 10/16/16 10:24 98 Nasal Cannula 4.00 10/16/16 08:27 Nasal Cannula 40 10/16/16 07:30 99 40 10/16/16 06:00 62 10/16/16 04:00 50 10/16/16 04:00 63 10/16/16 04:00 97.8 63 15 113/71 92 126/64 10/16/16 03:57 96 50 10/16/16 03:45 61 10/16/16 03:30 59 10/16/16 03:15 67 10/16/16 03:00 49 10/16/16 02:45 50 10/16/16 02:30 52 10/16/16 02:15 54 10/16/16 02:00 51 10/16/16 02:00 48 10/16/16 01:45 51 10/16/16 01:31 54 10/16/16 01:30 54 10/16/16 01:15 51 10/16/16 01:00 50 10/16/16 00:55 96 50 10/16/16 00:45 55 10/16/16 00:31 51 10/16/16 00:30 53 10/16/16 00:16 51 10/16/16 00:15 51 10/16/16 00:00 50 10/16/16 00:00 52 10/16/16 00:00 99.0 52 14 92/55 96 99/53 10/16/16 00:00 52 10/15/16 22:19 98 50 10/15/16 22:00 64 10/15/16 20:35 98 50 10/15/16 20:00 50 10/15/16 20:00 98.4 64 0 103/68 97 105/58 10/15/16 20:00 64 10/15/16 18:30 75 10/15/16 18:15 79 10/15/16 18:00 73 10/15/16 17:00 68 14 109/69 97 110/61 10/15/16 17:00 68 10/15/16 16:45 65 10/15/16 16:45 65 0 101/66 97 107/59 10/15/16 16:31 65 10/15/16 16:31 65 11 96/61 97 106/58 10/15/16 16:30 63 10/15/16 16:30 63 15 104/57 97 10/15/16 16:15 69 15 108/59 97 10/15/16 16:15 69 10/15/16 16:00 98.3 10/15/16 16:00 78 14 76/51 97 10/15/16 16:00 50 10/15/16 16:00 78 10/15/16 15:44 96 50 10/15/16 14:00 97 10/15/16 14:00 97 19 107/73 95 10/15/16 13:45 97 10/15/16 13:45 97 21 109/72 96 10/15/16 13:30 92 18 87/59 95 10/15/16 13:30 92 10/15/16 13:23 40 10/15/16 13:15 92 18 91/57 92 10/15/16 13:15 92 10/15/16 13:00 92 19 92/55 89 10/15/16 13:00 92 10/15/16 12:45 91 10/15/16 12:45 91 18 93/63 95 10/15/16 12:30 93 10/15/16 12:30 93 17 94/61 97 10/15/16 12:15 96 10/15/16 12:15 96 22 110/84 98 10/15/16 12:10 96 40 10/15/16 12:00 97 22 118/78 97 10/15/16 12:00 40 10/15/16 12:00 97 10/15/16 11:45 97 10/15/16 11:45 97 25 120/74 97 10/15/16 11:30 113 10/15/16 11:30 113 20 113/73 97 10/15/16 11:15 95 23 114/70 98 10/15/16 11:15 95 10/15/16 11:00 97 10/15/16 11:00 97 23 112/69 94 10/15/16 10:45 93 10/15/16 10:45 93 19 102/63 94 Intake & Output 10/16/16 10/16/16 07:00 19:00 Intake Total 4693 ml Output Total 2500 ml Balance 2193 ml Intake IV Total 4693 ml Output Urine Total 2500 ml Result Diagram: 10/16/16 0400 10/16/16 0400 Imaging Last 24 hours Impressions Chest X-Ray 10/16/16 0600 Signed Impressions: Service Date/Time: Tuesday, October 16, 2016 03:32 - CONCLUSION: Increased density overlying the right lung base could be extraocular patient or in part a right pleural effusion. Left pleural effusion seen previously is decreased in size. Tubes and catheters in good position. Anirudh Moreno MD Objective Remarks Wilkerson catheter draining clear yellow urine urine Excellent urine output Medications and IVs Current Medications Medications (Trade) Dose Ordered Sig/Jarad Route Start Time Stop Time Status Last Admin (Lopressor Inj) 5 mg ONCE PRN IV PUSH 10/14/16 14:00 10/14/16 13:57 (Tylenol) 650 mg Q6H PRN PO 10/14/16 15:30 (Zofran Inj) 4 mg Q6H PRN IV 10/14/16 15:30 (Narcan Inj) 0.4 mg Q3M PRN IV 10/14/16 15:30 (Heparin Inj) 5,000 units Q12H SQ 10/14/16 18:00 10/16/16 04:38 Miscellaneous Information 1 Q361D XX 10/14/16 15:30 10/14/16 15:30 (Chlorhexidine 2% Cloth) 3 pack Taper DAILY@04 TOP 10/15/16 04:00 10/11/17 03:59 10/15/16 22:28 (Chlorhexidine 2% Cloth) 3 pack UNSCH PRN TOP 10/14/16 15:30 (Tala-Colace) 1 tab BID PO 10/14/16 21:00 10/16/16 09:00 (Milk Of Magnesia Liq) 30 ml Q12H PRN PO 10/14/16 15:30 (Senokot) 17.2 mg Q12H PRN PO 10/14/16 15:30 (Dulcolax Supp) 10 mg DAILY PRN RECTAL 10/14/16 15:30 (Lactulose Liq) 30 ml DAILY PRN PO 10/14/16 15:30 Sodium Chloride 2 ml 2 ml BID IV FLUSH 10/14/16 21:00 10/16/16 09:00 Piperacillin Sod/ Tazobactam Sod 50 ml @ 200 mls/hr Q6H IV 10/14/16 18:00 10/16/16 04:38 (Vancomycin Consult Pharmacy) 0 ml @ 0 mls/hr UNSCH OTHER 10/14/16 15:30 (Plavix) 75 mg DAILY PO 10/15/16 09:00 10/16/16 09:00 (Protonix Inj) 40 mg Q24H IV PUSH 10/14/16 20:00 10/15/16 20:00 (Pepcid Inj) 10 mg Q12H IV PUSH 10/14/16 18:00 10/16/16 04:38 (D50w (Vial) Inj) 50 ml UNSCH PRN IV 10/14/16 17:00 (Glucagon Inj) 1 mg UNSCH PRN OTHER 10/14/16 17:00 (Roxicodone) 10 mg Q6H PRN PO 10/14/16 22:15 10/15/16 04:29 (Lasix) 40 mg BID@09,18 OG-TUBE 10/15/16 09:00 10/16/16 09:00 Magnesium Chloride 128 mg 128 mg DAILY PO 10/15/16 09:00 10/16/16 09:00 Potassium Chloride 100 ml @ 50 mls/hr Q2H PRN IV 10/15/16 10:45 10/15/16 12:57 (KCl 20 Meq Premix Inj) 100 ml @ 50 mls/hr Q2H PRN IV 10/15/16 10:45 Potassium Bicarb/ Potassium Chloride 50 meq 50 meq UNSCH PRN PO 10/15/16 10:45 Potassium Chloride 100 ml @ 25 mls/hr UNSCH PRN IV 10/15/16 10:45 Potassium Chloride 100 ml @ 50 mls/hr Q2H PRN IV 10/15/16 10:45 (Magnesium Sulfate Inj/NS Inj) 100 ml @ 50 mls/hr UNSCH PRN IV 10/15/16 10:45 Magnesium Oxide 800 mg 800 mg UNSCH PRN PO 10/15/16 10:45 (Magnesium Sulfate Inj/NS Inj) 100 ml @ 50 mls/hr UNSCH PRN IV 10/15/16 10:45 Potassium Phosphate 2000 mg 2,000 mg Q4H PRN PO 10/15/16 10:45 (Sodium Phosphate Inj/NS 250 ml Inj) 250 ml @ 42 mls/hr UNSCH PRN IV 10/15/16 10:45 Potassium Phosphate 2000 mg 2,000 mg UNSCH PRN PO/TUBE 10/15/16 10:45 Potassium Phosphate 30 mmol/ Sodium Chloride 260 ml @ 42 mls/hr UNSCH PRN IV 10/15/16 10:45 10/16/16 01:25 Levofloxacin/ Dextrose 150 ml @ 100 mls/hr Q48H IV 10/15/16 12:00 10/15/16 12:56 Propofol 100 ml @ 0 mls/hr TITRATE IV 10/15/16 11:45 10/16/16 00:35 (Vancomycin Inj/ NS 250 ml Inj) 250 ml @ 250 mls/hr Q24H IV 10/15/16 14:00 10/15/16 13:26 Miscellaneous Information SPECIFIC LAB TO BE DRAWN:VANCO TROUGH DATE... ONCE ONCE .XX 10/17/16 13:45 10/17/16 13:46 (Peridex 0.12% Liq) 15 ml BID@08,20 MT 10/15/16 20:00 10/16/16 08:00 Hydrocortisone Sodium Succinate 100 mg 100 mg Q8HR IV PUSH 10/15/16 14:00 10/16/16 04:38 (1/2 NS 1000 ml Inj) 1,000 ml @ 42 mls/hr [id number] IV 10/16/16 08:30 10/16/16 08:30 Assessment and Plan Assessment and Plan Urologic impression: #1 Urosepsis related to obstructing 9 mm right ureteropelvic junction calculus #2 status post cystoscopy, right retrograde pyelogram and right ureteral stent placement Plan: #1 as per radiology resident #2 would maintain Wilkerson catheter to gravity drainage until clinically improved #3 no further intervention indicated at the present time #4 discussed eventual outpatient management of the right renal calculus with shockwave lithotripsy and subsequent stent removal with patient Ernie Madrigal MD Oct 16, 2016 10:45
--- NOTE | 2016-10-16 13:32 | HHI.CCPN ---
Subjective Remarks/Hospital Course This is a 61-year-old female that presented to the ED via ambulance for altered mental status. The patient unable to provide history, history obtained from . The reported that for the last several weeks the patient has been unable to get out of the bed, very lethargic unable to eat, or drink any fluids for approximately several weeks. He has been providing her with her scheduled medications to include Lyrica, temazepam and oxycodone and she progressively became more lethargic. Per report upon arrival EMS, the patient was noted to be in atrial fibrillation with RVR with a heart rate of 160's. The patient received 20 mg of Cardizem by EMS and was transported to the ED. Upon arrival to the ED the patient received Cardizem 20 mg IV push, and Lopressor 5 mg IV. The patient was noted to have a temperature 101.6 laboratory studies reveal a lactic acid of 3.2, 10% bands and a leukocytosis of 11.8. Septic shock protocol was initiated, the patient received approximately 4500 cc of normal saline to include EMS administration, and dosed with Rocephin and vancomycin. Patient received Narcan 0.4 mg and rectal Tylenol 650 mg. The patient then was noted to be hypotensive with a systolic blood pressure in the 70s, a central line was placed by Dr. Anderson left femoral, and a Wilkerson catheter was placed revealing purulent drainage, presumed urosepsis. The patient's medical history is significant for stage IV right breast cancer with bone metastasis and she is status post chemotherapy and radiation approximately 2-3 years ago. Patient was noted to have a right mastectomy with reconstruction and has a left [id number] in situ. Critical care medicine was consulted for management. Upon my arrival to the ED, systolic blood pressure was noted to be in the mid 70s, Levophed had been initiated, telemetry revealed rate controlled atrial fibrillation in the 80's. Subjective: 10/15: The patient was noted on CT to have moderate hydronephrosis and a UPJ stent was placed last evening, and the patient remains intubated. Cardiology was consulted, secondary to elevated troponins and status post MD 07/02, no interventions at this time. This a.m.,the patient was noted to have multiple electrolyte abnormalities which are being repleted. 10/16:Patient improving, norepinephrine discontinued since 12 midnight, sodium bicarbonate discontinued, IV fluids discontinued. CPAP trial successful. SBT parameters within normal limits. Plan for patient's extubation. With advancement of diet, out of bed to chair. Objective Vital Signs Date Time Temp Pulse Resp B/P Pulse Ox O2 Delivery O2 Flow Rate FiO2 10/16/16 12:00 97.4 10/16/16 12:00 77 21 125/67 137/73 10/16/16 11:45 96 10/16/16 10:24 Nasal Cannula 4 10/16/16 08:27 40 Intake and Output 10/15/16 10/15/16 10/16/16 08:00 16:00 00:00 Intake Total 2410 ml 2787 ml 2806 ml Output Total 600 ml 2450 ml 1700 ml Balance 1810 ml 337 ml 1106 ml Result Diagram: 10/16/16 0400 10/16/16 0400 Other Results Microbiology Date/Time Procedure Status Source Growth 10/14/16 14:00 Urine Culture - Final Complete Urine Catheterized Urine Escherichia Coli 10/14/16 14:00 Legionella Antigen - Final Complete Urine Catheterized Urine PRESUMPTIVE NEGATIVE FOR LEGIONELLA P... 10/14/16 14:00 Streptococcus pneumoniae Antigen (M - Final Complete Urine Catheterized Urine PRESUMPTIVE NEGATIVE FOR STREPTOCOCCU... 10/14/16 22:45 Urine Culture - Final Complete Urine Catheterized Urine Escherichia Coli 10/15/16 06:30 Influenza Types A,B Antigen (EMY) - Final Complete Nasal Washing Laboratory Tests Test 10/16/16 06:05 Blood Gas Puncture Site ART LINE Blood Gas Patient Temperature 98.6 Blood Gas HCO3 26 mmol/L (22-26) Blood Gas Base Excess 2.7 mmol/L (-2-2) Blood Gas Oxygen Saturation 94 % (90-100) Arterial Blood pH 7.50 (7.380-7.420) Arterial Blood Partial 33 mmHg (38-42) Pressure CO2 Arterial Blood Partial 86 mmHg Pressure O2 (61-120) Arterial Blood Oxygen Content 14.1 Vol % (12.0-20.0) Arterial Blood 1.3 % (0-4) Carboxyhemoglobin Arterial Blood Methemoglobin 1.4 % (0-2) Blood Gas Hemoglobin 10.6 G/DL (12.0-16.0) Oxygen Delivery Device VENTILATOR Blood Gas Ventilator Setting PRVC/AC Blood Gas Inspired Oxygen 50 % Imaging Last Impressions Head CT 10/14/16 0000 Signed Impressions: Service Date/Time: September 16:05 - CONCLUSION: 1. Moderate periventricular and subcortical white matter small vessel ischemic changes bilaterally. 2. No acute infarct, acute hemorrhage, mass effect or extra- axial fluid collections. John Barker MD Chest X-Ray 10/14/16 0000 Signed Impressions: Service Date/Time: September 15:41 - CONCLUSION: 1. Minimal bibasilar streakiness consistent with atelectasis and/or developing infiltrates. Clinical correlation is recommended. John Barker MD Abdomen/Pelvis CT 10/14/16 0000 Signed Impressions: Service Date/Time: September 16:08 - CONCLUSION: 1. Obstructive uropathy with moderate right hydronephrosis secondary to obstructing 9 mm calculus in the right ureteropelvic junction. 2. Bilateral pleural thickening. 3. Wilkerson catheter in place. 4. Status post L2 augmentation. 5. Subacute to chronic left rib fractures and old right-sided pubic rami fractures. Julian Camp MD CT brain-pending CT abdomen pelvis-pending Chest [id number] Objective Remarks GENERAL: Well-developed well-nourished female awake alert now extubated SKIN: Warm and dry HEAD: Atraumatic. Normocephalic. EYES: Pupils equal and round, miosis noted. No scleral icterus. No injection or drainage. ENT: No nasal bleeding or discharge. Mucous membranes dry. Orotracheal intubation NECK: Trachea midline. No JVD. CARDIOVASCULAR: Normal rate, regular rhythm. Sqgweu-o-Ubda left chest noted RESPIRATORY: No accessory muscle movement Clear to auscultation. Breath sounds equal bilaterally. GASTROINTESTINAL: Abdomen soft, protuberant non-tender, distended. No guarding. MUSCULOSKELETAL: Extremities without clubbing, cyanosis, or edema. No obvious deformities. Reconstructed right breast NEUROLOGICAL: RASS 0. No gross focal/sensory deficits. Follows commands in all 4 extremities. Urinary Catheter: No Wilkerson insert reason: Measure Accurate Output Date of Insertion: Oct 15, 2016 Vascular Central Line Catheter: Yes Assessment to: Remove A/P Assessment and Plan Assessment 1. Septic shock- 2/2 urosepsis-resolved 2. A. fib RVR-resolved 3. ARACELI -resolved 4. Urosepsis-2/2 obstructive uropathy 5. Metabolic encephalopathy and toxic encephalopathy-resolved 6. Dehydration-resolved 7. Breast cancer stage IV status post chemotherapy and radiation therapy with bone metastasis and right breast reconstruction 8. Elevated troponins 9. History of NSTEMI 06/2016 10. Hypertension 11. Diabetes mellitus 12. Hyperlipidemia 13. Bandemia 14. Peptic ulcer disease 15. GERD 16. Hypokalemia, hypomagnesemia Plan Plan by systems: Neurologic: -Neurochecks per ICU protocol -Hold home medications Lyrica, oxycodone and temazepam -10/15 CT of the brain-no acute intracranial abnormality Respiratory: -Incentive spirometry -Bronchodilators every 6 hours schedule and every 2 hours when necessary -Maintain head of bed greater than 30 -SBT parameters-RSBI 27, FVC 800, NIF -28 Cardiovascular: -Hold beta blockers, calcium channel blockers in the setting of hypotension and septic shock, will resume when clinically indicated -Continue Plavix -Echocardiogram 06/23/16-EF 5560 percent, grade 1 diastolic function, mild MR, mild to moderate TR, PA peak pressure 52 mmHg - [facility] cardiology following- Dr. Niño -07/02 Cardiac tchzyndrufpfojc-ikk-ztgigucs disease LAD. Total RCA occlusion with collateral circulation. Renal: -Maintain Wilkerson -Avoid nephrotoxins, hold home med MAGUI inhibitor (lisinopril) --CT abdomen pelvis right UPJ obstruction with moderate hydronephrosis -10/14 S/P UPJ stent placement -Urology following Dr. Madrigal -- Strict I/Os FEN/GI: -10/14 In ED bolused with 4500 cc IV fluid -Discontinue normal saline at 125/hour -Discontinue Sodium bicarbonate infusion at 75/hour -Monitor BMP. -Follow-up CT of the abdomen and pelvis -Patient's home medication includes both ranitidine at at bedtime, and omeprazole, will continue IV dosing -Protonix 40 mg IV -Pepcid 20 mg IV twice a day -Begin him with ice chips, advance diet as tolerated heart healthy Heme/ID: -Monitor serial lactate levels - Blood culture-Klebsiella -urine culture-pending -10/14 Zosyn and vancomycin initiated, patient received in the ED cefepime, vancomycin and gentamicin -ID following -Dr. Franklin Endocrine: -Glucose monitoring per ICU protocol -Low dose insulin regimen -- SSI Prophylaxis: GI Prophylaxis Pepcid DVT Prophylaxis -- SCDs Heparin twice a day Lines: Left femoral in situ (ED) discontinued its 10/16 PIVs 2 Dispo: Level [address] [facility] Hospitalist in a.m.. Physician Chaya Valenzuela MD Oct 16, 2016 13:32
[2016-10-16] MEDS: VANCOMYCIN 1,000 MG/NS 250 ML IV SCH ×2 (13:39)
--- NOTE | 2016-10-16 18:36 | HHI.IDPN ---
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 Vital Signs Date Time Temp Pulse Resp B/P Pulse Ox O2 Delivery O2 Flow Rate FiO2 10/16/16 18:00 74 10/16/16 17:45 79 10/16/16 17:31 82 10/16/16 17:15 74 10/16/16 17:00 81 10/16/16 16:45 89 10/16/16 16:45 89 21 108/66 94 10/16/16 16:45 89 10/16/16 16:30 86 10/16/16 16:30 86 10/16/16 16:30 86 21 98/67 94 10/16/16 16:03 115 10/16/16 16:03 115 10/16/16 16:03 115 11 104/83 10/16/16 16:00 97.9 10/16/16 15:45 79 10/16/16 15:31 66 10/16/16 15:15 72 10/16/16 15:00 74 10/16/16 14:45 74 10/16/16 14:30 76 10/16/16 14:15 71 10/16/16 14:15 71 10/16/16 14:00 77 10/16/16 14:00 77 10/16/16 13:45 75 10/16/16 13:30 68 10/16/16 13:16 81 10/16/16 13:00 66 10/16/16 12:46 72 10/16/16 12:30 75 10/16/16 12:15 74 10/16/16 12:00 97.4 10/16/16 12:00 77 21 125/67 137/73 10/16/16 12:00 77 10/16/16 12:00 77 10/16/16 11:45 77 10/16/16 11:45 77 13 128/77 96 140/72 10/16/16 11:30 77 10/16/16 11:30 77 14 116/76 94 133/68 10/16/16 11:15 76 10/16/16 11:15 76 16 118/69 92 140/72 10/16/16 11:00 77 10/16/16 11:00 77 9 121/69 93 136/71 10/16/16 10:45 74 5 110/67 94 129/67 10/16/16 10:45 74 10/16/16 10:30 68 17 107/66 94 126/64 10/16/16 10:30 68 10/16/16 10:24 98 Nasal Cannula 4 10/16/16 10:24 98 Nasal Cannula 4.00 10/16/16 10:15 68 15 110/68 98 129/67 10/16/16 10:15 68 10/16/16 10:00 69 13 108/69 98 126/67 10/16/16 10:00 69 10/16/16 08:27 Nasal Cannula 40 10/16/16 08:00 97.9 10/16/16 07:30 99 40 10/16/16 06:00 62 10/16/16 04:00 50 10/16/16 04:00 63 10/16/16 04:00 97.8 63 15 113/71 92 126/64 10/16/16 03:57 96 50 10/16/16 03:45 61 10/16/16 03:45 61 14 107/65 100 120/62 10/16/16 03:30 59 15 107/61 99 115/60 10/16/16 03:30 59 10/16/16 03:15 67 10/16/16 03:15 67 14 108/68 99 125/67 10/16/16 03:00 49 14 102/59 98 110/58 10/16/16 03:00 49 10/16/16 02:45 50 10/16/16 02:45 50 14 90/58 97 107/58 10/16/16 02:30 52 10/16/16 02:30 52 14 95/61 97 107/58 10/16/16 02:15 54 14 100/55 97 103/56 10/16/16 02:15 54 10/16/16 02:00 51 10/16/16 02:00 48 10/16/16 02:00 48 14 92/55 96 98/54 10/16/16 01:45 51 10/16/16 01:45 51 14 87/52 96 100/53 10/16/16 01:31 54 14 99/54 96 103/54 10/16/16 01:31 54 10/16/16 01:30 54 14 103/55 96 10/16/16 01:30 54 10/16/16 01:15 51 10/16/16 01:15 51 14 87/59 96 107/56 10/16/16 01:00 50 10/16/16 01:00 50 14 78/50 96 92/51 10/16/16 00:55 96 50 10/16/16 00:45 55 14 94/58 96 96/54 10/16/16 00:45 55 10/16/16 00:31 51 10/16/16 00:31 51 14 97/56 96 94/52 10/16/16 00:30 53 14 93/53 96 10/16/16 00:30 53 10/16/16 00:16 51 10/16/16 00:16 51 14 99/55 96 90/51 10/16/16 00:15 51 14 94/53 96 10/16/16 00:15 51 10/16/16 00:00 50 10/16/16 00:00 52 10/16/16 00:00 99.0 52 14 92/55 96 99/53 10/16/16 00:00 52 14 92/55 96 99/53 10/16/16 00:00 52 10/15/16 22:19 98 50 10/15/16 22:00 64 10/15/16 20:35 98 50 10/15/16 20:00 50 10/15/16 20:00 98.4 64 0 103/68 97 105/58 10/15/16 20:00 64 10/15/16 10/15/16 10/16/16 15:00 23:00 07:00 Intake Total 2787 ml 2806 ml 1887 ml Output Total 2450 ml 1700 ml 800 ml Balance 337 ml 1106 ml 1087 ml Intake IV Total 2787 ml 2806 ml 1887 ml Output Urine Total 2450 ml 1700 ml 800 ml # Bowel Movements 1 . Laboratory Tests Test 10/14/16 10/15/1610/16/17 22:40 06:05 04:00 White Blood Count 14.9 TH/MM3 12.5 TH/MM3 12.0 TH/MM3 Red Blood Count 4.48 MIL/MM3 4.17 MIL/MM3 4.06 MIL/MM3 Hemoglobin 12.5 GM/DL 11.9 GM/DL 11.6 GM/DL Hematocrit 40.8 % 36.4 % 34.9 % Mean Corpuscular Volume 91.0 FL 87.3 FL 85.9 FL Mean Corpuscular Hemoglobin 28.0 PG 28.6 PG 28.5 PG Mean Corpuscular Hemoglobin 30.7 % 32.7 % 33.2 % Concent Red Cell Distribution Width 17.7 % 16.8 % 17.4 % Platelet Count 134 TH/MM3 96 TH/MM3 81 TH/MM3 Mean Platelet Volume 10.8 FL 9.6 FL 10.5 FL Neutrophils (%) (Auto) 79.1 % Lymphocytes (%) (Auto) 12.3 % Monocytes (%) (Auto) 5.1 % Eosinophils (%) (Auto) 3.3 % Basophils (%) (Auto) 0.2 % Neutrophils # (Auto) 9.9 TH/MM3 Lymphocytes # (Auto) 1.5 TH/MM3 Monocytes # (Auto) 0.6 TH/MM3 Eosinophils # (Auto) 0.4 TH/MM3 Basophils # (Auto) 0.0 TH/MM3 CBC Comment AUTO DIFF Differential Total Cells 100 Counted Neutrophils % (Manual) 69 % Band Neutrophils % 21 % Lymphocytes % 4 % Monocytes % 5 % Eosinophils % 1 % Neutrophils # (Manual) 11.3 TH/MM3 Differential Comment FINAL DIFF MANUAL Platelet Estimate LOW Platelet Morphology Comment NORMAL Red Cell Morphology Comment NORMAL Laboratory Tests Test 10/14/16 10/15/16 10/15/16 10/15/16 22:40 06:05 23:10 23:30 Lactic Acid Level 1.9 mmol/L 1.4 mmol/L 1.4 mmol/L Ammonia 22 MCMOL/L Troponin I 2.47 NG/ML 2.26 NG/ML Sodium Level 146 MEQ/L 151 MEQ/L Potassium Level 2.9 MEQ/L 3.1 MEQ/L Chloride Level 111 MEQ/L 111 MEQ/L Carbon Dioxide Level 21.5 MEQ/L 29.7 MEQ/L Anion Gap 14 MEQ/L 10 MEQ/L Blood Urea Nitrogen 42 MG/DL 31 MG/DL Creatinine 1.45 MG/DL 1.10 MG/DL Estimat Glomerular Filtration 36 ML/MIN 50 ML/MIN Rate Random Glucose 107 MG/DL 147 MG/DL Calcium Level 6.0 MG/DL 6.4 MG/DL Protein Corrected Calcium 7.1 MG/DL 7.5 MG/DL Phosphorus Level 3.5 MG/DL 2.2 MG/DL Magnesium Level 1.5 MG/DL Total Bilirubin 0.6 MG/DL Aspartate Amino Transf 90 U/L (AST/SGOT) Alanine Aminotransferase 52 U/L (ALT/SGPT) Alkaline Phosphatase 137 U/L B-Type Natriuretic Peptide 807 PG/ML Total Protein 4.7 GM/DL 4.8 GM/DL Albumin 1.5 GM/DL Test 10/16/16 04:00 Sodium Level 153 MEQ/L Potassium Level 3.0 MEQ/L Chloride Level 112 MEQ/L Carbon Dioxide Level 28.6 MEQ/L Anion Gap 12 MEQ/L Blood Urea Nitrogen 29 MG/DL Creatinine 0.97 MG/DL Estimat Glomerular Filtration 58 ML/MIN Rate Random Glucose 156 MG/DL Calcium Level 6.3 MG/DL Protein Corrected Calcium 7.5 MG/DL Phosphorus Level 3.2 MG/DL Magnesium Level 1.5 MG/DL Total Protein 4.7 GM/DL Microbiology Date/Time Procedure Status Source Growth 10/14/16 13:45 Aerobic Blood Culture - Preliminary Resulted Blood Line Gram Negative Nishant 10/14/16 13:45 Anaerobic Blood Culture - Preliminary Resulted Gram Negative Nishant 10/14/16 14:00 Aerobic Blood Culture - Preliminary Resulted Blood Line Klebsiella Pneumoniae 10/14/16 14:00 Anaerobic Blood Culture - Preliminary Resulted Gram Negative Nishant 10/14/16 14:00 Urine Culture Received Urine Catheterized Urine Pending 10/14/16 14:00 Urine Culture - Final Complete Urine Catheterized Urine Escherichia Coli 10/14/16 14:00 Legionella Antigen - Final Complete Urine Catheterized Urine PRESUMPTIVE NEGATIVE FOR LEGIONELLA P... 10/14/16 14:00 Streptococcus pneumoniae Antigen (M - Final Complete Urine Catheterized Urine PRESUMPTIVE NEGATIVE FOR STREPTOCOCCU... 10/14/16 20:10 Cancelled Urine Catheterized Urine 10/14/16 22:45 Urine Culture - Final Complete Urine Catheterized Urine Escherichia Coli 10/15/16 06:30 Influenza Types A,B Antigen (EMY) - Final Complete Nasal Washing Imaging Last Impressions Chest X-Ray 10/16/16 0600 Signed Impressions: Service Date/Time: Sunday, October 16, 2016 03:32 - CONCLUSION: Increased density overlying the right lung base could be extraocular patient or in part a right pleural effusion. Left pleural effusion seen previously is decreased in size. Tubes and catheters in good position. Anirudh Moreno MD Head CT 10/14/16 0000 Signed Impressions: Service Date/Time: September 16:05 - CONCLUSION: 1. Moderate periventricular and subcortical white matter small vessel ischemic changes bilaterally. 2. No acute infarct, acute hemorrhage, mass effect or extra- axial fluid collections. John Barker MD Abdomen/Pelvis CT 10/14/16 0000 Signed Impressions: Service Date/Time: , October 14, 2016 16:08 - CONCLUSION: 1. Obstructive uropathy with moderate right hydronephrosis secondary to obstructing 9 mm calculus in the right ureteropelvic junction. 2. Bilateral pleural thickening. 3. Wilkerson catheter in place. 4. Status post L2 augmentation. 5. Subacute to chronic left rib fractures and old right-sided pubic rami fractures. Julian Camp MD Physical Exam CONSTITUTIONAL/GENERAL: This is an adequately nourished patient, in no apparent distress. TUBES/LINES/DRAINS: SKIN: No jaundice, rashes, or lesions. HEAD: Atraumatic. Normocephalic. EYES: Pupils equal and round and reactive. ENT: Hearing grossly normal. Oral mucosae without visible erythema, exudates, masses, or lesions. CARDIOVASCULAR: Regular rate and rhythm without murmurs, gallops, or rubs. No JVD. Peripheral pulses symmetric. RESPIRATORY/CHEST: Symmetric, unlabored respirations. Clear to auscultation. [place] GASTROINTESTINAL: Abdomen soft, not tender to palpation mildly distended. No hepato-splenomegaly, or palpable masses. No guarding. Bowel sounds present. GENITOURINARY: Without palpable bladder distension. Wilkerson catheter in place with clear yellow urine MUSCULOSKELETAL: Extremities without clubbing, + cynosis of toeas and fingertips cyanosis, or edema. + some skin mottling over knees NEUROLOGICAL: Awake and alert. Motor and sensory grossly within normal limits. Follows commands. Clear speech, PSYCHIATRIC: calm and cooperative Assessment & Plan Remarks Sepsis, gram negative UTI inthe settings of obstructing 9 mm calculus in the right ureteropelvic junction. sp Cystoscopy, right retrograde pyelogram and intermediate right ureteral stent placement - pt has E.coli in the urinw - pt has Kleb pneumo in the blood, sensitivities P - discerepency between blood and urine isolate noted moderate right hydronephrosis sp reliving obstruction buy stenting Acute VDRF: tolerating weaning Lactic acidosis Leukocytosis, improving Pt is stable and clinically improving - fu blood clx untill final - cont zosyn cont levaquin dc vancomycin Alisha Franklin MD Oct 16, 2016 18:36
[2016-10-16] MEDS: PANTOPRAZOLE SODIUM 40 MG VIAL IV PUSH SCH (21:02)
[2016-10-17] VITALS (20 sets, daily range): BP systolic 99–116; BP diastolic 50–80; PULSE 67–158; RESP 17–26; TEMP 98.1–98.7; O2SAT 87–98
[2016-10-17] MEDS: PIPERACIL-TAZO 2.25 GM PREMIX 50 ML IV SCH ×2 (00:21→13:46)
[2016-10-17] MEDS: POTASSIUM CHLOR 20 MEQ PREMIX 100 ML IV PRN ×3 (01:09→22:55)
[2016-10-17] MEDS ORDERED: DILTIAZEM HCL 25 MG/5 ML VIAL IVP ONE (01:15)
[2016-10-17] MEDS ORDERED: POTASSIUM CHLOR 20 MEQ PREMIX 100 ML IV ONE (01:15)
[2016-10-17] MEDS ORDERED: DILTIAZEM INJ 125 MG in SODIUM CHLORIDE 0.9% INJ 100 ML IV SCH (01:15)
[2016-10-17] MEDS ORDERED: DILTIAZEM HCL 25 MG/5 ML VIAL IVP PRN (01:30)
[2016-10-17] MEDS ORDERED: AMIODARONE INJ 150 MG in DEXTROSE 5% IN WATER 100ML INJ 97 ML IV ONE ×2 (02:45)
[2016-10-17 03:04] LABS: AUTOMATED NEUTROPHIL # 6.9 TH/MM3 (1.8-7.7); BASOPHIL % 0.2 % (0.0-2.0); EOSINOPHIL # 0.1 TH/MM3 (0-0.4); EOSINOPHIL % 1.2 % (0.0-4.0); HEMATOCRIT 29.6 % (35.0-46.0); LYMPH % 12.8 % (9.0-44.0); LYMPHOCYTE # 1.1 TH/MM3 (1.0-4.8); MEAN CELL VOLUME 86.2 FL (80.0-100.0); MEAN CORPUSCULAR HEMOGLOBIN 28.1 PG (27.0-34.0); MEAN CORPUSCULAR HGB CONC 32.6 % (32.0-36.0); MONO % 2.6 % (0.0-8.0); NEUT % 83.2 % (16.0-70.0); PLATELET COUNT 65 TH/MM3 (150-450); RED BLOOD COUNT 3.43 MIL/MM3 (4.00-5.30); RED CELL DISTRIBUTION WIDTH 16.5 % (11.6-17.2); WHITE BLOOD COUNT 8.3 TH/MM3 (4.0-11.0)
[2016-10-17 03:12] LABS: HEMO FLAGS DIFF FINAL
[2016-10-17 03:52] LABS: BICARBONATE 34.3 MEQ/L (21.0-32.0); MAGNESIUM 1.1 MG/DL (1.5-2.5)
[2016-10-17 03:54] LABS: POTASSIUM 2.3 MEQ/L (3.5-5.1)
[2016-10-17] MEDS: CHLORHEXIDINE GLUCONATE 2 % 1 PACK (2 CLOTHS) TOP SCH (04:00)
[2016-10-17] MEDS: AMIODARONE INJ 450 MG in DEXTROSE 5% IN WATE(EXCEL) INJ 250 ML IV SCH ×4 (04:07→11:53)
[2016-10-17 04:14] LABS: CALCIUM-PROTEIN CORRECTED 8.2 MG/DL (8.5-10.1)
[2016-10-17] MEDS: RESP: ALBUTEROL 2.5 MG/IPRATROPIUM 0.5 MG NEB (SCH) NEB ×4 (04:59→20:50)
[2016-10-17] MEDS ORDERED: POTASSIUM CHLORIDE 20 MEQ CONTROLLED RELEASE TAB PO ONE ×3 (05:30→23:00)
[2016-10-17] MEDS: MAGNESIUM SULFATE 1 GM PREMIX 100 ML IV SCH ×2 (05:49→10:19)
[2016-10-17] MEDS: HEPARIN SODIUM - SQ 10,000 UNITS/ML VIAL SQ SCH ×2 (06:20→18:04)
[2016-10-17] MEDS: HYDROCORTISONE SOD SUCCINATE 100 MG VIAL IV PUSH SCH ×2 (06:20→21:18)
[2016-10-17] MEDS: FAMOTIDINE 20 MG/2 ML VIAL IV PUSH SCH (06:20)
[2016-10-17] MEDS: CHLORHEXIDINE 0.12% (ORAL KIT) 15 ML CUP MT SCH ×2 (08:00→20:00)
[2016-10-17] MEDS: CLOPIDOGREL 75 MG TAB PO SCH (08:16)
[2016-10-17] MEDS: FUROSEMIDE 40 MG TAB OG-TUBE SCH (08:16)
[2016-10-17] MEDS: MAGNESIUM CHLORIDE 64 MG TAB PO SCH (08:16)
[2016-10-17] MEDS: INSULIN ASPART SUPPLEMENTAL SCALE SQ SCH ×4 (08:18→21:00)
--- NOTE | 2016-10-17 09:23 | HHI.PR ---
Subjective Remarks comfortable. no complaints jes food Objective Vitals nad oriented heart reg lung good air entry abd s/nt/nabs ext no edema baires Vital Signs Date Time Temp Pulse Resp B/P Pulse Ox O2 Delivery O2 Flow Rate FiO2 10/17/16 08:14 97 Nasal Cannula 3.00 10/17/16 06:00 126 22 109/69 96 10/17/16 06:00 126 10/17/16 05:00 98.1 127 20 116/74 97 10/17/16 04:00 137 10/17/16 04:00 137 17 99/59 92 10/17/16 03:00 149 10/17/16 02:00 158 10/17/16 00:00 98.4 89 23 109/59 87 10/17/16 00:00 89 10/16/16 23:00 86 10/16/16 22:19 96 Nasal Cannula 3.00 10/16/16 22:00 86 20 125/68 96 10/16/16 22:00 86 10/16/16 21:00 85 10/16/16 20:00 97.6 77 18 120/72 10/16/16 20:00 77 10/16/16 18:00 74 10/16/16 17:45 79 10/16/16 17:31 82 10/16/16 17:15 74 10/16/16 17:00 81 10/16/16 16:45 89 10/16/16 16:45 89 21 108/66 94 10/16/16 16:45 89 10/16/16 16:30 86 10/16/16 16:30 86 10/16/16 16:30 86 21 98/67 94 10/16/16 16:03 115 10/16/16 16:03 115 10/16/16 16:03 115 11 104/83 10/16/16 16:00 97.9 10/16/16 15:45 79 10/16/16 15:31 66 10/16/16 15:15 72 10/16/16 15:00 74 10/16/16 14:45 74 10/16/16 14:30 76 10/16/16 14:15 71 10/16/16 14:15 71 10/16/16 14:00 77 10/16/16 14:00 77 10/16/16 13:45 75 10/16/16 13:30 68 10/16/16 13:16 81 10/16/16 13:00 66 10/16/16 12:46 72 10/16/16 12:30 75 10/16/16 12:15 74 10/16/16 12:00 97.4 10/16/16 12:00 77 21 125/67 137/73 10/16/16 12:00 77 10/16/16 12:00 77 10/16/16 11:45 77 10/16/16 11:45 77 13 128/77 96 140/72 10/16/16 11:30 77 10/16/16 11:30 77 14 116/76 94 133/68 10/16/16 11:15 76 10/16/16 11:15 76 16 118/69 92 140/72 10/16/16 11:00 77 10/16/16 11:00 77 9 121/69 93 136/71 10/16/16 10:45 74 5 110/67 94 129/67 10/16/16 10:45 74 10/16/16 10:30 68 17 107/66 94 126/64 10/16/16 10:30 68 10/16/16 10:24 98 Nasal Cannula 4 10/16/16 10:24 98 Nasal Cannula 4.00 10/16/16 10:15 68 15 110/68 98 129/67 10/16/16 10:15 68 10/16/16 10:00 69 13 108/69 98 126/67 10/16/16 10:00 69 10/16/16 10/16/16 10/17/16 15:00 23:00 07:00 Intake Total 0 ml 564 ml Output Total 1200 ml 850 ml 1000 ml Balance -1200 ml -850 ml -436 ml Intake IV Total 0 ml 564 ml Output Urine Total 1200 ml 850 ml 1000 ml # Bowel Movements 0 0 Result Diagram: 10/17/1624610/17/16246 Date of Insertion: Oct 15, 2016 A/P Problem List: (1) Septic shock Status: Acute Plan: Pt presented with septic shock/vdrf right 9mm stone at UPJ with hydro s/p stent 10/[address] Madrigal uti and sepsis. ...urine cx growing klebsiella and blood cx ecoli??? araceli improving elevated troponin..probably demand ...pt had lhc in 07/02..50-60% lad dz afib rvr now converted to sinus hypokalemia/hypomagnesemia -replace lytes agressively per protocol and recheck later today -placed on cardizem and amio gtt overnight per screw machine repairer.. now convert to sinus and 70s..will try to d/c cardizem and will let amio protocol continue today. -elevated trops noted per cardiology and felt demand related. cont medical management. -cont zosyn/levaquin per ID until cx's final. vanco stopped. -start weaning hydrocortisone given by icu for septic shock. -ssi for now due to steroid hyperglycemia..normally diet controlled -PT and increase activity -probably transfer out of icu tomorrow. -will review over home med list again and will likely start more of home list tomorrow. dvt prophylaxis ppi IS (2) UTI (lower urinary tract infection) Status: Acute Plan: see above (3) Respiratory failure requiring intubation Status: Acute Plan: see above (4) Atrial fibrillation with RVR Status: Acute Plan: see above (5) CAD (coronary artery disease) Status: Chronic Plan: see above (6) Renal calculus, right Status: Acute Plan: see above (7) ARACELI (acute kidney injury) Status: Acute Plan: above (8) Hypokalemia Status: Acute Plan: above (9) Hypomagnesemia Status: Acute Plan: above (10) Breast cancer metastasized to bone Status: Resolved (11) Humerus fracture Status: Chronic (12) Diabetes type 2, controlled Status: Chronic Plan: monitor ssi Demar Chaudhary MD Oct 17, 2016 09:23
[2016-10-17] MEDS: SODIUM CHLORIDE 0.9% FLUSH 10 ML FLUSH IV FLUSH SCH ×2 (10:19→21:18)
[2016-10-17] MEDS ORDERED: PHARMACY ORDERED LAB ONE (13:45)
[2016-10-17] MEDS: LEVOFLOXACIN 750 MG PREMIX INJ 150 ML IV SCH (14:48)
[2016-10-17] MEDS: ACETAMINOPHEN 325 MG TAB PO PRN (18:04)
[2016-10-17] MEDS ORDERED: CALCIUM GLUCONATE INJ 1 GM in SODIUM CHLORIDE 0.9% INJ 100 ML IV ONE (18:45)
--- NOTE | 2016-10-17 18:59 | HHI.CCPN ---
Subjective Remarks/Hospital Course This is a 61-year-old female that presented to the ED via ambulance for altered mental status. The patient unable to provide history, history obtained from . The reported that for the last several weeks the patient has been unable to get out of the bed, very lethargic unable to eat, or drink any fluids for approximately several weeks. He has been providing her with her scheduled medications to include Lyrica, temazepam and oxycodone and she progressively became more lethargic. Per report upon arrival EMS, the patient was noted to be in atrial fibrillation with RVR with a heart rate of 160's. The patient received 20 mg of Cardizem by EMS and was transported to the ED. Upon arrival to the ED the patient received Cardizem 20 mg IV push, and Lopressor 5 mg IV. The patient was noted to have a temperature 101.6 laboratory studies reveal a lactic acid of 3.2, 10% bands and a leukocytosis of 11.8. Septic shock protocol was initiated, the patient received approximately 4500 cc of normal saline to include EMS administration, and dosed with Rocephin and vancomycin. Patient received Narcan 0.4 mg and rectal Tylenol 650 mg. The patient then was noted to be hypotensive with a systolic blood pressure in the 70s, a central line was placed by Dr. Anderson left femoral, and a Wilkerson catheter was placed revealing purulent drainage, presumed urosepsis. The patient's medical history is significant for stage IV right breast cancer with bone metastasis and she is status post chemotherapy and radiation approximately 2-3 years ago. Patient was noted to have a right mastectomy with reconstruction and has a left [id number] in situ. Critical care medicine was consulted for management. Upon my arrival to the ED, systolic blood pressure was noted to be in the mid 70s, Levophed had been initiated, telemetry revealed rate controlled atrial fibrillation in the 80's. Subjective: 10/15: The patient was noted on CT to have moderate hydronephrosis and a UPJ stent was placed last evening, and the patient remains intubated. Cardiology was consulted, secondary to elevated troponins and status post [place] 07/02, no interventions at this time. This a.m.,the patient was noted to have multiple electrolyte abnormalities which are being repleted. 10/16:Patient improving, norepinephrine discontinued since 12 midnight, sodium bicarbonate discontinued, IV fluids discontinued. CPAP trial successful. SBT parameters within normal limits. Plan for patient's extubation. With advancement of diet, out of bed to chair. 10/17: Patient went into A. fib RVR last evening, placed on amiodarone infusion. The patient converted to normal sinus rhythm. Tonight the patient has been transitioned to PO amiodarone. A chin is tolerating a diet out of bed to chair doing well. Objective Vital Signs Date Time Temp Pulse Resp B/P Pulse Ox O2 Delivery O2 Flow Rate FiO2 10/17/16 16:13 15 10/17/16 16:00 98.2 67 114/59 98 10/17/16 08:14 Nasal Cannula 3.00 10/16/16 08:27 40 Intake and Output 10/16/16 10/16/16 10/17/16 08:00 16:00 00:00 Intake Total 1887 ml 0 ml Output Total 800 ml 1200 ml 850 ml Balance 1087 ml -1200 ml -850 ml Result Diagram: 10/17/16 0247 10/17/16 0247 Other Results Microbiology Date/Time Procedure Status Source Growth 10/14/16 22:45 Urine Culture - Final Complete Urine Catheterized Urine Escherichia Coli 10/15/16 06:30 Influenza Types A,B Antigen (EMY) - Final Complete Nasal Washing Imaging Last Impressions Head CT 10/14/16 0000 Signed Impressions: Service Date/Time: September 16:05 - CONCLUSION: 1. Moderate periventricular and subcortical white matter small vessel ischemic changes bilaterally. 2. No acute infarct, acute hemorrhage, mass effect or extra- axial fluid collections. John Barker MD Chest X-Ray 10/14/16 0000 Signed Impressions: Service Date/Time: September 15:41 - CONCLUSION: 1. Minimal bibasilar streakiness consistent with atelectasis and/or developing infiltrates. Clinical correlation is recommended. John Barker MD Abdomen/Pelvis CT 10/14/16 0000 Signed Impressions: Service Date/Time: September 16:08 - CONCLUSION: 1. Obstructive uropathy with moderate right hydronephrosis secondary to obstructing 9 mm calculus in the right ureteropelvic junction. 2. Bilateral pleural thickening. 3. Wilkerson catheter in place. 4. Status post L2 augmentation. 5. Subacute to chronic left rib fractures and old right-sided pubic rami fractures. Julian Camp MD CT brain-pending CT abdomen pelvis-pending Chest [id number] Objective Remarks GENERAL: Well-developed well-nourished female awake alert now extubated SKIN: Warm and dry HEAD: Atraumatic. Normocephalic. EYES: Pupils equal and round, miosis noted. No scleral icterus. No injection or drainage. ENT: No nasal bleeding or discharge. Mucous membranes dry. Orotracheal intubation NECK: Trachea midline. No JVD. CARDIOVASCULAR: Normal rate, regular rhythm. Yqtaki-n-Ckib left chest noted RESPIRATORY: No accessory muscle movement Clear to auscultation. Breath sounds equal bilaterally. GASTROINTESTINAL: Abdomen soft, protuberant non-tender, distended. No guarding. MUSCULOSKELETAL: Extremities without clubbing, cyanosis, or edema. No obvious deformities. Reconstructed right breast NEUROLOGICAL: RASS 0. No gross focal/sensory deficits. Follows commands in all 4 extremities. Urinary Catheter: Yes Wilkerson insert reason: Measure Accurate Output Date of Insertion: Oct 15, 2016 A/P Assessment and Plan Assessment 1. Septic shock- 2/2 urosepsis-resolved 2. A. fib RVR-resolved 3. ARACELI -resolved 4. Urosepsis-2/2 obstructive uropathy 5. Metabolic encephalopathy and toxic encephalopathy-resolved 6. Dehydration-resolved 7. Breast cancer stage IV status post chemotherapy and radiation therapy with bone metastasis and right breast reconstruction 8. Elevated troponins 9. History of NSTEMI 06/2016 10. Hypertension 11. Diabetes mellitus 12. Hyperlipidemia 13. Bandemia-resolved 14. Peptic ulcer disease 15. GERD 16. Hypokalemia, hypomagnesemia-resolved Plan Plan by systems: Neurologic: -Neurochecks per ICU protocol -Hold home medications Lyrica, oxycodone and temazepam -10/15 CT of the brain-no acute intracranial abnormality Respiratory: -Incentive spirometry -Bronchodilators every 6 hours schedule and every 2 hours when necessary -Maintain head of bed greater than 30 -SBT parameters-RSBI 27, FVC 800, NIF -28 Cardiovascular: -Hold beta blockers, calcium channel blockers in the setting of hypotension and septic shock, will resume when clinically indicated -Continue Plavix -Echocardiogram 06/23/16-EF 5560 percent, grade 1 diastolic function, mild MR, mild to moderate TR, PA peak pressure 52 mmHg - [facility] cardiology following- Dr. Niño -07/02 Cardiac gkxiaoydkbxjbyh-zzq-yzvstrli disease LAD. Total RCA occlusion with collateral circulation. -Currently on amiodarone infusion plan transition tonight at 2100-200 mg twice a day Renal: -Maintain Wilkerson -Avoid nephrotoxins, hold home med MAGUI inhibitor (lisinopril) --CT abdomen pelvis right UPJ obstruction with moderate hydronephrosis -10/14 S/P UPJ stent placement -Urology following Dr. Madrigal -- Strict I/Os FEN/GI: -10/14 In ED bolused with 4500 cc IV fluid -Discontinue normal saline at 125/hour -Discontinue Sodium bicarbonate infusion at 75/hour -Monitor BMP. -Follow-up CT of the abdomen and pelvis -Patient's home medication includes both ranitidine at at bedtime, and omeprazole, will continue IV dosing -Protonix 40 mg IV -Pepcid 20 mg IV twice a day -Begin him with ice chips, advance diet as tolerated heart healthy Heme/ID: -Monitor serial lactate levels - Blood culture-Klebsiella -urine culture-pending -10/14 Zosyn and vancomycin initiated, patient received in the ED cefepime, vancomycin and gentamicin -ID following -Dr. Franklin Endocrine: -Glucose monitoring per ICU protocol -Low dose insulin regimen -- SSI Prophylaxis: GI Prophylaxis Pepcid DVT Prophylaxis -- SCDs Heparin twice a day Lines: Left femoral in situ (ED) discontinued 10/16 PIVs 2 Dispo: Level 2 [facility]... Physician Chaya Valenzuela MD Oct 17, 2016 18:59
[2016-10-17] MEDS: PIPERACIL-TAZO 4.5 GM PREMIX 100 ML IV SCH (21:17)
[2016-10-17] MEDS: AMIODARONE 200 MG TAB PO SCH (21:17)
[2016-10-17 21:36] LABS: BICARBONATE 29.1 MEQ/L (21.0-32.0); MAGNESIUM 1.4 MG/DL (1.5-2.5)
[2016-10-17 21:52] LABS: POTASSIUM 2.6 MEQ/L (3.5-5.1)
[2016-10-17 22:07] LABS: CALCIUM-PROTEIN CORRECTED 8.2 MG/DL (8.5-10.1)
[2016-10-17] MEDS: TEMAZEPAM 15 MG CAP PO PRN (22:56)
[2016-10-18] VITALS (15 sets, daily range): BP systolic 85–128; BP diastolic 53–74; PULSE 66–82; RESP 10–20; TEMP 97.6–98.4; O2SAT 92–98
[2016-10-18] MEDS: POTASSIUM PHOSPHATE MONOBASIC 500 MG TAB PO PRN ×2 (00:46→05:04)
[2016-10-18] MEDS: POTASSIUM CHLOR 20 MEQ PREMIX 100 ML IV PRN ×3 (02:17→17:18)
[2016-10-18] MEDS: PIPERACIL-TAZO 4.5 GM PREMIX 100 ML IV SCH ×2 (03:51→08:07)
[2016-10-18] MEDS: CHLORHEXIDINE GLUCONATE 2 % 1 PACK (2 CLOTHS) TOP SCH (03:51)
[2016-10-18] MEDS: RESP: ALBUTEROL 2.5 MG/IPRATROPIUM 0.5 MG NEB (SCH) NEB ×4 (03:58→21:05)
[2016-10-18] MEDS: INSULIN ASPART SUPPLEMENTAL SCALE SQ SCH ×4 (06:05→21:00)
[2016-10-18] MEDS: HEPARIN SODIUM - SQ 10,000 UNITS/ML VIAL SQ SCH ×2 (06:05→17:54)
[2016-10-18] MEDS: CHLORHEXIDINE 0.12% (ORAL KIT) 15 ML CUP MT SCH ×2 (08:00→20:00)
[2016-10-18] MEDS: HYDROCORTISONE SOD SUCCINATE 100 MG VIAL IV PUSH SCH (08:03)
[2016-10-18] MEDS: PANTOPRAZOLE SOD 40 MG DELAYED RELEASE TAB PO SCH (08:04)
[2016-10-18] MEDS: AMIODARONE 200 MG TAB PO SCH ×2 (08:04→21:05)
[2016-10-18] MEDS: MAGNESIUM CHLORIDE 64 MG TAB PO SCH (08:04)
[2016-10-18] MEDS: CLOPIDOGREL 75 MG TAB PO SCH ×2 (08:06→08:12)
[2016-10-18] MEDS: SODIUM CHLORIDE 0.9% FLUSH 10 ML FLUSH IV FLUSH SCH ×2 (08:07→21:00)
--- NOTE | 2016-10-18 08:46 | HHI.PR ---
Addendum to Inpatient Note Additional Information E.coli in urine clx dawkins S Kleb pneumo in blood clx dawkins S Started on amiodarone - will avoid levaqine dc Pip tazo start Rocephin Alisha Franklin MD Oct 18, 2016 08:46
[2016-10-18] MEDS: cefTRIAXone INJ 2,000 MG in SODIUM CHLORIDE 0.9% INJ 100 ML IV SCH (09:49)
[2016-10-18 12:14] LABS: HEMATOCRIT 32.1 % (35.0-46.0); MEAN CELL VOLUME 87.3 FL (80.0-100.0); MEAN CORPUSCULAR HEMOGLOBIN 28.3 PG (27.0-34.0); MEAN CORPUSCULAR HGB CONC 32.4 % (32.0-36.0); PLATELET COUNT 77 TH/MM3 (150-450); RED BLOOD COUNT 3.67 MIL/MM3 (4.00-5.30); RED CELL DISTRIBUTION WIDTH 16.5 % (11.6-17.2); WHITE BLOOD COUNT 6.7 TH/MM3 (4.0-11.0)
[2016-10-18 12:18] LABS: REVIEW FLAG FINAL
--- NOTE | 2016-10-18 12:36 | HHI.PR ---
Subjective Remarks No new complaints. Pt is tolerating PO intake. Objective Vitals Vital Signs Date Time Temp Pulse Resp B/P Pulse Ox O2 Delivery O2 Flow Rate FiO2 10/18/16 10:00 82 10/18/16 09:00 68 10/18/16 08:00 97.7 69 10 120/74 98 10/18/16 08:00 69 10/18/16 07:56 97 Nasal Cannula 3.00 10/18/16 06:00 67 10 113/61 95 10/18/16 06:00 67 10/18/16 05:00 66 12 118/68 94 10/18/16 05:00 66 10/18/16 04:00 98.2 71 19 120/73 97 10/18/16 04:00 71 10/18/16 02:00 67 10/18/16 00:00 66 10/18/16 00:00 98.4 66 11 85/53 96 10/17/16 23:01 79 10/17/16 23:01 79 20 111/80 91 10/17/16 22:00 74 19 113/59 93 10/17/16 22:00 74 10/17/16 21:00 72 18 106/59 96 10/17/16 21:00 72 10/17/16 20:52 97 Nasal Cannula 3.00 10/17/16 20:15 76 21 104/50 95 10/17/16 20:00 98.6 73 17 101/59 97 10/17/16 20:00 73 10/17/16 18:53 98 Nasal Cannula 3.00 10/17/16 18:00 85 10/17/16 16:13 15 10/17/16 16:00 98.2 67 17 114/59 98 10/17/16 16:00 67 10/17/16 14:00 81 10/17/16 10/17/16 10/18/16 15:00 23:00 07:00 Intake Total 959 ml 620 ml 366 ml Output Total 1500 ml 650 ml 250 ml Balance -541 ml -30 ml 116 ml Intake Oral 130 ml 240 ml 100 ml IV Total 829 ml 380 ml 266 ml Output Urine Total 1500 ml 650 ml 250 ml # Bowel Movements 0 0 Result Diagram: 10/18/16 1200 10/17/162020 Imaging Last Impressions Chest X-Ray 7/1/17 0600 Signed Impressions: Service Date/Time: Sunday, October 16, 2016 03:32 - CONCLUSION: Increased density overlying the right lung base could be extraocular patient or in part a right pleural effusion. Left pleural effusion seen previously is decreased in size. Tubes and catheters in good position. Anirudh Moreno MD Head CT 10/14/16 0000 Signed Impressions: Service Date/Time: September 16:05 - CONCLUSION: 1. Moderate periventricular and subcortical white matter small vessel ischemic changes bilaterally. 2. No acute infarct, acute hemorrhage, mass effect or extra- axial fluid collections. John Barker MD Abdomen/Pelvis CT 10/14/16 0000 Signed Impressions: Service Date/Time: September 16:08 - CONCLUSION: 1. Obstructive uropathy with moderate right hydronephrosis secondary to obstructing 9 mm calculus in the right ureteropelvic junction. 2. Bilateral pleural thickening. 3. Wilkerson catheter in place. 4. Status post L2 augmentation. 5. Subacute to chronic left rib fractures and old right-sided pubic rami fractures. Julian Camp MD Objective Remarks GENERAL: This is a well-nourished, well-developed patient, in no apparent distress. CARDIOVASCULAR: Regular rate and rhythm without murmurs, gallops, or rubs. RESPIRATORY: Clear to auscultation. Breath sounds equal bilaterally. No wheezes , rales, or rhonchi. GASTROINTESTINAL: Abdomen soft, non-tender, nondistended. Normal active bowel sounds MUSCULOSKELETAL: Extremities without clubbing, cyanosis, or edema. NEURO: Alert & Oriented x4 to person, place, time, situation. Moves all ext x4 EXT: b/l edema at both upper and lower extremities Date of Insertion: Oct 15, 2016 A/P Problem List: (1) Septic shock Status: Acute Plan: - improved - Pt presented with septic shock/vdrf - right 9mm stone at [facility] with hydro - s/p stent 10/[address] Madrigal - uti and sepsis. - urine cx growing klebsiella and - blood cx ecoli - antibiotic therapy changed to rocephin by ID - araceli, resolved - elevated troponin..probably demand - pt had lhc in 07/02..50-60% lad dz - afib rvr now converted to sinus - PO amiodarone - transfer to general medical floor with telemetry - PT - will likely need SNF after hospital discharge dvt prophylaxis ppi IS (2) Atrial fibrillation with RVR Status: Acute Plan: - now rate controlled - off cardizem drip - PO amiodarone (3) UTI (lower urinary tract infection) Status: Acute Plan: see above (4) Respiratory failure requiring intubation Status: Acute Plan: see above (5) CAD (coronary artery disease) Status: Chronic Plan: see above (6) Renal calculus, right Status: Acute Plan: see above (7) ARACELI (acute kidney injury) Status: Acute Plan: above (8) Hypokalemia Status: Acute Plan: - await repeat electrolytes (9) Hypomagnesemia Status: Acute Plan: - await repeat electrolytes (10) Breast cancer metastasized to bone Status: Resolved (11) Humerus fracture Status: Chronic (12) Diabetes type 2, controlled Status: Chronic Plan: monitor ssi Problem Qualifiers (1) Diabetes type 2, controlled: Qualified Code: E11.8 - Controlled type 2 diabetes mellitus with complication, without long-term current use of insulin Lisandro Bojorquez DO Oct 18, 2016 12:36 Problem Qualifiers (1) Diabetes type 2, controlled: Qualified Code: E11.8 - Controlled type 2 diabetes mellitus with complication, without long-term current use of insulin Lisandro Bojorquez DO Oct 18, 2016 12:36
[2016-10-18 12:56] LABS: BICARBONATE 34.5 MEQ/L (21.0-32.0); MAGNESIUM 1.3 MG/DL (1.5-2.5); POTASSIUM 3.2 MEQ/L (3.5-5.1)
[2016-10-18 13:13] LABS: CALCIUM-PROTEIN CORRECTED 8.4 MG/DL (8.5-10.1)
[2016-10-18] MEDS ORDERED: FUROSEMIDE 100 MG/10 ML VIAL IV PUSH ONE (13:15)
--- NOTE | 2016-10-18 16:22 | HHI.IDPN ---
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 Vital Signs Date Time Temp Pulse Resp B/P Pulse Ox O2 Delivery O2 Flow Rate FiO2 10/18/16 14:00 82 10/18/16 12:01 18 10/18/16 12:00 70 10/18/16 12:00 97.6 70 18 105/68 92 10/18/16 10:00 82 10/18/16 09:00 68 10/18/16 08:00 97.7 69 10 120/74 98 10/18/16 08:00 69 10/18/16 07:56 97 Nasal Cannula 3.00 10/18/16 06:00 67 10 113/61 95 10/18/16 06:00 67 10/18/16 05:00 66 12 118/68 94 10/18/16 05:00 66 10/18/16 04:00 98.2 71 19 120/73 97 10/18/16 04:00 71 10/18/16 02:00 67 10/18/16 00:00 66 10/18/16 00:00 98.4 66 11 85/53 96 10/17/16 23:01 79 10/17/16 23:01 79 20 111/80 91 10/17/16 22:00 74 19 113/59 93 10/17/16 22:00 74 10/17/16 21:00 72 18 106/59 96 10/17/16 21:00 72 10/17/16 20:52 97 Nasal Cannula 3.00 10/17/16 20:15 76 21 104/50 95 10/17/16 20:00 98.6 73 17 101/59 97 10/17/16 20:00 73 10/17/16 18:53 98 Nasal Cannula 3.00 10/17/16 18:00 85 10/17/16 10/17/16 10/18/16 15:00 23:00 07:00 Intake Total 959 ml 620 ml 366 ml Output Total 1500 ml 650 ml 250 ml Balance -541 ml -30 ml 116 ml Intake Oral 130 ml 240 ml 100 ml IV Total 829 ml 380 ml 266 ml Output Urine Total 1500 ml 650 ml 250 ml # Bowel Movements 0 0 . Laboratory Tests Test 10/17/16 10/18/16 02:47 12:00 White Blood Count 8.3 TH/MM3 6.7 TH/MM3 Red Blood Count 3.43 MIL/MM3 3.67 MIL/MM3 Hemoglobin 9.6 GM/DL 10.4 GM/DL Hematocrit 29.6 % 32.1 % Mean Corpuscular Volume 86.2 FL 87.3 FL Mean Corpuscular Hemoglobin 28.1 PG 28.3 PG Mean Corpuscular Hemoglobin 32.6 % 32.4 % Concent Red Cell Distribution Width 16.5 % 16.5 % Platelet Count 65 TH/MM3 77 TH/MM3 Mean Platelet Volume 10.5 FL 10.3 FL Neutrophils (%) (Auto) 83.2 % Lymphocytes (%) (Auto) 12.8 % Monocytes (%) (Auto) 2.6 % Eosinophils (%) (Auto) 1.2 % Basophils (%) (Auto) 0.2 % Neutrophils # (Auto) 6.9 TH/MM3 Lymphocytes # (Auto) 1.1 TH/MM3 Monocytes # (Auto) 0.2 TH/MM3 Eosinophils # (Auto) 0.1 TH/MM3 Basophils # (Auto) 0.0 TH/MM3 CBC Comment DIFF FINAL Differential Comment Laboratory Tests Test 10/17/16 10/17/16 10/18/16 02:47 20:21 12:00 Sodium Level 147 MEQ/L 138 MEQ/L 140 MEQ/L Potassium Level 2.3 MEQ/L 2.6 MEQ/L 3.2 MEQ/L Chloride Level 105 MEQ/L 97 MEQ/L 96 MEQ/L Carbon Dioxide Level 34.3 MEQ/L 29.1 MEQ/L 34.5 MEQ/L Anion Gap 8 MEQ/L 12 MEQ/L 10 MEQ/L Blood Urea Nitrogen 24 MG/DL 19 MG/DL 19 MG/DL Creatinine 0.95 MG/DL 0.98 MG/DL 0.85 MG/DL Estimat Glomerular Filtration 59 ML/MIN 57 ML/MIN 68 ML/MIN Rate Random Glucose 204 MG/DL 235 MG/DL 168 MG/DL Calcium Level 6.8 MG/DL 7.0 MG/DL 7.4 MG/DL Protein Corrected Calcium 8.2 MG/DL 8.2 MG/DL 8.4 MG/DL Phosphorus Level 2.6 MG/DL 2.1 MG/DL 3.0 MG/DL Magnesium Level 1.1 MG/DL 1.4 MG/DL 1.3 MG/DL Total Protein 4.5 GM/DL 4.9 GM/DL 5.3 GM/DL Imaging Last Impressions Chest X-Ray 10/16/16 0600 Signed Impressions: Service Date/Time: Sunday, October 16, 2016 03:32 - CONCLUSION: Increased density overlying the right lung base could be extraocular patient or in part a right pleural effusion. Left pleural effusion seen previously is decreased in size. Tubes and catheters in good position. Anirudh Moreno MD Head CT 10/14/16 0000 Signed Impressions: Service Date/Time: , October 14, 2016 16:05 - CONCLUSION: 1. Moderate periventricular and subcortical white matter small vessel ischemic changes bilaterally. 2. No acute infarct, acute hemorrhage, mass effect or extra- axial fluid collections. John Barker MD Abdomen/Pelvis CT 10/14/16 0000 Signed Impressions: Service Date/Time: , October 14, 2016 16:08 - CONCLUSION: 1. Obstructive uropathy with moderate right hydronephrosis secondary to obstructing 9 mm calculus in the right ureteropelvic junction. 2. Bilateral pleural thickening. 3. Wilkerson catheter in place. 4. Status post L2 augmentation. 5. Subacute to chronic left rib fractures and old right-sided pubic rami fractures. Julian Camp MD Physical Exam CONSTITUTIONAL/GENERAL: This is an adequately nourished patient, in no apparent distress. TUBES/LINES/DRAINS: SKIN: No jaundice, rashes, or lesions. HEAD: Atraumatic. Normocephalic. EYES: Pupils equal and round and reactive. ENT: Hearing grossly normal. Oral mucosae without visible erythema, exudates, masses, or lesions. CARDIOVASCULAR: Regular rate and rhythm without murmurs, gallops, or rubs. No JVD. Peripheral pulses symmetric. RESPIRATORY/CHEST: Symmetric, unlabored respirations. Clear to auscultation. [place] GASTROINTESTINAL: Abdomen soft, not tender to palpation mildly distended. No hepato-splenomegaly, or palpable masses. No guarding. Bowel sounds present. GENITOURINARY: Without palpable bladder distension. Wilkerson catheter in place with clear light yellow urine MUSCULOSKELETAL: Extremities without clubbing, no cyanosis NEUROLOGICAL: Awake and alert. Motor and sensory grossly within normal limits. Follows commands. Clear speech, PSYCHIATRIC: calm and cooperative Assessment & Plan Remarks Sepsis, Kleb pneumo UTI E.coli in the settings of obstructing 9 mm calculus in the right ureteropelvic junction. 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
[2016-10-18] MEDS: ACETAMINOPHEN 325 MG TAB PO PRN (16:33)
[2016-10-18] MEDS: FUROSEMIDE 40 MG/4 ML VIAL IV PUSH SCH (17:54)
[2016-10-18] MEDS ORDERED: POTASSIUM CHLORIDE 20 MEQ CONTROLLED RELEASE TAB PO SCH (21:00)
[2016-10-19] VITALS (11 sets, daily range): BP systolic 94–124; BP diastolic 51–68; PULSE 75–83; RESP 18; TEMP 97.6–98.7; O2SAT 92–95
[2016-10-19] MEDS: CHLORHEXIDINE GLUCONATE 2 % 1 PACK (2 CLOTHS) TOP SCH (03:03)
[2016-10-19] MEDS: RESP: ALBUTEROL 2.5 MG/IPRATROPIUM 0.5 MG NEB (SCH) NEB ×2 (03:20→09:33)
[2016-10-19] MEDS: INSULIN ASPART SUPPLEMENTAL SCALE SQ SCH ×4 (05:29→20:54)
[2016-10-19] MEDS: HEPARIN SODIUM - SQ 10,000 UNITS/ML VIAL SQ SCH ×2 (05:29→18:50)
[2016-10-19] MEDS: POTASSIUM CHLORIDE 20 MEQ CONTROLLED RELEASE TAB PO SCH ×5 (07:01→20:56)
[2016-10-19] MEDS: MAGNESIUM SULFATE 1 GM PREMIX 100 ML IV SCH ×2 (07:01→09:24)
[2016-10-19 07:16] LABS: AUTOMATED NEUTROPHIL # 8.8 TH/MM3 (1.8-7.7); BASOPHIL % 0.1 % (0.0-2.0); EOSINOPHIL # 0.1 TH/MM3 (0-0.4); EOSINOPHIL % 0.6 % (0.0-4.0); HEMATOCRIT 32.7 % (35.0-46.0); LYMPH % 17.5 % (9.0-44.0); LYMPHOCYTE # 1.9 TH/MM3 (1.0-4.8); MEAN CELL VOLUME 86.4 FL (80.0-100.0); MEAN CORPUSCULAR HEMOGLOBIN 28.2 PG (27.0-34.0); MEAN CORPUSCULAR HGB CONC 32.6 % (32.0-36.0); MONO % 2.1 % (0.0-8.0); NEUT % 79.7 % (16.0-70.0); PLATELET COUNT 73 TH/MM3 (150-450); RED BLOOD COUNT 3.78 MIL/MM3 (4.00-5.30); RED CELL DISTRIBUTION WIDTH 16.3 % (11.6-17.2)
[2016-10-19 07:21] LABS: HEMO FLAGS AUTO DIFF
[2016-10-19] MEDS: CHLORHEXIDINE 0.12% (ORAL KIT) 15 ML CUP MT SCH ×2 (08:00→20:00)
[2016-10-19 08:55] LABS: BANDS 2 % (0-6); EOSINOPHILS 2 % (0-4); METAMYELOCYTES 3 % (0-1); NEUTROPHIL # MANUAL DIFF 9.4 TH/MM3 (1.8-7.7); POLYS (SEG NEUTROPHILS) 80 % (16-70); WBC DIFF SAMPLE 100
[2016-10-19 08:56] LABS: SCAN/DIFF FINAL DIFF MANUAL
[2016-10-19] MEDS: cefTRIAXone INJ 2,000 MG in SODIUM CHLORIDE 0.9% INJ 100 ML IV SCH (09:11)
[2016-10-19] MEDS: SODIUM CHLORIDE 0.9% FLUSH 10 ML FLUSH IV FLUSH SCH ×2 (09:12→20:56)
[2016-10-19] MEDS: FUROSEMIDE 40 MG/4 ML VIAL IV PUSH SCH ×2 (09:19→18:48)
[2016-10-19] MEDS: MAGNESIUM CHLORIDE 64 MG TAB PO SCH (09:21)
[2016-10-19] MEDS: CLOPIDOGREL 75 MG TAB PO SCH (09:21)
[2016-10-19] MEDS: PANTOPRAZOLE SOD 40 MG DELAYED RELEASE TAB PO SCH (09:21)
[2016-10-19] MEDS: AMIODARONE 200 MG TAB PO SCH ×2 (09:22→20:56)
[2016-10-19] MEDS: RESP: ALBUTEROL 2.5 MG/IPRATROPIUM 0.5 MG NEB (PRN) INH (10:44)
[2016-10-19] MEDS ORDERED: POTASSIUM CHLORIDE 20 MEQ CONTROLLED RELEASE TAB PO ONE (11:00)
--- NOTE | 2016-10-19 14:36 | HHI.PR ---
Subjective Remarks No new complaints. Objective Vitals Vital Signs Date Time Temp Pulse Resp B/P Pulse Ox O2 Delivery O2 Flow Rate FiO2 10/19/16 13:44 95 Nasal Cannula 2.00 10/19/16 10:46 95 Nasal Cannula 2.00 10/19/16 08:00 98.4 80 18 114/66 93 10/19/16 04:00 98.7 83 18 111/65 92 10/19/16 03:21 92 Nasal Cannula 2.00 10/19/16 00:00 98.5 78 18 124/68 94 10/18/16 21:08 94 Nasal Cannula 2.00 10/18/16 20:00 97.8 76 20 104/58 10/18/16 18:00 76 10/18/16 17:33 16 10/18/16 16:00 97.8 74 15 128/74 94 10/18/16 16:00 74 10/18/16 10/18/16 10/19/16 15:00 23:00 07:00 Intake Total 605 ml 240 ml 264 ml Output Total 400 ml 825 ml 1750 ml Balance 205 ml -585 ml -1486 ml Intake Oral 400 ml 240 ml 240 ml IV Total 205 ml 24 ml Output Urine Total 400 ml 825 ml 1750 ml # Bowel Movements 1 0 0 Result Diagram: 10/19/16 0545 10/19/16 0545 Imaging Last Impressions Chest X-Ray 10/16/16 0600 Signed Impressions: Service Date/Time: Sunday, October 16, 2016 03:32 - CONCLUSION: Increased density overlying the right lung base could be extraocular patient or in part a right pleural effusion. Left pleural effusion seen previously is decreased in size. Tubes and catheters in good position. Anirudh Moreno MD Head CT 10/14/16 0000 Signed Impressions: Service Date/Time: September 16:05 - CONCLUSION: 1. Moderate periventricular and subcortical white matter small vessel ischemic changes bilaterally. 2. No acute infarct, acute hemorrhage, mass effect or extra- axial fluid collections. John Barker MD Abdomen/Pelvis CT 10/14/16 0000 Signed Impressions: Service Date/Time: September 16:08 - CONCLUSION: 1. Obstructive uropathy with moderate right hydronephrosis secondary to obstructing 9 mm calculus in the right ureteropelvic junction. 2. Bilateral pleural thickening. 3. Wilkerson catheter in place. 4. Status post L2 augmentation. 5. Subacute to chronic left rib fractures and old right-sided pubic rami fractures. Julian Camp MD Objective Remarks GENERAL: This is a well-nourished, well-developed patient, in no apparent distress. CARDIOVASCULAR: Regular rate and rhythm without murmurs, gallops, or rubs. RESPIRATORY: Clear to auscultation. Breath sounds equal bilaterally. No wheezes , rales, or rhonchi. GASTROINTESTINAL: Abdomen soft, non-tender, nondistended. Normal active bowel sounds MUSCULOSKELETAL: Extremities without clubbing, cyanosis, or edema. NEURO: Alert & Oriented x4 to person, place, time, situation. Moves all ext x4 EXT: b/l edema at both upper and lower extremities Date of Insertion: Oct 15, 2016 A/P Problem List: (1) Septic shock Status: Acute Plan: - improved - Pt presented with septic shock/vdrf - right 9mm stone at [facility] with hydro - s/p stent 10/[address] Madrigal - uti and sepsis. - urine cx growing klebsiella and - blood cx ecoli - antibiotic therapy changed to rocephin by ID - araceli, resolved - elevated troponin..probably demand - pt had lhc in 07/02..50-60% lad dz - afib rvr now converted to sinus - PO amiodarone - IV lasix 40mg BID, volume overload - repeat BMP, Mag in AM - PT - anticipate d/c to SNF in 2-3 days dvt prophylaxis ppi IS (2) Atrial fibrillation with RVR Status: Acute Plan: - now rate controlled - off cardizem drip - PO amiodarone (3) UTI (lower urinary tract infection) Status: Acute Plan: see above (4) Respiratory failure requiring intubation Status: Acute Plan: see above (5) CAD (coronary artery disease) Status: Chronic Plan: see above (6) Renal calculus, right Status: Acute Plan: see above (7) ARACELI (acute kidney injury) Status: Acute Plan: above (8) Hypokalemia Status: Acute Plan: - replete (9) Hypomagnesemia Status: Acute Plan: - replete (10) Breast cancer metastasized to bone Status: Resolved (11) Humerus fracture Status: Chronic (12) Diabetes type 2, controlled Status: Chronic Plan: monitor ssi (13) Sacral decubitus ulcer Status: Chronic Plan: - chronic - consult Wound Care Nurse Problem Qualifiers (1) Diabetes type 2, controlled: Qualified Code: E11.8 - Controlled type 2 diabetes mellitus with complication, without long-term current use of insulin (2) Sacral decubitus ulcer: Qualified Code: L89.159 - Decubitus ulcer of sacral region, unspecified ulcer stage Lisandro Bojorquez DO Oct 19, 2016 14:36
[2016-10-19 15:38] LABS: BICARBONATE 35.4 MEQ/L (21.0-32.0)
[2016-10-19 15:54] LABS: CALCIUM-PROTEIN CORRECTED 7.8 MG/DL (8.5-10.1)
[2016-10-19 16:07] LABS: POTASSIUM 2.8 MEQ/L (3.5-5.1)
[2016-10-19 16:37] LABS: BICARBONATE 35.9 MEQ/L (21.0-32.0); MAGNESIUM 1.5 MG/DL (1.5-2.5); POTASSIUM 3.9 MEQ/L (3.5-5.1)
[2016-10-19 17:00] LABS: CALCIUM-PROTEIN CORRECTED 8.6 MG/DL (8.5-10.1)
[2016-10-19] MEDS: TEMAZEPAM 15 MG CAP PO PRN (22:36)
[2016-10-20] VITALS (8 sets, daily range): BP systolic 90–132; BP diastolic 55–77; PULSE 68–75; RESP 18–20; TEMP 97.4–98.7; O2SAT 92–97
[2016-10-20] MEDS: CHLORHEXIDINE GLUCONATE 2 % 1 PACK (2 CLOTHS) TOP SCH (04:00)
[2016-10-20] MEDS: HEPARIN SODIUM - SQ 10,000 UNITS/ML VIAL SQ SCH ×2 (05:16→17:01)
[2016-10-20 05:47] LABS: BICARBONATE 35.3 MEQ/L (21.0-32.0); MAGNESIUM 1.3 MG/DL (1.5-2.5); POTASSIUM 4.2 MEQ/L (3.5-5.1)
[2016-10-20 06:07] LABS: CALCIUM-PROTEIN CORRECTED 8.7 MG/DL (8.5-10.1)
[2016-10-20] MEDS: INSULIN ASPART SUPPLEMENTAL SCALE SQ SCH ×4 (06:40→21:02)
[2016-10-20] MEDS: CHLORHEXIDINE 0.12% (ORAL KIT) 15 ML CUP MT SCH ×2 (08:00→20:00)
[2016-10-20] MEDS: FUROSEMIDE 40 MG/4 ML VIAL IV PUSH SCH ×2 (08:14→17:00)
[2016-10-20] MEDS: MAGNESIUM CHLORIDE 64 MG TAB PO SCH (08:14)
[2016-10-20] MEDS: CLOPIDOGREL 75 MG TAB PO SCH (08:14)
[2016-10-20] MEDS: cefTRIAXone INJ 2,000 MG in SODIUM CHLORIDE 0.9% INJ 100 ML IV SCH (08:14)
[2016-10-20] MEDS: POTASSIUM CHLORIDE 20 MEQ CONTROLLED RELEASE TAB PO SCH ×2 (08:15→21:01)
[2016-10-20] MEDS: SODIUM CHLORIDE 0.9% FLUSH 10 ML FLUSH IV FLUSH SCH ×2 (08:15→21:01)
[2016-10-20] MEDS: PANTOPRAZOLE SOD 40 MG DELAYED RELEASE TAB PO SCH (08:15)
[2016-10-20] MEDS: AMIODARONE 200 MG TAB PO SCH ×2 (08:15→20:59)
--- NOTE | 2016-10-20 17:33 | PD.WCN.NOT ---
Wound Consult Description: Wound Management of sacrum per Dr Bojorquez Communicated with: CHLOE Mathias Recommendation: Calazime skin protectant BID and PRN for moisture Please obtain and place patient on a [place] specialty surface Continue to turn patient left to right every 2 hours and PRN for comfort injection molding operator to reassess patient on 10/22/16 for possible dressing application once moisture issues have resolved Additional Information: Patient seen on for wound evaluation of sacrum. Patient was assisted to her right side for assessment. Patient noted to be lying on a moist underpad and incontinent of stool. Patient was gently cleansed and the soiled underpad was removed to reveal a moisture associated erythematous raised area on her perineum. An open wound was visualized on her sacrum measuring 3.1cm x 2.6 x 0.5cm with a dark maroon discoloration indicating a DEEP TISSUE INJURY surrounding 100% adipose tissue indicating full thickness skinloss measuring 1.4cm x 1cm x 0.5cm. Patient is moderately moist and a dressing cannot be applied at this time, therefore Calazime was applied to her perineum up to sacral wound to help with moisture control. injection molding operator will reassess patient/ wound on 10/22/16 for possible dressing application as wound was left open to air with barrier cream applied. Patient was left on her right side and a pillow was placed behind the left side of her back for support before leaving the patients room. Candida Hay [facility] Oct 20, 2016 17:33
--- NOTE | 2016-10-20 17:33 | HHI.PR ---
Subjective Remarks Pts does not feel the welling in the UE is much better today She has had good UOP Denies any chest pain, SOB, or palpitations. Objective Vitals Vital Signs Date Time Temp Pulse Resp B/P Pulse Ox O2 Delivery O2 Flow Rate FiO2 10/20/16 16:25 98.1 69 18 109/63 97 10/20/16 15:42 16 10/20/16 12:53 96 Nasal Cannula 2.00 10/20/16 12:09 98.7 69 18 90/55 94 10/20/16 08:09 97.4 75 20 132/77 96 10/20/16 04:00 97.8 68 18 108/55 96 10/20/16 00:00 98.5 72 18 100/60 96 10/19/16 20:51 76 10/19/16 20:00 98.6 75 18 101/58 94 10/19/16 19:51 95 Nasal Cannula 2.00 10/19/16 10/19/16 10/20/16 15:00 23:00 07:00 Intake Total 1000 ml 240 ml 6 ml Output Total 2300 ml 2600 ml 350 ml Balance -1300 ml -2360 ml -344 ml Intake Oral 1000 ml 240 ml IV Total 6 ml Output Urine Total 2300 ml 2600 ml 350 ml # Bowel Movements 1 1 Result Diagram: 10/19/16 0545 10/20/16 0400 Other Results Laboratory Tests Test 10/19/16 10/19/16 10/20/16 05:45 15:40 04:00 White Blood Count 11.0 TH/MM3 Red Blood Count 3.78 MIL/MM3 Hemoglobin 10.7 GM/DL Hematocrit 32.7 % Mean Corpuscular Volume 86.4 FL Mean Corpuscular Hemoglobin 28.2 PG Mean Corpuscular Hemoglobin 32.6 % Concent Red Cell Distribution Width 16.3 % Platelet Count 73 TH/MM3 Mean Platelet Volume 10.7 FL Neutrophils (%) (Auto) 79.7 % Lymphocytes (%) (Auto) 17.5 % Monocytes (%) (Auto) 2.1 % Eosinophils (%) (Auto) 0.6 % Basophils (%) (Auto) 0.1 % Neutrophils # (Auto) 8.8 TH/MM3 Lymphocytes # (Auto) 1.9 TH/MM3 Monocytes # (Auto) 0.2 TH/MM3 Eosinophils # (Auto) 0.1 TH/MM3 Basophils # (Auto) 0.0 TH/MM3 CBC Comment AUTO DIFF Differential Total Cells 100 Counted Neutrophils % (Manual) 80 % Band Neutrophils % 2 % Lymphocytes % 10 % Monocytes % 3 % Eosinophils % 2 % Neutrophils # (Manual) 9.4 TH/MM3 Metamyelocytes 3 % Differential Comment FINAL DIFF MANUAL Sodium Level 142 MEQ/L 139 MEQ/L 138 MEQ/L Potassium Level 2.8 MEQ/L 3.9 MEQ/L 4.2 MEQ/L Chloride Level 96 MEQ/L 96 MEQ/L 95 MEQ/L Carbon Dioxide Level 35.4 MEQ/L 35.9 MEQ/L 35.3 MEQ/L Anion Gap 11 MEQ/L 7 MEQ/L 8 MEQ/L Blood Urea Nitrogen 16 MG/DL 16 MG/DL 14 MG/DL Creatinine 0.88 MG/DL 0.82 MG/DL 0.61 MG/DL Estimat Glomerular Filtration 65 ML/MIN 70 ML/MIN 99 ML/MIN Rate Random Glucose 109 MG/DL 154 MG/DL 97 MG/DL Calcium Level 6.7 MG/DL 7.3 MG/DL 7.3 MG/DL Protein Corrected Calcium 7.8 MG/DL 8.6 MG/DL 8.7 MG/DL Magnesium Level 1.0 MG/DL 1.5 MG/DL 1.3 MG/DL Total Protein 4.9 GM/DL 4.8 GM/DL 4.6 GM/DL Imaging Last Impressions Chest X-Ray 10/16/16 0600 Signed Impressions: Service Date/Time: Sunday, October 16, 2016 03:32 - CONCLUSION: Increased density overlying the right lung base could be extraocular patient or in part a right pleural effusion. Left pleural effusion seen previously is decreased in size. Tubes and catheters in good position. Anirudh Moreno MD Head CT 10/14/16 0000 Signed Impressions: Service Date/Time: September 16:05 - CONCLUSION: 1. Moderate periventricular and subcortical white matter small vessel ischemic changes bilaterally. 2. No acute infarct, acute hemorrhage, mass effect or extra- axial fluid collections. John Barker MD Abdomen/Pelvis CT 10/14/16 0000 Signed Impressions: Service Date/Time: September 16:08 - CONCLUSION: 1. Obstructive uropathy with moderate right hydronephrosis secondary to obstructing 9 mm calculus in the right ureteropelvic junction. 2. Bilateral pleural thickening. 3. Wilkerson catheter in place. 4. Status post L2 augmentation. 5. Subacute to chronic left rib fractures and old right-sided pubic rami fractures. 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 coli and Blood cx (10/14) with Klebsiella in all 4 bottles - antibiotic therapy changed to Rocephin by ID on 10/18/16 - Her ARACELI resolved - Her labs following admission noted elevated troponin (1.70-->2/47-->2.26), felt to probably be demand mediated. Pt had a previous LHC in 07/02 which noted 50-60% LAD dz - Pt went into A fib RVR on 10/17/16 and was started on Cardizem and Amio gtt and became rate controlled. The Cardizem was d/c'd and she was continued on Amiodarone 200mg po Q12H - Pt received IVF for volume resuscitation in the ICU and has had some issues with volume overload. Pt is currently on Lasix 40mg IV BID with good UOP. We will given an extra dose of 40mg IV Lasix tonight for a total of 80mg of IV Lasix tonight - Repeat labs in AM - Daily weights - Monitor I&Os - PT - anticipate d/c to SNF in 1-2 days (2) Atrial fibrillation with RVR Status: Acute Plan: - See above - now rate controlled - off Cardizem drip - PO amiodarone (3) UTI (lower urinary tract infection) Status: Acute Plan: - See above (4) Respiratory failure requiring intubation Status: Acute Plan: - See above (5) CAD (coronary artery disease) Status: Chronic Plan: - See above (6) Renal calculus, right Status: Acute Plan: - See above (7) ARACELI (acute kidney injury) Status: Acute Plan: - See above (8) Hypokalemia Status: Acute Plan: - See above (9) Hypomagnesemia Status: Acute Plan: - replete (10) Breast cancer metastasized to bone Status: Resolved (11) Humerus fracture Status: Chronic (12) Diabetes type 2, controlled Status: Chronic Plan: - NovoLog SSI - Accu checks (13) Sacral decubitus ulcer Status: Chronic Plan: - chronic - consult Wound Care Nurse Assessment and Plan Patient examined. Assessment and plan formulated with Angélica Ying PA-C. I agree with the above. Problem Qualifiers (1) Diabetes type 2, controlled: Qualified Code: E11.8 - Controlled type 2 diabetes mellitus with complication, without long-term current use of insulin (2) Sacral decubitus ulcer: Qualified Code: L89.159 - Decubitus ulcer of sacral region, unspecified ulcer stage Angélica Ying Oct 20, 2016 17:33 Lisandro Bojorquez DO Oct 24, 2016 10:53
[2016-10-20] MEDS ORDERED: FUROSEMIDE 40 MG/4 ML VIAL IV PUSH ONE (18:00)
[2016-10-20] MEDS ORDERED: fentaNYL 25 MCG/HR PATCH T-DERMAL ONE (18:00)
[2016-10-21] VITALS (7 sets, daily range): BP systolic 97–109; BP diastolic 50–65; PULSE 60–77; RESP 16–20; TEMP 98.2–98.7; O2SAT 92–97
[2016-10-21] MEDS: CHLORHEXIDINE GLUCONATE 2 % 1 PACK (2 CLOTHS) TOP SCH (04:00)
[2016-10-21] MEDS: INSULIN ASPART SUPPLEMENTAL SCALE SQ SCH ×4 (06:16→21:00)
[2016-10-21] MEDS: HEPARIN SODIUM - SQ 10,000 UNITS/ML VIAL SQ SCH ×2 (06:19→17:27)
[2016-10-21 07:13] LABS: BICARBONATE 36.8 MEQ/L (21.0-32.0); MAGNESIUM 1.3 MG/DL (1.5-2.5); POTASSIUM 4.2 MEQ/L (3.5-5.1)
[2016-10-21 07:41] LABS: AUTOMATED NEUTROPHIL # 8.5 TH/MM3 (1.8-7.7); BASOPHIL % 0.2 % (0.0-2.0); EOSINOPHIL # 0.1 TH/MM3 (0-0.4); EOSINOPHIL % 0.8 % (0.0-4.0); HEMATOCRIT 34.7 % (35.0-46.0); LYMPH % 17.7 % (9.0-44.0); LYMPHOCYTE # 1.9 TH/MM3 (1.0-4.8); MEAN CELL VOLUME 87.4 FL (80.0-100.0); MEAN CORPUSCULAR HEMOGLOBIN 27.6 PG (27.0-34.0); MEAN CORPUSCULAR HGB CONC 31.6 % (32.0-36.0); MONO % 1.9 % (0.0-8.0); NEUT % 79.4 % (16.0-70.0); PLATELET COUNT 98 TH/MM3 (150-450); RED BLOOD COUNT 3.97 MIL/MM3 (4.00-5.30); RED CELL DISTRIBUTION WIDTH 16.3 % (11.6-17.2); WHITE BLOOD COUNT 10.7 TH/MM3 (4.0-11.0)
[2016-10-21 07:54] LABS: HEMO FLAGS AUTO DIFF
[2016-10-21] MEDS: CHLORHEXIDINE 0.12% (ORAL KIT) 15 ML CUP MT SCH ×2 (08:00→20:00)
[2016-10-21] MEDS: FUROSEMIDE 40 MG/4 ML VIAL IV PUSH SCH ×2 (08:56→17:27)
[2016-10-21] MEDS: MAGNESIUM CHLORIDE 64 MG TAB PO SCH (08:56)
[2016-10-21] MEDS: cefTRIAXone INJ 2,000 MG in SODIUM CHLORIDE 0.9% INJ 100 ML IV SCH (08:56)
[2016-10-21] MEDS: CLOPIDOGREL 75 MG TAB PO SCH (08:57)
[2016-10-21] MEDS: PANTOPRAZOLE SOD 40 MG DELAYED RELEASE TAB PO SCH (08:57)
[2016-10-21] MEDS: POTASSIUM CHLORIDE 20 MEQ CONTROLLED RELEASE TAB PO SCH ×2 (08:57→22:24)
[2016-10-21] MEDS: SODIUM CHLORIDE 0.9% FLUSH 10 ML FLUSH IV FLUSH SCH ×2 (08:58→22:24)
[2016-10-21] MEDS: AMIODARONE 200 MG TAB PO SCH ×2 (08:58→22:24)
--- NOTE | 2016-10-21 10:03 | HHI.PR ---
Addendum to Inpatient Note Additional Information Pt was seen and examined full note to follow Alisha Franklin MD Oct 21, 2016 10:03
--- NOTE | 2016-10-21 10:15 | PD.CONS ---
Consult Service Palliative Care . Consult Requested By Dr. Bojorquez . Primary Care Physician Naz Gunn MD . Reason for Consultation a. To assist with evaluation and management of symptoms including: confusion , debility, pain b. To assist medical decision maker(s) with: better understanding of current medical conditions; weighing benefits/burdens of medical treatment options; making medical treatment decisions. . HPI History of Present Illness Ms. Nettles is a 61-year-old female patient with past medical history that includes metastatic breast cancer s/p chemotherapy and radiation, peripheral neuropathy, atrial fibrillation, TIA, SC, GERD, CKD, arthritis, DM. gout, dyslipidemia, chronic back pain, hypertension, migraines and cervical kyphosis. She presented to [facility] ED on 10/14/2016 vis EMS for evaluation of atrial fibrillation with RVR, rate 160-200. Patient received 20 mg of Cardizem IV en route with no notable response.. Patient's reported his had not been acting normal for weeks. He stated she had been declining and was no longer able to get out of bed or ambulate independently. Per EMS report, the patient was somewhat confused. She intermittently answered some questions; she did not follow commands. Additional diagnostic findings on the ED include: * Vital signs: Pulse 146, respirations 32, BP 82/44, oxygen saturation 97% on nonrebreather, rectal temperature 102.4 * WBC: 11.8, hemoglobin 12.2, hematocrit 37.0, platelets 91, neutrophils 86.5% * Sodium: 135, potassium 3.4, chloride 104, carbon dioxide 17.8, glucose 151, calcium 7.4 * BUN: 54, creatinine 2.13, GFR 23 * Total bilirubin: 0.7, AST 52, ALT 39, alkaline phosphatase 145 * The total creatine kinase: 285 * CK-MB: 3.9, CK-MB% 1.4 * Troponin: 1.70 * Total protein: 5.1, albumin 1.7 * PT: 12.4, INR 1.1 * Urinalysis with protein +100, occult blood, urobilinogen, leukocyte esterase, RBC, WBC clumps, bacteria. * Blood culture: Klebsiella pneumoniae * Urine culture: Escherichia coli Chest x-ray revealed minimal bibasilar streakiness consistent with atelectasis and/or developing infiltrates. A CT brain showed moderate periventricular and subcortical white matter small vessel ischemic changes bilaterally. No acute infarct, acute hemorrhage, mass effect or extra-axial fluid collections were noted. A Wilkerson catheter was placed; grossly purulent urine was noted. CT abdomen/pelvis showing obstructive uropathy with moderate right hydronephrosis secondary to obstructing 9mm calculus in the right ureteropelvic junction. Perinephric stranding around the right kidney was also noted; urology was consulted. While in the ED the patient received Cardizem 20 mg IV push, and Lopressor 5 mg IV. She was placed on a nonrebreather, FiO2 100%. Septic shock protocol was initiated; patient received IV fluid and broad-spectrum IV antibiotics were initiated. Left femoral CVL placed; patient was started on Levophed drip with good response and was subsequently admitted to critical care services for ongoing evaluation and medical management of sepsis, atrial fibrillation with RVR and NSTEMI. Blood cultures were positive for Klebsiella pneumoniae; urine cultures were positive for Escherichia coli. Dr. Madrigal, urology, evaluated the patient with urosepsis secondary to obstructing 9mm right ureteropelvic junction calculus. Patient was taken to the OR that evening for cystoscopy right retrograde pyelogram and right ureteral stent placement. Cardiology evaluated the patient the following day on 10/15/2016 secondary to elevated troponins status post SC in June,; no interventions were recommended at this time. Of note, a cardiac catheterization in 06/2016 revealed noncritical disease LAD; total RCA occlusion with collateral circulation. Echocardiogram on 06/23/2016 with EF 55%-60%, mild MR, mild to moderate TR, PA peak pressure 52mm Hg. [facility] cardiology follows patient, Dr. Niño. Follow-up chest x-ray on 10/16/2016 revealed increased density overlying the right lung base, left pleural effusion decreasing in size. Extubated on 10/17/2016. Patient was placed on Cardizem and amiodarone drip secondary to atrial fibrillation with RVR for rate control; Cardizem drip was later discontinued and patient was placed on PO amiodarone. Wound care was consulted for recommendations of an open sacral wound measuring 3.1 cm x 2.6 cm x 0.5 cm with a dark maroon discoloration; patient reports intermittent severe pain secondary to skin breakdown. She also has a history of chronic neck pain that she rate a 5 out of 10 at baseline. Patient is on a fentanyl patch 25 g every 72 hours and uses PRN oxycodone (1-2 tablets daily per patient) at home to managed chronic pain. Current orders for oxycodone 10 mg PO q3 hours PRN for pain scale 310; 24-hour testing requirements = oxycodone 10 mg 3. Afebrile. Leukocytosis resolved. Infectious disease continues to follow. Patient will need to be on antibiotics for a total of 14 days. She remains on IV Rocephin at this time; when she is ready to be discharged plan to change to PO Augmentin 500mg TID to complete 14 day course. Palliative Care was consulted to assist with symptom management and to discuss with the family the benefits and burdens of her current illnesses and the options regarding future care.. . Function/Cognitive Trajectory Patient reports a functional decline over the past 6-12 months, but states she does not know why. Her past medical history that includes metastatic breast cancer s/p chemotherapy and radiation, peripheral neuropathy, atrial fibrillation, TIA, SC, GERD, CKD, arthritis, DM. gout, dyslipidemia, chronic back pain, hypertension, migraines and cervical kyphosis. Ms. Nettles has been hospitalized 4 times in the past year. Patient has had progressive weakness and weight loss are reported. Muscle wasting is noted in the bilateral lower extremities. Patient is dependent for all ADLs; she is nonambulatory and requires 2 person maximum assist for transfers. . Review of Systems ROS Limitations: Clinical Condition, Poor Historian Constitutional: COMPLAINS OF: Fatigue, Weight loss (45 pond weight loss reported over the past 12 months.), Pain (Chronic neck pain), Generalized weakness Ears, nose, mouth, throat: DENIES: Hearing loss, Epistaxis Respiratory: DENIES: Shortness of breath Gastrointestinal: DENIES: Abdominal pain, Constipation, Diarrhea, Nausea, Vomiting Musculoskeletal: COMPLAINS OF: Neck pain (Rated 5 out of 10 which is patient's baseline) Neurologic: COMPLAINS OF: Poor Balance Psychiatric: COMPLAINS OF: Confusion Past Family Social History Coded Allergies: Adhesives (Verified Allergy, Severe, Rash, 10/14/16) Bacitracin (Verified Allergy, Severe, ITCHING, 10/14/16) *MDRO Multi-Drug Resistant Organism (Verified Adverse Reaction, Unknown, ) 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 - 12/29/15 Past Medical History Stage IV breast cancer with bony mets - 2001 s/p chemotherapy and radiation TIA SC Neuropathy Atrial fibrillation GERD/PUD CKD Arthritis Diabetes Gout Dyslipidemia Chronic back pain Hypertension Migraines Cervical kyphosis . Past Surgical History Right breast mastectomy in 2001 and reconstruction in 2002 Right breast revision of reconstruction in 2005 Port placement Lumbar Kyphoplasty Sinus surgery x 2 Tubal ligation Multiple epidural steroid injections . Reported Medications Lyrica (Pregabalin) 50 Mg Cap 50 Mg PO DAILY Ranitidine (Ranitidine HCl) 300 Mg Tab 150 Mg PO HS Fenofibrate 145 Mg Tab 145 Mg PO DAILY Omeprazole 20 Mg Tab 20 Mg PO BID . Current Medications Medications (Trade) Dose Ordered Sig/Jarad Route Start Time Stop Time Status Last Admin (Tylenol) 650 mg Q6H PRN PO 10/14/16 15:30 10/18/16 16:33 (Zofran Inj) 4 mg Q6H PRN IV 10/14/16 15:30 (Narcan Inj) 0.4 mg Q3M PRN IV 10/14/16 15:30 (Heparin Inj) 5,000 units Q12H SQ 10/14/16 18:00 10/21/16 06:19 Miscellaneous Information 1 Q361D XX 10/14/16 15:30 10/14/16 15:30 (Chlorhexidine 2% Cloth) Taper DAILY@04 TOP 10/15/16 04:00 10/11/17 03:59 10/19/16 03:03 (Chlorhexidine 2% Cloth) 3 pack UNSCH PRN TOP 10/14/16 15:30 (Milk Of Magnesia Liq) 30 ml Q12H PRN PO 10/14/16 15:30 (Senokot) 17.2 mg Q12H PRN PO 10/14/16 15:30 (Dulcolax Supp) 10 mg DAILY PRN RECTAL 10/14/16 15:30 (Lactulose Liq) 30 ml DAILY PRN PO 10/14/16 15:30 (NS Flush) 2 ml BID IV FLUSH 10/14/16 21:00 10/21/16 08:58 (Plavix) 75 mg DAILY PO 10/15/16 09:00 10/21/16 08:57 (D50w (Vial) Inj) 50 ml UNSCH PRN IV 10/14/16 17:00 (Glucagon Inj) 1 mg UNSCH PRN OTHER 10/14/16 17:00 (Roxicodone) 10 mg Q6H PRN PO 10/14/16 22:15 10/21/16 08:58 (Slow-Mag Dr) 128 mg DAILY PO 10/15/16 09:00 10/21/16 08:56 (Peridex 0.12% Liq) 15 ml BID@08,20 MT 10/15/16 20:00 10/19/16 08:00 (Protonix) 40 mg DAILY PO 10/18/16 09:00 10/21/16 08:57 (Cordarone) 200 mg Q12HR PO 10/17/16 21:00 10/21/16 08:58 Temazepam 30 mg 30 mg HS PRN PO 10/17/16 22:45 10/19/16 22:36 (Rocephin Inj/NS Inj) 100 ml @ 200 mls/hr Q24H IV 10/18/16 09:00 10/21/16 08:56 (Lasix Inj) 40 mg BID@09,18 IV PUSH 10/18/16 18:00 10/21/16 08:56 (KCl) 40 meq BID PO 10/19/16 07:00 10/21/16 08:57 (Duragesic 25 Mcg Patch.72 Hr) 1 patch Q3D T-DERMAL 10/23/16 18:00 Family History Father dies at the age of 64 years from lung cancer. Mother from "old age" when she was in her 90s, history of lung disease. Sister with heart disease. . Substance Use Tobacco: 1PPD since the age of 14 Alcohol: None known Prescription med abuse: None known Illicits: None known . Psychosocial History Ms. Nettles was born in [place] and moved to [place] as a child. She has one sister, Marcie who lives in [facility] ; the patient states they have a close relationship/ She graduated from [employer]. Patient has been twice. She states her first marriage lasted less than a year. She has been to her second , Riky, for approximately 20 years. She has no biological children. The patient's has 1 adult son who lives in [place]; they do not see him often. 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 . Spiritual/Cultural Factors Nondenominational bridget . Health Care Surrogate(s): . Today's verbally stated goals: Goals are aggressive pending further conversation when the patient's arrives. Patient stating she will go to a SNF for rehab upon discharge and see how it goes from there. . Ethical and Legal Issues Per [place] statutes, in the absence of written advanced directives healthcare proxy decision making will fall to the patient's (Riky Nettles). Patient indicated written advanced directives have been completed, and her will be bringing copies of these documents to the hospital when he visits. . Physical Exam Vital Signs Date Time Temp Pulse Resp B/P Pulse Ox O2 Delivery O2 Flow Rate FiO2 10/21/16 07:58 92 Nasal Cannula 2.00 10/21/16 04:00 98.6 77 16 109/65 92 10/21/16 04:00 Nasal Cannula 2.00 10/21/16 00:00 Nasal Cannula 2.00 10/21/16 00:00 98.4 70 16 101/50 93 10/20/16 20:00 Nasal Cannula 2.00 10/20/16 20:00 98.0 72 18 105/59 92 10/20/16 20:00 75 10/20/16 17:56 97 Nasal Cannula 2.00 10/20/16 16:25 98.1 69 18 109/63 97 10/20/16 15:42 16 10/20/16 12:53 96 Nasal Cannula 2.00 10/20/16 12:09 98.7 69 18 90/55 94 10/20/16 10/21/16 19:00 07:00 Intake Total 480 ml 480 ml Output Total 2350 ml 3300 ml Balance -1870 ml -2820 ml Intake Oral 480 ml 480 ml Output Urine Total 2350 ml 3300 ml # Bowel Movements 1 1 Exam CONSTITUTIONAL/GENERAL: This is a frail, female patient who appears older than her stated age. TUBES/LINES/DRAINS: PIV x 2, Wilkerson catheter SKIN: Skin temperature appropriate. Not diaphoretic. Multiple scabbed abrasions or scratch bowen can be seen on patient's right forearm. HEAD: Atraumatic. Normocephalic. EYES: Pupils equal and round and reactive. Extraocular motions intact. No scleral icterus. No injection or drainage. Fundi not examined. ENT: Hearing grossly normal. Nose without bleeding or purulent drainage. NECK: Trachea midline. Supple, nontender. No palpable thyroid enlargement or nodularity. CARDIOVASCULAR: Irregularly, irregular. No JVD. Peripheral pulses symmetric. RESPIRATORY/CHEST: Symmetric, unlabored respirations. Coarse breath sounds bilaterally No wheezes, rales, or rhonchi. GASTROINTESTINAL: Abdomen soft, non-tender, nondistended. No guarding. Bowel sounds present. GENITOURINARY: Without palpable bladder distension. Wilkerson catheter in place. MUSCULOSKELETAL: Extremities without clubbing or cyanosis. Bilateral upper extremities are edematous. Muscle wasting in BLE LYMPHATICS: No palpable cervical or supraclavicular adenopathy. NEUROLOGICAL: Awake and alert. Answers questions, fatigues quickly. Follows commands. Able to make needs known. Moves all extremities. PSYCHIATRIC: No obvious anxiety/depression. no apparent hallucinations or other psychotic thought process. . Diagnostic Tests Laboratory Laboratory Tests Test 10/18/16 10/19/16 10/19/16 10/20/16 12:00 05:45 15:40 04:00 White Blood Count 6.7 TH/MM3 11.0 TH/MM3 (4.0-11.0) (4.0-11.0) Red Blood Count 3.67 MIL/MM3 3.78 MIL/MM3 (4.00-5.30) (4.00-5.30) Hemoglobin 10.4 GM/DL 10.7 GM/DL (11.6-15.3) (11.6-15.3) Hematocrit 32.1 % 32.7 % (35.0-46.0) (35.0-46.0) Mean Corpuscular Volume 87.3 FL 86.4 FL (80.0-100.0) (80.0-100.0) Mean Corpuscular Hemoglobin 28.3 PG 28.2 PG (27.0-34.0) (27.0-34.0) Mean Corpuscular Hemoglobin 32.4 % 32.6 % Concent (32.0-36.0) (32.0-36.0) Red Cell Distribution Width 16.5 % 16.3 % (11.6-17.2) (11.6-17.2) Platelet Count 77 TH/MM3 73 TH/MM3 (150-450) (150-450) Mean Platelet Volume 10.3 FL 10.7 FL (7.0-11.0) (7.0-11.0) Sodium Level 140 MEQ/L 142 MEQ/L 139 MEQ/L 138 MEQ/L (136-145) (136-145) (136-145) (136-145) Potassium Level 3.2 MEQ/L 2.8 MEQ/L 3.9 MEQ/L 4.2 MEQ/L (3.5-5.1) (3.5-5.1) (3.5-5.1) (3.5-5.1) Chloride Level 96 MEQ/L 96 MEQ/L 96 MEQ/L 95 MEQ/L (98-107) (98-107) (98-107) (98-107) Carbon Dioxide Level 34.5 MEQ/L 35.4 MEQ/L 35.9 MEQ/L 35.3 MEQ/L (21.0-32.0) (21.0-32.0) (21.0-32.0) (21.0-32.0) Anion Gap 10 MEQ/L (5-15) 11 MEQ/L (5-15) 7 MEQ/L (5-15) 8 MEQ/L (5-15) Blood Urea Nitrogen 19 MG/DL (7-18) 16 MG/DL (7-18) 16 MG/DL (7-18) 14 MG/DL (7- 18) Creatinine 0.85 MG/DL 0.88 MG/DL 0.82 MG/DL 0.61 MG/DL (0.50-1.00) (0.50-1.00) (0.50-1.00) (0.50-1.00) Estimat Glomerular Filtration 68 ML/MIN (>89) 65 ML/MIN (>89) 70 ML/MIN (>89) 99 ML/MIN (>89) Rate Random Glucose 168 MG/DL 109 MG/DL 154 MG/DL 97 MG/DL (74-106) (74-106) (74-106) (74-106) Calcium Level 7.4 MG/DL 6.7 MG/DL 7.3 MG/DL 7.3 MG/DL (8.5-10.1) (8.5-10.1) (8.5-10.1) (8.5-10.1) Protein Corrected Calcium 8.4 MG/DL 7.8 MG/DL 8.6 MG/DL 8.7 MG/DL (8.5-10.1) (8.5-10.1) (8.5-10.1) (8.5-10.1) Phosphorus Level 3.0 MG/DL (2.5-4.9) Magnesium Level 1.3 MG/DL 1.0 MG/DL 1.5 MG/DL 1.3 MG/DL (1.5-2.5) (1.5-2.5) (1.5-2.5) (1.5-2.5) Total Protein 5.3 GM/DL 4.9 GM/DL 4.8 GM/DL 4.6 GM/DL (6.4-8.2) (6.4-8.2) (6.4-8.2) (6.4-8.2) Neutrophils (%) (Auto) 79.7 % (16.0-70.0) Lymphocytes (%) (Auto) 17.5 % (9.0-44.0) Monocytes (%) (Auto) 2.1 % (0.0-8.0) Eosinophils (%) (Auto) 0.6 % (0.0-4.0) Basophils (%) (Auto) 0.1 % (0.0-2.0) Neutrophils # (Auto) 8.8 TH/MM3 (1.8-7.7) Lymphocytes # (Auto) 1.9 TH/MM3 (1.0-4.8) Monocytes # (Auto) 0.2 TH/MM3 (0-0.9) Eosinophils # (Auto) 0.1 TH/MM3 (0-0.4) Basophils # (Auto) 0.0 TH/MM3 (0-0.2) CBC Comment AUTO DIFF Differential Total Cells 100 Counted Neutrophils % (Manual) 80 % (16-70) Band Neutrophils % 2 % (0-6) Lymphocytes % 10 % (9-44) Monocytes % 3 % (0-8) Eosinophils % 2 % (0-4) Neutrophils # (Manual) 9.4 TH/MM3 (1.8-7.7) Metamyelocytes 3 % (0-1) Differential Comment FINAL DIFF MANUAL Test 10/21/16 06:06 White Blood Count 10.7 TH/MM3 (4.0-11.0) Red Blood Count 3.97 MIL/MM3 (4.00-5.30) Hemoglobin 11.0 GM/DL (11.6-15.3) Hematocrit 34.7 % (35.0-46.0) Mean Corpuscular Volume 87.4 FL (80.0-100.0) Mean Corpuscular Hemoglobin 27.6 PG (27.0-34.0) Mean Corpuscular Hemoglobin 31.6 % Concent (32.0-36.0) Red Cell Distribution Width 16.3 % (11.6-17.2) Platelet Count 98 TH/MM3 (150-450) Mean Platelet Volume 10.7 FL (7.0-11.0) Neutrophils (%) (Auto) 79.4 % (16.0-70.0) Lymphocytes (%) (Auto) 17.7 % (9.0-44.0) Monocytes (%) (Auto) 1.9 % (0.0-8.0) Eosinophils (%) (Auto) 0.8 % (0.0-4.0) Basophils (%) (Auto) 0.2 % (0.0-2.0) Neutrophils # (Auto) 8.5 TH/MM3 (1.8-7.7) Lymphocytes # (Auto) 1.9 TH/MM3 (1.0-4.8) Monocytes # (Auto) 0.2 TH/MM3 (0-0.9) Eosinophils # (Auto) 0.1 TH/MM3 (0-0.4) Basophils # (Auto) 0.0 TH/MM3 (0-0.2) CBC Comment AUTO DIFF Sodium Level 135 MEQ/L (136-145) Potassium Level 4.2 MEQ/L (3.5-5.1) Chloride Level 93 MEQ/L (98-107) Carbon Dioxide Level 36.8 MEQ/L (21.0-32.0) Anion Gap 5 MEQ/L (5-15) Blood Urea Nitrogen 11 MG/DL (7-18) Creatinine 0.65 MG/DL (0.50-1.00) Estimat Glomerular Filtration 92 ML/MIN (>89) Rate Random Glucose 93 MG/DL (74-106) Calcium Level 7.7 MG/DL (8.5-10.1) Magnesium Level 1.3 MG/DL (1.5-2.5) . Result Diagram: 10/21/1660510/21/16 0606 Procedures 10/14/2016: Left femoral CVL placement 10/14/2016: Endotracheal intubation 10/14/2016: NGT placement 10/17/2016: Extubation . Patient/Family Conference Present at Family Conference: Patient , Riky. . Family Conference Location: Bedside Issues Discussed: * Palliative care role, purpose, approach * Additional medical, psychosocial, and spiritual history * Patients general health, functional status, and cognitive changes in the months leading up to the current hospitalization * Patient/family understanding of the current medical problems * Patient/family understanding of prognosis * Patients goals of care as best understood from advance directives and/or conversations and/or values * Current medical treatment options and benefits/burdens of those options * Likely scenarios comparing ongoing aggressive care with a transition to comfort measures only * Questions answered to the best of my ability * Palliative care contact information provided . Assessment and Plan Disease Oriented Problem List: (1) NSTEMI (non-ST elevated myocardial infarction) (2) Elevated troponin (3) HTN (hypertension) (4) HX: breast cancer (5) Acute renal failure (ARF) (6) Sepsis (7) CAD (coronary artery disease) (8) Atrial fibrillation with RVR (9) Septic shock (10) Hypokalemia (11) UTI (lower urinary tract infection) (12) Diabetes type 2, controlled (13) Sacral decubitus ulcer Symptom Scale: (1) Pain (2) Debility (3) Confusion Pertinent Non-Medical Issues Psychosocial: Ms. Nettles was born in [place] and moved to [place] as a child. She has one sister, Marcie who lives in [facility] ; the patient states they have a close relationship/ She graduated from [employer]. Patient has been twice. She states her first marriage lasted less than a year. She has been to her second , Riky, for approximately 20 years. She has no biological children. The patient's has 1 adult son who lives in [place]; they do not see him often. 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 Spiritual: Nondenominational bridget Legal: Per [place] statutes, in the absence of written advanced directives healthcare proxy decision making pulse to the patient's . Ethical issues impacting care: Patient indicates written advanced directives have been completed, and her will be bringing copies of these documents to the hospital when he visits. . Important Contacts Riky Nettles, spouse: [phone] or [phone] . Prognosis Patient is a 61 yo female with multiple co-morbid conditions - currently hospitalized secondary to septic shock, atrial fibrillation with RVR and NSTEMI status respiratory failure requiring intubation. The patient has been hospitalized 4 times in the past year. Goals remain aggressive. She and her spouse desire placement at a SNF for rehabilitation upon discharge. However, the patient has had an ongoing decline in her performance status despite receiving repeated rehabilitation services in the past year. She remains high risk for further complications and decline; long-term prognosis is poor. Code Status: Full Code Plan * FULL CODE * Decision-making: Per [place] statutes, in the absence of written advanced directives healthcare proxy decision-making falls to the patient's , Riky Nettles. * Goals are aggressive. Patient stating she will go to a SNF for rehab upon discharge and see how it goes from there. * Patient has indicated written advanced directives were completed in the past, and her will be bringing copies of these documents to the hospital when he visits. When the patient's arrived he initially questioned why he should provide copies of these documents to the hospital; he then stated he did not know where they were. After further discussing the benefits completing written advanced directives and having those documents scanned into the patient' s EMR; both the patient and her asked for copies of these forms to review over night. They were amenable to further conversations tomorrow 2016. * Symptom managementconfusion: Likely secondary to metabolic encephalopathy and toxic encephalopathy which has now resolved; will continue to monitor. No recommendations at this time. * Symptom managementpain: Patient has a history of chronic neck pain that she rate a 5 out of 10 at baseline. Also reporting severe, intermittent pain secondary to an breakdown on her sacrum. Patient uses PRN oxycodone (1-2 tablets daily per patient) at home to managed chronic pain. Patient is on a fentanyl patch 25 g every 72 hours and PRN oxycodone 10 mg PO q3 hours for pain scale 310; 24-hour testing requirements = oxycodone 10 mg 3. No recommendations at this time. * Symptom managementdebility: has been hospitalized 4 times in the past year. She has experienced an ongoing decline over the past 12 months as evidenced by progressive increased weakness and weight loss. Patient is dependent for all ADLs; she is nonambulatory and requires 2 person maximum assist for transfers. Patient has not returned to previous functional status despite receiving rehabilitation multiple times in the past year. Physical therapy is following. * Per case management patient has been accepted by [facility] for rehab. * Palliative care contact information was provided to the patient and her . * Discussed with patient's nurse, case management (Luz Sheikh) and Angélica Salazar * Palliative care will continue to follow this patient throughout her hospitalization to establish with trust, assist with symptom management and clarification of medical treatment goals. . Thank you for the opportunity to participate in the care of Ms. Nettles. . Attestation To help prompt me to consider important information that might be impacting today's encounter and assessment, information from prior notes written by myself or my colleagues may have been "brought forward" into today's note. My signature on this note, however, is an attestation that I personally performed the exam, history, and/or decision-making noted today, and, unless otherwise indicated, the interactions with patient, family, and staff as well as the review of records all occurred today. I also attest that the listed assessment and stated plan reflect my best clinical judgment today based on the combination of historical information, prior notes, and today's exam/ interactions. When time spent is documented, it refers only to time spent today by the signer, or if indicated, combined time spent today by collaborating physician/nurse practitioner. . Keyla Montano Oct 21, 2016 10:15
[2016-10-21 10:30] LABS: BANDS 4 % (0-6); EOSINOPHILS 2 % (0-4); NEUTROPHIL # MANUAL DIFF 8.1 TH/MM3 (1.8-7.7); POLYS (SEG NEUTROPHILS) 72 % (16-70); WBC DIFF SAMPLE 100
[2016-10-21 10:31] LABS: PLATELET ESTIMATE SMEAR LOW (NORMAL)
[2016-10-21 10:32] LABS: PLATELET MORPHOLOGY ENLARGED (NORMAL); SCAN/DIFF FINAL DIFF MANUAL
--- NOTE | 2016-10-21 12:58 | HHI.IDPN ---
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 Vital Signs Date Time Temp Pulse Resp B/P Pulse Ox O2 Delivery O2 Flow Rate FiO2 10/21/16 10:05 18 10/21/16 09:31 Nasal Cannula 2.00 10/21/16 07:58 92 Nasal Cannula 2.00 10/21/16 04:00 98.6 77 16 109/65 92 10/21/16 04:00 Nasal Cannula 2.00 10/21/16 00:00 Nasal Cannula 2.00 10/21/16 00:00 98.4 70 16 101/50 93 10/20/16 20:00 Nasal Cannula 2.00 10/20/16 20:00 98.0 72 18 105/59 92 10/20/16 20:00 75 10/20/16 17:56 97 Nasal Cannula 2.00 10/20/16 16:25 98.1 69 18 109/63 97 10/20/16 10/20/16 10/21/16 15:00 23:00 07:00 Intake Total 480 ml 360 ml 120 ml Output Total 2350 ml 2000 ml 1300 ml Balance -1870 ml -1640 ml -1180 ml Intake Oral 480 ml 360 ml 120 ml Output Urine Total 2350 ml 2000 ml 1300 ml # Bowel Movements 1 1 0 . Laboratory Tests Test 10/21/16 06:06 White Blood Count 10.7 TH/MM3 Red Blood Count 3.97 MIL/MM3 Hemoglobin 11.0 GM/DL Hematocrit 34.7 % Mean Corpuscular Volume 87.4 FL Mean Corpuscular Hemoglobin 27.6 PG Mean Corpuscular Hemoglobin 31.6 % Concent Red Cell Distribution Width 16.3 % Platelet Count 98 TH/MM3 Mean Platelet Volume 10.7 FL Neutrophils (%) (Auto) 79.4 % Lymphocytes (%) (Auto) 17.7 % Monocytes (%) (Auto) 1.9 % Eosinophils (%) (Auto) 0.8 % Basophils (%) (Auto) 0.2 % Neutrophils # (Auto) 8.5 TH/MM3 Lymphocytes # (Auto) 1.9 TH/MM3 Monocytes # (Auto) 0.2 TH/MM3 Eosinophils # (Auto) 0.1 TH/MM3 Basophils # (Auto) 0.0 TH/MM3 CBC Comment AUTO DIFF Differential Total Cells 100 Counted Neutrophils % (Manual) 72 % Band Neutrophils % 4 % Lymphocytes % 20 % Monocytes % 2 % Eosinophils % 2 % Neutrophils # (Manual) 8.1 TH/MM3 Differential Comment FINAL DIFF MANUAL Platelet Estimate LOW Platelet Morphology Comment ENLARGED Laboratory Tests Test 10/19/16 10/20/16 10/21/16 15:40 04:00 06:06 Sodium Level 139 MEQ/L 138 MEQ/L 135 MEQ/L Potassium Level 3.9 MEQ/L 4.2 MEQ/L 4.2 MEQ/L Chloride Level 96 MEQ/L 95 MEQ/L 93 MEQ/L Carbon Dioxide Level 35.9 MEQ/L 35.3 MEQ/L 36.8 MEQ/L Anion Gap 7 MEQ/L 8 MEQ/L 5 MEQ/L Blood Urea Nitrogen 16 MG/DL 14 MG/DL 11 MG/DL Creatinine 0.82 MG/DL 0.61 MG/DL 0.65 MG/DL Estimat Glomerular Filtration 70 ML/MIN 99 ML/MIN 92 ML/MIN Rate Random Glucose 154 MG/DL 97 MG/DL 93 MG/DL Calcium Level 7.3 MG/DL 7.3 MG/DL 7.7 MG/DL Protein Corrected Calcium 8.6 MG/DL 8.7 MG/DL Magnesium Level 1.5 MG/DL 1.3 MG/DL 1.3 MG/DL Total Protein 4.8 GM/DL 4.6 GM/DL Imaging Last Impressions Chest X-Ray 10/16/16 0600 Signed Impressions: Service Date/Time: Sunday, October 16, 2016 03:32 - CONCLUSION: Increased density overlying the right lung base could be extraocular patient or in part a right pleural effusion. Left pleural effusion seen previously is decreased in size. Tubes and catheters in good position. Anirudh Moreno MD Head CT 10/14/16 0000 Signed Impressions: Service Date/Time: September 16:05 - CONCLUSION: 1. Moderate periventricular and subcortical white matter small vessel ischemic changes bilaterally. 2. No acute infarct, acute hemorrhage, mass effect or extra- axial fluid collections. John Barker MD Abdomen/Pelvis CT 10/14/16 0000 Signed Impressions: Service Date/Time: September 16:08 - CONCLUSION: 1. Obstructive uropathy with moderate right hydronephrosis secondary to obstructing 9 mm calculus in the right ureteropelvic junction. 2. Bilateral pleural thickening. 3. Wilkerson catheter in place. 4. Status post L2 augmentation. 5. Subacute to chronic left rib fractures and old right-sided pubic rami fractures. Julian Camp MD Physical Exam CONSTITUTIONAL/GENERAL: This is an adequately nourished patient, in no apparent distress. TUBES/LINES/DRAINS: SKIN: No jaundice, rashes, or lesions. CARDIOVASCULAR: Regular rate and rhythm without murmurs, gallops, or rubs. No JVD. Peripheral pulses symmetric. RESPIRATORY/CHEST: Symmetric, unlabored respirations. Clear to auscultation. [place] GASTROINTESTINAL: Abdomen soft, not tender to palpation mildly distended. No hepato-splenomegaly, or palpable masses. No guarding. Bowel sounds present. GENITOURINARY: Without palpable bladder distension. Wilkerson catheter in place with clear light yellow urine MUSCULOSKELETAL: Extremities without clubbing, no cyanosis NEUROLOGICAL: Awake and alert. Motor and sensory grossly within normal limits. Follows commands. Clear speech, PSYCHIATRIC: calm and cooperative Assessment & Plan Remarks Sepsis, Kleb pneumo UTI E.coli in the settings of obstructing 9 mm calculus in the right ureteropelvic junction. 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
--- NOTE | 2016-10-21 15:22 | HHI.PR ---
Subjective Remarks No new complaints. Pt was up to the chair today for about 45 mins but is max assist She has had good UOP the last 2 days Seems less swollen in the UEs Objective Vitals Vital Signs Date Time Temp Pulse Resp B/P Pulse Ox O2 Delivery O2 Flow Rate FiO2 10/21/16 12:00 98.3 60 18 97/56 97 10/21/16 10:05 18 10/21/16 09:31 Nasal Cannula 2.00 10/21/16 08:00 98.2 73 20 107/58 97 10/21/16 07:58 92 Nasal Cannula 2.00 10/21/16 04:00 98.6 77 16 109/65 92 10/21/16 04:00 Nasal Cannula 2.00 10/21/16 00:00 Nasal Cannula 2.00 10/21/16 00:00 98.4 70 16 101/50 93 10/20/16 20:00 Nasal Cannula 2.00 10/20/16 20:00 98.0 72 18 105/59 92 10/20/16 20:00 75 10/20/16 17:56 97 Nasal Cannula 2.00 10/20/16 16:25 98.1 69 18 109/63 97 10/20/16 10/20/16 10/21/16 15:00 23:00 07:00 Intake Total 480 ml 360 ml 120 ml Output Total 2350 ml 2000 ml 1300 ml Balance -1870 ml -1640 ml -1180 ml Intake Oral 480 ml 360 ml 120 ml Output Urine Total 2350 ml 2000 ml 1300 ml # Bowel Movements 1 1 0 Result Diagram: 10/21/16 0606 10/21/16 0606 Other Results Laboratory Tests Test 10/19/16 10/20/16 10/21/16 15:40 04:00 06:06 Sodium Level 139 MEQ/L 138 MEQ/L 135 MEQ/L Potassium Level 3.9 MEQ/L 4.2 MEQ/L 4.2 MEQ/L Chloride Level 96 MEQ/L 95 MEQ/L 93 MEQ/L Carbon Dioxide Level 35.9 MEQ/L 35.3 MEQ/L 36.8 MEQ/L Anion Gap 7 MEQ/L 8 MEQ/L 5 MEQ/L Blood Urea Nitrogen 16 MG/DL 14 MG/DL 11 MG/DL Creatinine 0.82 MG/DL 0.61 MG/DL 0.65 MG/DL Estimat Glomerular Filtration 70 ML/MIN 99 ML/MIN 92 ML/MIN Rate Random Glucose 154 MG/DL 97 MG/DL 93 MG/DL Calcium Level 7.3 MG/DL 7.3 MG/DL 7.7 MG/DL Protein Corrected Calcium 8.6 MG/DL 8.7 MG/DL Magnesium Level 1.5 MG/DL 1.3 MG/DL 1.3 MG/DL Total Protein 4.8 GM/DL 4.6 GM/DL White Blood Count 10.7 TH/MM3 Red Blood Count 3.97 MIL/MM3 Hemoglobin 11.0 GM/DL Hematocrit 34.7 % Mean Corpuscular Volume 87.4 FL Mean Corpuscular Hemoglobin 27.6 PG Mean Corpuscular Hemoglobin 31.6 % Concent Red Cell Distribution Width 16.3 % Platelet Count 98 TH/MM3 Mean Platelet Volume 10.7 FL Neutrophils (%) (Auto) 79.4 % Lymphocytes (%) (Auto) 17.7 % Monocytes (%) (Auto) 1.9 % Eosinophils (%) (Auto) 0.8 % Basophils (%) (Auto) 0.2 % Neutrophils # (Auto) 8.5 TH/MM3 Lymphocytes # (Auto) 1.9 TH/MM3 Monocytes # (Auto) 0.2 TH/MM3 Eosinophils # (Auto) 0.1 TH/MM3 Basophils # (Auto) 0.0 TH/MM3 CBC Comment AUTO DIFF Differential Total Cells 100 Counted Neutrophils % (Manual) 72 % Band Neutrophils % 4 % Lymphocytes % 20 % Monocytes % 2 % Eosinophils % 2 % Neutrophils # (Manual) 8.1 TH/MM3 Differential Comment FINAL DIFF MANUAL Platelet Estimate LOW Platelet Morphology Comment ENLARGED Imaging Last Impressions Chest X-Ray 10/16/16 0600 Signed Impressions: Service Date/Time: Sunday, October 16, 2016 03:32 - CONCLUSION: Increased density overlying the right lung base could be extraocular patient or in part a right pleural effusion. Left pleural effusion seen previously is decreased in size. Tubes and catheters in good position. Anirudh Moreno MD Head CT 10/14/16 0000 Signed Impressions: Service Date/Time: September 16:05 - CONCLUSION: 1. Moderate periventricular and subcortical white matter small vessel ischemic changes bilaterally. 2. No acute infarct, acute hemorrhage, mass effect or extra- axial fluid collections. John Barker MD Abdomen/Pelvis CT 10/14/16 0000 Signed Impressions: Service Date/Time: September 16:08 - CONCLUSION: 1. Obstructive uropathy with moderate right hydronephrosis secondary to obstructing 9 mm calculus in the right ureteropelvic junction. 2. Bilateral pleural thickening. 3. Wilkerson catheter in place. 4. Status post L2 augmentation. 5. Subacute to chronic left rib fractures and old right-sided pubic rami fractures. Julian Camp MD Objective Remarks General: NAD, AAOx3 Chest: coarse breath sounds at the bases bilaterally Cardiac: Irregular Abd: +BS, soft ND/NT Ext: b/l edema at both upper extremities, less edema today Date of Insertion: Oct 15, 2016 A/P Problem List: (1) Septic shock Status: Acute Plan: - Pt presented with septic shock/VDRF and was found to have UTI and sepsis secondary to right 9mm stone at [facility] with hydro - s/p Cystoscopy, right retrograde pyelogram and [facility] right ureteral stent placement on 10/[address] Madrigal - Urine cx (10/14 ) growing E. coli and Blood cx (10/14) with Klebsiella in all 4 bottles - antibiotic therapy changed to Rocephin by ID on 10/18/16, ID recommending that upon discharge the antibiotics be changed to Augmentin 500 TID to complete a 14 day course (11/01/16) - Her ARACELI resolved - Her labs following admission noted elevated troponin (1.70-->2/47-->2.26), felt to probably be demand mediated. Pt had a previous LHC in 07/02 which noted 50-60% LAD dz - Pt went into A fib RVR on 10/17/16 and was started on Cardizem and Amio gtt and became rate controlled. The Cardizem was d/c'd and she was continued on Amiodarone 200mg po Q12H - Pt received IVF for volume resuscitation in the ICU and has had some issues with volume overload. Pt is currently on Lasix 40mg IV BID with good UOP. Pt was given an extra dose of 40mg IV Lasix on 10/20 for a total of 80mg of IV Lasix - Pts repeat labs today are stable with regards to her renal function. - She has had great UOP the last 2 days with over 5000cc of urine out yesterday and so far today - Pts weight has come down from 73kg to 67kg - Repeat labs in AM - Daily weights - Monitor I&Os - PT - Appreciate consult from Palliative care, pt is a full code, continue aggressive care, anticipate d/c to SNF in 1-2 days (2) Atrial fibrillation with RVR Status: Acute Plan: - See above - now rate controlled - off Cardizem drip - PO amiodarone (3) UTI (lower urinary tract infection) Status: Acute Plan: - See above (4) Respiratory failure requiring intubation Status: Acute Plan: - See above (5) CAD (coronary artery disease) Status: Chronic Plan: - See above (6) Renal calculus, right Status: Acute Plan: - See above (7) ARACELI (acute kidney injury) Status: Acute Plan: - See above (8) Hypokalemia Status: Acute Plan: - See above (9) Hypomagnesemia Status: Acute Plan: - replete (10) Breast cancer metastasized to bone Status: Resolved (11) Humerus fracture Status: Chronic (12) Diabetes type 2, controlled Status: Chronic Plan: - NovoLog SSI - Accu checks (13) Sacral decubitus ulcer Status: Chronic Plan: - chronic - Appreciate Wound Care Nurse recommendations Assessment and Plan Patient examined. Assessment and plan formulated with Angélica Ying PA-C. I agree with the above. Problem Qualifiers (1) Diabetes type 2, controlled: Qualified Code: E11.8 - Controlled type 2 diabetes mellitus with complication, without long-term current use of insulin (2) Sacral decubitus ulcer: Qualified Code: L89.159 - Decubitus ulcer of sacral region, unspecified ulcer stage Angélica Ying Oct 21, 2016 15:22 Lisandro Bojorquez DO Oct 24, 2016 10:54
[2016-10-21] MEDS: MAGNESIUM SULFATE 1 GM PREMIX 100 ML IV SCH ×2 (16:18→17:27)
[2016-10-22] VITALS (10 sets, daily range): BP systolic 91–122; BP diastolic 55–66; PULSE 62–72; RESP 16–18; TEMP 97–98.3; O2SAT 94–96
[2016-10-22] MEDS: CHLORHEXIDINE GLUCONATE 2 % 1 PACK (2 CLOTHS) TOP SCH (02:54)
[2016-10-22] MEDS: HEPARIN SODIUM - SQ 10,000 UNITS/ML VIAL SQ SCH ×2 (04:30→17:56)
[2016-10-22] MEDS: INSULIN ASPART SUPPLEMENTAL SCALE SQ SCH ×4 (07:00→21:00)
[2016-10-22 07:17] LABS: AUTOMATED NEUTROPHIL # 7.2 TH/MM3 (1.8-7.7); BASOPHIL % 0.2 % (0.0-2.0); EOSINOPHIL # 0.1 TH/MM3 (0-0.4); HEMATOCRIT 34.4 % (35.0-46.0); HEMO FLAGS DIFF FINAL; LYMPH % 19.6 % (9.0-44.0); LYMPHOCYTE # 1.8 TH/MM3 (1.0-4.8); MEAN CELL VOLUME 87.4 FL (80.0-100.0); MEAN CORPUSCULAR HEMOGLOBIN 27.9 PG (27.0-34.0); MEAN CORPUSCULAR HGB CONC 31.9 % (32.0-36.0); MONO % 2.8 % (0.0-8.0); NEUT % 76.4 % (16.0-70.0); PLATELET COUNT 100 TH/MM3 (150-450); RED BLOOD COUNT 3.94 MIL/MM3 (4.00-5.30); RED CELL DISTRIBUTION WIDTH 16.3 % (11.6-17.2); WHITE BLOOD COUNT 9.4 TH/MM3 (4.0-11.0)
[2016-10-22 07:20] LABS: BICARBONATE 32.5 MEQ/L (21.0-32.0); MAGNESIUM 1.8 MG/DL (1.5-2.5); POTASSIUM 4.8 MEQ/L (3.5-5.1)
[2016-10-22] MEDS: CHLORHEXIDINE 0.12% (ORAL KIT) 15 ML CUP MT SCH ×2 (08:00→20:00)
[2016-10-22] MEDS: PANTOPRAZOLE SOD 40 MG DELAYED RELEASE TAB PO SCH (09:00)
[2016-10-22] MEDS: POTASSIUM CHLORIDE 20 MEQ CONTROLLED RELEASE TAB PO SCH ×2 (09:00→22:00)
[2016-10-22] MEDS: MAGNESIUM CHLORIDE 64 MG TAB PO SCH (10:01)
[2016-10-22] MEDS: cefTRIAXone INJ 2,000 MG in SODIUM CHLORIDE 0.9% INJ 100 ML IV SCH (10:01)
[2016-10-22] MEDS: AMIODARONE 200 MG TAB PO SCH ×2 (10:01→22:00)
[2016-10-22] MEDS: CLOPIDOGREL 75 MG TAB PO SCH (10:04)
[2016-10-22] MEDS: SODIUM CHLORIDE 0.9% FLUSH 10 ML FLUSH IV FLUSH SCH ×2 (10:04→22:01)
[2016-10-22] MEDS: FUROSEMIDE 40 MG/4 ML VIAL IV PUSH SCH (10:04)
--- NOTE | 2016-10-22 13:22 | HHI.PR ---
Subjective Remarks No new complaints. Pt feels that swelling in her hands has improved Objective Vitals Vital Signs Date Time Temp Pulse Resp B/P Pulse Ox O2 Delivery O2 Flow Rate FiO2 10/22/16 10:46 95 Nasal Cannula 2.00 10/22/16 08:02 98.1 72 16 122/66 95 10/22/16 04:00 98.1 63 18 117/55 96 10/22/16 00:00 97.8 67 18 101/56 96 10/21/16 20:14 Nasal Cannula 2.00 10/21/16 20:00 98.7 74 16 100/55 96 10/21/16 20:00 Nasal Cannula 2.00 10/21/16 20:00 75 10/21/16 17:24 18 10/21/16 16:00 98.4 66 20 101/57 96 10/21/16 10/21/16 10/22/16 15:00 23:00 07:00 Intake Total 480 ml 120 ml 120 ml Output Total 1800 ml 1200 ml 700 ml Balance -1320 ml -1080 ml -580 ml Intake Oral 480 ml 120 ml 120 ml Output Urine Total 1800 ml 1200 ml 700 ml # Bowel Movements 1 0 0 Result Diagram: 10/22/16 0647 10/22/16 0647 Other Results Laboratory Tests Test 10/21/16 10/22/16 06:06 06:47 White Blood Count 10.7 TH/MM3 9.4 TH/MM3 Red Blood Count 3.97 MIL/MM3 3.94 MIL/MM3 Hemoglobin 11.0 GM/DL 11.0 GM/DL Hematocrit 34.7 % 34.4 % Mean Corpuscular Volume 87.4 FL 87.4 FL Mean Corpuscular Hemoglobin 27.6 PG 27.9 PG Mean Corpuscular Hemoglobin 31.6 % 31.9 % Concent Red Cell Distribution Width 16.3 % 16.3 % Platelet Count 98 TH/MM3 100 TH/MM3 Mean Platelet Volume 10.7 FL 11.0 FL Neutrophils (%) (Auto) 79.4 % 76.4 % Lymphocytes (%) (Auto) 17.7 % 19.6 % Monocytes (%) (Auto) 1.9 % 2.8 % Eosinophils (%) (Auto) 0.8 % 1.0 % Basophils (%) (Auto) 0.2 % 0.2 % Neutrophils # (Auto) 8.5 TH/MM3 7.2 TH/MM3 Lymphocytes # (Auto) 1.9 TH/MM3 1.8 TH/MM3 Monocytes # (Auto) 0.2 TH/MM3 0.3 TH/MM3 Eosinophils # (Auto) 0.1 TH/MM3 0.1 TH/MM3 Basophils # (Auto) 0.0 TH/MM3 0.0 TH/MM3 CBC Comment AUTO DIFF DIFF FINAL Differential Total Cells 100 Counted Neutrophils % (Manual) 72 % Band Neutrophils % 4 % Lymphocytes % 20 % Monocytes % 2 % Eosinophils % 2 % Neutrophils # (Manual) 8.1 TH/MM3 Differential Comment FINAL DIFF MANUAL Platelet Estimate LOW Platelet Morphology Comment ENLARGED Sodium Level 135 MEQ/L 133 MEQ/L Potassium Level 4.2 MEQ/L 4.8 MEQ/L Chloride Level 93 MEQ/L 95 MEQ/L Carbon Dioxide Level 36.8 MEQ/L 32.5 MEQ/L Anion Gap 5 MEQ/L 6 MEQ/L Blood Urea Nitrogen 11 MG/DL 11 MG/DL Creatinine 0.65 MG/DL 0.72 MG/DL Estimat Glomerular Filtration 92 ML/MIN 82 ML/MIN Rate Random Glucose 93 MG/DL 116 MG/DL Calcium Level 7.7 MG/DL 8.4 MG/DL Magnesium Level 1.3 MG/DL 1.8 MG/DL Imaging Last Impressions Chest X-Ray 10/16/16 0600 Signed Impressions: Service Date/Time: Sunday, October 16, 2016 03:32 - CONCLUSION: Increased density overlying the right lung base could be extraocular patient or in part a right pleural effusion. Left pleural effusion seen previously is decreased in size. Tubes and catheters in good position. Anirudh Moreno MD Head CT 10/14/16 0000 Signed Impressions: Service Date/Time: September 16:05 - CONCLUSION: 1. Moderate periventricular and subcortical white matter small vessel ischemic changes bilaterally. 2. No acute infarct, acute hemorrhage, mass effect or extra- axial fluid collections. John Barker MD Abdomen/Pelvis CT 10/14/16 0000 Signed Impressions: Service Date/Time: September 16:08 - CONCLUSION: 1. Obstructive uropathy with moderate right hydronephrosis secondary to obstructing 9 mm calculus in the right ureteropelvic junction. 2. Bilateral pleural thickening. 3. Wilkerson catheter in place. 4. Status post L2 augmentation. 5. Subacute to chronic left rib fractures and old right-sided pubic rami fractures. Julian Camp MD Objective Remarks General: NAD, AAOx3 Chest: coarse breath sounds at the bases bilaterally Cardiac: Irregular Abd: +BS, soft ND/NT Ext: b/l edema at both upper extremities, less edema today Date of Insertion: Oct 15, 2016 A/P Problem List: (1) Septic shock Status: Acute Plan: - Pt presented with septic shock/VDRF and was found to have UTI and sepsis secondary to right 9mm stone at [facility] with hydro - s/p Cystoscopy, right retrograde pyelogram and [facility] right ureteral stent placement on 10/[address] Madrigal - Urine cx (10/14 ) growing E. coli and Blood cx (10/14) with Klebsiella in all 4 bottles - antibiotic therapy changed to Rocephin by ID on 10/18/16, ID recommending that upon discharge the antibiotics be changed to Augmentin 500 TID to complete a 14 day course (11/01/16) - Her ARACELI resolved - Her labs following admission noted elevated troponin (1.70-->2/47-->2.26), felt to probably be demand mediated. Pt had a previous LHC in 07/02 which noted 50-60% LAD dz - Pt went into A fib RVR on 10/17/16 and was started on Cardizem and Amio gtt and became rate controlled. The Cardizem was d/c'd and she was continued on Amiodarone 200mg po Q12H - Pt received IVF for volume resuscitation in the ICU and has had some issues with volume overload. Pt is currently on Lasix 40mg IV BID with good UOP. Pt was given an extra dose of 40mg IV Lasix on 10/20 for a total of 80mg of IV Lasix - Pts repeat labs today are stable with regards to her renal function. - She has continued to have good UOP with 3700cc of urine out yesterday - Pts weight has come down from 73kg to 66kg - Change Lasix to PO today - Repeat labs in AM - Daily weights - Monitor I&Os - PT - Appreciate consult from Palliative care, pt is a full code, continue aggressive care, anticipate d/c to SNF in 1-2 days (2) Atrial fibrillation with RVR Status: Acute Plan: - See above - now rate controlled - off Cardizem drip - PO amiodarone (3) UTI (lower urinary tract infection) Status: Acute Plan: - See above (4) Respiratory failure requiring intubation Status: Acute Plan: - See above (5) CAD (coronary artery disease) Status: Chronic Plan: - See above (6) Renal calculus, right Status: Acute Plan: - See above (7) ARACELI (acute kidney injury) Status: Acute Plan: - See above (8) Hypokalemia Status: Acute Plan: - See above (9) Hypomagnesemia Status: Acute Plan: - replete (10) Breast cancer metastasized to bone Status: Resolved (11) Humerus fracture Status: Chronic (12) Diabetes type 2, controlled Status: Chronic Plan: - NovoLog SSI - Accu checks (13) Sacral decubitus ulcer Status: Chronic Plan: - chronic - Appreciate Wound Care Nurse recommendations Assessment and Plan Patient examined. Assessment and plan formulated with Angélica Ying PA-C. I agree with the above. Edema much improved. Lasix changed to PO Pt started on duragesic 2 days ago. Pt feels that oxycodone for breakthrough pain is NOT lasting long enough. D/w pt will continue current regimen for now. If still having problems with breakthrough pain 10/23, then will increase duragesic transdermal to 50mcg Problem Qualifiers (1) Diabetes type 2, controlled: Qualified Code: E11.8 - Controlled type 2 diabetes mellitus with complication, without long-term current use of insulin (2) Sacral decubitus ulcer: Qualified Code: L89.159 - Decubitus ulcer of sacral region, unspecified ulcer stage Angélica Ying Oct 22, 2016 13:22 Lisandro Bojorquez DO Oct 22, 2016 17:03
--- NOTE | 2016-10-22 14:03 | HHI.HCPN ---
Met with Mrs. Nettles and at bedside. Mrs. Nettles is currently lying in bed, appears comfortable, awake, alert and able to make needs known. Appropriate and pleasant throughout conversation. Patient and deny any questions/concerns at this time. Mrs. Nettles denies any pain or discomfort at my visit. Briefly discussed advanced directives: health care surrogate and living will. Reviewed living will components. Mrs. Nettles requests assistance with filling out health care surrogate and living will. Appoints her , Riky Nettles as primary HCS and sister, Marcie Velazquez as alternate HCS. Completed living will, patient does not wish for her dying to be prolonged if her attending and a financial sales consultant physician feel she has a terminal and/or end- stage condition, or she is in a vegetative state. at bedside to witness conversation as well. Documents completed and faxed to HIM to be scanned into EMR. Palliative care will continue to follow throughout hospitalization. Important Contacts Riky Nettles, : [phone] or [phone] Marcie Davisonbreta, sister: [phone] Melissa Garcia GROCERY TEAM MEMBER, H[employer] AND [employer] OPENER Oct 22, 2016 14:03
--- NOTE | 2016-10-22 14:58 | PD.WCN.NOT ---
Wound Consult Description: Wound Management of sacrum per Dr Bojorquez Communicated with: StephanieRN Dr Bojorquez Recommendation: 50% Calazime skin protectant mixed with 50% antifungal cream BID and PRN for moisture and rash to perineum Please obtain and place patient on a [place] specialty surface (Dr Bojorquez aware of recommendation) Continue to turn patient from left to right every 2 hours and PRN for comfort and pressure relief Additional Information: Patient seen today with CLEMENCIA Son and CHLOE Brown at bedside. Patient was positioned to her right side for assessment. Patient continues to have irritation, erythema, and now with satellite lesions in the perineum with Stage III pressure injury on sacrum as evidenced by 100% adipose tissue with the periwound unable to support adhesives/dressing at this time. [employer] mixed fungal cream and Calazime skin protectant and applied thick layer to perineum and bilateral buttocks. Stage III pressure injury was left open to air with measurements of 1.5cm x 1.5cm x 0.4cm. Candida Hay [facility] Oct 22, 2016 14:58
[2016-10-22] MEDS: FUROSEMIDE 40 MG TAB PO SCH (17:43)
[2016-10-22] MEDS ORDERED: *morphine SULFATE 8 MG/ML PERIprocedure ONLY ONE (19:26)
[2016-10-22] MEDS: TEMAZEPAM 15 MG CAP PO PRN (21:59)
[2016-10-23] VITALS (8 sets, daily range): BP systolic 100–117; BP diastolic 53–64; PULSE 60–74; RESP 16–20; TEMP 97.3–98.6; O2SAT 91–98
[2016-10-23] MEDS: CHLORHEXIDINE GLUCONATE 2 % 1 PACK (2 CLOTHS) TOP SCH (04:00)
[2016-10-23] MEDS: INSULIN ASPART SUPPLEMENTAL SCALE SQ SCH ×4 (06:17→20:11)
[2016-10-23] MEDS: HEPARIN SODIUM - SQ 10,000 UNITS/ML VIAL SQ SCH ×2 (06:17→17:50)
[2016-10-23] MEDS: CHLORHEXIDINE 0.12% (ORAL KIT) 15 ML CUP MT SCH ×2 (07:40→20:00)
[2016-10-23] MEDS: PANTOPRAZOLE SOD 40 MG DELAYED RELEASE TAB PO SCH (09:16)
[2016-10-23] MEDS: MAGNESIUM CHLORIDE 64 MG TAB PO SCH (09:16)
[2016-10-23] MEDS: AMIODARONE 200 MG TAB PO SCH ×2 (09:16→20:07)
[2016-10-23] MEDS: FUROSEMIDE 40 MG TAB PO SCH ×2 (09:16→17:50)
[2016-10-23] MEDS: POTASSIUM CHLORIDE 20 MEQ CONTROLLED RELEASE TAB PO SCH ×2 (09:16→20:07)
[2016-10-23] MEDS: CLOPIDOGREL 75 MG TAB PO SCH (09:16)
[2016-10-23] MEDS: SODIUM CHLORIDE 0.9% FLUSH 10 ML FLUSH IV FLUSH SCH ×2 (09:16→20:08)
[2016-10-23] MEDS: cefTRIAXone INJ 2,000 MG in SODIUM CHLORIDE 0.9% INJ 100 ML IV SCH (09:17)
[2016-10-23] MEDS ORDERED: fentaNYL 50 MCG/HR PATCH T-DERMAL SCH (17:00)
--- NOTE | 2016-10-23 17:02 | HHI.PR ---
Subjective Remarks c/o continued neck and back pain. Objective Vitals Vital Signs Date Time Temp Pulse Resp B/P Pulse Ox O2 Delivery O2 Flow Rate FiO2 10/23/16 16:54 1.00 10/23/16 16:00 97.4 68 20 117/58 91 10/23/16 12:51 Nasal Cannula 10/23/16 12:24 97.6 68 18 114/61 96 10/23/16 09:42 96 Nasal Cannula 2.00 10/23/16 09:20 Nasal Cannula 2.00 10/23/16 08:00 97.8 69 18 108/55 97 10/23/16 06:19 Nasal Cannula 2.00 10/23/16 04:00 98.6 60 16 100/64 97 10/23/16 00:00 98.0 67 18 100/53 98 10/22/16 22:19 109/60 10/22/16 20:30 62 10/22/16 20:30 Nasal Cannula 2.00 10/22/16 20:05 Nasal Cannula 2.00 10/22/16 20:00 98.3 66 18 106/63 96 10/22/16 10/22/16 10/23/16 15:00 23:00 07:00 Intake Total 280 ml 122 ml 240 ml Output Total 1500 ml 700 ml 1000 ml Balance -1220 ml -578 ml -760 ml Intake Oral 280 ml 120 ml 240 ml IV Total 2 ml Output Urine Total 1500 ml 700 ml 1000 ml # Bowel Movements 0 0 1 Result Diagram: 10/22/16 0647 10/22/16 0647 Imaging Last Impressions Chest X-Ray 10/16/16 0600 Signed Impressions: Service Date/Time: Sunday, October 16, 2016 03:32 - CONCLUSION: Increased density overlying the right lung base could be extraocular patient or in part a right pleural effusion. Left pleural effusion seen previously is decreased in size. Tubes and catheters in good position. Anirudh Moreno MD Head CT 10/14/16 0000 Signed Impressions: Service Date/Time: September 16:05 - CONCLUSION: 1. Moderate periventricular and subcortical white matter small vessel ischemic changes bilaterally. 2. No acute infarct, acute hemorrhage, mass effect or extra- axial fluid collections. John Barker MD Abdomen/Pelvis CT 10/14/16 0000 Signed Impressions: Service Date/Time: September 16:08 - CONCLUSION: 1. Obstructive uropathy with moderate right hydronephrosis secondary to obstructing 9 mm calculus in the right ureteropelvic junction. 2. Bilateral pleural thickening. 3. Wilkerson catheter in place. 4. Status post L2 augmentation. 5. Subacute to chronic left rib fractures and old right-sided pubic rami fractures. Julian Camp MD Objective Remarks General: NAD, AAOx3 Chest: coarse breath sounds at the bases bilaterally Cardiac: Irregular Abd: +BS, soft ND/NT Ext: UE edema improved from earlier in the week. Still with some edema at LUE, mild. Date of Insertion: Oct 15, 2016 A/P Problem List: (1) Septic shock Status: Acute Plan: - Pt presented with septic shock/VDRF and was found to have UTI and sepsis secondary to right 9mm stone at [facility] with hydro - s/p Cystoscopy, right retrograde pyelogram and exterminator termite right ureteral stent placement on 10/[address] Madrigal - Urine cx (10/14 ) growing E. coli and Blood cx (10/14) with Klebsiella in all 4 bottles - antibiotic therapy changed to Rocephin by ID on 10/18/16, ID recommending that upon discharge the antibiotics be changed to Augmentin 500 TID to complete a 14 day course (11/01/16) - Her ARACELI resolved - Her labs following admission noted elevated troponin (1.70-->2/47-->2.26), felt to probably be demand mediated. Pt had a previous LHC in 07/02 which noted 50-60% LAD dz - Pt went into A fib RVR on 10/17/16 and was started on Cardizem and Amio gtt and became rate controlled. The Cardizem was d/c'd and she was continued on Amiodarone 200mg po Q12H - Pt received IVF for volume resuscitation in the ICU and has had some issues with volume overload. Pt is currently on Lasix 40mg IV BID with good UOP. Pt was given an extra dose of 40mg IV Lasix on 10/20 for a total of 80mg of IV Lasix - Pts repeat labs today are stable with regards to her renal function. - She has continued to have good UOP with 3700cc of urine out yesterday - Pts weight has come down from 73kg to 66kg - Lasix PO - Daily weights - Monitor I&Os - PT - Appreciate consult from Palliative care, pt is a full code, continue aggressive care, - anticipate d/c to SNF 10/24/16 (2) Atrial fibrillation with RVR Status: Acute Plan: - See above - now rate controlled - off Cardizem drip - PO amiodarone (3) UTI (lower urinary tract infection) Status: Acute Plan: - See above (4) Respiratory failure requiring intubation Status: Acute Plan: - See above (5) CAD (coronary artery disease) Status: Chronic Plan: - See above (6) Renal calculus, right Status: Acute Plan: - See above (7) ARACELI (acute kidney injury) Status: Acute Plan: - See above (8) Hypokalemia Status: Acute Plan: - See above (9) Hypomagnesemia Status: Acute Plan: - replete (10) Breast cancer metastasized to bone Status: Resolved (11) Humerus fracture Status: Chronic (12) Diabetes type 2, controlled Status: Chronic Plan: - NovoLog SSI - Accu checks (13) Sacral decubitus ulcer Status: Chronic Plan: - chronic - Appreciate Wound Care Nurse recommendations Assessment and Plan Patient examined. Assessment and plan formulated with Angélica Ying PA-C. I agree with the above. Edema much improved. Lasix changed to PO Pt started on duragesic 2 days ago. Pt feels that oxycodone for breakthrough pain is NOT lasting long enough. D/w pt will continue current regimen for now. If still having problems with breakthrough pain 10/23, then will increase duragesic transdermal to 50mcg Problem Qualifiers (1) Diabetes type 2, controlled: Qualified Code: E11.8 - Controlled type 2 diabetes mellitus with complication, without long-term current use of insulin (2) Sacral decubitus ulcer: Qualified Code: L89.159 - Decubitus ulcer of sacral region, unspecified ulcer stage Lisandro Bojorquez DO Oct 23, 2016 17:02
[2016-10-23] MEDS ORDERED: fentaNYL 25 MCG/HR PATCH T-DERMAL SCH (18:00)
[2016-10-23] MEDS: TEMAZEPAM 15 MG CAP PO PRN (22:25)
[2016-10-24] VITALS (8 sets, daily range): BP systolic 89–103; BP diastolic 45–57; PULSE 58–77; RESP 18; TEMP 97.3–98.2; O2SAT 96–100
[2016-10-24] MEDS: CHLORHEXIDINE GLUCONATE 2 % 1 PACK (2 CLOTHS) TOP SCH (00:50)
[2016-10-24] MEDS: HEPARIN SODIUM - SQ 10,000 UNITS/ML VIAL SQ SCH ×2 (04:59→16:17)
[2016-10-24] MEDS: INSULIN ASPART SUPPLEMENTAL SCALE SQ SCH ×4 (06:11→22:19)
[2016-10-24] MEDS: CHLORHEXIDINE 0.12% (ORAL KIT) 15 ML CUP MT SCH ×2 (07:50→20:00)
[2016-10-24] MEDS: POTASSIUM CHLORIDE 20 MEQ CONTROLLED RELEASE TAB PO SCH (08:37)
[2016-10-24] MEDS: cefTRIAXone INJ 2,000 MG in SODIUM CHLORIDE 0.9% INJ 100 ML IV SCH (08:37)
[2016-10-24] MEDS: AMIODARONE 200 MG TAB PO SCH ×2 (08:37→22:07)
[2016-10-24] MEDS: CLOPIDOGREL 75 MG TAB PO SCH (08:37)
[2016-10-24] MEDS: MAGNESIUM CHLORIDE 64 MG TAB PO SCH (08:37)
[2016-10-24] MEDS: FUROSEMIDE 40 MG TAB PO SCH (08:38)
[2016-10-24] MEDS: SODIUM CHLORIDE 0.9% FLUSH 10 ML FLUSH IV FLUSH SCH ×2 (08:38→22:07)
[2016-10-24] MEDS: PANTOPRAZOLE SOD 40 MG DELAYED RELEASE TAB PO SCH (08:38)
--- NOTE | 2016-10-24 14:26 | HHI.PR ---
Subjective Remarks No new complaints. Objective Vitals Vital Signs Date Time Temp Pulse Resp B/P Pulse Ox O2 Delivery O2 Flow Rate FiO2 10/24/16 12:00 97.6 58 18 100/57 96 10/24/16 10:30 62 10/24/16 10:04 Room Air 10/24/16 08:00 97.3 68 18 92/54 96 Arterial Line 10/24/16 08:00 96 21 10/24/16 05:35 98.2 66 18 98/54 98 10/24/16 01:30 92/52 10/24/16 00:31 98.1 77 18 89/45 100 10/23/16 21:39 97.3 74 18 100/58 95 10/23/16 20:00 Room Air 10/23/16 20:00 73 10/23/16 16:54 1.00 10/23/16 16:00 97.4 68 20 117/58 91 10/23/16 10/23/16 10/24/16 15:00 23:00 07:00 Intake Total 240 ml Output Total 1850 ml 1700 ml Balance -1610 ml -1700 ml Intake Oral 240 ml Output Urine Total 1850 ml 1700 ml # Bowel Movements 0 Result Diagram: 10/22/16 0647 10/22/16 0647 Imaging Last Impressions Chest X-Ray 10/16/16 0600 Signed Impressions: Service Date/Time: Sunday, October 16, 2016 03:32 - CONCLUSION: Increased density overlying the right lung base could be extraocular patient or in part a right pleural effusion. Left pleural effusion seen previously is decreased in size. Tubes and catheters in good position. Anirudh Moreno MD Head CT 10/14/16 0000 Signed Impressions: Service Date/Time: September 16:05 - CONCLUSION: 1. Moderate periventricular and subcortical white matter small vessel ischemic changes bilaterally. 2. No acute infarct, acute hemorrhage, mass effect or extra- axial fluid collections. John Barker MD Abdomen/Pelvis CT 10/14/16 0000 Signed Impressions: Service Date/Time: September 16:08 - CONCLUSION: 1. Obstructive uropathy with moderate right hydronephrosis secondary to obstructing 9 mm calculus in the right ureteropelvic junction. 2. Bilateral pleural thickening. 3. Wilkerson catheter in place. 4. Status post L2 augmentation. 5. Subacute to chronic left rib fractures and old right-sided pubic rami fractures. Julian Camp MD Objective Remarks General: NAD, AAOx3 Chest: coarse breath sounds at the bases bilaterally Cardiac: Irregular Abd: +BS, soft ND/NT Ext: mild LUE edema Date of Insertion: Oct 15, 2016 A/P Problem List: (1) Septic shock Status: Acute Plan: - Pt presented with septic shock/VDRF and was found to have UTI and sepsis secondary to right 9mm stone at [facility] with hydro - s/p Cystoscopy, right retrograde pyelogram and buttermaker right ureteral stent placement on 10/[address] Madrigal - Urine cx (10/14 ) growing E. coli and Blood cx (10/14) with Klebsiella in all 4 bottles - antibiotic therapy changed to Rocephin by ID on 10/18/16, ID recommending that upon discharge the antibiotics be changed to Augmentin 500 TID to complete a 14 day course (11/01/16) - Her ARACELI resolved - Her labs following admission noted elevated troponin (1.70-->2/47-->2.26), felt to probably be demand mediated. Pt had a previous LHC in 07/02 which noted 50-60% LAD dz - Pt went into A fib RVR on 10/17/16 and was started on Cardizem and Amio gtt and became rate controlled. The Cardizem was d/c'd and she was continued on Amiodarone 200mg po Q12H - Pt received IVF for volume resuscitation in the ICU and has had some issues with volume overload. - Pt given IV lasix with good diuresis. Lasix changed to PO. - Pt now trending hypotensive. Will decrease lasix to 20mg daily. - Pts weight has come down from 73kg to 64kg - Daily weights - Monitor I&Os - PT - Appreciate consult from Palliative care, pt is a full code, continue aggressive care, - hold discharge to SNF to observe BP readings. Lasix decreased. Observe. - nurse remove pt's fentanyl patch & pt's blood pressure has made some improvement. Pt has NOT c/o increased pain. - continue to anticipate d/c to SNF in 1-2 days once BP stabilized. (2) Atrial fibrillation with RVR Status: Acute Plan: - See above - now rate controlled - off Cardizem drip - PO amiodarone (3) UTI (lower urinary tract infection) Status: Acute Plan: - See above (4) Respiratory failure requiring intubation Status: Acute Plan: - See above (5) CAD (coronary artery disease) Status: Chronic Plan: - See above (6) Renal calculus, right Status: Acute Plan: - See above (7) ARACELI (acute kidney injury) Status: Acute Plan: - See above (8) Hypokalemia Status: Acute Plan: - See above (9) Hypomagnesemia Status: Acute Plan: - replete (10) Breast cancer metastasized to bone Status: Resolved (11) Humerus fracture Status: Chronic (12) Diabetes type 2, controlled Status: Chronic Plan: - NovoLog SSI - Accu checks (13) Sacral decubitus ulcer Status: Chronic Plan: - chronic - Appreciate Wound Care Nurse recommendations Assessment and Plan Patient examined. Assessment and plan formulated with Angélica Ying PA-C. I agree with the above. Problem Qualifiers (1) Diabetes type 2, controlled: Qualified Code: E11.8 - Controlled type 2 diabetes mellitus with complication, without long-term current use of insulin (2) Sacral decubitus ulcer: Qualified Code: L89.159 - Decubitus ulcer of sacral region, unspecified ulcer stage Lisandro Bojorquez DO Oct 24, 2016 14:26
[2016-10-24] MEDS: TEMAZEPAM 15 MG CAP PO PRN (22:07)
[2016-10-25] VITALS (8 sets, daily range): BP systolic 88–112; BP diastolic 49–59; PULSE 61–77; RESP 18–22; TEMP 97.3–98.5; O2SAT 92–97
[2016-10-25] MEDS: CHLORHEXIDINE GLUCONATE 2 % 1 PACK (2 CLOTHS) TOP SCH (03:45)
[2016-10-25] MEDS: HEPARIN SODIUM - SQ 10,000 UNITS/ML VIAL SQ SCH ×2 (06:00→18:21)
[2016-10-25] MEDS: INSULIN ASPART SUPPLEMENTAL SCALE SQ SCH ×4 (06:23→22:07)
[2016-10-25] MEDS: CHLORHEXIDINE 0.12% (ORAL KIT) 15 ML CUP MT SCH ×2 (08:00→20:00)
[2016-10-25] MEDS ORDERED: POTASSIUM CHLORIDE 20 MEQ CONTROLLED RELEASE TAB PO SCH (09:00)
[2016-10-25] MEDS: PANTOPRAZOLE SOD 40 MG DELAYED RELEASE TAB PO SCH (09:00)
[2016-10-25] MEDS ORDERED: FUROSEMIDE 20 MG TAB PO SCH (09:00)
[2016-10-25] MEDS: CLOPIDOGREL 75 MG TAB PO SCH (09:07)
[2016-10-25] MEDS: MAGNESIUM CHLORIDE 64 MG TAB PO SCH (09:08)
[2016-10-25] MEDS: AMIODARONE 200 MG TAB PO SCH ×2 (09:08→22:07)
[2016-10-25] MEDS: SODIUM CHLORIDE 0.9% FLUSH 10 ML FLUSH IV FLUSH SCH ×2 (09:08→22:08)
[2016-10-25] MEDS: cefTRIAXone INJ 2,000 MG in SODIUM CHLORIDE 0.9% INJ 100 ML IV SCH (09:09)
--- NOTE | 2016-10-25 10:57 | HHI.PR ---
Subjective Remarks doing ok no complaints Objective Vitals heart reg lung cta abd s/nt ext no edema Vital Signs Date Time Temp Pulse Resp B/P Pulse Ox O2 Delivery O2 Flow Rate FiO2 10/25/16 08:03 97.3 62 18 112/56 96 10/25/16 05:27 98.5 65 22 95/59 94 10/25/16 00:50 98.0 66 18 88/49 92 10/24/16 21:30 Room Air 10/24/16 20:00 97.8 74 18 90/51 96 10/24/16 20:00 74 10/24/16 16:00 98.2 63 18 103/49 96 10/24/16 12:00 97.6 58 18 100/57 96 10/24/16 10/24/16 10/25/16 15:00 23:00 07:00 Intake Total 1400 ml 2 ml 200 ml Output Total 450 ml 750 ml Balance 950 ml 2 ml -550 ml Intake Oral 1400 ml 200 ml IV Total 2 ml Output Urine Total 450 ml 750 ml # Bowel Movements 0 Result Diagram: 10/22/16 0647 10/22/16 0647 Imaging Last Impressions Chest X-Ray 10/16/16 0600 Signed Impressions: Service Date/Time: Sunday, October 16, 2016 03:32 - CONCLUSION: Increased density overlying the right lung base could be extraocular patient or in part a right pleural effusion. Left pleural effusion seen previously is decreased in size. Tubes and catheters in good position. Anirudh Moreno MD Head CT 10/14/16 0000 Signed Impressions: Service Date/Time: September 16:05 - CONCLUSION: 1. Moderate periventricular and subcortical white matter small vessel ischemic changes bilaterally. 2. No acute infarct, acute hemorrhage, mass effect or extra- axial fluid collections. John Barker MD Abdomen/Pelvis CT 10/14/16 0000 Signed Impressions: Service Date/Time: September 16:08 - CONCLUSION: 1. Obstructive uropathy with moderate right hydronephrosis secondary to obstructing 9 mm calculus in the right ureteropelvic junction. 2. Bilateral pleural thickening. 3. Wilkerson catheter in place. 4. Status post L2 augmentation. 5. Subacute to chronic left rib fractures and old right-sided pubic rami fractures. Julian Camp MD Date of Insertion: Oct 15, 2016 A/P Problem List: (1) Septic shock Status: Acute Plan: - Pt presented with septic shock/VDRF and was found to have UTI and sepsis secondary to right 9mm stone at [facility] with hydro - s/p Cystoscopy, right retrograde pyelogram and group home right ureteral stent placement on 10/[address] Madrigal - Urine cx (10/14 ) growing E. coli and Blood cx (10/14) with Klebsiella in all 4 bottles - antibiotic therapy changed to Rocephin by ID on 10/18/16, ID recommending that upon discharge the antibiotics be changed to Augmentin 500 TID to complete a 14 day course (11/01/16) - Her ARACELI resolved - Her labs following admission noted elevated troponin (1.70-->2/47-->2.26), felt to probably be demand mediated. Pt had a previous LHC in 07/02 which noted 50-60% LAD dz - Pt went into A fib RVR on 10/17/16 and was started on Cardizem and Amio gtt and became rate controlled. The Cardizem was d/c'd and she was continued on Amiodarone 200mg po Q12H - Pt received IVF for volume resuscitation in the ICU and has had some issues with volume overload. - Pt given IV lasix with good diuresis. Lasix changed to PO. - Pt now trending hypotensive. - Appreciate consult from Palliative care, pt is a full code, continue aggressive care, -PT had d/c held over the weekend due to low bp. Pt was weaned off steroids. her bp meds and fentanyl stopped. Her lasix was lowered. will check bmp today to assure not overdiuresed and stop lasix. depending on bmp result will dc to snf later today vs in AM. (2) Atrial fibrillation with RVR Status: Acute Plan: - See above - now rate controlled - off Cardizem drip - PO amiodarone (3) UTI (lower urinary tract infection) Status: Acute Plan: - See above (4) Respiratory failure requiring intubation Status: Acute Plan: - See above (5) CAD (coronary artery disease) Status: Chronic Plan: - See above (6) Renal calculus, right Status: Acute Plan: - See above (7) ARACELI (acute kidney injury) Status: Acute Plan: - See above (8) Hypokalemia Status: Acute Plan: - See above (9) Hypomagnesemia Status: Acute Plan: - replete (10) Breast cancer metastasized to bone Status: Resolved (11) Humerus fracture Status: Chronic (12) Diabetes type 2, controlled Status: Chronic Plan: - NovoLog SSI - Accu checks (13) Sacral decubitus ulcer Status: Chronic Plan: - chronic - Appreciate Wound Care Nurse recommendations Assessment and Plan Patient examined. Assessment and plan formulated with Angélica GODOY I agree with the above. Problem Qualifiers (1) Diabetes type 2, controlled: Qualified Code: E11.8 - Controlled type 2 diabetes mellitus with complication, without long-term current use of insulin (2) Sacral decubitus ulcer: Qualified Code: L89.159 - Decubitus ulcer of sacral region, unspecified ulcer stage Demar Chaudhary MD Oct 25, 2016 10:56
[2016-10-25 14:35] LABS: BICARBONATE 22.5 MEQ/L (21.0-32.0); MAGNESIUM 1.6 MG/DL (1.5-2.5); POTASSIUM 4.8 MEQ/L (3.5-5.1)
[2016-10-25] MEDS: TEMAZEPAM 15 MG CAP PO PRN (22:07)
[2016-10-26] VITALS (7 sets, daily range): BP systolic 86–114; BP diastolic 49–69; PULSE 57–74; RESP 20; TEMP 97.3–98.5; O2SAT 91–95
[2016-10-26] MEDS: CHLORHEXIDINE GLUCONATE 2 % 1 PACK (2 CLOTHS) TOP SCH (03:44)
[2016-10-26] MEDS: HEPARIN SODIUM - SQ 10,000 UNITS/ML VIAL SQ SCH (05:59)
[2016-10-26] MEDS: INSULIN ASPART SUPPLEMENTAL SCALE SQ SCH ×3 (06:00→16:00)
[2016-10-26] MEDS: CHLORHEXIDINE 0.12% (ORAL KIT) 15 ML CUP MT SCH (08:00)
[2016-10-26] MEDS: PANTOPRAZOLE SOD 40 MG DELAYED RELEASE TAB PO SCH (09:00)
[2016-10-26] MEDS: cefTRIAXone INJ 2,000 MG in SODIUM CHLORIDE 0.9% INJ 100 ML IV SCH (09:45)
[2016-10-26] MEDS: CLOPIDOGREL 75 MG TAB PO SCH (09:45)
[2016-10-26] MEDS: AMIODARONE 200 MG TAB PO SCH (09:45)
[2016-10-26] MEDS: MAGNESIUM CHLORIDE 64 MG TAB PO SCH (09:46)
[2016-10-26] MEDS: SODIUM CHLORIDE 0.9% FLUSH 10 ML FLUSH IV FLUSH SCH (09:46)
--- NOTE | 2016-10-26 11:19 | HHI.HCPN ---
Met with Mrs. Nettles for follow-up palliative care visit. No family/friends at bedside. She is currently lying in bed, awake, alert, and able to make her needs known. Pleasant and appropriate throughout conversation. Looking forward to discharging to rehab. She denies any questions a this time. Requests pain medication. Nurse informed. Confirmed she has palliative care contact information. Palliative care will continue to follow throughout hospitalization. Melissa Garcia, [employer] Oct 26, 2016 11:19
--- NOTE | 2016-10-26 11:47 | HHI.PR ---
Subjective Remarks pt is very eager to be discharged and get to snf for PT Objective Vitals awake and oriented nad no labored breathing heart reg lung cta abd sn/t ext no edema baires Vital Signs Date Time Temp Pulse Resp B/P Pulse Ox O2 Delivery O2 Flow Rate FiO2 10/26/16 07:15 Room Air 10/26/16 04:00 97.9 57 20 86/49 95 10/26/16 00:00 86/50 10/26/16 00:00 98.5 74 20 94 10/25/16 22:29 21 10/25/16 20:31 74 10/25/16 20:05 Room Air 10/25/16 20:00 98.1 70 20 108/54 94 10/25/16 16:24 97.9 64 19 97/56 96 10/25/16 12:03 97.9 77 18 109/59 97 10/25/16 10/25/16 10/26/16 15:00 23:00 07:00 Intake Total 240 ml Output Total 1200 ml 900 ml 600 ml Balance -960 ml -900 ml -600 ml Intake Oral 240 ml Output Urine Total 1200 ml 900 ml 600 ml # Bowel Movements 1 Result Diagram: 10/22/16 0647 10/25/16 1338 Imaging Last Impressions Chest X-Ray 10/16/16 0600 Signed Impressions: Service Date/Time: Sunday, October 16, 2016 03:32 - CONCLUSION: Increased density overlying the right lung base could be extraocular patient or in part a right pleural effusion. Left pleural effusion seen previously is decreased in size. Tubes and catheters in good position. Anirudh Moreno MD Head CT 10/14/16 0000 Signed Impressions: Service Date/Time: September 16:05 - CONCLUSION: 1. Moderate periventricular and subcortical white matter small vessel ischemic changes bilaterally. 2. No acute infarct, acute hemorrhage, mass effect or extra- axial fluid collections. John Barker MD Abdomen/Pelvis CT 10/14/16 0000 Signed Impressions: Service Date/Time: September 16:08 - CONCLUSION: 1. Obstructive uropathy with moderate right hydronephrosis secondary to obstructing 9 mm calculus in the right ureteropelvic junction. 2. Bilateral pleural thickening. 3. Baires catheter in place. 4. Status post L2 augmentation. 5. Subacute to chronic left rib fractures and old right-sided pubic rami fractures. Julian Camp MD Date of Insertion: Oct 15, 2016 A/P Problem List: (1) Septic shock Status: Acute Plan: - Pt presented with septic shock/VDRF and was found to have UTI and sepsis secondary to right 9mm stone at [facility] with hydro - s/p Cystoscopy, right retrograde pyelogram and [facility] long term [facility] right ureteral stent placement on 10/[address] Madrigal - Urine cx (10/14 ) growing E. coli and Blood cx (10/14) with Klebsiella in all 4 bottles - antibiotic therapy changed to Rocephin by ID on 10/18/16, ID recommending that upon discharge the antibiotics be changed to Augmentin 500 TID to complete a 14 day course (11/01/16) - Her ARACELI resolved - Her labs following admission noted elevated troponin (1.70-->2/47-->2.26), felt to probably be demand mediated. Pt had a previous LHC in 07/02 which noted 50-60% LAD dz - Pt went into A fib RVR on 10/17/16 and was started on Cardizem and Amio gtt and became rate controlled. The Cardizem was d/c'd and she was continued on Amiodarone 200mg po Q12H - Pt received IVF for volume resuscitation in the ICU and has had some issues with volume overload. - Pt given IV lasix with good diuresis. Lasix changed to PO then stopped. - Appreciate consult from Palliative care, pt is a full code, continue aggressive care, -PT had d/c held over the weekend due to low bp. Pt was weaned off steroids. her bp meds and fentanyl stopped. Her lasix was lowered then stopped. bmp stable and not showing dehydration or araceli. d/c to snf today for further care. discussed with snf attending. (2) Atrial fibrillation with RVR Status: Acute Plan: - See above - now rate controlled - off Cardizem drip - PO amiodarone (3) UTI (lower urinary tract infection) Status: Acute Plan: - See above (4) Respiratory failure requiring intubation Status: Acute Plan: - See above (5) CAD (coronary artery disease) Status: Chronic Plan: - See above (6) Renal calculus, right Status: Acute Plan: - See above (7) ARACELI (acute kidney injury) Status: Acute Plan: - See above (8) Hypokalemia Status: Acute Plan: - See above (9) Hypomagnesemia Status: Acute Plan: - replete (10) Breast cancer metastasized to bone Status: Resolved (11) Humerus fracture Status: Chronic (12) Diabetes type 2, controlled Status: Chronic Plan: - NovoLog SSI - Accu checks (13) Sacral decubitus ulcer Status: Chronic Plan: - chronic - Appreciate Wound Care Nurse recommendations Problem Qualifiers (1) Diabetes type 2, controlled: Qualified Code: E11.8 - Controlled type 2 diabetes mellitus with complication, without long-term current use of insulin (2) Sacral decubitus ulcer: Qualified Code: L89.159 - Decubitus ulcer of sacral region, unspecified ulcer stage Demar Chaudhary MD Oct 26, 2016 11:47
[2016-10-26] MEDS ORDERED: OXYC30TA PO (11:49)
[2016-10-26] MEDS ORDERED: TEMA30CA PO (11:49)
[2016-10-26] MEDS ORDERED: AMIO200T PO (11:49)
[2016-10-26] MEDS ORDERED: AUGM500T7 PO (11:50)
--- NOTE | 2016-10-26 11:51 | HHI.DCPOC ---
Discharge Care Plan Diagnosis: (1) Acute hypoxemic respiratory failure (2) Renal calculus, right (3) Hydronephrosis, right (4) Atrial fibrillation with RVR (5) ARACELI (acute kidney injury) (6) Sacral decubitus ulcer (7) Sepsis (8) NSTEMI (non-ST elevated myocardial infarction) (9) HX: breast cancer Goals to Promote Your Health * To prevent worsening of your condition and complications * To maintain your health at the optimal level Directions to Meet Your Goals Take your medications as prescribed Follow your dietary instruction Follow activity as directed Keep your appointments as scheduled Take your immunizations and boosters as scheduled If your symptoms worsen call your PCP, if no PCP go to Urgent Care Center or Emergency Room Smoking is Dangerous to Your Health. Avoid second hand smoke Call the 24-hour hour crisis hotline for domestic abuse at Demar Chaudhary MD Oct 26, 2016 11:51
== END 2016-10-26 18:00 | DRG 871 ==
LOC: NEPE 13:40 → NEDA 15:10 → HIME 16:35 → N04A 10-18 19:08
PROVIDERS: ADMIT Hospitalist; ATTEND Hospitalist
PROC: 0T9B70Z Drainage of Bladder with Drainage Device, Via Natural or Artificial Opening (ICD-10-PCS; 2016-10-14)
PROC: BT1D1ZZ Fluoroscopy of Right Kidney, Ureter and Bladder using Low Osmolar Contrast (ICD-10-PCS; 2016-10-14)
PROC: 0BH17EZ Insertion of Endotracheal Airway into Trachea, Via Natural or Artificial Opening (ICD-10-PCS; 2016-10-14)
PROC: 06HN33Z Insertion of Infusion Device into Left Femoral Vein, Percutaneous Approach (ICD-10-PCS; 2016-10-14)
PROC: 0T768DZ Dilation of Right Ureter with Intraluminal Device, Via Natural or Artificial Opening Endoscopic (ICD-10-PCS; principal; 2016-10-14 19:23)
PROC: 5A1945Z Respiratory Ventilation, 24-96 Consecutive Hours (ICD-10-PCS; 2016-10-14 19:23)
DX: A41.89 Other specified sepsis (principal); I21.4 Non-ST elevation (NSTEMI) myocardial infarction; J96.01 Acute respiratory failure with hypoxia; R65.21 Severe sepsis with septic shock; G92 Toxic encephalopathy; L89.159 Pressure ulcer of sacral region, unspecified stage; I13.0 Hypertensive heart and chronic kidney disease with heart failure and stage 1 through stage 4 chronic kidney disease, or unspecified chronic kidney disease; N17.9 Acute kidney failure, unspecified; I50.9 Heart failure, unspecified; C79.51 Secondary malignant neoplasm of bone; N13.2 Hydronephrosis with renal and ureteral calculous obstruction; E87.2 Acidosis; N39.0 Urinary tract infection, site not specified; G45.9 Transient cerebral ischemic attack, unspecified; E83.42 Hypomagnesemia; E11.22 Type 2 diabetes mellitus with diabetic chronic kidney disease; I48.91 Unspecified atrial fibrillation; F17.210 Nicotine dependence, cigarettes, uncomplicated; G43.909 Migraine, unspecified, not intractable, without status migrainosus; N18.2 Chronic kidney disease, stage 2 (mild); Z85.3 Personal history of malignant neoplasm of breast; Z92.3 Personal history of irradiation; E78.00 Pure hypercholesterolemia, unspecified; E78.5 Hyperlipidemia, unspecified; M19.90 Unspecified osteoarthritis, unspecified site; F32.9 Major depressive disorder, single episode, unspecified; K21.9 Gastro-esophageal reflux disease without esophagitis; K44.9 Diaphragmatic hernia without obstruction or gangrene; Z86.14 Personal history of Methicillin resistant Staphylococcus aureus infection; E86.0 Dehydration; I25.2 Old myocardial infarction; I25.10 Atherosclerotic heart disease of native coronary artery without angina pectoris; E87.6 Hypokalemia; Z92.21 Personal history of antineoplastic chemotherapy; E11.65 Type 2 diabetes mellitus with hyperglycemia; E11.42 Type 2 diabetes mellitus with diabetic polyneuropathy; M10.9 Gout, unspecified; M40.202 Unspecified kyphosis, cervical region; G89.29 Other chronic pain; I08.1 Rheumatic disorders of both mitral and tricuspid valves; Z51.5 Encounter for palliative care; M62.58 Muscle wasting and atrophy, not elsewhere classified, other site; Z87.11 Personal history of peptic ulcer disease; Z86.73 Personal history of transient ischemic attack (TIA), and cerebral infarction without residual deficits; Z90.11 Acquired absence of right breast and nipple; G62.9 Polyneuropathy, unspecified; B96.20 Unspecified Escherichia coli [E. coli] as the cause of diseases classified elsewhere; S42.309D Unspecified fracture of shaft of humerus, unspecified arm, subsequent encounter for fracture with routine healing
CPT/HCPCS: 31500; 36600; 36620; 70450; 71010; 74176; 74420; 76937; 80048; 80053; 80202; 81001; 82140; 82550; 82552; 82805; 82948; 83605; 83735; 83880; 84100; 84132; 84155; 84484; 85007; 85025; 85027; 85610; 87040; 87077; 87086; 87149; 87186; 87205; 87449; 87804; 93005; 94002; 94003; 94150; 94640; 94664; 96361; 96374; 96375; C1769; C9113; J0282; J0610; J0696; J1644; J1720; J1815; J1940; J1956; J2250; J2270; J2310; J2370; J2543; J3010; J3370; J3475; J3480; J7030; J7050; J7060; Q9967